=== PATIENT | male | born 1960 | race Caucasian/White ===

== ENCOUNTER 2016-10-09 16:45 | Inpatient (IN) | payer MEDICAID ==
[2016-10-09 17:46] LABS: Glucose,Whole Blood 288 mg/dL (75-99)
[2016-10-09] MEDS ORDERED: ONDANSETRON 4 MG/2 ML VIAL IVP PRN (18:22)
[2016-10-09] MEDS ORDERED: ALBUTEROL NEBULIZED 2.5 MG/3 ML INHALATION PRN (18:29)
--- NOTE | 2016-10-09 18:41 | XR ---
EXAMINATION TYPE: XR foot complete LT DATE OF EXAM: 10/09/2016 6:34 PM CLINICAL HISTORY: Left great toe ulcer. TECHNIQUE: Frontal, lateral, and oblique images of the left foot are obtained. COMPARISON: None FINDINGS: There is no acute fracture/dislocation evident in the left foot. The joint spaces in the left foot appear within normal limits. No suspicious cortical destruction or periosteal reaction is s een. Lucency consistent with ulceration along the medial plantar aspect of first interphalangeal join t is noted. IMPRESSION: There is soft tissue lesion or ulceration noted. There is no convincing radiographic ginny dence for acute osteomyelitis. If suspicion persists further investigation with 3 phase bone scan or MRI may be warranted.
[2016-10-09] MEDS: MORPHINE SULFATE 2 MG/ML SYRINGE IVP PRN (20:01)
[2016-10-09] MEDS: HEPARIN SODIUM,PORCINE 5,000 UNIT/ML 1 ML VIAL SQ SCH (20:01)
[2016-10-09] MEDS: AMPICILLIN-SULBACTAM 3 GM in SODIUM CHLORIDE 0.9% 100 ML IVPB SCH ×2 (20:01→23:11)
[2016-10-09 20:34] LABS: ALT 39 U/L (21-72); AST 19 U/L (17-59); Alkaline Phosphatase 58 U/L (38-126); Anion Gap 10 mmol/L; Blood Urea Nitrogen 8 mg/dL (9-20); C Reactive Protein 59.5 mg/L (<10.0); Carbon Dioxide 28 mmol/L (22-30); Chloride 98 mmol/L (98-107); Glucose 220 mg/dL (74-99); Non-African American GFR(MDRD) >60 (>60 ml/min/1.73 sqM); Potassium 4.4 mmol/L (3.5-5.1); Sodium 136 mmol/L (137-145); Total Bilirubin 0.4 mg/dL (0.2-1.3); Total Protein 6.6 g/dL (6.3-8.2)
[2016-10-09 21:04] LABS: Glucose,Whole Blood 193 mg/dL (75-99)
[2016-10-09] MEDS: CLOTRIMAZOLE/BETAMETH 1-0.05% CREAM 45 GM TUBE TOPICAL SCH (21:39)
[2016-10-09] MEDS: INSULIN LISPRO (humaLOG) 300 UNIT/3 ML VIAL SQ SCH (21:46)
[2016-10-09 23:38] LABS: Erythrocyte Sedimentation Rate 22 mm/hr (0-15)
[2016-10-10] MEDS: MORPHINE SULFATE 2 MG/ML SYRINGE IVP PRN ×4 (00:07→21:57)
[2016-10-10 00:51] LABS: Hemoglobin A1C 9.2 % (4.2-6.1)
[2016-10-10 01:18] LABS: Basophils # (A) 0.1 k/uL (0-0.2); Basophils % (A) 1 %; CH 27.1; CHCM 32.2; Eosinophils # (A) 0.3 k/uL (0-0.7); Eosinophils % (A) 5 %; HCT 40.8 % (39.0-53.0); HDW 2.45; HGB 13.3 gm/dL (13.0-17.5); Luc # (Auto) 0.15; Luc % (Auto) 3; Lymphocytes # (A) 1.3 k/uL (1.0-4.8); Lymphocytes % (A) 23 %; MCH 27.6 pg (25.0-35.0); MCHC 32.7 g/dL (31.0-37.0); MCV 84.5 fL (80.0-100.0); Mean Platelet Volume 7.4; Monocytes # (A) 0.7 k/uL (0-1.0); Monocytes % (A) 12 %; Neutrophils # (A) 3.3 k/uL (1.3-7.7); Neutrophils % (A) 57 %; RBC 4.83 m/uL (4.30-5.90); RDW 13.5 % (11.5-15.5); WBC 5.7 k/uL (3.8-10.6); WBC (Perox) 5.66
[2016-10-10] MEDS: AMPICILLIN-SULBACTAM 3 GM in SODIUM CHLORIDE 0.9% 100 ML IVPB SCH ×4 (05:30→23:03)
[2016-10-10 07:33] LABS: Glucose,Whole Blood 188 mg/dL (75-99)
[2016-10-10] MEDS: ACETAMINOPHEN TAB 325 MG TAB PO PRN (08:20)
[2016-10-10] MEDS: INSULIN LISPRO (humaLOG) 300 UNIT/3 ML VIAL SQ SCH ×4 (08:21→21:52)
[2016-10-10] MEDS: HEPARIN SODIUM,PORCINE 5,000 UNIT/ML 1 ML VIAL SQ SCH ×2 (08:23→21:51)
[2016-10-10] MEDS: CLOTRIMAZOLE/BETAMETH 1-0.05% CREAM 45 GM TUBE TOPICAL SCH ×2 (08:27→21:52)
[2016-10-10] MEDS ORDERED: LORATADINE 10 MG TAB PO SCH (09:00)
[2016-10-10] MEDS ORDERED: Magnesium Replacement Protocol 1 EACH MISC MISCELLANE PRN (10:00)
[2016-10-10] MEDS ORDERED: Potassium Replacement Protocol 1 EACH MISC MISCELLANE PRN (10:00)
[2016-10-10 11:35] LABS: Glucose,Whole Blood 259 mg/dL (75-99)
[2016-10-10] MEDS: COLLAGENASE 250 UNIT/GM OINTMENT 30 GM TUBE TOPICAL SCH (11:45)
--- NOTE | 2016-10-10 13:01 | P.HPIM ---
History of Present Illness H&P Date: 10/10/16 Chief Complaint: Infected diabetic ulcer This is a 56-year-old gentleman who was directly admitted from the wound care clinic for further evaluation of infected first left toe diabetic ulcer. Patient was diagnosed with type 2 diabetes in January when he initially presented with a left toe ulcer and since then he has been taking metformin and sliding scale insulin. Patient was evaluated by Dr. Quintero in the wound care clinic yesterday and was noted to have increased purulent drainage that failed outpatient management with oral antibiotic. Patient was directly admitted to the hospital. Repeat wound culture obtained. Patient was started on IV antibiotic and consultation for infectious disease requested. He said that his pain is relatively well-controlled now that he is receiving IV morphine. His dressing was changed today and I was unable to locate a stool at this point of time. He is feeling fairly well otherwise. Blood glucose remained not well controlled. Review of Systems Review of system: 14 points review of systems were obtained and were negative except to what were mentioned in the HPI. Past Medical History Past Medical History: Asthma, Diabetes Mellitus, Hypertension Additional Past Medical History / Comment(s): GOES TO [facility] EVERY SUNDAY-LT GREAT TOE INFECTION, CONSTIPATION.HEMORRHOIDS History of Any Multi-Drug Resistant Organisms: None Reported Past Surgical History: Appendectomy, Heart Catheterization, Hernia Repair, Orthopedic Surgery Additional Past Surgical History / Comment(s): RT ROATATOR CUFF SX, RT INGUINAL HERNIA,UMB HERNIA REPAIR Past Anesthesia/Blood Transfusion Reactions: No Reported Reaction Past Psychological History: No Psychological Hx Reported Additional Psychological History / Comment(s): PT LIVES WITH HIS MARGARETTE,IN A 2 STORY HOME THAT HAS 3 FRONT PORCH STEPS AND 12 STEPS TO GO UPSTAIRS.NO PETS. 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 NO SERVICE IN PAST. NO OUTSIDE SERVICES. NO MEDICAL EQUIPMENT. Smoking Status: Never smoker Past Alcohol Use History: None Reported Past Drug Use History: None Reported - Past Family History Father Family Medical History: Hypertension Mother Family Medical History: Asthma, COPD Medications and Allergies Home Medications Medication Instructions Recorded Confirmed Type Acetaminophen with Codeine 1 tab PO TID 09/01/16 10/09/16 History [Tylenol w/codeine #3] Albuterol Inhaler [Ventolin Hfa 1 - 2 puff INHALATION RT-Q4H PRN 09/01/16 History Inhaler] Cetirizine HCl 10 mg PO DAILY 09/01/16 10/09/16 History metFORMIN HCL 1,000 mg PO BID 09/01/16 10/09/16 History Clotrimazole/Betameth Cream 1 applic TOPICAL BID 10/09/16 10/09/16 History [Lotrisone] Insulin Aspart [NovoLOG] See Protocol SQ AC-TID 10/09/16 10/09/16 History Allergies Allergy/AdvReac Type Severity Reaction Status Date / Time ciprofloxacin [From Cipro] Allergy Unknown Verified 10/09/16 22:35 Physical Exam Vitals: Vital Signs Temp Pulse Pulse Resp BP Pulse Ox 10/10/16 07:00 100.3 F H 97 16 119/72 93 L 10/09/16 22:35 97.6 F 71 18 145/71 93 L 10/09/16 22:06 96 10/09/16 21:56 90 10/09/16 17:50 98.0 F 93 18 145/75 95 Intake and Output 10/09/16 10/10/16 10/10/16 22:59 06:59 14:59 Intake Total 440 Balance 440 Intake: Oral 440 Other: Voiding Method Toilet # Voids 0 2 # Bowel Movements 0 Weight 113 kg General: The patient is awake and alert, in no distress, and does not appear acutely ill. Eye: extra-ocular movements are intact; there is normal conjunctiva bilaterally. . Neck: The neck is supple, there is no tenderness or JVD. Cardiovascular: Normal S1-S2, no S3-S4, no murmurs. Respiratory: Lungs clear to auscultation bilaterally with no wheezes rhonchi or rales. Gastrointestinal: Abdomen is soft, nontender, nondistended, with no organomegaly. . Musculoskeletal: Please refer to nursing staff documentation for description of the wound involving the left big toe Neurological: There are no obvious motor or sensory deficits. Speech is normal. Skin: Skin is warm and dry and no rashes or lesions are noted. Results CBC & Chem 7: 10/09/16 19:54 10/09/16 19:54 Labs: Abnormal Lab Results - Last 24 Hours (Table) 10/09/16 10/09/16 10/09/16 Range/Units 17:44 19:54 19:54 ESR 22 H (0-15) mm/hr Sodium 136 L (137-145) mmol/L BUN 8 L (9-20) mg/dL Creatinine 0.50 L (0.66-1.25) mg/dL Glucose 220 H (74-99) mg/dL POC Glucose (mg/dL) 288 H (75-99) mg/dL Hemoglobin A1c (4.2-6.1) % C-Reactive Protein 59.5 H (<10.0) mg/L 10/09/16 10/09/16 10/10/16 Range/Units 19:54 21:02 07:16 ESR (0-15) mm/hr Sodium (137-145) mmol/L BUN (9-20) mg/dL Creatinine (0.66-1.25) mg/dL Glucose (74-99) mg/dL POC Glucose (mg/dL) 193 H 188 H (75-99) mg/dL Hemoglobin A1c 9.2 H (4.2-6.1) % C-Reactive Protein (<10.0) mg/L 10/10/16 Range/Units 11:33 ESR (0-15) mm/hr Sodium (137-145) mmol/L BUN (9-20) mg/dL Creatinine (0.66-1.25) mg/dL Glucose (74-99) mg/dL POC Glucose (mg/dL) 259 H (75-99) mg/dL Hemoglobin A1c (4.2-6.1) % C-Reactive Protein (<10.0) mg/L Microbiology - Last 24 Hours (Table) 10/09/16 22:30 Anaerobic Culture - Preliminary Toe - Left First 10/09/16 22:30 Wound Culture - Preliminary Toe - Left First Thrombosis Risk Factor Assmnt - Choose All That Apply Any of the Below Risk Factors Present?: Yes Each Factor Represents 1 point: Age 41-60 years, Obesity (BMI >25) Other Risk Factors: No Other congenital or acquired thrombophilia - If yes, enter type in comment: No Thrombosis Risk Factor Assessment Total Risk Factor Score: 2 Thrombosis Risk Factor Assessment Level: Low Risk Assessment and Plan Plan: 1. Infected diabetic ulcer of the left foot: Currently on broad-spectrum IV antibiotic. Previously growing MSSA. Awaiting Dr. Quintero evaluation and recommendation if any surgical intervention is required. Repeat cultures obtained. Infectious disease following for antibiotic management. Appreciate recommendations. 2. Type 2 diabetes mellitus: Not well controlled. A1c 9.1. Started on Lantus 12 units at bedtime. Continue sliding scale insulin. Hold oral agents during this hospitalization. 3. Chronic ALLERGIC rhinitis 4. GI and DVT prophylaxis Today, I reviewed his medication list and lab work result. Continue current regimen. Continue supportive care otherwise. Repeat lab work in the morning.
--- NOTE | 2016-10-10 14:02 | P.GSCN ---
History of Present Illness History of present illness: 56 old white male, patient has been coming to the wound clinic for a Robles grade 3 ulcer left foot big toe we've been treating with the local wound care and antibiotic patient came yesterday to the wound clinic with the redness and pain in his left foot big toe patient has been admitted for IV antibiotic patient has history of diabetes type 2 1 patient had a MRI of the bone which showed no evidence of osteomyelitis. Previous culture shows staph aureus at this point patient is on vancomycin and Unasyn Medical history history of hypertension, eczema, diabetes, Surgical history patient had appendectomy done in the past and also had a hernia repair done in the past On examination neck is supple no bruit appreciated Chest clear auscultation first and second sound is normal Vascular examination brachial radial and femoral pulses are present patient had a left foot big toe with regular grade 3 ulcer there is a redness noted on the dorsum aspect of the big toe and it there is a open wound on the plantar aspect of the big toe Plan is patient is on IV antibiotic, started on central cream we will continue with IV antibiotic I have discussed with the patient and we will treat if infection controlled by antibiotic otherwise he will end up with toe amputation Past Medical History Past Medical History: Asthma, Diabetes Mellitus, Hypertension Additional Past Medical History / Comment(s): GOES TO [facility] EVERY SUNDAY-LT GREAT TOE INFECTION, CONSTIPATION.HEMORRHOIDS History of Any Multi-Drug Resistant Organisms: None Reported Past Surgical History: Appendectomy, Heart Catheterization, Hernia Repair, Orthopedic Surgery Additional Past Surgical History / Comment(s): RT ROATATOR CUFF SX, RT INGUINAL HERNIA,UMB HERNIA REPAIR Past Anesthesia/Blood Transfusion Reactions: No Reported Reaction Past Psychological History: No Psychological Hx Reported Additional Psychological History / Comment(s): PT LIVES WITH HIS MARGARETTE,IN A 2 STORY HOME THAT HAS 3 FRONT PORCH STEPS AND 12 STEPS TO GO UPSTAIRS.NO PETS. 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 NO SERVICE IN PAST. NO OUTSIDE SERVICES. NO MEDICAL EQUIPMENT. Smoking Status: Never smoker Past Alcohol Use History: None Reported Past Drug Use History: None Reported - Past Family History Father Family Medical History: Hypertension Mother Family Medical History: Asthma, COPD Medications and Allergies Home Medications Medication Instructions Recorded Confirmed Type Acetaminophen with Codeine 1 tab PO TID 09/01/16 10/09/16 History [Tylenol w/codeine #3] Albuterol Inhaler [Ventolin Hfa 1 - 2 puff INHALATION RT-Q4H PRN 09/01/16 History Inhaler] Cetirizine HCl 10 mg PO DAILY 09/01/16 10/09/16 History metFORMIN HCL 1,000 mg PO BID 09/01/16 10/09/16 History Clotrimazole/Betameth Cream 1 applic TOPICAL BID 10/09/16 10/09/16 History [Lotrisone] Insulin Aspart [NovoLOG] See Protocol SQ AC-TID 10/09/16 10/09/16 History Allergies Allergy/AdvReac Type Severity Reaction Status Date / Time ciprofloxacin [From Cipro] Allergy Unknown Verified 10/09/16 22:35 Surgical - Exam Vital Signs Temp Pulse Resp BP Pulse Ox 98.0 F 93 18 145/75 95 10/09/16 17:50 10/09/16 17:50 10/09/16 17:50 10/09/16 17:50 10/09/16 17:50 Results - Labs 10/09/16 19:54 10/09/16 19:54 Abnormal Lab Results - Last 24 Hours (Table) 10/09/16 10/09/16 10/09/16 Range/Units 17:44 19:54 19:54 ESR 22 H (0-15) mm/hr Sodium 136 L (137-145) mmol/L BUN 8 L (9-20) mg/dL Creatinine 0.50 L (0.66-1.25) mg/dL Glucose 220 H (74-99) mg/dL POC Glucose (mg/dL) 288 H (75-99) mg/dL Hemoglobin A1c (4.2-6.1) % C-Reactive Protein 59.5 H (<10.0) mg/L 10/09/16 10/09/16 10/10/16 Range/Units 19:54 21:02 07:16 ESR (0-15) mm/hr Sodium (137-145) mmol/L BUN (9-20) mg/dL Creatinine (0.66-1.25) mg/dL Glucose (74-99) mg/dL POC Glucose (mg/dL) 193 H 188 H (75-99) mg/dL Hemoglobin A1c 9.2 H (4.2-6.1) % C-Reactive Protein (<10.0) mg/L 10/10/16 Range/Units 11:33 ESR (0-15) mm/hr Sodium (137-145) mmol/L BUN (9-20) mg/dL Creatinine (0.66-1.25) mg/dL Glucose (74-99) mg/dL POC Glucose (mg/dL) 259 H (75-99) mg/dL Hemoglobin A1c (4.2-6.1) % C-Reactive Protein (<10.0) mg/L Microbiology - Last 24 Hours (Table) 10/09/16 22:30 Anaerobic Culture - Preliminary Toe - Left First 10/09/16 22:30 Wound Culture - Preliminary Toe - Left First Diabetes panel 10/09/16 10/09/16 Range/Units 19:54 19:54 Sodium 136 L (137-145) mmol/L Potassium 4.4 (3.5-5.1) mmol/L Chloride 98 (98-107) mmol/L Carbon Dioxide 28 (22-30) mmol/L BUN 8 L (9-20) mg/dL Creatinine 0.50 L (0.66-1.25) mg/dL Glucose 220 H (74-99) mg/dL Hemoglobin A1c 9.2 H (4.2-6.1) % Calcium 9.0 (8.4-10.2) mg/dL AST 19 (17-59) U/L ALT 39 (21-72) U/L Alkaline Phosphatase 58 (38-126) U/L Total Protein 6.6 (6.3-8.2) g/dL Albumin 3.7 (3.5-5.0) g/dL Calcium panel 10/09/16 Range/Units 19:54 Calcium 9.0 (8.4-10.2) mg/dL Albumin 3.7 (3.5-5.0) g/dL Pituitary panel 10/09/16 Range/Units 19:54 Sodium 136 L (137-145) mmol/L Potassium 4.4 (3.5-5.1) mmol/L Chloride 98 (98-107) mmol/L Carbon Dioxide 28 (22-30) mmol/L BUN 8 L (9-20) mg/dL Creatinine 0.50 L (0.66-1.25) mg/dL Glucose 220 H (74-99) mg/dL Calcium 9.0 (8.4-10.2) mg/dL Adrenal panel 10/09/16 Range/Units 19:54 Sodium 136 L (137-145) mmol/L Potassium 4.4 (3.5-5.1) mmol/L Chloride 98 (98-107) mmol/L Carbon Dioxide 28 (22-30) mmol/L BUN 8 L (9-20) mg/dL Creatinine 0.50 L (0.66-1.25) mg/dL Glucose 220 H (74-99) mg/dL Calcium 9.0 (8.4-10.2) mg/dL Total Bilirubin 0.4 (0.2-1.3) mg/dL AST 19 (17-59) U/L ALT 39 (21-72) U/L Alkaline Phosphatase 58 (38-126) U/L Total Protein 6.6 (6.3-8.2) g/dL Albumin 3.7 (3.5-5.0) g/dL
[2016-10-10 14:22] VITALS: BMI 34.7
[2016-10-10] MEDS ORDERED: IV VANCOMYCIN PER PHARMACY 1 EACH MISC MISCELLANE PRN (15:03)
[2016-10-10] MEDS: VANCOMYCIN 1,750 MG in SODIUM CHLORIDE 0.9% 250 ML IVPB SCH (15:40)
[2016-10-10 17:11] LABS: Glucose,Whole Blood 248 mg/dL (75-99)
[2016-10-10] MEDS: Acetaminophen-Codeine 300-30mg TAB PO PRN (18:18)
[2016-10-10] MEDS: CETIRIZINE 10 MG TABLET PO SCH (18:24)
--- NOTE | 2016-10-10 20:08 | CONS ---
DATE OF CONSULTATION: 10/10/2016 REASON FOR CONSULTATION: Left big toe infection. HISTORY OF PRESENT ILLNESS: The patient is a 56-year-old male who has been dealing with a non-healing wound to his left big toe for a couple of months now. 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 He has been seeing Dr. Quintero in the wound care center for about a month now. The patient did mention that his wound was healing well; however, over the weekend the area became more swollen, more red, and it did have some drainage. The patient did have a followup with Dr. Quintero in the wound care center yesterday. He was noticed to have significant cellulitis; hence the patient was advised admission to the hospital. Patient did have x-rays which did not show any bony changes. The patient also had an MRI done in the middle of last month that was negative for any osteomyelitis. Patient has been started on Unasyn. He did have wound cultures done at this facility as an outpatient on September 11 that grew Enterococcus faecalis, anaerobic Gram-positive cocci, MSSA and Streptococcus agalactiae. Patient has been on Unasyn. He did spike a fever of 100.8 this morning, though. The patient denies significant chest pain or shortness of breath or cough. The patient denies having any abdominal pain. No diarrhea. He did have some dull pain to the toe 2-3/10 and no radiation. REVIEW OF SYSTEMS: CONSTITUTIONAL: Positive for weakness and chills. EYES: No complaint. ENT: No complaint. RESPIRATORY: No complaint. CARDIOVASCULAR: No complaint. GENITOURINARY: No complaint. GASTROINTESTINAL: No complaint. MUSCULOSKELETAL: As per HPI. INTEGUMENTARY: As per HPI. PSYCHOLOGICAL: No complaint. ENDOCRINE: No complaint. NEUROLOGICAL: No complaint. Past medical history is significant for: 1. Diabetes mellitus. 2. Hypertension. 3. Asthma. 4. Non-healing wound to the left big toe. PAST SURGICAL HISTORY: 1. Heart catheterization. 2. Hernia repair. 3. Right rotator cuff surgery. 4. Right inguinal hernia repair. 5. Appendectomy. SOCIAL HISTORY: No history of smoking, drinking or drug use. FAMILY HISTORY: Father with history of hypertension. Mother with history of COPD and asthma ALLERGIES: CIPROFLOXACIN. Medications currently include: 1. Tylenol. 2. Unasyn 3 grams q.6. 3. Lotrisone. 4. Santyl. 5. Heparin. 6. Lantus. 7. Humalog. 8. Cetirizine. On examination, blood pressure is 119/72 with a pulse of 97, temperature of 100.3. He is 93% on room air. General description is a middle-aged male lying in bed in no distress. HEENT examination shows no pallor or scleral icterus. Oral mucous membrane is dry. NECK: Trachea is central. No thyromegaly. LUNGS: Unlabored breathing. Clear to auscultation anteriorly. HEART: S1, S2. Regular rate and rhythm. ABDOMEN: Soft. No tenderness. EXTREMITIES: No edema of feet. EXAMINATION OF THE LEFT BIG TOE: Swollen and red with a wound on the medial border with some swelling and callus formation. No drainage. NEUROLOGICAL: Patient is awake, alert, oriented x3. Mood and affect normal. LABS: Hemoglobin is 13.3, white count 5.7. BUN of 8, creatinine 0.50. Electrolytes have been normal. Liver enzymes are normal. Wound culture currently pending. Blood cultures are pending. Cultures from 09/11 with multiple pathogens. DIAGNOSTIC IMPRESSION AND PLAN: Patient with a left diabetic foot infection with a non-healing wound to the big toe area. Previous culture with evidence of enterococcus and anaerobic. He has been on Unasyn; still has a fever. We need to cover for the more resistant Gram-positive. The wound does not look that deep; however, wound donot down to the bone. X-ray did not show any bony changes. He also had an MRI done as an outpatient about 2 weeks ago with no evidence of any osteomyelitis. PLAN: 1. Will add vancomycin, Pharmacy to dose, with a target of 15, and continue patient on Unasyn while waiting for the culture to finalize. 2. Continue local wound care with Santyl . 3. Will follow up on his clinical condition and cultures to further adjust medication if needed. Thank you for this consultation. Will follow this patient along with you. BASHIR
[2016-10-10] MEDS ORDERED: INSULIN GLARGINE 100 UNIT/ML 10 ML VIAL SQ SCH (21:00)
[2016-10-10 21:20] LABS: Glucose,Whole Blood 242 mg/dL (75-99)
[2016-10-11] MEDS: VANCOMYCIN 1,750 MG in SODIUM CHLORIDE 0.9% 250 ML IVPB SCH ×3 (00:08→17:38)
[2016-10-11] MEDS: AMPICILLIN-SULBACTAM 3 GM in SODIUM CHLORIDE 0.9% 100 ML IVPB SCH ×4 (05:12→23:26)
[2016-10-11] MEDS: Acetaminophen-Codeine 300-30mg TAB PO PRN ×2 (05:15→22:30)
[2016-10-11] MEDS: INSULIN LISPRO (humaLOG) 300 UNIT/3 ML VIAL SQ SCH ×4 (07:34→22:19)
[2016-10-11 07:49] LABS: Glucose,Whole Blood 192 mg/dL (75-99)
[2016-10-11] MEDS: HEPARIN SODIUM,PORCINE 5,000 UNIT/ML 1 ML VIAL SQ SCH ×3 (08:25→22:18)
[2016-10-11] MEDS: COLLAGENASE 250 UNIT/GM OINTMENT 30 GM TUBE TOPICAL SCH (08:26)
[2016-10-11] MEDS: CLOTRIMAZOLE/BETAMETH 1-0.05% CREAM 45 GM TUBE TOPICAL SCH ×2 (08:26→22:18)
[2016-10-11 10:28] LABS: Basophils % (A) 1 %; CH 27.1; CHCM 31.2; Eosinophils # (A) 0.2 k/uL (0-0.7); Eosinophils % (A) 2 %; HCT 40.6 % (39.0-53.0); HDW 2.42; HGB 12.8 gm/dL (13.0-17.5); Hypochromasia Slight; Luc # (Auto) 0.26; Luc % (Auto) 4; Lymphocytes # (A) 1.3 k/uL (1.0-4.8); Lymphocytes % (A) 21 %; MCH 27.4 pg (25.0-35.0); MCHC 31.4 g/dL (31.0-37.0); MCV 87.2 fL (80.0-100.0); Mean Platelet Volume 6.8; Monocytes # (A) 0.5 k/uL (0-1.0); Monocytes % (A) 9 %; Neutrophils # (A) 3.9 k/uL (1.3-7.7); Neutrophils % (A) 63 %; RBC 4.65 m/uL (4.30-5.90); RDW 13.4 % (11.5-15.5); WBC 6.2 k/uL (3.8-10.6); WBC (Perox) 6.29
[2016-10-11 11:15] LABS: ALT 32 U/L (21-72); AST 16 U/L (17-59); Alkaline Phosphatase 54 U/L (38-126); Anion Gap 10 mmol/L; Blood Urea Nitrogen 11 mg/dL (9-20); Carbon Dioxide 25 mmol/L (22-30); Chloride 99 mmol/L (98-107); Glucose 313 mg/dL (74-99); Magnesium 1.8 mg/dL (1.6-2.3); Non-African American GFR(MDRD) >60 (>60 ml/min/1.73 sqM); Potassium 4.4 mmol/L (3.5-5.1); Sodium 134 mmol/L (137-145); Total Bilirubin 0.6 mg/dL (0.2-1.3); Total Protein 6.7 g/dL (6.3-8.2)
[2016-10-11] MEDS: ACETAMINOPHEN TAB 325 MG TAB PO PRN (11:43)
[2016-10-11 11:48] LABS: Glucose,Whole Blood 226 mg/dL (75-99)
--- NOTE | 2016-10-11 13:04 | P.PN ---
Subjective Patient is doing fairly well today. He is rating his pain as 5 out of 10. No events overnight. Objective - Vital Signs Vital signs: Vital Signs Temp 96.7 F L 10/11/16 07:00 Pulse 77 10/11/16 07:00 Resp 20 10/11/16 07:00 BP 141/88 10/11/16 07:00 Pulse Ox 94 L 10/11/16 07:00 Intake & Output 10/10/16 10/11/16 10/11/16 18:59 06:59 18:59 Intake Total 1200 240 240 Balance 1200 240 240 Weight 113 kg Intake: Oral 1200 240 240 Other: Voiding Method Toilet Toilet Toilet # Voids 2 1 # Bowel Movements 0 - Exam General: The patient is awake and alert, in no distress Eye: there is normal conjunctiva bilaterally. Neck: The neck is supple, there is no JVD. Cardiovascular: Normal S1-S2, no S3-S4, no murmurs. Respiratory: Lungs clear to auscultation bilaterally Gastrointestinal: Abdomen is soft, nontender Musculoskeletal: There is no pedal edema. Neurological:. Speech is normal. Skin: Skin is warm and dry - Labs CBC & Chem 7: 10/11/16 09:53 10/11/16 09:53 Labs: Abnormal Lab Results - Last 24 Hours (Table) 10/10/16 10/10/16 10/11/16 Range/Units 16:58 21:15 07:28 Hgb (13.0-17.5) gm/dL Sodium (137-145) mmol/L Creatinine (0.66-1.25) mg/dL Glucose (74-99) mg/dL POC Glucose (mg/dL) 248 H 242 H 192 H (75-99) mg/dL AST (17-59) U/L 10/11/16 10/11/16 10/11/16 Range/Units 09:53 09:53 11:33 Hgb 12.8 L (13.0-17.5) gm/dL Sodium 134 L (137-145) mmol/L Creatinine 0.61 L (0.66-1.25) mg/dL Glucose 313 H (74-99) mg/dL POC Glucose (mg/dL) 226 H (75-99) mg/dL AST 16 L (17-59) U/L Microbiology - Last 24 Hours (Table) 10/09/16 22:30 Gram Stain - Preliminary Toe - Left First Wound Culture - Preliminary Presumptive Staph aureus 10/09/16 19:42 Blood Culture - Preliminary Blood No Growth after 24 hours 10/09/16 19:54 Blood Culture - Preliminary Blood No Growth after 24 hours 10/09/16 22:30 Anaerobic Culture - Preliminary Toe - Left First Assessment and Plan Plan: 1. Infected diabetic ulcer of the left foot: Currently on broad-spectrum IV antibiotic. Previously growing MSSA. seen and evaluated by Dr. Quintero. Plan for IV antibiotic treatment with possible surgical intervention in the near future if no improvement. Infectious disease following for antibiotic management. Appreciate recommendations. 2. Type 2 diabetes mellitus: Not well controlled. A1c 9.1. increase Lantus dose to 16 units at bedtime. as glipizide 5 mg twice daily before meals. Continue sliding scale insulin. Hold metformin during this hospitalization. 3. Chronic ALLERGIC rhinitis 4. GI and DVT prophylaxis Today, I reviewed his medication list and lab work result. Continue current regimen. Continue supportive care otherwise. Repeat lab work in the morning.
[2016-10-11] MEDS ORDERED: VANCOMYCIN TROUGH DUE 1 EACH MISC MISCELLANE ONE (15:00)
[2016-10-11 17:22] LABS: Glucose,Whole Blood 224 mg/dL (75-99)
--- NOTE | 2016-10-11 17:22 | P.PN ---
Progress Note - Text 56 old diabetic male, patient has a left foot big to infection and marked cellulitis of the dorsal aspect of the foot patient put on IV antibiotic MRI showed no osteomyelitis patient to examine today there is less redness last discharge plan is continue with IV antibiotic most likely patient will go home on the weekend and we'll follow in the wound clinic
[2016-10-11] MEDS: glipiZIDE 5 MG TAB PO SCH (17:36)
[2016-10-11] MEDS: CETIRIZINE 10 MG TABLET PO SCH (17:43)
--- NOTE | 2016-10-11 20:02 | PN ---
DATE OF SERVICE: 10/11/2016 REASON FOR FOLLOWUP: Left big toe wound infection with cellulitis. INTERVAL HISTORY: The patient is afebrile, has been feeling slightly better. Patient currently denies any significant chest pain, shortness of breath or cough. No abdominal pain or any pain in his big toe area. Did mention overall swelling and redness have improved. On examination, blood pressure is 141/80 with a pulse of 71, temperature of 96. He is 96% on room air. General description is a middle-aged male up in the room in no distress. RESPIRATORY SYSTEM: Unlabored breathing. Clear to auscultation anteriorly. HEART: S1, S2. Regular rate and rhythm. ABDOMEN: Soft. No tenderness. Left big toe is currently dressed up. No obvious drainage on the dressing. LABS: Hemoglobin is 12.3, white count 6.2 with a BUN of 11, creatinine 0.61. Wound cultures showing presumptive Staphylococcus aureus. DIAGNOSTIC IMPRESSION AND PLAN: Patient with left big toe diabetic foot infection with secondary cellulitis. Patient is on Unasyn and vancomycin while waiting for the culture to finalize. Continue local care wound to big toe wound. Continue supportive care. MTDD
[2016-10-11] MEDS: MORPHINE SULFATE 2 MG/ML SYRINGE IVP PRN (20:13)
[2016-10-11 21:07] LABS: Glucose,Whole Blood 182 mg/dL (75-99)
[2016-10-11] MEDS: INSULIN GLARGINE 100 UNIT/ML 10 ML VIAL SQ SCH (22:18)
[2016-10-12] MEDS: MORPHINE SULFATE 2 MG/ML SYRINGE IVP PRN ×2 (00:56→09:29)
[2016-10-12] MEDS: VANCOMYCIN 2,000 MG in SODIUM CHLORIDE 0.9% 500 ML IVPB SCH ×2 (00:57→08:09)
[2016-10-12] MEDS: AMPICILLIN-SULBACTAM 3 GM in SODIUM CHLORIDE 0.9% 100 ML IVPB SCH ×3 (06:08→17:23)
[2016-10-12 07:45] LABS: Glucose,Whole Blood 154 mg/dL (75-99)
[2016-10-12] MEDS: glipiZIDE 5 MG TAB PO SCH ×2 (08:08→17:24)
[2016-10-12] MEDS: INSULIN LISPRO (humaLOG) 300 UNIT/3 ML VIAL SQ SCH ×6 (08:08→21:53)
[2016-10-12] MEDS: HEPARIN SODIUM,PORCINE 5,000 UNIT/ML 1 ML VIAL SQ SCH ×2 (08:09→21:52)
[2016-10-12 08:54] LABS: Basophils # (A) 0.1 k/uL (0-0.2); Basophils % (A) 1 %; CH 27.1; CHCM 31.5; Eosinophils # (A) 0.3 k/uL (0-0.7); Eosinophils % (A) 4 %; HCT 43.5 % (39.0-53.0); HGB 13.8 gm/dL (13.0-17.5); Luc # (Auto) 0.21; Luc % (Auto) 3; Lymphocytes # (A) 1.8 k/uL (1.0-4.8); Lymphocytes % (A) 27 %; MCH 27.6 pg (25.0-35.0); MCHC 31.8 g/dL (31.0-37.0); MCV 86.7 fL (80.0-100.0); Mean Platelet Volume 7.2; Monocytes # (A) 0.5 k/uL (0-1.0); Monocytes % (A) 7 %; Neutrophils # (A) 4.1 k/uL (1.3-7.7); Neutrophils % (A) 59 %; RBC 5.02 m/uL (4.30-5.90); RDW 13.4 % (11.5-15.5); WBC (Perox) 7.11
[2016-10-12 09:10] LABS: ALT 35 U/L (21-72); AST 17 U/L (17-59); Alkaline Phosphatase 63 U/L (38-126); Anion Gap 11 mmol/L; Blood Urea Nitrogen 9 mg/dL (9-20); Calcium 9.1 mg/dL (8.4-10.2); Carbon Dioxide 30 mmol/L (22-30); Chloride 98 mmol/L (98-107); Glucose 278 mg/dL (74-99); Magnesium 1.9 mg/dL (1.6-2.3); Non-African American GFR(MDRD) >60 (>60 ml/min/1.73 sqM); Potassium 3.8 mmol/L (3.5-5.1); Sodium 139 mmol/L (137-145); Total Bilirubin 0.8 mg/dL (0.2-1.3); Total Protein 7.4 g/dL (6.3-8.2)
[2016-10-12 11:59] LABS: Glucose,Whole Blood 198 mg/dL (75-99)
[2016-10-12] MEDS: CLOTRIMAZOLE/BETAMETH 1-0.05% CREAM 45 GM TUBE TOPICAL SCH (12:51)
[2016-10-12] MEDS: COLLAGENASE 250 UNIT/GM OINTMENT 30 GM TUBE TOPICAL SCH (12:51)
[2016-10-12] MEDS: Acetaminophen-Codeine 300-30mg TAB PO PRN ×2 (13:05→21:51)
--- NOTE | 2016-10-12 13:29 | P.PN ---
Subjective Patient is doing well today. Pain is not well controlled with Tylenol 3 every 8 hours and patient was still requiring IV morphine. No issues otherwise. Objective - Vital Signs Vital signs: Vital Signs Temp 97.7 F 10/12/16 07:00 Pulse 65 10/12/16 07:00 Resp 20 10/12/16 08:00 BP 140/84 10/12/16 07:00 Pulse Ox 96 10/12/16 07:00 Intake & Output 10/11/16 10/12/16 10/12/16 18:59 06:59 18:59 Intake Total 960 240 Balance 960 240 Intake: Oral 960 240 Other: Voiding Method Toilet Toilet Toilet # Voids 2 2 - Exam General: The patient is awake and alert, in no distress Eye: there is normal conjunctiva bilaterally. Neck: The neck is supple, there is no JVD. Cardiovascular: Normal S1-S2, no S3-S4, no murmurs. Respiratory: Lungs clear to auscultation bilaterally Gastrointestinal: Abdomen is soft, nontender Musculoskeletal: There is no pedal edema. Neurological:. Speech is normal. Skin: Skin is warm and dry - Labs CBC & Chem 7: 10/12/16 08:40 10/12/16 08:40 Labs: Abnormal Lab Results - Last 24 Hours (Table) 10/11/16 10/11/16 10/12/16 Range/Units 17:15 21:05 07:14 Creatinine (0.66-1.25) mg/dL Glucose (74-99) mg/dL POC Glucose (mg/dL) 224 H 182 H 154 H (75-99) mg/dL 10/12/16 10/12/16 Range/Units 08:40 11:44 Creatinine 0.56 L (0.66-1.25) mg/dL Glucose 278 H (74-99) mg/dL POC Glucose (mg/dL) 198 H (75-99) mg/dL Microbiology - Last 24 Hours (Table) 10/09/16 22:30 Gram Stain - Final Toe - Left First Wound Culture - Final Staphylococcus aureus Strep agalactiae - (group b) 10/09/16 19:42 Blood Culture - Preliminary Blood No Growth after 48 hours 10/09/16 19:54 Blood Culture - Preliminary Blood No Growth after 48 hours Assessment and Plan Plan: 1. Infected diabetic ulcer of the left foot: Currently on broad-spectrum IV antibiotic. Previously growing MSSA. seen and evaluated by Dr. Quintero. Plan for 1 more day of IV antibiotic and transitioned to oral tomorrow. No surgical intervention planned at this time. Follow-up with wound care clinic as directed. 2. Type 2 diabetes mellitus: Not well controlled. A1c 9.1. increase Lantus dose to 16 units at bedtime. added glipizide 5 mg twice daily before meals. Humalog 4 units before each meal with sliding scale. Hold metformin during this hospitalization, resume when discharged. 3. Chronic ALLERGIC rhinitis 4. GI and DVT prophylaxis Today, I reviewed his medication list and lab work result. Continue current regimen. Continue supportive care otherwise. Repeat lab work in the morning.
--- NOTE | 2016-10-12 16:58 | PN ---
DATE OF SERVICE: 10/12/2016 Reason for follow-up is left big toe cellulitis. INTERVAL HISTORY: The patient is afebrile. He has been breathing comfortably. Denies significant chest pain, shortness of breath. No cough or abdominal pain. Left big toe overall swelling and redness have improved. No drainage. On examination, blood pressure 140/84 with a pulse of 55, temperature 97.7. He is 96% on room air. General description is a middle-age male lying in bed in no distress. RESPIRATORY SYSTEM: Unlabored breathing. Clear to auscultation anteriorly. HEART: S1, S2. Regular rate and rhythm. ABDOMEN: Soft, no tenderness. Left big toe swelling and redness has improved. LABS: Hemoglobin is 13.8, white count 7.0 with a BUN of 9, creatinine 0.56. Wound cultures with streptococcus agalactiae and MSSA. DIAGNOSTIC IMPRESSION AND PLAN: Patient with left big toe cellulitis with diabetic foot infection. Overall wound seems to be closing up. No evidence of any osteomyelitis clinically. Antibiotics will continue in the form of Unasyn. Discontinue vancomycin. Plan to finish therapy with p.o. Keflex 500 mg q.6h for 2 weeks with outpatient follow-up. Continue supportive care.
[2016-10-12 17:00] LABS: Glucose,Whole Blood 137 mg/dL (75-99)
[2016-10-12] MEDS: CETIRIZINE 10 MG TABLET PO SCH (17:24)
[2016-10-12 21:11] LABS: Glucose,Whole Blood 151 mg/dL (75-99)
[2016-10-12] MEDS: INSULIN GLARGINE 100 UNIT/ML 10 ML VIAL SQ SCH (21:52)
[2016-10-12 23:00] VITALS: TEMP 98
[2016-10-13] MEDS ORDERED: AMPICILLIN-SULBACTAM 3 GM VIAL ONE (00:25)
[2016-10-13] MEDS ORDERED: MORPHINE SULFATE 2 MG/ML SYRINGE ONE (00:25)
[2016-10-13] MEDS ORDERED: SODIUM CHLORIDE 0.9% 100 ML BAG ONE (00:25)
[2016-10-13] MEDS: AMPICILLIN-SULBACTAM 3 GM in SODIUM CHLORIDE 0.9% 100 ML IVPB SCH ×3 (06:07→12:33)
[2016-10-13] MEDS ORDERED: VANCOMYCIN TROUGH DUE 1 EACH MISC MISCELLANE ONE (07:00)
[2016-10-13 07:29] LABS: Basophils % (A) 1 %; CH 27.2; CHCM 32.7; Eosinophils # (A) 0.3 k/uL (0-0.7); Eosinophils % (A) 5 %; HCT 37.9 % (39.0-53.0); HDW 2.66; HGB 12.5 gm/dL (13.0-17.5); Luc % (Auto) 4; Lymphocytes # (A) 1.8 k/uL (1.0-4.8); Lymphocytes % (A) 32 %; MCH 27.5 pg (25.0-35.0); MCHC 32.9 g/dL (31.0-37.0); MCV 83.6 fL (80.0-100.0); Mean Platelet Volume 7.3; Monocytes # (A) 0.4 k/uL (0-1.0); Monocytes % (A) 8 %; Neutrophils # (A) 2.9 k/uL (1.3-7.7); Neutrophils % (A) 51 %; RBC 4.53 m/uL (4.30-5.90); WBC 5.7 k/uL (3.8-10.6); WBC (Perox) 5.98
[2016-10-13] MEDS: glipiZIDE 5 MG TAB PO SCH (07:31)
[2016-10-13] MEDS: HEPARIN SODIUM,PORCINE 5,000 UNIT/ML 1 ML VIAL SQ SCH (07:32)
[2016-10-13] MEDS: INSULIN LISPRO (humaLOG) 300 UNIT/3 ML VIAL SQ SCH ×4 (07:32→12:33)
[2016-10-13] MEDS: Acetaminophen-Codeine 300-30mg TAB PO PRN (07:33)
[2016-10-13 07:35] LABS: Glucose,Whole Blood 129 mg/dL (75-99)
[2016-10-13 07:57] VITALS: BP 116/66; PULSE 65; RESP 20
[2016-10-13 08:36] LABS: ALT 39 U/L (21-72); AST 17 U/L (17-59); Alkaline Phosphatase 52 U/L (38-126); Anion Gap 9 mmol/L; Blood Urea Nitrogen 10 mg/dL (9-20); Carbon Dioxide 30 mmol/L (22-30); Chloride 103 mmol/L (98-107); Glucose 137 mg/dL (74-99); Magnesium 2.1 mg/dL (1.6-2.3); Non-African American GFR(MDRD) >60 (>60 ml/min/1.73 sqM); Potassium 4.2 mmol/L (3.5-5.1); Sodium 142 mmol/L (137-145); Total Bilirubin 0.6 mg/dL (0.2-1.3); Total Protein 6.5 g/dL (6.3-8.2)
--- NOTE | 2016-10-13 11:06 | P.DS ---
Providers Date of admission: 10/09/16 17:03 Expected date of discharge: 10/13/16 Attending physician: Zahra Guzman Consults: 10/09/16 18:19 Consult Physician Routine Consulting Provider: Lawson Quintero Consult Reason/Comments: left toe ulcer Do you want consulting provider notified?: Yes 10/09/16 18:20 Consult Physician Routine Consulting Provider: Jai Galdamez Consult Reason/Comments: left toe ulcer Do you want consulting provider notified?: Yes Primary care physician: [facility] Course: This is a very pleasant 56-year-old gentleman with past medical history noted below who was directly admitted to the hospital from the wound care clinic for further evaluation of infected left foot diabetic ulcer. She was seen and evaluated by vascular surgery and infectious disease. Below is a list of his medical problems addressed during this hospitalization. Patient will be discharged home in a stable condition. He will follow-up with me in the office as scheduled. 1. Infected diabetic ulcer of the left foot: Plan to finish 10 days course of Keflex. Previously growing MSSA. seen and evaluated by Dr. Quintero. No surgical intervention planned at this time. Follow-up with wound care clinic as directed. 2. Type 2 diabetes mellitus: Not well controlled. A1c 9.1. increase Lantus dose to 16 units at bedtime. added glipizide 5 mg twice daily before meals. Humalog 4 units before each meal with sliding scale. Hold metformin during this hospitalization, resume when discharged. 3. Chronic ALLERGIC rhinitis Plan - Discharge Summary New Discharge Prescriptions: Cephalexin [Keflex] 500 mg PO Q6HR #56 cap Insulin Aspart [NovoLOG] 4 unit SQ AC-BID #3 vial Insulin Glargine [Lantus] 16 unit SQ HS #3 vial glipiZIDE [Glucotrol] 5 mg PO AC-BID #60 tab Discharge Medication List Acetaminophen with Codeine [Tylenol w/codeine #3] 1 tab PO TID 09/01/16 [History ] Albuterol Inhaler [Ventolin Hfa Inhaler] 1 - 2 puff INHALATION RT-Q4H PRN [History] Cetirizine HCl 10 mg PO DAILY 09/01/16 [History] metFORMIN HCL 1,000 mg PO BID 09/01/16 [History] Clotrimazole/Betameth Cream [Lotrisone] 1 applic TOPICAL BID 10/09/16 [History] Insulin Aspart [NovoLOG] See Protocol SQ AC-TID 10/09/16 [History] Cephalexin [Keflex] 500 mg PO Q6HR #56 cap 10/12/16 [Rx] Insulin Aspart [NovoLOG] 4 unit SQ AC-BID #3 vial 10/13/16 [Rx] Insulin Glargine [Lantus] 16 unit SQ HS #3 vial 10/13/16 [Rx] glipiZIDE [Glucotrol] 5 mg PO AC-BID #60 tab 10/13/16 [Rx] Follow up Appointment(s)/Referral(s): Zahra Guzman MD [Primary Care Provider] - 10/18/16 3:30 pm Jai Galdamez MD [STAFF PHYSICIAN] - 1 Week Patient Instructions/Handouts: Type 2 Diabetes in Adults (DC) Discharge Disposition: HOME SELF-CARE
[2016-10-13 12:11] LABS: Glucose,Whole Blood 139 mg/dL (75-99)
== END 2016-10-13 12:56 | disposition home or self-care (01) | DRG 638 ==
LOC: 4MS4W 17:03
PROVIDERS: ADMIT Internal Medicine; ATTEND Internal Medicine
DX: E11.621 Type 2 diabetes mellitus with foot ulcer (principal); L03.116 Cellulitis of left lower limb; L97.529 Non-pressure chronic ulcer of other part of left foot with unspecified severity; I10 Essential (primary) hypertension; J45.909 Unspecified asthma, uncomplicated; Z79.4 Long term (current) use of insulin; Z79.84 Long term (current) use of oral hypoglycemic drugs; Z82.49 Family history of ischemic heart disease and other diseases of the circulatory system; Z79.899 Other long term (current) drug therapy; Z88.1 Allergy status to other antibiotic agents; A49.01 Methicillin susceptible Staphylococcus aureus infection, unspecified site
CPT/HCPCS: 80053; 80202; 83036; 83735; 85025; 85652; 85730; 86140; 87040; 87070; 87075; 87077; 87186; 87205; 94640

== ENCOUNTER 2016-11-13 07:58 | Day surgery (SDC) | payer MEDICAID ==
[2016-11-10 10:52] VITALS: BMI 34.2
[~2016-11-13 07:58] MED LIST: ALPRAZolam 0.25 MG TAB PO PRN; ASPIRIN 325 MG TAB PO STA; SODIUM CHLORIDE 0.9% 1,000 ML in EMPTY BAG 1 BAG IV ONE
[2016-11-13 08:30] VITALS: RESP 16
[2016-11-13] MEDS ORDERED: SODIUM CHLORIDE 0.9% 1,000 ML IV ONE (08:32)
[2016-11-13 08:35] LABS: Glucose,Whole Blood 101 mg/dL (75-99)
[2016-11-13 08:45] LABS: Anion Gap 11 mmol/L; Blood Urea Nitrogen 10 mg/dL (9-20); Calcium 9.6 mg/dL (8.4-10.2); Carbon Dioxide 26 mmol/L (22-30); Chloride 106 mmol/L (98-107); Glucose 110 mg/dL (74-99); Magnesium 1.9 mg/dL (1.6-2.3); Non-African American GFR(MDRD) >60 (>60 ml/min/1.73 sqM); Potassium 4.3 mmol/L (3.5-5.1); Sodium 143 mmol/L (137-145)
[2016-11-13] MEDS ORDERED: fentaNYL (PF) 50 MCG/ML 2 ML AMP IV ONE (09:08)
[2016-11-13] MEDS: LIDOCAINE 2% INJ 20 MG/ML SQ ONE ×2 (09:10→09:13)
[2016-11-13] MEDS ORDERED: IODIXANOL 320 MG/ML 100 ML INTRAARTER ONE (09:36)
[2016-11-13] MEDS ORDERED: SODIUM CHLORIDE 0.9% 1,000 ML IV SCH (10:00)
[2016-11-13 10:08] VITALS: TEMP 98
[2016-11-13 10:35] LABS: Glucose,Whole Blood 119 mg/dL (75-99)
[2016-11-13 12:34] VITALS: PULSE 75
[2016-11-13] MEDS ORDERED: Acetaminophen-Codeine 300-30mg TAB PO STA (13:46)
[2016-11-13 15:24] VITALS: BP 138/78
--- NOTE | 2016-11-14 07:57 | PCN ---
DATE OF PROCEDURE: PREOPERATIVE DIAGNOSIS: Nonhealing wound at the left foot big toe. PROCEDURE: Angiogram left leg. PROCEDURE: This patient was brought to the quality assurance lab technician. Left groin was prepped and draped usual sterile manner. 1% lidocaine infiltrated into left groin. Micropuncture introduced in the common femoral artery. Micropuncture guidewire was passed and 4 Maltese dilator advanced on top of the guidewire with hand injection. Angiogram was performed. Left common iliac was visualized and was patent. Left external and intermediate artery was found to be patent. Left femoral and profunda were patent. Then we checked the left superficial femoral artery and popliteal artery was found to be patent. Tibial peroneal trunk was visualized. Anterior tibial was patent all the way down to the foot. Peroneal and posterior tibial were smaller, but they were patent. Catheter was removed. Pressure was held. The patient tolerated the procedure well.
--- NOTE | 2016-11-16 08:09 | IR ---
EXAMINATION TYPE: IR angio abdominal w runoff DATE OF EXAM: 11/13/2016 9:55 AM CLINICAL HISTORY: Nonhealing ulcer left toe TECHNIQUE: Fluoroscopy. COMPARISON: None. FINDINGS: Fluoroscopic guidance was provided during left lower extremity angiogram with runoff proce dure performed by Dr. Quintero. A total of 2.7 minutes of fluoroscopic time was utilized during the p rocedure and multiple spot images was acquired. Please refer to procedure note for further details as I was not present nor performed procedure. IMPRESSION: As Above.
== END 2016-11-13 16:00 | disposition home or self-care (01) ==
LOC: CATHCVL 07:58
PROVIDERS: ATTEND Surgery Vascular Surgery
DX: L97.529 Non-pressure chronic ulcer of other part of left foot with unspecified severity (principal)
CPT/HCPCS: 36200; 75710; 80048; 83735; C1769 ×3; J2001; Q9967; J3010

== ENCOUNTER 2017-03-22 14:49 | Inpatient (IN) | payer MEDICAID ==
[2017-03-22] MEDS ORDERED: IV VANCOMYCIN PER PHARMACY 1 EACH MISC MISCELLANE PRN (15:32)
[2017-03-22] MEDS ORDERED: VANCOMYCIN 1,000 MG in SODIUM CHLORIDE 0.9% 250 ML IVPB STA (15:32)
[2017-03-22] MEDS ORDERED: SODIUM CHLORIDE 0.9% 1,000 ML IV STA (15:32)
--- NOTE | 2017-03-22 15:35 | ED ---
General Adult HPI - General Chief complaint: Wound/Laceration Stated complaint: ulcer-sent by Dr. Hobbs Time Seen by Provider: 03/22/17 15:19 Source: patient, RN notes reviewed Mode of arrival: ambulatory Limitations: no limitations - History of Present Illness Initial comments: 56-year-old male who presents emergency room today with a chief complaint ulcer to the left great toe. He states that he was advised by his communications administrator to come here to the emergency room for admission due to outpatient treatment failure of a cellulitis infection. Does have a chronic ulcer to the posterior aspect of left great toe. Patient states been on Keflex for the past 9 days of Bactrim for the past 2 days. States is been no improvement. States she's noticed some redness and some swelling to the medial aspect of the left ankle. Denies any fever, chills, shortness of breath, chest pain, back pain, abdominal pain, nausea or vomiting, dysuria hematuria, headaches, or visual changes. - Related Data Home Medications Medication Instructions Recorded Confirmed Acetaminophen with Codeine 1 tab PO BID 09/01/16 03/22/17 [Tylenol w/codeine #3] Albuterol Inhaler [Ventolin Hfa 2 puff INHALATION RT-Q4H PRN 09/01/16 03/22/17 Inhaler] Cetirizine HCl 10 mg PO HS 09/01/16 03/22/17 Insulin Aspart [NovoLOG] 4 unit SQ AC-TID 03/22/17 03/22/17 Previous Rx's Medication Instructions Recorded Insulin Glargine [Lantus] 16 unit SQ HS #3 vial 10/13/16 glipiZIDE [Glucotrol] 5 mg PO AC-BID #60 tab 10/13/16 metFORMIN HCL 1,000 mg PO BID #0 11/13/16 Allergies Allergy/AdvReac Type Severity Reaction Status Date / Time ciprofloxacin [From Cipro] Allergy Confusion Verified 03/22/17 15:34 Review of Systems ROS Statement: Those systems with pertinent positive or pertinent negative responses have been documented in the HPI. ROS Other: All systems not noted in ROS Statement are negative. Past Medical History Past Medical History: Asthma, Diabetes Mellitus Additional Past Medical History / Comment(s): GOES TO [facility] EVERY SUNDAY-LT GREAT TOE INFECTION, CONSTIPATION.HEMORRHOIDS History of Any Multi-Drug Resistant Organisms: None Reported Past Surgical History: Appendectomy, Heart Catheterization, Hernia Repair, Orthopedic Surgery Additional Past Surgical History / Comment(s): RT ROATATOR CUFF SX, RT INGUINAL HERNIA,UMB HERNIA REPAIR Past Anesthesia/Blood Transfusion Reactions: No Reported Reaction Past Psychological History: No Psychological Hx Reported Smoking Status: Never smoker Past Alcohol Use History: None Reported Past Drug Use History: None Reported - Past Family History Father Family Medical History: Hypertension Mother Family Medical History: Asthma, COPD General Exam - General Exam Comments Initial Comments: General: The patient is awake and alert, in no distress, and does not appear acutely ill. Eye: Pupils are equal, round and reactive to light, extra-ocular movements are intact. No nystagmus. There is normal conjunctiva bilaterally. No signs of icterus. Ears, nose, mouth and throat: There are moist mucous membranes and no oral lesions. Neck: The neck is supple, there is no tenderness or JVD. Cardiovascular: There is a regular rate and rhythm. No murmur, rub or gallop is appreciated. Respiratory: Lungs are clear to auscultation, respirations are non-labored, breath sounds are equal. No wheezes, stridor, rales, or rhonchi. Musculoskeletal: Normal ROM, no tenderness. Strength 5/5. Sensation intact. Pulses equal bilaterally 2+. Neurological: A&O x 3. CN II-XII intact, There are no obvious motor or sensory deficits. Coordination appears grossly intact. Speech is normal. Skin: See the posterior aspect of the left great toe. Mild redness swelling locally to the medial aspect of the left ankle. Psychiatric: Cooperative, appropriate mood & affect, normal judgment. Limitations: no limitations Course Vital Signs 03/22/17 15:12 Temperature 97.2 F L Pulse Rate 89 Respiratory 18 Rate Blood Pressure 162/79 O2 Sat by Pulse 97 Oximetry Medical Decision Making - Medical Decision Making X-rays negative for any acute abnormalities. Labs have been reviewed. Patient will be admitted to the hospital placed on IV antibiotics for outpatient treatment failure. - Lab Data Result diagrams: 03/22/17 15:08 03/22/17 15:08 Lab Results 03/22/17 03/22/17 Range/Units 15:08 15:08 WBC 7.8 (3.8-10.6) k/uL RBC 4.55 (4.30-5.90) m/uL Hgb 12.7 L (13.0-17.5) gm/dL Hct 38.8 L (39.0-53.0) % MCV 85.4 (80.0-100.0) fL MCH 27.9 (25.0-35.0) pg MCHC 32.6 (31.0-37.0) g/dL RDW 14.1 (11.5-15.5) % Plt Count 323 (150-450) k/uL Neutrophils % 76 % Lymphocytes % 13 % Monocytes % 7 % Eosinophils % 3 % Basophils % 1 % Neutrophils # 5.9 (1.3-7.7) k/uL Lymphocytes # 1.0 (1.0-4.8) k/uL Monocytes # 0.5 (0-1.0) k/uL Eosinophils # 0.2 (0-0.7) k/uL Basophils # 0.1 (0-0.2) k/uL Sodium 133 L (137-145) mmol/L Potassium 4.7 (3.5-5.1) mmol/L Chloride 102 (98-107) mmol/L Carbon Dioxide 21 L (22-30) mmol/L Anion Gap 10 mmol/L BUN 10 (9-20) mg/dL Creatinine 0.70 (0.66-1.25) mg/dL Est GFR (MDRD) Af Amer >60 (>60 ml/min/1.73 sqM) Est GFR (MDRD) Non-Af >60 (>60 ml/min/1.73 sqM) Glucose 253 H (74-99) mg/dL Calcium 9.1 (8.4-10.2) mg/dL Total Bilirubin 0.5 (0.2-1.3) mg/dL AST 48 (17-59) U/L ALT 49 (21-72) U/L Alkaline Phosphatase 65 (38-126) U/L Total Protein 6.4 (6.3-8.2) g/dL Albumin 3.7 (3.5-5.0) g/dL Disposition Clinical Impression: Cellulitis, Diabetic foot ulcer Disposition: ADMITTED IP TO THIS [facility] Condition: Stable Referrals: Zahra Guzman MD [Primary Care Provider] - 1-2 days Time of Disposition: 17:19
[2017-03-22] MEDS ORDERED: VANCOMYCIN 2,000 MG in SODIUM CHLORIDE 0.9% 500 ML IVPB ONE (16:00)
[2017-03-22 16:15] LABS: Basophils # (A) 0.1 k/uL (0-0.2); Basophils % (A) 1 %; CHCM 32.9; Eosinophils # (A) 0.2 k/uL (0-0.7); Eosinophils % (A) 3 %; HCT 38.8 % (39.0-53.0); HDW 2.32; HGB 12.7 gm/dL (13.0-17.5); Luc # (Auto) 0.08; Luc % (Auto) 1; Lymphocytes % (A) 13 %; MCH 27.9 pg (25.0-35.0); MCHC 32.6 g/dL (31.0-37.0); MCV 85.4 fL (80.0-100.0); Mean Platelet Volume 7.2; Monocytes # (A) 0.5 k/uL (0-1.0); Monocytes % (A) 7 %; Neutrophils # (A) 5.9 k/uL (1.3-7.7); Neutrophils % (A) 76 %; RBC 4.55 m/uL (4.30-5.90); RDW 14.1 % (11.5-15.5); WBC 7.8 k/uL (3.8-10.6); WBC (Perox) 7.94
[2017-03-22 16:31] LABS: ALT 49 U/L (21-72); AST 48 U/L (17-59); Alkaline Phosphatase 65 U/L (38-126); Anion Gap 10 mmol/L; Blood Urea Nitrogen 10 mg/dL (9-20); Calcium 9.1 mg/dL (8.4-10.2); Carbon Dioxide 21 mmol/L (22-30); Chloride 102 mmol/L (98-107); Glucose 253 mg/dL (74-99); Non-African American GFR(MDRD) >60 (>60 ml/min/1.73 sqM); Potassium 4.7 mmol/L (3.5-5.1); Sodium 133 mmol/L (137-145); Total Bilirubin 0.5 mg/dL (0.2-1.3); Total Protein 6.4 g/dL (6.3-8.2)
--- NOTE | 2017-03-22 16:36 | XR ---
EXAMINATION TYPE: XR foot complete LT DATE OF EXAM: 03/22/2017 COMPARISON: NONE HISTORY: 56-year-old male pain and diabetic ulcer inferior great toe TECHNIQUE: 3 views FINDINGS: Vascular calcifications suggest underlying diabetes in her chronic kidney disease. Os peroneum noted. Some soft tissue ulceration noted on the plantar aspect of the great toe. No underlying periostitis o r osteomyelitis is identified. No acute fracture or dislocation. IMPRESSION: Soft tissue ulcer plantar aspect of the great toe. No underlying acute osseous abnormality seen. No r adiographic evidence for osteomyelitis at this time.
[2017-03-22] MEDS ORDERED: ONDANSETRON 4 MG/2 ML VIAL IVP PRN (17:19)
[2017-03-22] MEDS ORDERED: ACETAMINOPHEN TAB 325 MG TAB PO PRN (17:19)
[2017-03-22] MEDS ORDERED: NALOXONE 0.4 MG/ML 1 ML VIAL IV PRN (17:19)
[2017-03-22] MEDS ORDERED: HYDROmorphone 1 MG/ML 1 ML SYRINGE IV PRN (17:19)
[2017-03-22] MEDS: HYDROcodone/APAP 5-325MG 1 EACH TAB PO PRN (17:37)
[2017-03-22] MEDS ORDERED: ALBUTEROL NEBULIZED 2.5 MG/3 ML INHALATION PRN (20:48)
[2017-03-22 20:51] LABS: Glucose,Whole Blood 309 mg/dL (75-99)
[2017-03-22] MEDS ORDERED: INSULIN LISPRO (humaLOG) 300 UNIT/3 ML VIAL SQ ONE (21:26)
[2017-03-22] MEDS: Acetaminophen-Codeine 300-30mg TAB PO SCH (21:30)
[2017-03-22] MEDS: LORATADINE 10 MG TAB PO SCH (21:31)
[2017-03-22] MEDS: glipiZIDE 5 MG TAB PO SCH (21:32)
[2017-03-22] MEDS: INSULIN GLARGINE 100 UNIT/ML 10 ML VIAL SQ SCH (21:38)
[2017-03-22] MEDS: VANCOMYCIN 1,750 MG in SODIUM CHLORIDE 0.9% 250 ML IVPB SCH (23:20)
[2017-03-23 00:22] LABS: Glucose,Whole Blood 99 mg/dL (75-99)
[2017-03-23 05:18] LABS: Glucose,Whole Blood 130 mg/dL (75-99)
[2017-03-23] MEDS: HYDROcodone/APAP 5-325MG 1 EACH TAB PO PRN ×3 (05:23→16:05)
[2017-03-23] MEDS ORDERED: INSULIN LISPRO (humaLOG) 300 UNIT/3 ML VIAL SQ SCH (07:30)
[2017-03-23 07:34] LABS: Glucose,Whole Blood 130 mg/dL (75-99)
[2017-03-23 07:52] LABS: Hemoglobin A1C 9.1 % (4.2-6.1)
[2017-03-23] MEDS: glipiZIDE 5 MG TAB PO SCH ×2 (07:57→17:38)
[2017-03-23] MEDS: INSULIN LISPRO (humaLOG) 300 UNIT/3 ML VIAL SQ SCH ×6 (07:57→21:17)
[2017-03-23] MEDS: Acetaminophen-Codeine 300-30mg TAB PO SCH ×2 (07:57→20:34)
[2017-03-23] MEDS: VANCOMYCIN 1,750 MG in SODIUM CHLORIDE 0.9% 250 ML IVPB SCH ×3 (07:57→23:02)
[2017-03-23 09:20] LABS: Basophils # (A) 0.1 k/uL (0-0.2); Basophils % (A) 1 %; CH 26.7; CHCM 30.6; Eosinophils # (A) 0.4 k/uL (0-0.7); Eosinophils % (A) 6 %; HCT 41.8 % (39.0-53.0); HDW 2.25; HGB 13.1 gm/dL (13.0-17.5); Hypochromasia Slight; Luc # (Auto) 0.18; Luc % (Auto) 3; Lymphocytes # (A) 1.5 k/uL (1.0-4.8); Lymphocytes % (A) 21 %; MCH 27.5 pg (25.0-35.0); MCHC 31.3 g/dL (31.0-37.0); MCV 87.7 fL (80.0-100.0); Mean Platelet Volume 6.7; Monocytes # (A) 0.5 k/uL (0-1.0); Monocytes % (A) 7 %; Neutrophils # (A) 4.2 k/uL (1.3-7.7); Neutrophils % (A) 62 %; RBC 4.77 m/uL (4.30-5.90); RDW 13.2 % (11.5-15.5); WBC 6.8 k/uL (3.8-10.6)
[2017-03-23 10:00] LABS: ALT 56 U/L (21-72); AST 31 U/L (17-59); Alkaline Phosphatase 60 U/L (38-126); Anion Gap 10 mmol/L; Blood Urea Nitrogen 9 mg/dL (9-20); Calcium 8.8 mg/dL (8.4-10.2); Carbon Dioxide 24 mmol/L (22-30); Chloride 102 mmol/L (98-107); Glucose 223 mg/dL (74-99); Non-African American GFR(MDRD) >60 (>60 ml/min/1.73 sqM); Potassium 4.7 mmol/L (3.5-5.1); Sodium 136 mmol/L (137-145); Total Bilirubin 0.3 mg/dL (0.2-1.3); Total Protein 6.2 g/dL (6.3-8.2)
[2017-03-23] MEDS: PIPERACILLIN-TAZOBACTAM 3.375 GM in DEXTROSE/WATER 1 50ML.BAG IVPB SCH ×2 (10:34→15:23)
--- NOTE | 2017-03-23 11:20 | P.HPIM ---
History of Present Illness H&P Date: 03/23/17 Chief Complaint: Left great toe ulcer This is a 56-year-old male, patient of Dr. Guzman. He has a known past medical history of diabetes mellitus, asthma and a chronic left foot ulcer. Patient has been dealing with this foot ulcer for about a year. He has been hospitalized previously for it. He has been followed at the wound care center by Dr. Quintero and also follows up with Dr. Hobbs for podiatry. Patient reports that he has been on Keflex for about 9 days for this infection in his left great toe with no snacking improvement. He was then started on Bactrim for 2 days. He went to see his denture waxer yesterday and was told to come into the hospital for IV antibiotics and further evaluation and treatment. The by the denture waxer had cleaned off a callus along the left medial aspect of the great toe per patient and was told that it was not healing. X-ray of the left foot shows soft tissue ulcer plantar aspect of the great toe. No underlying acute osseous abnormality seen. No x-ray evidence of osteomyelitis at this time. Patient reports significant pain in that left great toe and foot. He's reports having some redness that was along the left foot and going up into the leg. Patient reports that there is already been some improvement in the redness. He does have significant swelling in the left leg and tenderness with palpation of the left calf. Blood sugars are not well-controlled A1c is 9.1 and he had a blood sugar on admission of 309. He was started on IV Zosyn and vancomycin. He reports no history of MRSA. Wound culture obtained blood culture and is pending. A consult for infectious disease was ordered. And they have already ordered a bone scan. Patient denies any fever or chills or sweats. Denies any nausea or vomiting. Denies any bowel movement changes or urinary symptoms. Review of Systems Please refer to HPI otherwise unremarkable Past Medical History Past Medical History: Asthma, Diabetes Mellitus Additional Past Medical History / Comment(s): WAS GOING TO [facility] EVERY SUNDAY-LT GREAT TOE INFECTION COMPLETED VISITS, CONSTIPATION.HEMORRHOIDS History of Any Multi-Drug Resistant Organisms: None Reported Past Surgical History: Appendectomy, Heart Catheterization, Hernia Repair, Orthopedic Surgery Additional Past Surgical History / Comment(s): RT ROATATOR CUFF SX, RT INGUINAL HERNIA,UMB HERNIA REPAIR Past Anesthesia/Blood Transfusion Reactions: No Reported Reaction Smoking Status: Never smoker - Past Family History Father Family Medical History: Hypertension Mother Family Medical History: Asthma, COPD Medications and Allergies Home Medications Medication Instructions Recorded Confirmed Type Acetaminophen with Codeine 1 tab PO BID 09/01/16 03/22/17 History [Tylenol w/codeine #3] Albuterol Inhaler [Ventolin Hfa 2 puff INHALATION RT-Q4H PRN 09/01/16 03/22/17 History Inhaler] Cetirizine HCl 10 mg PO HS 09/01/16 03/22/17 History Insulin Glargine [Lantus] 16 unit SQ HS #3 vial 10/13/16 03/22/17 Rx glipiZIDE [Glucotrol] 5 mg PO AC-BID #60 tab 10/13/16 03/22/17 Rx metFORMIN HCL 1,000 mg PO BID #0 11/13/16 03/22/17 Rx Insulin Aspart [NovoLOG] 4 unit SQ AC-TID 03/22/17 03/22/17 History Allergies Allergy/AdvReac Type Severity Reaction Status Date / Time ciprofloxacin [From Cipro] Allergy Confusion Verified 03/22/17 15:34 Physical Exam Vitals: Vital Signs Temp Pulse Pulse Resp BP BP Pulse Ox 03/23/17 07:00 96.5 F L 69 18 134/79 95 03/22/17 22:24 97.3 F L 81 18 155/91 94 L 03/22/17 19:26 97.0 F L 76 18 153/81 95 03/22/17 15:12 97.2 F L 89 18 162/79 97 Intake and Output 03/22/17 03/23/17 03/23/17 22:59 06:59 14:59 Other: Voiding Method Toilet # Voids 1 2 Weight 117.934 kg Head normocephalic Neck supple Lungs clear to auscultation bilaterally no wheezing or crackles Heart regular rate and rhythm S1-S2, no rub or gallop Abdomen is soft nontender nondistended positive bowel sounds no hepatosplenomegaly Extremities left leg and foot are swollen. Left great toe swollen. There is an ulcer and opening along the lateral aspect of the left great toe. Tender with palpation. Bloody drainage noted on bandage. Patient does have some redness noted into the left march and calf area. Tenderness with palpation of the calf. Neuro alert and orientated to 3 Results CBC & Chem 7: 03/23/17 08:39 03/23/17 08:39 Labs: Abnormal Lab Results - Last 24 Hours (Table) 03/22/17 03/22/17 03/22/17 Range/Units 15:08 15:08 15:08 Hgb 12.7 L (13.0-17.5) gm/dL Hct 38.8 L (39.0-53.0) % Sodium 133 L (137-145) mmol/L Carbon Dioxide 21 L (22-30) mmol/L Creatinine (0.66-1.25) mg/dL Glucose 253 H (74-99) mg/dL POC Glucose (mg/dL) (75-99) mg/dL Hemoglobin A1c 9.1 H (4.2-6.1) % Total Protein (6.3-8.2) g/dL 03/22/17 03/23/17 03/23/17 Range/Units 20:50 05:17 07:30 Hgb (13.0-17.5) gm/dL Hct (39.0-53.0) % Sodium (137-145) mmol/L Carbon Dioxide (22-30) mmol/L Creatinine (0.66-1.25) mg/dL Glucose (74-99) mg/dL POC Glucose (mg/dL) 309 H 130 H 130 H (75-99) mg/dL Hemoglobin A1c (4.2-6.1) % Total Protein (6.3-8.2) g/dL 03/23/17 Range/Units 08:39 Hgb (13.0-17.5) gm/dL Hct (39.0-53.0) % Sodium 136 L (137-145) mmol/L Carbon Dioxide (22-30) mmol/L Creatinine 0.60 L (0.66-1.25) mg/dL Glucose 223 H (74-99) mg/dL POC Glucose (mg/dL) (75-99) mg/dL Hemoglobin A1c (4.2-6.1) % Total Protein 6.2 L (6.3-8.2) g/dL Microbiology - Last 24 Hours (Table) 03/22/17 15:08 Gram Stain - Preliminary Toe - Left First Wound Culture - Preliminary Thrombosis Risk Factor Assmnt - Choose All That Apply Any of the Below Risk Factors Present?: Yes Each Factor Represents 1 point: Age 41-60 years, Obesity (BMI >25) Other Risk Factors: No Other congenital or acquired thrombophilia - If yes, enter type in comment: No Thrombosis Risk Factor Assessment Total Risk Factor Score: 2 Thrombosis Risk Factor Assessment Level: Low Risk Assessment and Plan Plan: 1. Infected diabetic foot ulcer of the left great toe: Failed outpatient treatment. Infectious diseases been consulted. Wound culture pending. Currently on Zosyn and vancomycin. Foot x-ray showed no evidence of osteomyelitis. Bone scan pending. Also check a venous Doppler of the left leg to rule out DVT 2. Diabetes mellitus type 2: Not well controlled. Hemoglobin A1c 9.1. Resume Lantus Humalog scheduled with each meal and oral hypoglycemics. Add sliding scale coverage. 3. Asthma stable no evidence of exacerbation 4. Obesity BMI 36.3 GI prophylaxis Pepcid and DVT prophylaxis subcu heparin Time with Patient: Greater than 30 (Greater than 50% of the total time spent in counseling and coordination of care.I performed an examination of the patient and discussed their management with the physician Rn Emergency Room. I have reviewed the Physician Rn Emergency Room's notes and agree with the documented findings and plan of care)
[2017-03-23 11:40] VITALS: BMI 36.2
[2017-03-23 12:01] LABS: Glucose,Whole Blood 206 mg/dL (75-99)
--- NOTE | 2017-03-23 13:13 | P.CONS ---
History of Present Illness - Reason for Consult Consult date: 03/23/17 Diabetic foot ulcer - History of Present Illness This is a 56-year-old male patient with past history of diabetes mellitus type 2 initially diagnosed 1 year ago. He is now on insulin and oral agents. He has been treated for left great toe diabetic ulcer Robles grade [address] Quintero in the wound healing Center from August of this year and was discharged on February 06 with healing of the wound. Patient states the Dr. Quintero recommended he follow with Dr. Hobbs to address the callus on the same toe. Patient has been following with Dr. Hobbs for the past 4-6 weeks and has had debridement of the callus. Dr. Hobbs told him that there was an infection there and has been on antibiotics of Keflex which she took 9 days worth and he has also been on Bactrim for 2 days at this time. Patient denies fever, chills , nausea, vomiting, diarrhea. He states he's had decreased appetite. Patient did have some minimal nausea this morning but none previous to admission. He does complain of significant peripheral neuropathy for which he was on Neurontin but did have a reaction and was then placed on Cymbalta for 3 weeks which did not help. He is now only taking [place]. He also states that Dilaudid caused him dizziness. He came into [facility] emergency center for evaluation. He underwent an x-ray that showed soft tissue ulcer on the plantar surface of the great toe with no signs of osteomyelitis. He was placed on vancomycin and admitted to the [facility] floor. Patient states the redness that was going up his foot to his ankle and lower leg area is improved from yesterday and is not as red. Wound culture is in progress. Blood culture is status received. Review of Systems All systems: negative Constitutional: Reports poor appetite, Denies chills, Denies fever Eyes: denies blurred vision, denies pain Ears, nose, mouth and throat: Denies dental pain, Denies dysphagia, Denies headache, Denies mouth pain, Denies sore throat Cardiovascular: Denies chest pain, Denies dyspnea on exertion, Denies edema, Denies leg edema, Denies lightheadedness, Denies shortness of breath, Denies syncope Respiratory: Denies cough, Denies cough with sputum, Denies dyspnea, Denies excessive sputum, Denies hemoptysis, Denies home oxygen Gastrointestinal: Reports nausea, Denies abdominal pain, Denies diarrhea, Denies vomiting Genitourinary: Denies dysuria, Denies urinary frequency Musculoskeletal: Denies myalgias Musculoskeletal: left: foot pain Integumentary: Reports wounds, Denies pruritus, Denies rash Neurological: Denies numbness, Denies weakness Psychiatric: Denies anxiety, Denies depression Endocrine: Denies fatigue, Denies weight change Past Medical History Past Medical History: Asthma, Diabetes Mellitus Additional Past Medical History / Comment(s): WAS GOING TO [facility] EVERY SUNDAY-LT GREAT TOE INFECTION COMPLETED VISITS, CONSTIPATION.HEMORRHOIDS History of Any Multi-Drug Resistant Organisms: None Reported Past Surgical History: Appendectomy, Heart Catheterization, Hernia Repair, Orthopedic Surgery Additional Past Surgical History / Comment(s): RT ROATATOR CUFF SX, RT INGUINAL HERNIA,UMB HERNIA REPAIR Past Anesthesia/Blood Transfusion Reactions: No Reported Reaction Smoking Status: Never smoker Additional Past Alcohol Use History / Comment(s): Patient is a lifelong nonsmoker. He denies any medical marijuana, marijuana or street drug or alcohol use. He lives at home with his . There are no pets in the home. 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 No service. - Past Family History Father Family Medical History: Hypertension Mother Family Medical History: Asthma, COPD Medications and Allergies Home Medications Medication Instructions Recorded Confirmed Type Acetaminophen with Codeine 1 tab PO BID 09/01/16 03/22/17 History [Tylenol w/codeine #3] Albuterol Inhaler [Ventolin Hfa 2 puff INHALATION RT-Q4H PRN 09/01/16 03/22/17 History Inhaler] Cetirizine HCl 10 mg PO HS 09/01/16 03/22/17 History Insulin Glargine [Lantus] 16 unit SQ HS #3 vial 10/13/16 03/22/17 Rx glipiZIDE [Glucotrol] 5 mg PO AC-BID #60 tab 10/13/16 03/22/17 Rx metFORMIN HCL 1,000 mg PO BID #0 11/13/16 03/22/17 Rx Insulin Aspart [NovoLOG] 4 unit SQ AC-TID 03/22/17 03/22/17 History Allergies Allergy/AdvReac Type Severity Reaction Status Date / Time ciprofloxacin [From Cipro] Allergy Confusion Verified 03/22/17 15:34 Physical Exam Vitals: Vital Signs Temp Pulse Pulse Resp BP BP Pulse Ox 03/23/17 07:00 96.5 F L 69 18 134/79 95 03/22/17 22:24 97.3 F L 81 18 155/91 94 L 03/22/17 19:26 97.0 F L 76 18 153/81 95 03/22/17 15:12 97.2 F L 89 18 162/79 97 Intake and Output 03/22/17 03/23/17 03/23/17 22:59 06:59 14:59 Other: Voiding Method Toilet # Voids 1 2 Weight 117.934 kg Gen: This is a 56-year-old morbid obese male. He is found in bed and appears to be comfortable and in no acute distress. HEENT: Head is atraumatic, normocephalic. Pupils equal, round. Sclerae is anicteric. Conjunctiva pink. Mucous membranes of the mouth are moist. NECK: Supple. No JVD. No lymphadenopathy. No thyromegaly. LUNGS: Clear to auscultation. No wheezes or rhonchi. No intercostal retractions. HEART: Regular rate and rhythm. No murmur. ABDOMEN: Soft. Bowel sounds are present. No masses. No tenderness. EXTREMITIES: Mild left lower extremity edema to the foot and into the lower leg. Left great toe has an ulcer on the plantar surface with scant amount of drainage. Toe otherwise is slightly red with redness in the foot and ankle and distal tib-fib area. NEUROLOGICAL: Patient is awake, alert and oriented x3. Cranial nerves 2 through 12 are grossly intact. Results Results: Laboratory Results WBC 6.8 k/uL (3.8-10.6) 03/23/17 08:39 RBC 4.77 m/uL (4.30-5.90) 03/23/17 08:39 Hgb 13.1 gm/dL (13.0-17.5) 03/23/17 08:39 Hct 41.8 % (39.0-53.0) 03/23/17 08:39 MCV 87.7 fL (80.0-100.0) 03/23/17 08:39 MCH 27.5 pg (25.0-35.0) 03/23/17 08:39 MCHC 31.3 g/dL (31.0-37.0) 03/23/17 08:39 RDW 13.2 % (11.5-15.5) 03/23/17 08:39 Plt Count 287 k/uL (150-450) 03/23/17 08:39 Neutrophils % 62 % 03/23/17 08:39 Lymphocytes % 21 % 03/23/17 08:39 Monocytes % 7 % 03/23/17 08:39 Eosinophils % 6 % 03/23/17 08:39 Basophils % 1 % 03/23/17 08:39 Neutrophils # 4.2 k/uL (1.3-7.7) 03/23/17 08:39 Lymphocytes # 1.5 k/uL (1.0-4.8) 03/23/17 08:39 Monocytes # 0.5 k/uL (0-1.0) 03/23/17 08:39 Eosinophils # 0.4 k/uL (0-0.7) 03/23/17 08:39 Basophils # 0.1 k/uL (0-0.2) 03/23/17 08:39 Hypochromasia Slight 03/23/17 08:39 Sodium 136 mmol/L (137-145) L 03/23/17 08:39 Potassium 4.7 mmol/L (3.5-5.1) 03/23/17 08:39 Chloride 102 mmol/L (98-107) 03/23/17 08:39 Carbon Dioxide 24 mmol/L (22-30) 03/23/17 08:39 Anion Gap 10 mmol/L 03/23/17 08:39 BUN 9 mg/dL (9-20) 03/23/17 08:39 Creatinine 0.60 mg/dL (0.66-1.25) L 03/23/17 08:39 Est GFR (MDRD) Af Amer >60 (>60 ml/min/1.73 sqM) 03/23/17 08:39 Est GFR (MDRD) Non-Af >60 (>60 ml/min/1.73 sqM) 03/23/17 08:39 Glucose 223 mg/dL (74-99) H 03/23/17 08:39 POC Glucose (mg/dL) 206 mg/dL (75-99) H 03/23/17 11:57 POC Glu Applique Cutter ID Koki Mccarthy 03/23/17 11:[address] Glu mg/dL 214 mg/dL 03/22/17 15:08 Hemoglobin A1c 9.1 % (4.2-6.1) H 03/22/17 15:08 Calcium 8.8 mg/dL (8.4-10.2) 03/23/17 08:39 Total Bilirubin 0.3 mg/dL (0.2-1.3) 03/23/17 08:39 AST 31 U/L (17-59) 03/23/17 08:39 ALT 56 U/L (21-72) 03/23/17 08:39 Alkaline Phosphatase 60 U/L (38-126) 03/23/17 08:39 Total Protein 6.2 g/dL (6.3-8.2) L 03/23/17 08:39 Albumin 3.5 g/dL (3.5-5.0) 03/23/17 08:39 CBC & Chem 7: 03/23/17 08:39 03/23/17 08:39 Labs: Abnormal Lab Results - Last 24 Hours (Table) 03/22/17 03/22/17 03/22/17 Range/Units 15:08 15:08 15:08 Hgb 12.7 L (13.0-17.5) gm/dL Hct 38.8 L (39.0-53.0) % Sodium 133 L (137-145) mmol/L Carbon Dioxide 21 L (22-30) mmol/L Glucose 253 H (74-99) mg/dL POC Glucose (mg/dL) (75-99) mg/dL Hemoglobin A1c 9.1 H (4.2-6.1) % 03/22/17 03/23/17 03/23/17 Range/Units 20:50 05:17 07:30 Hgb (13.0-17.5) gm/dL Hct (39.0-53.0) % Sodium (137-145) mmol/L Carbon Dioxide (22-30) mmol/L Glucose (74-99) mg/dL POC Glucose (mg/dL) 309 H 130 H 130 H (75-99) mg/dL Hemoglobin A1c (4.2-6.1) % Microbiology - Last 24 Hours (Table) 03/22/17 15:08 Wound Culture - Preliminary Toe - Left First Assessment and Plan Plan: Is a 56-year-old male presented to the hospital with a diabetic left foot ulcer that has failed outpatient antibiotics. He is currently on vancomycin and Zosyn will be added to cover gram-negative organisms. Wound culture is in progress. Bone scan will be ordered to rule out osteomyelitis. Continue supportive care. Further recommendations as patient progresses. The above dictated assessment and findings were discussed with Dr. Brooke. The impression and plan of care have been directed as dictated. Rosetta Mann nurse practitioner acting as scribe for Dr. Brooke.
--- NOTE | 2017-03-23 14:28 | US ---
EXAMINATION TYPE: US venous doppler duplex LE LT DATE OF EXAM: 03/23/2017 1:53 PM COMPARISON: NONE CLINICAL HISTORY: leg swelling and calf pain. rule out DVT. Left lower leg swelling and redness SIDE PERFORMED: left TECHNIQUE: The lower extremity deep venous system is examined utilizing real time linear array sonog mario with graded compression, doppler sonography and color-flow sonography. VESSELS IMAGED: External Iliac Vein (EIV) Common Femoral Vein Deep Femoral Vein Greater Saphenous Vein * Femoral Vein Popliteal Vein Small Saphenous Vein * Proximal Calf Veins (* superficial vessels) Left Leg: No evidence of DVT IMPRESSION: 1. No diagnostic evidence of DVT as visualized.
--- NOTE | 2017-03-23 16:57 | NM ---
EXAMINATION TYPE: NM bone 3 phase DATE OF EXAM: 03/23/2017 COMPARISON: X-ray 03/22/2017 HISTORY: Left big toe swelling Triple phase bone scintigraphy was performed following the injection of21.5 mCi Tc 99m MDP. Immediat e images and 5 hours post injection images acquired. FINDINGS: There is increased perfusion to the left foot and great toe increased uptake seen along the first dig it of the left foot. Delayed uptake demonstrates increased uptake at the first MTP. Similar uptake se en involving the right first MTP and bilateral medial mid foot region. IMPRESSION: Findings are compatible with cellulitis and osteomyelitis first digit left foot. Post arthritic brush es noted bilaterally.
[2017-03-23 17:14] LABS: Glucose,Whole Blood 165 mg/dL (75-99)
[2017-03-23] MEDS: HEPARIN SODIUM,PORCINE 5,000 UNIT/ML 1 ML VIAL SQ SCH (20:35)
[2017-03-23] MEDS: LORATADINE 10 MG TAB PO SCH (20:35)
[2017-03-23] MEDS: INSULIN GLARGINE 100 UNIT/ML 10 ML VIAL SQ SCH (21:16)
[2017-03-23 21:19] LABS: Glucose,Whole Blood 227 mg/dL (75-99)
--- NOTE | 2017-03-23 21:40 | P.CON ---
Consult Note - . Consult date: 03/23/17 Assessment/Plan:: This is a 56-year-old male patient with past history of diabetes mellitus type 2 initially diagnosed 1 year ago. He is now on insulin and oral agents. He has been treated for left great toe diabetic ulcer Robles grade [address] Quintero in the wound healing Center from August of this year and was discharged on February 06 with healing of the wound. Patient states the Dr. Quintero recommended he follow with Dr. Hobbs to address the callus on the same toe. Patient has been following with Dr. Hobbs for the past 4-6 weeks and has had debridement of the callus. Dr. Hobbs told him that there was an infection there and has been on antibiotics of Keflex which she took 9 days worth and he has also been on Bactrim for 2 days at this time. Patient denies fever, chills , nausea, vomiting, diarrhea. He states he's had decreased appetite. Patient did have some minimal nausea this morning but none previous to admission. He does complain of significant peripheral neuropathy for which he was on Neurontin but did have a reaction and was then placed on Cymbalta for 3 weeks which did not help. He is now only taking [place]. He also states that Dilaudid caused him dizziness. He came into [facility] emergency center for evaluation. He underwent an x-ray that showed soft tissue ulcer on the plantar surface of the great toe with no signs of osteomyelitis. He was placed on vancomycin and admitted to the [facility] floor. Patient states the redness that was going up his foot to his ankle and lower leg area is improved from yesterday and is not as red. Wound culture is in progress. Blood culture is status received. Please see the consult note is dictated by nurse practitioner Mrs. Rosetta Mann At this time this pleasant gentleman appears to have significant infection to the left great toe. There is no nonhealing ulceration. Concerns for underlying bony infection at this time. Bone scan has been requested. Podiatry consult in process. Cultures have been obtained. The results of the studies and cultures will help direct her course of outpatient antibiotic therapy which may be intravenous in nature. May also follow in the wound center after his discharge. I agree with evaluation, assessment and plan as dictated by nurse practitioner Mrs. Rosetta Mann.
[2017-03-24] MEDS: PIPERACILLIN-TAZOBACTAM 3.375 GM in DEXTROSE/WATER 1 50ML.BAG IVPB SCH ×3 (02:12→18:32)
[2017-03-24] MEDS ORDERED: VANCOMYCIN TROUGH DUE 1 EACH MISC MISCELLANE ONE (07:00)
[2017-03-24] MEDS: HYDROcodone/APAP 5-325MG 1 EACH TAB PO PRN ×3 (07:00→16:47)
[2017-03-24 07:17] LABS: Glucose,Whole Blood 150 mg/dL (75-99)
[2017-03-24 08:33] LABS: Basophils # (A) 0.1 k/uL (0-0.2); Basophils % (A) 1 %; CH 26.7; CHCM 30.3; Eosinophils # (A) 0.4 k/uL (0-0.7); Eosinophils % (A) 7 %; HCT 43.1 % (39.0-53.0); HDW 2.25; HGB 13.4 gm/dL (13.0-17.5); Hypochromasia Moderate; Luc # (Auto) 0.13; Luc % (Auto) 2; Lymphocytes # (A) 1.2 k/uL (1.0-4.8); Lymphocytes % (A) 19 %; MCH 27.5 pg (25.0-35.0); MCV 88.5 fL (80.0-100.0); Mean Platelet Volume 6.7; Monocytes # (A) 0.5 k/uL (0-1.0); Monocytes % (A) 8 %; Neutrophils # (A) 4.2 k/uL (1.3-7.7); Neutrophils % (A) 64 %; RBC 4.87 m/uL (4.30-5.90); RDW 13.1 % (11.5-15.5); WBC 6.6 k/uL (3.8-10.6); WBC (Perox) 6.78
[2017-03-24] MEDS: VANCOMYCIN 1,750 MG in SODIUM CHLORIDE 0.9% 250 ML IVPB SCH ×2 (08:50→16:39)
[2017-03-24] MEDS: glipiZIDE 5 MG TAB PO SCH ×2 (08:51→18:33)
[2017-03-24] MEDS: HEPARIN SODIUM,PORCINE 5,000 UNIT/ML 1 ML VIAL SQ SCH ×2 (08:51→21:41)
[2017-03-24] MEDS: INSULIN LISPRO (humaLOG) 300 UNIT/3 ML VIAL SQ SCH ×7 (08:52→21:37)
[2017-03-24] MEDS: FAMOTIDINE 20 MG TAB PO SCH (08:52)
[2017-03-24] MEDS: Acetaminophen-Codeine 300-30mg TAB PO SCH ×2 (08:53→21:40)
[2017-03-24] MEDS: metFORMIN 500 MG TAB PO SCH (09:05)
[2017-03-24 10:17] LABS: ALT 51 U/L (21-72); AST 23 U/L (17-59); Alkaline Phosphatase 57 U/L (38-126); Anion Gap 8 mmol/L; Blood Urea Nitrogen 8 mg/dL (9-20); Calcium 9.1 mg/dL (8.4-10.2); Carbon Dioxide 25 mmol/L (22-30); Chloride 103 mmol/L (98-107); Glucose 275 mg/dL (74-99); Non-African American GFR(MDRD) >60 (>60 ml/min/1.73 sqM); Potassium 4.6 mmol/L (3.5-5.1); Sodium 136 mmol/L (137-145); Total Bilirubin 0.3 mg/dL (0.2-1.3); Total Protein 6.2 g/dL (6.3-8.2)
[2017-03-24 12:02] LABS: Glucose,Whole Blood 146 mg/dL (75-99)
--- NOTE | 2017-03-24 14:15 | P.PN ---
Subjective This is a 56-year-old male, patient of Dr. Guzman. He has a known past medical history of diabetes mellitus, asthma and a chronic left foot ulcer. Patient has been dealing with this foot ulcer for about a year. He has been hospitalized previously for it. He has been followed at the wound care center by Dr. Quintero and also follows up with Dr. Hobbs for podiatry. Patient reports that he has been on Keflex for about 9 days for this infection in his left great toe with no snacking improvement. He was then started on Bactrim for 2 days. He went to see his residential support worker yesterday and was told to come into the hospital for IV antibiotics and further evaluation and treatment. The by the residential support worker had cleaned off a callus along the left medial aspect of the great toe per patient and was told that it was not healing. X-ray of the left foot shows soft tissue ulcer plantar aspect of the great toe. No underlying acute osseous abnormality seen. No x-ray evidence of osteomyelitis at this time. Patient reports significant pain in that left great toe and foot. He's reports having some redness that was along the left foot and going up into the leg. Patient reports that there is already been some improvement in the redness. He does have significant swelling in the left leg and tenderness with palpation of the left calf. Blood sugars are not well-controlled A1c is 9.1 and he had a blood sugar on admission of 309. He was started on IV Zosyn and vancomycin. He reports no history of MRSA. Wound culture obtained blood culture and is pending. A consult for infectious disease was ordered. And they have already ordered a bone scan. Patient denies any fever or chills or sweats. Denies any nausea or vomiting. Denies any bowel movement changes or urinary symptoms. On 03/24/2017 patient was seen and examined he is alert and oriented 3 he is complaining of pain in his foot otherwise denies any complaint there is no chest pain no shortness of breath no dizziness no cough no nausea or vomiting no abdominal pain no diarrhea or constipation and no urinary symptoms Objective - Vital Signs Vital signs: Vital Signs Temp 97.2 F L 03/24/17 07:00 Pulse 69 03/24/17 07:00 Resp 20 03/24/17 07:00 BP 141/87 03/24/17 07:00 Pulse Ox 94 L 03/24/17 07:00 Intake & Output 03/23/17 03/24/17 03/24/17 18:59 06:59 18:59 Intake Total 640 870 Balance 640 870 Weight 117.934 kg Intake: Oral 640 870 Other: # Voids 3 1 - Labs CBC & Chem 7: 03/24/17 08:11 03/24/17 08:11 Labs: Abnormal Lab Results - Last 24 Hours (Table) 03/23/17 03/23/17 03/24/17 Range/Units 17:11 21:14 06:54 Sodium (137-145) mmol/L BUN (9-20) mg/dL Creatinine (0.66-1.25) mg/dL Glucose (74-99) mg/dL POC Glucose (mg/dL) 165 H 227 H 150 H (75-99) mg/dL Total Protein (6.3-8.2) g/dL 03/24/17 03/24/17 Range/Units 08:11 11:59 Sodium 136 L (137-145) mmol/L BUN 8 L (9-20) mg/dL Creatinine 0.60 L (0.66-1.25) mg/dL Glucose 275 H (74-99) mg/dL POC Glucose (mg/dL) 146 H (75-99) mg/dL Total Protein 6.2 L (6.3-8.2) g/dL Microbiology - Last 24 Hours (Table) 03/22/17 15:08 Blood Culture - Preliminary Blood No Growth after 24 hours Assessment and Plan Plan: 1. Infected diabetic foot ulcer of the left great toe: Failed outpatient treatment. Infectious diseases been consulted. Wound culture pending. Currently on Zosyn and vancomycin. Foot x-ray showed no evidence of osteomyelitis. Bone scan reveals evidence of cellulitis and osteomyelitis. venous Doppler was negative for DVT 2. Diabetes mellitus type 2: Not well controlled. Hemoglobin A1c 9.1. Resume Lantus Humalog scheduled with each meal and oral hypoglycemics. Add sliding scale coverage. 3. Asthma stable no evidence of exacerbation 4. Obesity BMI 36.3 5. GI prophylaxis Pepcid and DVT prophylaxis subcu heparin
--- NOTE | 2017-03-24 16:47 | P.PN ---
Subjective Principal diagnosis: Diabetic foot ulcer This is a 56-year-old male patient with past history of diabetes mellitus type 2 initially diagnosed 1 year ago. He is now on insulin and oral agents. He has been treated for left great toe diabetic ulcer Robles grade [address] Quintero in the wound healing Center from August of this year and was discharged on February 06 with healing of the wound. Patient states the Dr. Quintero recommended he follow with Dr. Hobbs to address the callus on the same toe. Patient has been following with Dr. Hobbs for the past 4-6 weeks and has had debridement of the callus. Dr. Hobbs told him that there was an infection there and has been on antibiotics of Keflex which she took 9 days worth and he has also been on Bactrim for 2 days at this time. Patient denies fever, chills , nausea, vomiting, diarrhea. He states he's had decreased appetite. Patient did have some minimal nausea this morning but none previous to admission. He does complain of significant peripheral neuropathy for which he was on Neurontin but did have a reaction and was then placed on Cymbalta for 3 weeks which did not help. He is now only taking [place]. He also states that Dilaudid caused him dizziness. He came into [facility] emergency center for evaluation. He underwent an x-ray that showed soft tissue ulcer on the plantar surface of the great toe with no signs of osteomyelitis. He was placed on vancomycin and admitted to the [facility] floor. Patient states the redness that was going up his foot to his ankle and lower leg area is improved from yesterday and is not as red. Wound culture is in progress. Blood culture are in progress. The bone scan has been completed. Consistent with osteomyelitis of the left great toe. Cultures in process. Objective - Vital Signs Vital signs: Vital Signs Temp 96.8 F L 03/24/17 15:00 Pulse 74 03/24/17 15:00 Resp 20 03/24/17 15:00 BP 135/83 03/24/17 15:00 Pulse Ox 95 03/24/17 15:00 Intake & Output 03/23/17 03/24/17 03/24/17 18:59 06:59 18:59 Intake Total 640 870 Balance 640 870 Weight 117.934 kg Intake: Oral 640 870 Other: # Voids 3 1 3 - Exam Gen: This is a 56-year-old morbid obese male. He is found in bed and appears to be comfortable and in no acute distress. HEENT: Head is atraumatic, normocephalic. Pupils equal, round. Sclerae is anicteric. Conjunctiva pink. Mucous membranes of the mouth are moist. NECK: Supple. No JVD. No lymphadenopathy. No thyromegaly. LUNGS: Clear to auscultation. No wheezes or rhonchi. No intercostal retractions. HEART: Regular rate and rhythm. No murmur. ABDOMEN: Soft. Bowel sounds are present. No masses. No tenderness. EXTREMITIES: Mild left lower extremity edema to the foot and into the lower leg. Left great toe has an ulcer on the plantar surface with scant amount of drainage. Toe otherwise is slightly red with redness in the foot and ankle and distal tib-fib area. NEUROLOGICAL: Patient is awake, alert and oriented x3. Cranial nerves 2 through 12 are grossly intact. - Labs CBC & Chem 7: 03/24/17 08:11 03/24/17 08:11 Labs: Abnormal Lab Results - Last 24 Hours (Table) 03/23/17 03/23/17 03/24/17 Range/Units 17:11 21:14 06:54 Sodium (137-145) mmol/L BUN (9-20) mg/dL Creatinine (0.66-1.25) mg/dL Glucose (74-99) mg/dL POC Glucose (mg/dL) 165 H 227 H 150 H (75-99) mg/dL Total Protein (6.3-8.2) g/dL 03/24/17 03/24/17 Range/Units 08:11 11:59 Sodium 136 L (137-145) mmol/L BUN 8 L (9-20) mg/dL Creatinine 0.60 L (0.66-1.25) mg/dL Glucose 275 H (74-99) mg/dL POC Glucose (mg/dL) 146 H (75-99) mg/dL Total Protein 6.2 L (6.3-8.2) g/dL Microbiology - Last 24 Hours (Table) 03/22/17 15:08 Blood Culture - Preliminary Blood No Growth after 24 hours Laboratory Results WBC 6.6 k/uL (3.8-10.6) 03/24/17 08:11 RBC 4.87 m/uL (4.30-5.90) 03/24/17 08:11 Hgb 13.4 gm/dL (13.0-17.5) 03/24/17 08:11 Hct 43.1 % (39.0-53.0) 03/24/17 08:11 MCV 88.5 fL (80.0-100.0) 03/24/17 08:11 MCH 27.5 pg (25.0-35.0) 03/24/17 08:11 MCHC 31.0 g/dL (31.0-37.0) 03/24/17 08:11 RDW 13.1 % (11.5-15.5) 03/24/17 08:11 Plt Count 289 k/uL (150-450) 03/24/17 08:11 Neutrophils % 64 % 03/24/17 08:11 Lymphocytes % 19 % 03/24/17 08:11 Monocytes % 8 % 03/24/17 08:11 Eosinophils % 7 % 03/24/17 08:11 Basophils % 1 % 03/24/17 08:11 Neutrophils # 4.2 k/uL (1.3-7.7) 03/24/17 08:11 Lymphocytes # 1.2 k/uL (1.0-4.8) 03/24/17 08:11 Monocytes # 0.5 k/uL (0-1.0) 03/24/17 08:11 Eosinophils # 0.4 k/uL (0-0.7) 03/24/17 08:11 Basophils # 0.1 k/uL (0-0.2) 03/24/17 08:11 Hypochromasia Moderate 03/24/17 08:11 Sodium 136 mmol/L (137-145) L 03/24/17 08:11 Potassium 4.6 mmol/L (3.5-5.1) 03/24/17 08:11 Chloride 103 mmol/L (98-107) 03/24/17 08:11 Carbon Dioxide 25 mmol/L (22-30) 03/24/17 08:11 Anion Gap 8 mmol/L 03/24/17 08:11 BUN 8 mg/dL (9-20) L 03/24/17 08:11 Creatinine 0.60 mg/dL (0.66-1.25) L 03/24/17 08:11 Est GFR (MDRD) Af Amer >60 (>60 ml/min/1.73 sqM) 03/24/17 08:11 Est GFR (MDRD) Non-Af >60 (>60 ml/min/1.73 sqM) 03/24/17 08:11 Glucose 275 mg/dL (74-99) H 03/24/17 08:11 POC Glucose (mg/dL) 146 mg/dL (75-99) H 03/24/17 11:59 POC Glu Kettle Girl ID Val Davis 03/24/17 11:[address] Glu mg/dL 212 mg/dL 03/23/17 08:39 Hemoglobin A1c 9.0 % (4.2-6.1) H 03/23/17 08:39 Calcium 9.1 mg/dL (8.4-10.2) 03/24/17 08:11 Total Bilirubin 0.3 mg/dL (0.2-1.3) 03/24/17 08:11 AST 23 U/L (17-59) 03/24/17 08:11 ALT 51 U/L (21-72) 03/24/17 08:11 Alkaline Phosphatase 57 U/L (38-126) 03/24/17 08:11 Total Protein 6.2 g/dL (6.3-8.2) L 03/24/17 08:11 Albumin 3.5 g/dL (3.5-5.0) 03/24/17 08:11 Vancomycin Trough 12.8 ug/mL 03/24/17 08:11 Microbiology 03/22/17 15:08 Blood Blood Culture - Preliminary No Growth after 24 hours 03/22/17 15:08 Toe - Left First Gram Stain - Preliminary 03/22/17 15:08 Toe - Left First Wound Culture - Preliminary - Imaging and Cardiology Bone scan is positive for osteomyelitis of the left great toe Assessment and Plan (1) Diabetic foot ulcer Narrative/Plan: At this time this pleasant gentleman appears to have significant infection to the left great toe. There is no nonhealing ulceration. Concerns for underlying bony infection at this time. Bone scan has been performed. Podiatry consult in process. Cultures have been obtained. Prior cultures are reviewed showing evidence of MSSA as well as an anaerobic gram-negative bacilli. With the positive bone scan we'll plan a 6 week course of intravenous antibiotic therapy. Likely at his local hospital possibly at home. Orders will be placed through the production planner for evaluation. Will request a PICC line to be placed for his outpatient intravenous antibiotic therapy. Pre-albumin to be checked. A1c is elevated he understands importance of increased glucose control. Multivitamin is added He believes is up-to-date on his tetanus. Status: Acute
[2017-03-24 17:06] LABS: Glucose,Whole Blood 112 mg/dL (75-99)
[2017-03-24] MEDS: INSULIN GLARGINE 100 UNIT/ML 10 ML VIAL SQ SCH (21:36)
[2017-03-24] MEDS: LORATADINE 10 MG TAB PO SCH (21:41)
[2017-03-24 22:00] LABS: Glucose,Whole Blood 128 mg/dL (75-99)
[2017-03-25] MEDS: VANCOMYCIN 1,750 MG in SODIUM CHLORIDE 0.9% 250 ML IVPB SCH ×2 (00:01→09:32)
[2017-03-25] MEDS: HYDROcodone/APAP 5-325MG 1 EACH TAB PO PRN ×4 (01:37→17:24)
[2017-03-25] MEDS: PIPERACILLIN-TAZOBACTAM 3.375 GM in DEXTROSE/WATER 1 50ML.BAG IVPB SCH ×3 (02:34→15:22)
[2017-03-25 06:58] LABS: Glucose,Whole Blood 130 mg/dL (75-99)
[2017-03-25] MEDS: glipiZIDE 5 MG TAB PO SCH ×2 (08:20→17:24)
[2017-03-25] MEDS: FAMOTIDINE 20 MG TAB PO SCH (08:21)
[2017-03-25] MEDS: HEPARIN SODIUM,PORCINE 5,000 UNIT/ML 1 ML VIAL SQ SCH ×2 (08:22→21:02)
[2017-03-25] MEDS: INSULIN LISPRO (humaLOG) 300 UNIT/3 ML VIAL SQ SCH ×7 (08:24→21:03)
[2017-03-25 09:14] LABS: Basophils % (A) 1 %; CH 26.9; CHCM 30.5; Eosinophils # (A) 0.4 k/uL (0-0.7); Eosinophils % (A) 6 %; HCT 43.3 % (39.0-53.0); HDW 2.27; HGB 13.7 gm/dL (13.0-17.5); Hypochromasia Slight; Luc # (Auto) 0.13; Luc % (Auto) 2; Lymphocytes # (A) 1.2 k/uL (1.0-4.8); Lymphocytes % (A) 21 %; MCH 28.1 pg (25.0-35.0); MCHC 31.6 g/dL (31.0-37.0); MCV 88.7 fL (80.0-100.0); Mean Platelet Volume 6.7; Monocytes # (A) 0.4 k/uL (0-1.0); Monocytes % (A) 7 %; Neutrophils # (A) 3.6 k/uL (1.3-7.7); Neutrophils % (A) 62 %; RBC 4.88 m/uL (4.30-5.90); RDW 13.2 % (11.5-15.5); WBC 5.8 k/uL (3.8-10.6); WBC (Perox) 6.04
[2017-03-25 09:24] LABS: ALT 52 U/L (21-72); AST 26 U/L (17-59); Alkaline Phosphatase 56 U/L (38-126); Anion Gap 10 mmol/L; Blood Urea Nitrogen 9 mg/dL (9-20); Calcium 9.2 mg/dL (8.4-10.2); Carbon Dioxide 27 mmol/L (22-30); Chloride 100 mmol/L (98-107); Glucose 340 mg/dL (74-99); Non-African American GFR(MDRD) >60 (>60 ml/min/1.73 sqM); Potassium 4.4 mmol/L (3.5-5.1); Sodium 137 mmol/L (137-145); Total Bilirubin 0.4 mg/dL (0.2-1.3); Total Protein 6.7 g/dL (6.3-8.2)
[2017-03-25] MEDS: Acetaminophen-Codeine 300-30mg TAB PO SCH ×2 (09:33→21:01)
[2017-03-25 12:09] LABS: Glucose,Whole Blood 129 mg/dL (75-99)
[2017-03-25] MEDS: MULTIVITAMINS, THERA 1 EACH TAB PO SCH (12:36)
--- NOTE | 2017-03-25 13:45 | P.PN ---
Subjective Principal diagnosis: Diabetic foot ulcer This is a 56-year-old male patient with past history of diabetes mellitus type 2 initially diagnosed 1 year ago. He is now on insulin and oral agents. He has been treated for left great toe diabetic ulcer Robles grade [address] Quintero in the wound healing Center from August of this year and was discharged on February 06 with healing of the wound. Patient states the Dr. Quintero recommended he follow with Dr. Hobbs to address the callus on the same toe. Patient has been following with Dr. Hobbs for the past 4-6 weeks and has had debridement of the callus. Dr. Hobbs told him that there was an infection there and has been on antibiotics of Keflex which she took 9 days worth and he has also been on Bactrim for 2 days at this time. Patient denies fever, chills , nausea, vomiting, diarrhea. He states he's had decreased appetite. Patient did have some minimal nausea this morning but none previous to admission. He does complain of significant peripheral neuropathy for which he was on Neurontin but did have a reaction and was then placed on Cymbalta for 3 weeks which did not help. He is now only taking [place]. He also states that Dilaudid caused him dizziness. He came into [facility] emergency center for evaluation. He underwent an x-ray that showed soft tissue ulcer on the plantar surface of the great toe with no signs of osteomyelitis. He was placed on vancomycin and admitted to the [facility] floor. Patient states the redness that was going up his foot to his ankle and lower leg area is improved from yesterday and is not as red. Wound culture is in progress. Blood culture are in progress. The bone scan has been completed. Consistent with osteomyelitis of the left great toe. Cultures in process. Does complain of ongoing significant pain to the infection site. Objective - Vital Signs Vital signs: Vital Signs Temp 97.4 F L 03/25/17 07:00 Pulse 65 03/25/17 07:00 Resp 16 03/25/17 07:00 BP 121/80 03/25/17 07:00 Pulse Ox 95 03/25/17 07:00 Intake & Output 03/24/17 03/25/17 03/25/17 18:59 06:59 18:59 Intake Total 870 500 Balance 870 500 Weight 117.934 kg Intake: Oral 870 500 Other: Voiding Method Toilet Toilet # Voids 2 2 - Exam Gen: This is a 56-year-old morbid obese male. He is found in bed and appears to be comfortable and in no acute distress. HEENT: Head is atraumatic, normocephalic. Pupils equal, round. Sclerae is anicteric. Conjunctiva pink. Mucous membranes of the mouth are moist. NECK: Supple. No JVD. No lymphadenopathy. No thyromegaly. LUNGS: Clear to auscultation. No wheezes or rhonchi. No intercostal retractions. HEART: Regular rate and rhythm. No murmur. ABDOMEN: Soft. Bowel sounds are present. No masses. No tenderness. EXTREMITIES: Mild left lower extremity edema to the foot and into the lower leg. Left great toe has an ulcer on the plantar surface with scant amount of drainage. Toe otherwise is slightly red with redness in the foot and ankle and distal tib-fib area. NEUROLOGICAL: Patient is awake, alert and oriented x3. Cranial nerves 2 through 12 are grossly intact. - Labs CBC & Chem 7: 03/25/17 08:51 03/25/17 08:51 Labs: Abnormal Lab Results - Last 24 Hours (Table) 03/24/17 03/24/17 03/25/17 Range/Units 17:02 21:36 06:55 Glucose (74-99) mg/dL POC Glucose (mg/dL) 112 H 128 H 130 H (75-99) mg/dL 03/25/17 03/25/17 Range/Units 08:51 11:56 Glucose 340 H (74-99) mg/dL POC Glucose (mg/dL) 129 H (75-99) mg/dL Microbiology - Last 24 Hours (Table) 03/22/17 15:08 Gram Stain - Final Toe - Left First Wound Culture - Final 03/22/17 15:08 Blood Culture - Preliminary Blood No Growth after 48 hours Laboratory Results WBC 5.8 k/uL (3.8-10.6) 03/25/17 08:51 RBC 4.88 m/uL (4.30-5.90) 03/25/17 08:51 Hgb 13.7 gm/dL (13.0-17.5) 03/25/17 08:51 Hct 43.3 % (39.0-53.0) 03/25/17 08:51 MCV 88.7 fL (80.0-100.0) 03/25/17 08:51 MCH 28.1 pg (25.0-35.0) 03/25/17 08:51 MCHC 31.6 g/dL (31.0-37.0) 03/25/17 08:51 RDW 13.2 % (11.5-15.5) 03/25/17 08:51 Plt Count 306 k/uL (150-450) 03/25/17 08:51 Neutrophils % 62 % 03/25/17 08:51 Lymphocytes % 21 % 03/25/17 08:51 Monocytes % 7 % 03/25/17 08:51 Eosinophils % 6 % 03/25/17 08:51 Basophils % 1 % 03/25/17 08:51 Neutrophils # 3.6 k/uL (1.3-7.7) 03/25/17 08:51 Lymphocytes # 1.2 k/uL (1.0-4.8) 03/25/17 08:51 Monocytes # 0.4 k/uL (0-1.0) 03/25/17 08:51 Eosinophils # 0.4 k/uL (0-0.7) 03/25/17 08:51 Basophils # 0.0 k/uL (0-0.2) 03/25/17 08:51 Hypochromasia Slight 03/25/17 08:51 Sodium 137 mmol/L (137-145) 03/25/17 08:51 Potassium 4.4 mmol/L (3.5-5.1) 03/25/17 08:51 Chloride 100 mmol/L (98-107) 03/25/17 08:51 Carbon Dioxide 27 mmol/L (22-30) 03/25/17 08:51 Anion Gap 10 mmol/L 03/25/17 08:51 BUN 9 mg/dL (9-20) 03/25/17 08:51 Creatinine 0.71 mg/dL (0.66-1.25) 03/25/17 08:51 Est GFR (MDRD) Af Amer >60 (>60 ml/min/1.73 sqM) 03/25/17 08:51 Est GFR (MDRD) Non-Af >60 (>60 ml/min/1.73 sqM) 03/25/17 08:51 Glucose 340 mg/dL (74-99) H 03/25/17 08:51 POC Glucose (mg/dL) 129 mg/dL (75-99) H 03/25/17 11:56 POC Glu Agri Business Agent Val Torres 03/25/17 11:[address] Glu mg/dL 212 mg/dL 03/23/17 08:39 Hemoglobin A1c 9.0 % (4.2-6.1) H 03/23/17 08:39 Calcium 9.2 mg/dL (8.4-10.2) 03/25/17 08:51 Total Bilirubin 0.4 mg/dL (0.2-1.3) 03/25/17 08:51 AST 26 U/L (17-59) 03/25/17 08:51 ALT 52 U/L (21-72) 03/25/17 08:51 Alkaline Phosphatase 56 U/L (38-126) 03/25/17 08:51 Total Protein 6.7 g/dL (6.3-8.2) 03/25/17 08:51 Albumin 3.9 g/dL (3.5-5.0) 03/25/17 08:51 Vancomycin Trough 12.8 ug/mL 03/24/17 08:11 Microbiology 03/22/17 15:08 Toe - Left First Gram Stain - Final 03/22/17 15:08 Toe - Left First Wound Culture - Final 03/22/17 15:08 Blood Blood Culture - Preliminary No Growth after 48 hours Bone scan positive for osteomyelitis of the left great toe Assessment and Plan (1) Diabetic foot ulcer Narrative/Plan: At this time this pleasant gentleman appears to have significant infection to the left great toe. There is a nonhealing ulceration. Concerns for underlying bony infection at this time. Bone scan has been performed. Podiatry consult in process. Cultures have been obtained. Prior cultures are reviewed showing evidence of MSSA as well as an anaerobic gram-negative bacilli. . With the positive bone scan we'll plan a 6 week course of intravenous antibiotic therapy. Likely at his local hospital possibly at home. Orders will be placed through the digital sales planner for evaluation. Will request a PICC line to be placed for his outpatient intravenous antibiotic therapy. Pre-albumin to be checked. A1c is elevated he understands importance of increased glucose control. Multivitamin is added He believes is up-to-date on his tetanus. Is having neuropathic leg pain, was intolerant of Neurontin and Cymbalta. He has not had amitriptyline this will be attempted. Wants PICC line has been placed in outpatient orders are in process he may be discharged home with follow -up with the wound healing Center. Likely total contact cast will be reapplied. Status: Acute
[2017-03-25] MEDS: AMITRIPTYLINE HCL 50 MG TAB PO SCH ×2 (15:21→21:01)
--- NOTE | 2017-03-25 15:47 | P.CON ---
Consult Note - . Consult date: 03/25/17 Assessment/Plan:: Subjective Principal diagnosis: Diabetic foot ulcer This is a 56-year-old male patient with past history of diabetes mellitus type 2 initially diagnosed 1 year ago. Patient was seen in my office last for a acute onset of infection of a recurrent ulcer on the left hallux. Patient has had an ulceration on this hallux 2 over the last year. Patient states this wound has been infected 2 this is a third time in the last year. Patient states he's been treated wound care and this wound continues to heal and then breakdown. Patient has been on Zosyn and vancomycin well hospitalized. Patient also has had a recent bone scan as well as radiographs of the foot. Patient states overall the foot and leg is doing much better. Objective - Vital Signs Vital signs: Vital Signs Temp 97.4 F L 03/25/17 07:00 Pulse 65 03/25/17 07:00 Resp 16 03/25/17 07:00 BP 121/80 03/25/17 07:00 Pulse Ox 95 03/25/17 07:00 Intake & Output 03/24/17 03/25/17 03/25/17 18:59 06:59 18:59 Intake Total 870 500 Balance 870 500 Weight 117.934 kg Intake: Oral 870 500 Other: Voiding Method Toilet Toilet # Voids 2 2 - Exam Gen: This is a 56-year-old morbid obese male. He is found in bed and appears to be comfortable and in no acute distress. HEENT: Head is atraumatic, normocephalic. Pupils equal, round. Sclerae is anicteric. Conjunctiva pink. Mucous membranes of the mouth are moist. NECK: Supple. No JVD. No lymphadenopathy. No thyromegaly. LUNGS: Clear to auscultation. No wheezes or rhonchi. No intercostal retractions. HEART: Regular rate and rhythm. No murmur. ABDOMEN: Soft. Bowel sounds are present. No masses. No tenderness. EXTREMITIES: Dermatologic examination there is an ulceration on the plantar aspect of the left hallux. There is diminishing erythema edema with no drainage. There is minimal necrotic tissue. Vascular examination reveals diminished but adequate blood flow to bilateral lower extremities. There is no digital hair 10. Neurologic examination shows diminished epicritic and pallesthetic sensations bilateral. There is loss of protective sensation to the mid foot bilateral. Orthopedic examination shows a gastrocnemius equinus with an acquired pes planus valgus foot type bilateral. Range of motion of the subtalar joint and midtarsal joint and metatarsophalangeal joints grossly normal and symmetrical bilateral all inverters everters plantar flexors dorsiflexors grossly normal symmetrical bilateral. Review of radiographic studies show no radiographic evidence of osteomyelitis with a positive bone scan for increase activity. There is no White blood cell scan available or MRI for evaluation. - Labs CBC & Chem 7: 03/25/17 08:51 03/25/17 08:51 Labs: Abnormal Lab Results - Last 24 Hours (Table) 03/24/17 03/24/17 03/25/17 Range/Units 17:02 21:36 06:55 Glucose (74-99) mg/dL POC Glucose (mg/dL) 112 H 128 H 130 H (75-99) mg/dL 03/25/17 03/25/17 Range/Units 08:51 11:56 Glucose 340 H (74-99) mg/dL POC Glucose (mg/dL) 129 H (75-99) mg/dL Microbiology - Last 24 Hours (Table) 03/22/17 15:08 Gram Stain - Final Toe - Left First Wound Culture - Final 03/22/17 15:08 Blood Culture - Preliminary Blood No Growth after 48 hours Laboratory Results WBC 5.8 k/uL (3.8-10.6) 03/25/17 08:51 RBC 4.88 m/uL (4.30-5.90) 03/25/17 08:51 Hgb 13.7 gm/dL (13.0-17.5) 03/25/17 08:51 Hct 43.3 % (39.0-53.0) 03/25/17 08:51 MCV 88.7 fL (80.0-100.0) 03/25/17 08:51 MCH 28.1 pg (25.0-35.0) 03/25/17 08:51 MCHC 31.6 g/dL (31.0-37.0) 03/25/17 08:51 RDW 13.2 % (11.5-15.5) 03/25/17 08:51 Plt Count 306 k/uL (150-450) 03/25/17 08:51 Neutrophils % 62 % 03/25/17 08:51 Lymphocytes % 21 % 03/25/17 08:51 Monocytes % 7 % 03/25/17 08:51 Eosinophils % 6 % 03/25/17 08:51 Basophils % 1 % 03/25/17 08:51 Neutrophils # 3.6 k/uL (1.3-7.7) 03/25/17 08:51 Lymphocytes # 1.2 k/uL (1.0-4.8) 03/25/17 08:51 Monocytes # 0.4 k/uL (0-1.0) 03/25/17 08:51 Eosinophils # 0.4 k/uL (0-0.7) 03/25/17 08:51 Basophils # 0.0 k/uL (0-0.2) 03/25/17 08:51 Hypochromasia Slight 03/25/17 08:51 Sodium 137 mmol/L (137-145) 03/25/17 08:51 Potassium 4.4 mmol/L (3.5-5.1) 03/25/17 08:51 Chloride 100 mmol/L (98-107) 03/25/17 08:51 Carbon Dioxide 27 mmol/L (22-30) 03/25/17 08:51 Anion Gap 10 mmol/L 03/25/17 08:51 BUN 9 mg/dL (9-20) 03/25/17 08:51 Creatinine 0.71 mg/dL (0.66-1.25) 03/25/17 08:51 Est GFR (MDRD) Af Amer >60 (>60 ml/min/1.73 sqM) 03/25/17 08:51 Est GFR (MDRD) Non-Af >60 (>60 ml/min/1.73 sqM) 03/25/17 08:51 Glucose 340 mg/dL (74-99) H 03/25/17 08:51 POC Glucose (mg/dL) 129 mg/dL (75-99) H 03/25/17 11:56 POC Glu Finance Administrator ID Val Davis 03/25/17 11:[address] Glu mg/dL 212 mg/dL 03/23/17 08:39 Hemoglobin A1c 9.0 % (4.2-6.1) H 03/23/17 08:39 Calcium 9.2 mg/dL (8.4-10.2) 03/25/17 08:51 Total Bilirubin 0.4 mg/dL (0.2-1.3) 03/25/17 08:51 AST 26 U/L (17-59) 03/25/17 08:51 ALT 52 U/L (21-72) 03/25/17 08:51 Alkaline Phosphatase 56 U/L (38-126) 03/25/17 08:51 Total Protein 6.7 g/dL (6.3-8.2) 03/25/17 08:51 Albumin 3.9 g/dL (3.5-5.0) 03/25/17 08:51 Vancomycin Trough 12.8 ug/mL 03/24/17 08:11 Microbiology 03/22/17 15:08 Toe - Left First Gram Stain - Final 03/22/17 15:08 Toe - Left First Wound Culture - Final 03/22/17 15:08 Blood Blood Culture - Preliminary No Growth after 48 hours Bone scan positive for osteomyelitis of the left great toe Assessment and Plan (1) Diabetic foot ulcer Narrative/Plan: At this time we reviewed patient's chart as well as clinical examination the foot. It appears to be responding significantly to the IV antibiotics. Review of the radiographs and bone scan are suggestive of more of an ostial arthritic process with a possible osteomyelitis component. Would suggest as an outpatient get a WBC scan or MRI of the area to conclude that there is an osteomyelitis present. Discussed this with patient. We'll continue wound care and offloading the first MPJ of the left foot. Patient does have a functional hallux limitus which is resulting in this chronic hyperkeratosis and recurrent ulceration. We will control of the abnormal biomechanics of the foot as an outpatient with biomechanically corrected functional orthotics. Did discuss with patient possibility of gastroc Asiya lengthening of the Achilles tendon. We will continue to follow the patient as an outpatient. He for this consult. Status: Acute
--- NOTE | 2017-03-25 15:54 | P.PN ---
Subjective This is a 56-year-old male, patient of Dr. Guzman. He has a known past medical history of diabetes mellitus, asthma and a chronic left foot ulcer. Patient has been dealing with this foot ulcer for about a year. He has been hospitalized previously for it. He has been followed at the wound care center by Dr. Quintero and also follows up with Dr. Hobbs for podiatry. Patient reports that he has been on Keflex for about 9 days for this infection in his left great toe with no snacking improvement. He was then started on Bactrim for 2 days. He went to see his adjunct philosophy faculty yesterday and was told to come into the hospital for IV antibiotics and further evaluation and treatment. The by the adjunct philosophy faculty had cleaned off a callus along the left medial aspect of the great toe per patient and was told that it was not healing. X-ray of the left foot shows soft tissue ulcer plantar aspect of the great toe. No underlying acute osseous abnormality seen. No x-ray evidence of osteomyelitis at this time. Patient reports significant pain in that left great toe and foot. He's reports having some redness that was along the left foot and going up into the leg. Patient reports that there is already been some improvement in the redness. He does have significant swelling in the left leg and tenderness with palpation of the left calf. Blood sugars are not well-controlled A1c is 9.1 and he had a blood sugar on admission of 309. He was started on IV Zosyn and vancomycin. He reports no history of MRSA. Wound culture obtained blood culture and is pending. A consult for infectious disease was ordered. And they have already ordered a bone scan. Patient denies any fever or chills or sweats. Denies any nausea or vomiting. Denies any bowel movement changes or urinary symptoms. On 03/24/2017 patient was seen and examined he is alert and oriented 3 he is complaining of pain in his foot otherwise denies any complaint there is no chest pain no shortness of breath no dizziness no cough no nausea or vomiting no abdominal pain no diarrhea or constipation and no urinary symptoms Objective - Vital Signs Vital signs: Vital Signs Temp 97.1 F L 03/25/17 14:45 Pulse 71 03/25/17 14:45 Resp 20 03/25/17 14:45 BP 136/89 03/25/17 14:45 Pulse Ox 95 03/25/17 14:45 Intake & Output 03/24/17 03/25/17 03/25/17 18:59 06:59 18:59 Intake Total 870 500 Balance 870 500 Weight 117.934 kg Intake: Oral 870 500 Other: Voiding Method Toilet Toilet # Voids 2 2 4 - Exam Head normocephalic Neck supple Lungs clear to auscultation bilaterally no wheezing or crackles Heart regular rate and rhythm S1-S2, no rub or gallop Abdomen is soft nontender nondistended positive bowel sounds no hepatosplenomegaly Extremities left leg and foot are swollen. Left great toe swollen. There is an ulcer and opening along the lateral aspect of the left great toe. Tender with palpation. Bloody drainage noted on bandage. Patient does have some redness noted into the left march and calf area. Tenderness with palpation of the calf. Neuro alert and orientated to 3 - Labs CBC & Chem 7: 03/25/17 08:51 03/25/17 08:51 Labs: Abnormal Lab Results - Last 24 Hours (Table) 03/24/17 03/24/17 03/25/17 Range/Units 17:02 21:36 06:55 Glucose (74-99) mg/dL POC Glucose (mg/dL) 112 H 128 H 130 H (75-99) mg/dL 03/25/17 03/25/17 Range/Units 08:51 11:56 Glucose 340 H (74-99) mg/dL POC Glucose (mg/dL) 129 H (75-99) mg/dL Microbiology - Last 24 Hours (Table) 03/22/17 15:08 Gram Stain - Final Toe - Left First Wound Culture - Final 03/22/17 15:08 Blood Culture - Preliminary Blood No Growth after 48 hours Assessment and Plan Plan: 1. Infected diabetic foot ulcer of the left great toe: Failed outpatient treatment. Infectious diseases been consulted. Wound culture pending. Currently on Zosyn and vancomycin. Foot x-ray showed no evidence of osteomyelitis. Bone scan reveals evidence of cellulitis and osteomyelitis. venous Doppler was negative for DVT 2. Diabetes mellitus type 2: Not well controlled. Hemoglobin A1c 9.1. Resume Lantus Humalog scheduled with each meal and oral hypoglycemics. Add sliding scale coverage. 3. Asthma stable no evidence of exacerbation 4. Obesity BMI 36.3 5. GI prophylaxis Pepcid and DVT prophylaxis subcu heparin Plan is for PICC line placement tomorrow then discharge home once all arrangements for IV antibiotic as outpatient are made.
--- NOTE | 2017-03-25 16:04 | P.DS ---
Providers Date of admission: 03/22/17 17:19 Expected date of discharge: 03/25/17 Attending physician: Zahra Guzman Consults: 03/22/17 17:19 Consult Physician Stat Consulting Provider: Elan Brooke Consult Reason/Comments: Diabetic foot ulcer Do you want consulting provider notified?: Yes 03/23/17 15:53 Consult Physician Routine Consulting Provider: Kain Hobbs Consult Reason/Comments: diabetic foot ulcer Do you want consulting provider notified?: Yes Primary care physician: [facility] Course: Diagnoses on discharge: 1. Acute on chronic diastolic CHF exacerbation: Patient started on IV Lasix. Chest x-ray had shown evidence of congestive heart failure with bilateral pleural effusions. BNP elevated at 13,700. Patient's last echo was in March 2016 showing an EF of 55-60%. Pulmonary and cardiology are following patient. They've discontinued the IV Lasix due to the increase in the creatinine. Echo is pending. Patient still reporting some shortness of breath. 2. History of chronic atrial fibrillation: EKG shows rate controlled. Continue with Coumadin for anticoagulation and monitoring daily PT/INRs 3. Mildly elevated troponins: Patient has no complaints of chest pain. Likely a troponin leak. Patient evaluated by cardiology 4. History of coronary artery disease with previous CABG 5. History of aortic valve replacement 6. Essential hypertension: Continue Norvasc and metoprolol 7. Hypothyroidism continue Synthroid 8. Acute on Chronic kidney disease stage III: Patient has increased creatinine up to 2.20 likely related to the Lasix. Lasix has been discontinued. Repeat labs in a.m. 9. Thrombocytopenia: Platelet count 114. Patient did have a nosebleed last night. Coumadin was held. No further nosebleeds. Continue to monitor platelet count closely Hospital course: This is a 81-year-old male, a patient of Dr. Perales. He has a known past medical history of congestive heart failure, coronary artery disease with previous CABG, DVT, aortic valve replacement, hypertension, hyperlipidemia, hypothyroidism, chronic kidney disease and chronic atrial fibrillation. Patient presents with a three-day history of worsening shortness of breath and lower extremity edema. Patient was seen by his remnant sorter, Dr. Erlin syed and was recommended to go to the emergency room. He was patient was told that his x-ray had showed fluid overload. Patient's chest x-ray on admission showed congestive heart failure with bilateral pleural effusions. He was started on IV Lasix 20 mg every 12 hours. Pulmonary service was consulted. BNP level was 13,700. EKG shows atrial fibrillation with a heart rate of 73. And troponins are mildly elevated at 0.080, 0.083 and 0.080. Patient denies any chest pain. Does report some improvement in his shortness of breath since been admitted to the hospital. He is requiring oxygen and usually only uses oxygen when he is sleeping at night. Patient denies any fever chills or sweats. Denies cough. Denies any nausea or vomiting. Denies any bowel movement changes or urinary symptoms. Patient was stabilized dose of lasix changed to 60 mg daily in am Follow up with syrup mixer helper DR Harris within one week Follow up with Dr Thakur center machine operator in 1 to 2 weeks Follow up with primary care physician in 1 week Follow up with Dr Sparks in 1 to 2 weeks Patient Condition at Discharge: Stable Plan - Discharge Summary New Discharge Prescriptions: No Action Albuterol Inhaler [Ventolin Hfa Inhaler] 2 puff INHALATION RT-Q4H PRN PRN Reason: Shortness Of Breath Or Wheezing Cetirizine HCl 10 mg PO HS Acetaminophen with Codeine [Tylenol w/codeine #3] 1 tab PO BID Insulin Glargine [Lantus] 16 unit SQ HS #3 vial glipiZIDE [Glucotrol] 5 mg PO AC-BID #60 tab metFORMIN HCL 1,000 mg PO BID #0 Insulin Aspart [NovoLOG] 4 unit SQ AC-TID Discharge Medication List Acetaminophen with Codeine [Tylenol w/codeine #3] 1 tab PO BID 09/01/16 [History ] Albuterol Inhaler [Ventolin Hfa Inhaler] 2 puff INHALATION RT-Q4H PRN 09/01/16 [ History] Cetirizine HCl 10 mg PO HS 09/01/16 [History] Insulin Glargine [Lantus] 16 unit SQ HS #3 vial 10/13/16 [Rx] glipiZIDE [Glucotrol] 5 mg PO AC-BID #60 tab 10/13/16 [Rx] metFORMIN HCL 1,000 mg PO BID #0 11/13/16 [Rx] Insulin Aspart [NovoLOG] 4 unit SQ AC-TID 09/21/17 [History] Follow up Appointment(s)/Referral(s): Zahra Guzman MD [Primary Care Provider] - 1-2 days
[2017-03-25] MEDS: metFORMIN 500 MG TAB PO SCH (17:24)
[2017-03-25 17:31] LABS: Glucose,Whole Blood 113 mg/dL (75-99)
[2017-03-25 20:47] LABS: Glucose,Whole Blood 214 mg/dL (75-99)
[2017-03-25] MEDS: INSULIN GLARGINE 100 UNIT/ML 10 ML VIAL SQ SCH (21:00)
[2017-03-25] MEDS: LORATADINE 10 MG TAB PO SCH (21:01)
[2017-03-26] MEDS: PIPERACILLIN-TAZOBACTAM 3.375 GM in DEXTROSE/WATER 1 50ML.BAG IVPB SCH ×4 (00:05→22:58)
[2017-03-26] MEDS: HYDROcodone/APAP 5-325MG 1 EACH TAB PO PRN ×4 (05:54→22:54)
[2017-03-26 07:00] LABS: Glucose,Whole Blood 132 mg/dL (75-99)
[2017-03-26] MEDS: INSULIN LISPRO (humaLOG) 300 UNIT/3 ML VIAL SQ SCH ×8 (08:22→21:38)
[2017-03-26] MEDS: metFORMIN 500 MG TAB PO SCH ×2 (08:23→17:51)
[2017-03-26] MEDS: glipiZIDE 5 MG TAB PO SCH ×2 (08:23→16:42)
[2017-03-26] MEDS: Acetaminophen-Codeine 300-30mg TAB PO SCH ×2 (08:25→21:41)
[2017-03-26] MEDS: AMITRIPTYLINE HCL 50 MG TAB PO SCH ×2 (08:27→21:41)
[2017-03-26] MEDS: HEPARIN SODIUM,PORCINE 5,000 UNIT/ML 1 ML VIAL SQ SCH ×2 (08:27→21:41)
[2017-03-26] MEDS: FAMOTIDINE 20 MG TAB PO SCH (08:27)
[2017-03-26 09:50] LABS: Basophils % (A) 1 %; CH 27.8; CHCM 31.9; Eosinophils # (A) 0.3 k/uL (0-0.7); Eosinophils % (A) 5 %; HCT 42.3 % (39.0-53.0); HDW 2.33; HGB 13.1 gm/dL (13.0-17.5); Luc # (Auto) 0.07; Luc % (Auto) 1; Lymphocytes # (A) 1.1 k/uL (1.0-4.8); Lymphocytes % (A) 20 %; MCH 27.1 pg (25.0-35.0); MCV 87.5 fL (80.0-100.0); Mean Platelet Volume 7.2; Monocytes # (A) 0.5 k/uL (0-1.0); Monocytes % (A) 9 %; Neutrophils # (A) 3.5 k/uL (1.3-7.7); Neutrophils % (A) 64 %; RBC 4.83 m/uL (4.30-5.90); WBC 5.5 k/uL (3.8-10.6); WBC (Perox) 5.36
[2017-03-26 10:02] LABS: ALT 56 U/L (21-72); AST 27 U/L (17-59); Alkaline Phosphatase 49 U/L (38-126); Anion Gap 9 mmol/L; Blood Urea Nitrogen 8 mg/dL (9-20); Carbon Dioxide 27 mmol/L (22-30); Chloride 101 mmol/L (98-107); Glucose 227 mg/dL (74-99); Non-African American GFR(MDRD) >60 (>60 ml/min/1.73 sqM); Potassium 4.5 mmol/L (3.5-5.1); Sodium 137 mmol/L (137-145); Total Bilirubin 0.2 mg/dL (0.2-1.3); Total Protein 6.4 g/dL (6.3-8.2)
[2017-03-26] MEDS: MULTIVITAMINS, THERA 1 EACH TAB PO SCH (11:05)
[2017-03-26 12:18] LABS: Glucose,Whole Blood 100 mg/dL (75-99)
--- NOTE | 2017-03-26 12:19 | P.DS ---
Providers Date of admission: 03/22/17 17:19 Expected date of discharge: 03/26/17 Attending physician: Zahra Guzman Consults: 03/22/17 17:19 Consult Physician Stat Consulting Provider: Elan Brooke Consult Reason/Comments: Diabetic foot ulcer Do you want consulting provider notified?: Yes 03/23/17 15:53 Consult Physician Routine Consulting Provider: Kain Hobbs Consult Reason/Comments: diabetic foot ulcer Do you want consulting provider notified?: Yes Primary care physician: [facility] Course: Discharge summary dictated by Dr. Park on 03/25/2017 was entered by error This is a 56-year-old gentleman with past medical history noted in his electronic chart significant for type 2 diabetes mellitus, peripheral neuropathy , and history of callus formation involving the left great toe presented to the hospital with worsening cellulitis and was found to have evidence of osteomyelitis of the first digit of the left foot on bone scan. Patient was seen and evaluated by infectious disease and plan to insert PICC line today and discharged home with home infusion. IV antibiotic course to be determined by infectious disease possibly for 6 weeks. Patient Condition at Discharge: Stable Plan - Discharge Summary New Discharge Prescriptions: New Amitriptyline HCl [Elavil] 50 mg PO BID #60 tab Continue Albuterol Inhaler [Ventolin Hfa Inhaler] 2 puff INHALATION RT-Q4H PRN PRN Reason: Shortness Of Breath Or Wheezing Cetirizine HCl 10 mg PO HS Acetaminophen with Codeine [Tylenol w/codeine #3] 1 tab PO BID Insulin Glargine [Lantus] 16 unit SQ HS #3 vial glipiZIDE [Glucotrol] 5 mg PO AC-BID #60 tab metFORMIN HCL 1,000 mg PO BID #0 Insulin Aspart [NovoLOG] 4 unit SQ AC-TID Discharge Medication List Acetaminophen with Codeine [Tylenol w/codeine #3] 1 tab PO BID 09/01/16 [History ] Albuterol Inhaler [Ventolin Hfa Inhaler] 2 puff INHALATION RT-Q4H PRN 09/01/16 [ History] Cetirizine HCl 10 mg PO HS 09/01/16 [History] Insulin Glargine [Lantus] 16 unit SQ HS #3 vial 10/13/16 [Rx] glipiZIDE [Glucotrol] 5 mg PO AC-BID #60 tab 10/13/16 [Rx] metFORMIN HCL 1,000 mg PO BID #0 11/13/16 [Rx] Insulin Aspart [NovoLOG] 4 unit SQ AC-TID 03/22/17 [History] Amitriptyline HCl [Elavil] 50 mg PO BID #60 tab 03/26/17 [Rx] Follow up Appointment(s)/Referral(s): [facility], [NON-STAFF] - Zahra Guzman MD [Primary Care Provider] - 1 Week Patient Instructions/Handouts: Type 2 Diabetes in Adults (DC) Discharge Disposition: HOME WITH HOME HEALTH SERVICES
[2017-03-26] MEDS ORDERED: LIDOCAINE 2% INJ 20 MG/ML (20 ML MDV) ONE (13:08)
[2017-03-26] MEDS ORDERED: LIDOCAINE 2% INJ 20 MG/ML SQ ONE (13:41)
--- NOTE | 2017-03-26 14:07 | IR ---
PICC LINE PLACEMENT: HISTORY: Infection requiring long-term antibiotic therapy PROCEDURE: Ultrasound and fluoroscopic guidance of PICC line placement. COMPLICATIONS: None ANESTHESIA: 1. 1% Lidocaine locally. FINDINGS/TECHNIQUE: The procedure was explained to the patient. The risks, complications, benefits and alternatives were discussed and any questions were answered. Informed consent was obtained. The patient was placed supine on the fluoroscopic table and prepped and draped in the usual sterile counts include 234 beds at the [facility] ion. Utilizing a 21 gauge needle and sonographic and fluoroscopic guidance, access in the vein was achieved and there is placement of a 0.018 guidewire. The vein is patent. A 4-F sheath was placed o parrish the guidewire. The guidewire and dilator were removed and a 4-F. PICC line was placed through th e sheath with the tip at the level of the SVC. The sheath was removed, the catheter was flushed and sutured into position. The patient was stable throughout the procedure and remained stable upon disc harge from the Department of Radiology. The vein puncture was patent under ultrasound. A talavera scale image was obtained to document patency of the vein punctured. All elements of the maximal barrier technique were utilized. FLUOROSCOPY TIME: 0.1 minute, one image submitted IMPRESSION: Successful PICC line placement under ultrasound and fluoroscopic guidance.
[2017-03-26 17:18] LABS: Glucose,Whole Blood 179 mg/dL (75-99)
[2017-03-26 21:23] LABS: Glucose,Whole Blood 125 mg/dL (75-99)
--- NOTE | 2017-03-26 21:39 | P.PN ---
Subjective Principal diagnosis: Diabetic foot ulcer This is a 56-year-old male patient with past history of diabetes mellitus type 2 initially diagnosed 1 year ago. He is now on insulin and oral agents. He has been treated for left great toe diabetic ulcer Robles grade [address] Quintero in the wound healing Center from August of this year and was discharged on February 06 with healing of the wound. Patient states the Dr. Quintero recommended he follow with Dr. Hobbs to address the callus on the same toe. Patient has been following with Dr. Hobbs for the past 4-6 weeks and has had debridement of the callus. Dr. Hobbs told him that there was an infection there and has been on antibiotics of Keflex which she took 9 days worth and he has also been on Bactrim for 2 days at this time. Patient denies fever, chills , nausea, vomiting, diarrhea. He states he's had decreased appetite. Patient did have some minimal nausea this morning but none previous to admission. He does complain of significant peripheral neuropathy for which he was on Neurontin but did have a reaction and was then placed on Cymbalta for 3 weeks which did not help. He is now only taking [place]. He also states that Dilaudid caused him dizziness. He came into [facility] emergency center for evaluation. He underwent an x-ray that showed soft tissue ulcer on the plantar surface of the great toe with no signs of osteomyelitis. He was placed on vancomycin and admitted to the [facility] floor. Patient states the leg is feeling slightly better. Wound culture is in progress. Blood culture are in progress. The bone scan has been completed. Consistent with osteomyelitis of the left great toe. Cultures in process. Does complain of ongoing significant pain to the infection site. Objective - Vital Signs Vital signs: Vital Signs Temp 97.6 F 03/26/17 15:00 Pulse 69 03/26/17 15:00 Resp 18 03/26/17 16:00 BP 114/62 03/26/17 15:00 Pulse Ox 99 03/26/17 15:00 Intake & Output 03/26/17 03/26/17 03/27/17 06:59 18:59 06:59 Intake Total 762 Balance 762 Intake: Intake, IV Titration 50 Amount Piperacillin-Tazobactam 3 50 .375 gm In Dextrose/Water 1 50ml.bag @ 12.5 mls/hr IVPB Q8HR [facility] Rx#: [id number] Oral 712 Other: Voiding Method Toilet Toilet # Voids 1 2 # Bowel Movements 1 - Exam Gen: This is a 56-year-old morbid obese male. He is found in bed and appears to be comfortable and in no acute distress. HEENT: Head is atraumatic, normocephalic. Pupils equal, round. Sclerae is anicteric. Conjunctiva pink. Mucous membranes of the mouth are moist. NECK: Supple. No JVD. No lymphadenopathy. No thyromegaly. LUNGS: Clear to auscultation. No wheezes or rhonchi. No intercostal retractions. HEART: Regular rate and rhythm. No murmur. ABDOMEN: Soft. Bowel sounds are present. No masses. No tenderness. EXTREMITIES: Mild left lower extremity edema to the foot and into the lower leg. Left great toe has an ulcer on the plantar surface with scant amount of drainage. Toe otherwise is slightly red with redness in the foot and ankle and distal tib-fib area. NEUROLOGICAL: Patient is awake, alert and oriented x3. Cranial nerves 2 through 12 are grossly intact. - Labs CBC & Chem 7: 03/26/17 09:22 03/26/17 09:22 Labs: Abnormal Lab Results - Last 24 Hours (Table) 03/26/17 03/26/17 03/26/17 Range/Units 06:39 09:22 11:58 BUN 8 L (9-20) mg/dL Creatinine 0.65 L (0.66-1.25) mg/dL Glucose 227 H (74-99) mg/dL POC Glucose (mg/dL) 132 H 100 H (75-99) mg/dL 03/26/17 03/26/17 Range/Units 17:05 20:56 BUN (9-20) mg/dL Creatinine (0.66-1.25) mg/dL Glucose (74-99) mg/dL POC Glucose (mg/dL) 179 H 125 H (75-99) mg/dL Microbiology - Last 24 Hours (Table) 03/22/17 15:08 Blood Culture - Preliminary Blood No Growth after 96 hours Assessment and Plan (1) Diabetic foot ulcer Narrative/Plan: At this time this pleasant gentleman appears to have significant infection to the left great toe. There is a nonhealing ulceration. Concerns for underlying bony infection at this time. Bone scan has been performed. Podiatry consult in process. Cultures have been obtained. Prior cultures are reviewed showing evidence of MSSA as well as an anaerobic gram-negative bacilli. . With the positive bone scan we'll plan a 6 week course of intravenous antibiotic therapy. Likely at his local hospital possibly at home. Orders will be placed through the cyber ops planner for evaluation. Will request a PICC line to be placed for his outpatient intravenous antibiotic therapy. Pre-albumin to be checked. A1c is elevated he understands importance of increased glucose control. Multivitamin is added He believes is up-to-date on his tetanus. Is having neuropathic leg pain, was intolerant of Neurontin and Cymbalta. He has not had amitriptyline this will be attempted. PICC line has been placed and outpatient orders are in process he may be discharged home with follow-up with the wound healing Center. Likely total contact cast will be reapplied. Status: Acute
[2017-03-26] MEDS: INSULIN GLARGINE 100 UNIT/ML 10 ML VIAL SQ SCH (21:42)
[2017-03-26] MEDS: LORATADINE 10 MG TAB PO SCH (21:42)
[2017-03-26 23:16] VITALS: RESP 16
[2017-03-27] MEDS: HYDROcodone/APAP 5-325MG 1 EACH TAB PO PRN ×2 (06:41→11:57)
[2017-03-27 07:38] LABS: Glucose,Whole Blood 142 mg/dL (75-99)
[2017-03-27] MEDS: metFORMIN 500 MG TAB PO SCH (07:44)
[2017-03-27] MEDS: glipiZIDE 5 MG TAB PO SCH (07:44)
[2017-03-27] MEDS: FAMOTIDINE 20 MG TAB PO SCH (07:44)
[2017-03-27] MEDS: HEPARIN SODIUM,PORCINE 5,000 UNIT/ML 1 ML VIAL SQ SCH (07:45)
[2017-03-27] MEDS: AMITRIPTYLINE HCL 50 MG TAB PO SCH (07:45)
[2017-03-27] MEDS: Acetaminophen-Codeine 300-30mg TAB PO SCH (07:46)
[2017-03-27] MEDS: INSULIN LISPRO (humaLOG) 300 UNIT/3 ML VIAL SQ SCH ×4 (07:48→12:58)
[2017-03-27 08:39] VITALS: BP 152/98; PULSE 76; TEMP 97.1
[2017-03-27] MEDS ORDERED: ERTAPENEM 1 GM in SODIUM CHLORIDE 0.9% 50 ML IVPB SCH (09:00)
[2017-03-27 09:47] LABS: Basophils # (A) 0.1 k/uL (0-0.2); Basophils % (A) 1 %; CH 26.8; CHCM 30.5; Eosinophils # (A) 0.4 k/uL (0-0.7); Eosinophils % (A) 5 %; HCT 43.5 % (39.0-53.0); HDW 2.26; HGB 13.3 gm/dL (13.0-17.5); Hypochromasia Slight; Luc # (Auto) 0.18; Luc % (Auto) 3; Lymphocytes # (A) 1.5 k/uL (1.0-4.8); Lymphocytes % (A) 22 %; MCH 27.1 pg (25.0-35.0); MCHC 30.6 g/dL (31.0-37.0); MCV 88.4 fL (80.0-100.0); Mean Platelet Volume 6.9; Monocytes # (A) 0.5 k/uL (0-1.0); Monocytes % (A) 7 %; Neutrophils # (A) 4.2 k/uL (1.3-7.7); Neutrophils % (A) 62 %; RBC 4.92 m/uL (4.30-5.90); WBC 6.7 k/uL (3.8-10.6); WBC (Perox) 7.13
[2017-03-27 10:14] LABS: ALT 56 U/L (21-72); AST 28 U/L (17-59); Alkaline Phosphatase 52 U/L (38-126); Anion Gap 10 mmol/L; Blood Urea Nitrogen 10 mg/dL (9-20); Calcium 9.1 mg/dL (8.4-10.2); Carbon Dioxide 25 mmol/L (22-30); Chloride 104 mmol/L (98-107); Glucose 204 mg/dL (74-99); Non-African American GFR(MDRD) >60 (>60 ml/min/1.73 sqM); Potassium 4.6 mmol/L (3.5-5.1); Sodium 139 mmol/L (137-145); Total Bilirubin 0.2 mg/dL (0.2-1.3); Total Protein 6.7 g/dL (6.3-8.2)
[2017-03-27 11:53] LABS: Glucose,Whole Blood 153 mg/dL (75-99)
[2017-03-27] MEDS: MULTIVITAMINS, THERA 1 EACH TAB PO SCH (11:57)
--- NOTE | 2017-03-27 20:31 | P.PN ---
Subjective Principal diagnosis: Diabetic foot ulcer This is a 56-year-old male patient with past history of diabetes mellitus type 2 initially diagnosed 1 year ago. He is now on insulin and oral agents. He has been treated for left great toe diabetic ulcer Robles grade [address] Quintero in the wound healing Center from August of this year and was discharged on February 06 with healing of the wound. Patient states the Dr. Quintero recommended he follow with Dr. Hobbs to address the callus on the same toe. Patient has been following with Dr. Hobbs for the past 4-6 weeks and has had debridement of the callus. Dr. Hobbs told him that there was an infection there and has been on antibiotics of Keflex which she took 9 days worth and he has also been on Bactrim for 2 days at this time. Patient denies fever, chills , nausea, vomiting, diarrhea. He states he's had decreased appetite. Patient did have some minimal nausea this morning but none previous to admission. He does complain of significant peripheral neuropathy for which he was on Neurontin but did have a reaction and was then placed on Cymbalta for 3 weeks which did not help. He is now only taking [place]. He also states that Dilaudid caused him dizziness. He came into [facility] emergency center for evaluation. He underwent an x-ray that showed soft tissue ulcer on the plantar surface of the great toe with no signs of osteomyelitis. He was placed on vancomycin and admitted to the [facility] floor. Patient states the leg is feeling slightly better. Wound culture is in progress. Blood culture are in progress. The bone scan has been completed. Consistent with osteomyelitis of the left great toe. Cultures in process. Does complain of pain to the infection site but is improving. Objective - Vital Signs Vital signs: Vital Signs Temp 97.1 F L 03/27/17 07:00 Pulse 76 03/27/17 07:00 Resp 16 03/27/17 08:00 BP 152/98 03/27/17 07:00 Pulse Ox 95 03/27/17 07:00 Intake & Output 03/27/17 03/27/17 03/28/17 06:59 18:59 06:59 Intake Total 100 Balance 100 Intake: Oral 100 Other: Voiding Method Toilet Toilet # Voids 2 - Exam Gen: This is a 56-year-old morbid obese male. He is found in bed and appears to be comfortable and in no acute distress. HEENT: Head is atraumatic, normocephalic. Pupils equal, round. Sclerae is anicteric. Conjunctiva pink. Mucous membranes of the mouth are moist. NECK: Supple. No JVD. No lymphadenopathy. No thyromegaly. LUNGS: Clear to auscultation. No wheezes or rhonchi. No intercostal retractions. HEART: Regular rate and rhythm. No murmur. ABDOMEN: Soft. Bowel sounds are present. No masses. No tenderness. EXTREMITIES: The erythema that was from the foot onto the leg is improved. Left great toe has an ulcer on the plantar surface with scant amount of drainage. Toe otherwise is slightly red with redness limited just to the foot. The ascending erythema has resolved. Pain is improved. NEUROLOGICAL: Patient is awake, alert and oriented x3. Cranial nerves 2 through 12 are grossly intact. - Labs CBC & Chem 7: 03/27/17 09:03/27/17 09:29 Labs: Abnormal Lab Results - Last 24 Hours (Table) 03/26/17 03/27/17 03/27/17 Range/Units 20:56 07:27 09: MCHC 30.6 L (31.0-37.0) g/dL Glucose (74-99) mg/dL POC Glucose (mg/dL) 125 H 142 H (75-99) mg/dL 03/27/17 03/27/17 Range/Units 09:29 11:45 MCHC (31.0-37.0) g/dL Glucose 204 H (74-99) mg/dL POC Glucose (mg/dL) 153 H (75-99) mg/dL Microbiology - Last 24 Hours (Table) 03/22/17 15:08 Blood Culture - Preliminary Blood No Growth after 120 hours Laboratory Results WBC 6.7 k/uL (3.8-10.6) 03/27/17 09: RBC 4.92 m/uL (4.30-5.90) 03/27/17 09:29 Hgb 13.3 gm/dL (13.0-17.5) 03/27/17 09: Hct 43.5 % (39.0-53.0) 03/27/17 09: MCV 88.4 fL (80.0-100.0) 03/27/17 09: MCH 27.1 pg (25.0-35.0) 03/27/17 09: MCHC 30.6 g/dL (31.0-37.0) L 03/27/17 09: RDW 13.0 % (11.5-15.5) 03/27/17 09:29 Plt Count 297 k/uL (150-450) 03/27/17 09: Neutrophils % 62 % 03/27/17 09:29 Lymphocytes % 22 % 03/27/17 09:29 Monocytes % 7 % 03/27/17 09: Eosinophils % 5 % 03/27/17 09: Basophils % 1 % 03/27/17 09: Neutrophils # 4.2 k/uL (1.3-7.7) 03/27/17 09: Lymphocytes # 1.5 k/uL (1.0-4.8) 03/27/17 09: Monocytes # 0.5 k/uL (0-1.0) 03/27/17 09: Eosinophils # 0.4 k/uL (0-0.7) 03/27/17 09: Basophils # 0.1 k/uL (0-0.2) 03/27/17 09:29 Hypochromasia Slight 03/27/17 09:29 Sodium 139 mmol/L (137-145) 03/27/17 09:29 Potassium 4.6 mmol/L (3.5-5.1) 03/27/17 09: Chloride 104 mmol/L (98-107) 03/27/17 09: Carbon Dioxide 25 mmol/L (22-30) 03/27/17 09:29 Anion Gap 10 mmol/L 03/27/17 09:29 BUN 10 mg/dL (9-20) 03/27/17 09:29 Creatinine 0.67 mg/dL (0.66-1.25) 03/27/17 09:29 Est GFR (MDRD) Af Amer >60 (>60 ml/min/1.73 sqM) 03/27/17 09:29 Est GFR (MDRD) Non-Af >60 (>60 ml/min/1.73 sqM) 03/27/17 09:29 Glucose 204 mg/dL (74-99) H 03/27/17 09:29 POC Glucose (mg/dL) 153 mg/dL (75-99) H 03/27/17 11:45 POC Glu [employer] Head ID Haleigh Edward 03/27/17 11:[address] Glu mg/dL 212 mg/dL 03/23/17 08:39 Hemoglobin A1c 9.0 % (4.2-6.1) H 03/23/17 08:39 Calcium 9.1 mg/dL (8.4-10.2) 03/27/17 09:29 Total Bilirubin 0.2 mg/dL (0.2-1.3) 03/27/17 09:29 AST 28 U/L (17-59) 03/27/17 09:29 ALT 56 U/L (21-72) 03/27/17 09:29 Alkaline Phosphatase 52 U/L (38-126) 03/27/17 09:29 Total Protein 6.7 g/dL (6.3-8.2) 03/27/17 09:29 Albumin 3.8 g/dL (3.5-5.0) 03/27/17 09:29 Prealbumin 18.0 mg/dL (18.0-42.0) 03/25/17 08:51 Vancomycin Trough 12.8 ug/mL 03/24/17 08:11 Microbiology 03/22/17 15:08 Blood Blood Culture - Preliminary No Growth after 120 hours 03/22/17 15:08 Toe - Left First Gram Stain - Final 03/22/17 15:08 Toe - Left First Wound Culture - Final Assessment and Plan (1) Diabetic foot ulcer Narrative/Plan: At this time this pleasant gentleman appears to have significant infection to the left great toe. There is a nonhealing ulceration. Concerns for underlying bony infection at this time. Bone scan has been performed. Podiatry consult in process. Cultures have been obtained. Prior cultures are reviewed showing evidence of MSSA as well as an anaerobic gram-negative bacilli. . With the positive bone scan we'll plan a 6 week course of intravenous antibiotic therapy. Likely at his local hospital possibly at home. Orders will be placed through the raw material planner for evaluation. Will request a PICC line to be placed for his outpatient intravenous antibiotic therapy. Pre-albumin to be checked. A1c is elevated he understands importance of increased glucose control. Multivitamin is added He believes is up-to-date on his tetanus. Is having neuropathic leg pain, was intolerant of Neurontin and Cymbalta. Amitriptyline has been started he is tolerating that well. He is not having excessive sedation and this will be continued at home. PICC line has been placed and outpatient orders are in process he may be discharged home, he was have antibiotic the local hospital, but changed his mind and proceeded from the local homecare company. with follow-up with the wound healing Center. Likely total contact cast will be reapplied. Status: Acute
== END 2017-03-27 13:21 | disposition home health service (06) | DRG 638 ==
LOC: EC 14:49 → 4MS4W 17:19
PROVIDERS: ADMIT Internal Medicine; ATTEND Internal Medicine
PROC: 02HV33Z Insertion of Infusion Device into Superior Vena Cava, Percutaneous Approach (ICD-10-PCS; principal; 2017-03-22)
PROC: B518ZZA Fluoroscopy of Superior Vena Cava, Guidance (ICD-10-PCS; 2017-03-22)
DX: E11.69 Type 2 diabetes mellitus with other specified complication (principal); M86.9 Osteomyelitis, unspecified; E11.42 Type 2 diabetes mellitus with diabetic polyneuropathy; E11.621 Type 2 diabetes mellitus with foot ulcer; L03.116 Cellulitis of left lower limb; L97.529 Non-pressure chronic ulcer of other part of left foot with unspecified severity; J45.909 Unspecified asthma, uncomplicated; E11.65 Type 2 diabetes mellitus with hyperglycemia; E66.9 Obesity, unspecified; Z87.19 Personal history of other diseases of the digestive system; Z90.89 Acquired absence of other organs; Z82.49 Family history of ischemic heart disease and other diseases of the circulatory system; Z82.5 Family history of asthma and other chronic lower respiratory diseases; Z79.4 Long term (current) use of insulin; Z79.899 Other long term (current) drug therapy; Z88.1 Allergy status to other antibiotic agents; Z68.36 Body mass index [BMI] 36.0-36.9, adult; Z79.2 Long term (current) use of antibiotics
CPT/HCPCS: 36415; 36569; 76937; 77001; 78315; 80053; 80202; 83036; 84134; 85025; 87040; 87070; 87205; 96360; 96361; 96365; 96366; 99284

== ENCOUNTER 2019-03-21 11:04 | Inpatient (IN) | payer MEDICARE, OTHER ==
[2019-03-21] MEDS ORDERED: MORPHINE SULFATE 4 MG/ML SYRINGE IVP STA (11:55)
[2019-03-21] MEDS ORDERED: SODIUM CHLORIDE 0.9% 1,000 ML IV STA (11:55)
[2019-03-21] MEDS ORDERED: ONDANSETRON 4 MG/2 ML VIAL IVP STA (11:55)
--- NOTE | 2019-03-21 12:10 | ED ---
Extremity Problem HPI - General Chief complaint: Extremity Problem,Nontraumatic Stated complaint: Foot Infection Time Seen by Provider: 03/21/19 11:40 Source: patient Mode of arrival: wheelchair Limitations: no limitations - History of Present Illness Initial comments: Patient is a 58-year-old male presenting to emergency Department with complaints of right foot infection secondary to ulcer 1 day. Patient states he has been seeing Dr. Quintero at the wound clinic every 2 weeks since June for a plantar right foot diabetic ulcer. Patient states yesterday then he noticed increased in pain, swelling, and redness with redness spreading into his right foot and right lower leg. Patient states the last few days he has been feeling ill as well. Patient denies any fever, chills, nausea, vomiting, diarrhea. Patient was scheduled to have a tendon lengthening procedure done by Dr. Tran, next week. Patient has no other complaints right now. Upon arrival to ER, vital signs are stable. - Related Data Home Medications Medication Instructions Recorded Confirmed Albuterol Inhaler [Ventolin Hfa 2 puff INHALATION RT-Q4H PRN 09/01/16 03/21/19 Inhaler] Cetirizine HCl 10 mg PO HS 09/01/16 03/21/19 INSULIN LISPRO (HumaLOG) [HumaLOG] 15 unit SQ AC-TID 03/21/19 03/21/19 Insulin Glargine,Hum.rec.anlog 15 unit SQ BID 03/21/19 03/21/19 [Basaglar Kwikpen U-100] metFORMIN HCL 850 mg PO BID 03/21/19 03/21/19 Previous Rx's Medication Instructions Recorded Acetaminophen Tab [Tylenol] 650 mg PO Q4HR PRN #0 tab 12/25/18 Allergies Allergy/AdvReac Type Severity Reaction Status Date / Time gabapentin Allergy Swelling Verified 03/21/19 11:30 hydromorphone [From Dilaudid] Allergy Unknown Verified 03/21/19 11:30 ciprofloxacin [From Cipro] AdvReac Confusion, Verified 03/21/19 11:30 Dizziness Review of Systems ROS Statement: Those systems with pertinent positive or pertinent negative responses have been documented in the HPI. ROS Other: All systems not noted in ROS Statement are negative. Past Medical History Past Medical History: Asthma, Diabetes Mellitus Additional Past Medical History / Comment(s): WAS GOING TO [facility] EVERY SUNDAY-LT GREAT TOE INFECTION COMPLETED VISITS, CONSTIPATION.HEMORRHOIDS History of Any Multi-Drug Resistant Organisms: None Reported Past Surgical History: Appendectomy, Heart Catheterization, Hernia Repair, Orthopedic Surgery Additional Past Surgical History / Comment(s): RT ROATATOR CUFF SX, RT INGUINAL HERNIA,UMB HERNIA REPAIR Past Anesthesia/Blood Transfusion Reactions: No Reported Reaction Past Psychological History: No Psychological Hx Reported Smoking Status: Never smoker Past Alcohol Use History: None Reported Past Drug Use History: None Reported - Past Family History Father Family Medical History: Hypertension Mother Family Medical History: Asthma, COPD General Exam - General Exam Comments Initial Comments: GENERAL: Well-appearing, well-nourished and in no acute distress. HEAD: Atraumatic, normocephalic. EYES: Pupils equal round and reactive to light, extraocular movements intact, sclera anicteric, conjunctiva are normal. ENT: TMs normal, nares patent, oropharynx clear without exudates. Moist mucous membranes. NECK: Normal range of motion, supple without lymphadenopathy or JVD. LUNGS: Breath sounds clear to auscultation bilaterally and equal. No wheezes rales or rhonchi. HEART: Regular rate and rhythm without murmurs, rubs or gallops. ABDOMEN: Soft, nontender, normoactive bowel sounds. No guarding, no rebound. No masses appreciated. : Deferred EXTREMITIES: Patient has a large ulcer on the plantar surface of the right foot with associated erythema, pain with palpation, swelling. There is some erythema spreading into the right foot and right lower leg. Dorsal pedis was confirmed with Doppler. NEUROLOGICAL: Cranial nerves II through XII grossly intact. Normal speech, normal gait. PSYCH: Normal mood, normal affect. SKIN: Warm, Dry, normal turgor, no rashes or lesions noted. Limitations: no limitations Course Vital Signs 03/21/19 03/21/19 03/21/19 11:09 13:23 17:46 Temperature 97.4 F L 103.1 F H Pulse Rate 82 74 84 Respiratory 16 20 16 Rate Blood Pressure 137/83 139/85 144/87 O2 Sat by Pulse 98 98 97 Oximetry Medical Decision Making - Medical Decision Making Patient is a 58-year-old male presenting with a large right plantar diabetic ulcer with possible infection. Patient states last few days he noticed increase in pain, erythema and swelling. Patient has been seeing Dr. Quintero at the wound clinic every 2 weeks. Vital signs are stable upon arrival. On exam patient has a large diabetic ulcer on the right foot, plantar surface. Patient has pain, edema, erythema into the right foot and right lower leg. CBC shows white count of 15.7. CMP shows glucose 195, lactic acid 2.2. UA shows 4+ glucose, no signs of infection. X-ray of the right foot shows prominent soft tissue swelling of the first metatarsophalangeal joint. No acute osteomyelitis is evident at this time. Given patient's labs and exam patient will be admitted for IV antibiotics. Patient is in agreement with this plan of care. Case was discussed with Dr. Wolfe. - Lab Data Result diagrams: 03/21/19 12:10 03/21/19 12:10 Lab Results 03/21/19 03/21/19 03/21/19 Range/Units 12:10 12:10 12:10 WBC 15.7 H (3.8-10.6) k/uL RBC 4.26 L (4.30-5.90) m/uL Hgb 11.9 L (13.0-17.5) gm/dL Hct 34.8 L (39.0-53.0) % MCV 81.7 (80.0-100.0) fL MCH 27.9 (25.0-35.0) pg MCHC 34.2 (31.0-37.0) g/dL RDW 13.3 (11.5-15.5) % Plt Count 360 (150-450) k/uL Neutrophils % 82 % Lymphocytes % 8 % Monocytes % 7 % Eosinophils % 1 % Basophils % 1 % Neutrophils # 13.0 H (1.3-7.7) k/uL Lymphocytes # 1.2 (1.0-4.8) k/uL Monocytes # 1.0 (0-1.0) k/uL Eosinophils # 0.1 (0-0.7) k/uL Basophils # 0.1 (0-0.2) k/uL Sodium 133 L (137-145) mmol/L Potassium 4.1 (3.5-5.1) mmol/L Chloride 94 L (98-107) mmol/L Carbon Dioxide 25 (22-30) mmol/L Anion Gap 14 mmol/L BUN 14 (9-20) mg/dL Creatinine 0.70 (0.66-1.25) mg/dL Est GFR (CKD-EPI)AfAm >90 (>60 ml/min/1.73 sqM) Est GFR (CKD-EPI)NonAf >90 (>60 ml/min/1.73 sqM) Glucose 195 H (74-99) mg/dL Lactic Ac Sepsis Rflx Plasma Lactic Acid Cole 2.2 H* (0.7-2.0) mmol/L Calcium 8.5 (8.4-10.2) mg/dL Total Bilirubin 0.6 (0.2-1.3) mg/dL AST 25 (17-59) U/L ALT 27 (21-72) U/L Alkaline Phosphatase 94 (38-126) U/L Total Protein 7.1 (6.3-8.2) g/dL Albumin 3.7 (3.5-5.0) g/dL Urine Color Urine Appearance (Clear) Urine pH (5.0-8.0) Ur Specific [place] (1.001-1.035) Urine Protein (Negative) Urine Glucose (UA) (Negative) Urine Ketones (Negative) Urine Blood (Negative) Urine Nitrite (Negative) Urine Bilirubin (Negative) Urine Urobilinogen (<2.0) mg/dL Ur Leukocyte Esterase (Negative) Urine RBC (0-5) /hpf Urine WBC (0-5) /hpf Hyaline Casts (0-2) /lpf Urine Mucus (None) /hpf 03/21/19 03/21/19 Range/Units 12:10 12:44 WBC (3.8-10.6) k/uL RBC (4.30-5.90) m/uL Hgb (13.0-17.5) gm/dL Hct (39.0-53.0) % MCV (80.0-100.0) fL MCH (25.0-35.0) pg MCHC (31.0-37.0) g/dL RDW (11.5-15.5) % Plt Count (150-450) k/uL Neutrophils % % Lymphocytes % % Monocytes % % Eosinophils % % Basophils % % Neutrophils # (1.3-7.7) k/uL Lymphocytes # (1.0-4.8) k/uL Monocytes # (0-1.0) k/uL Eosinophils # (0-0.7) k/uL Basophils # (0-0.2) k/uL Sodium (137-145) mmol/L Potassium (3.5-5.1) mmol/L Chloride (98-107) mmol/L Carbon Dioxide (22-30) mmol/L Anion Gap mmol/L BUN (9-20) mg/dL Creatinine (0.66-1.25) mg/dL Est GFR (CKD-EPI)AfAm (>60 ml/min/1.73 sqM) Est GFR (CKD-EPI)NonAf (>60 ml/min/1.73 sqM) Glucose (74-99) mg/dL Lactic Ac Sepsis Rflx Y Plasma Lactic Acid Cole (0.7-2.0) mmol/L Calcium (8.4-10.2) mg/dL Total Bilirubin (0.2-1.3) mg/dL AST (17-59) U/L ALT (21-72) U/L Alkaline Phosphatase (38-126) U/L Total Protein (6.3-8.2) g/dL Albumin (3.5-5.0) g/dL Urine Color Yellow Urine Appearance Clear (Clear) Urine pH 5.5 (5.0-8.0) Ur Specific [place] 1.026 (1.001-1.035) Urine Protein 1+ H (Negative) Urine Glucose (UA) 4+ H (Negative) Urine Ketones 1+ H (Negative) Urine Blood Small H (Negative) Urine Nitrite Negative (Negative) Urine Bilirubin Negative (Negative) Urine Urobilinogen 2.0 (<2.0) mg/dL Ur Leukocyte Esterase Negative (Negative) Urine RBC 3 (0-5) /hpf Urine WBC 1 (0-5) /hpf Hyaline Casts 3 H (0-2) /lpf Urine Mucus Rare H (None) /hpf Disposition Clinical Impression: Foot infection, Diabetic foot ulcer Disposition: ADMITTED IP TO THIS [facility] Condition: Stable Is patient prescribed a controlled substance at d/c from ED?: No Decision Date: 03/21/19 Decision Time: 13:18
[2019-03-21 12:27] LABS: Basophils # (A) 0.1 k/uL (0-0.2); Basophils % (A) 1 %; Eosinophils # (A) 0.1 k/uL (0-0.7); Eosinophils % (A) 1 %; HCT 34.8 % (39.0-53.0); HGB 11.9 gm/dL (13.0-17.5); Lymphocytes # (A) 1.2 k/uL (1.0-4.8); Lymphocytes % (A) 8 %; MCH 27.9 pg (25.0-35.0); MCHC 34.2 g/dL (31.0-37.0); MCV 81.7 fL (80.0-100.0); Mean Platelet Volume 6.9; Monocytes % (A) 7 %; Neutrophils % (A) 82 %; Platelet Count 360 k/uL (150-450); RBC 4.26 m/uL (4.30-5.90); RDW 13.3 % (11.5-15.5); WBC 15.7 k/uL (3.8-10.6)
[2019-03-21 12:33] LABS: Appearance,Urine Clear (Clear); Bilirubin,Urine Negative (Negative); Blood,Urine Small (Negative); Color,Urine Yellow; Glucose,Urine (UA) 4+ (Negative); Hyaline Casts,Urine 3 /lpf (0-2); Ketones,Urine 1+ (Negative); Leukocyte Esterase,Urine Negative (Negative); Mucus,Urine Rare /hpf; Nitrite,Urine Negative (Negative); PH, Urine 5.5 (5.0-8.0); Protein,Urine 1+ (Negative); RBC,Urine 3 /hpf (0-5); Specific Gravity,Urine 1.026 (1.001-1.035)
[2019-03-21 12:37] LABS: ALT 27 U/L (21-72); AST 25 U/L (17-59); African American GFR (CKD) >90 (>60 ml/min/1.73 sqM); Albumin 3.7 g/dL (3.5-5.0); Alkaline Phosphatase 94 U/L (38-126); Anion Gap 14 mmol/L; Blood Urea Nitrogen 14 mg/dL (9-20); Calcium 8.5 mg/dL (8.4-10.2); Carbon Dioxide 25 mmol/L (22-30); Chloride 94 mmol/L (98-107); Glucose 195 mg/dL (74-99); Potassium 4.1 mmol/L (3.5-5.1); Sodium 133 mmol/L (137-145); Total Bilirubin 0.6 mg/dL (0.2-1.3); Total Protein 7.1 g/dL (6.3-8.2)
--- NOTE | 2019-03-21 12:46 | XR ---
EXAMINATION TYPE: XR foot complete RT DATE OF EXAM: 03/21/2019 COMPARISON: 12/21/2018 HISTORY: Pain, infection TECHNIQUE: Three-view right foot FINDINGS: There is very prominent soft tissue swelling over the first metatarsophalangeal joint space . The cortex as visualized appears intact. No acute fractures or dislocations are evident. IMPRESSION: 1. Prominent soft tissue swelling at the first metatarsal-phalangeal joint level right foot. Underly ing infection can be considered. 2. No acute osseous abnormality. No acute osteomyelitis evident.
[2019-03-21] MEDS ORDERED: VANCOMYCIN IV PER PHARMACY 1 EACH MISC MISCELLANE PRN (13:11)
[2019-03-21] MEDS ORDERED: cefTRIAXone IN SWFI 1,000 MG/10 ML SYRINGE IVP STA (13:11)
[2019-03-21] MEDS ORDERED: VANCOMYCIN 2,000 MG in SODIUM CHLORIDE 0.9% 500 ML 500 ML IVPB STA (13:14)
[2019-03-21] MEDS ORDERED: NALOXONE 0.4 MG/ML 1 ML VIAL IV PRN (13:18)
[2019-03-21] MEDS ORDERED: ONDANSETRON 4 MG/2 ML VIAL IVP PRN (13:18)
[2019-03-21 13:31] LABS: Glucose,Whole Blood 121 mg/dL (75-99)
[2019-03-21] MEDS: MORPHINE SULFATE 4 MG/ML SYRINGE IV PRN ×2 (14:01→18:20)
[2019-03-21] MEDS: SODIUM CHLORIDE 0.9% 1,000 ML IV SCH (14:02)
[2019-03-21] MEDS: ACETAMINOPHEN TAB 325 MG TAB PO PRN (17:46)
[2019-03-21 19:50] LABS: Glucose,Whole Blood 244 mg/dL (75-99)
[2019-03-21] MEDS: LORATADINE 10 MG TAB PO SCH (20:39)
[2019-03-21] MEDS: INSULIN DETEMIR (LEVEMIR) 100 UNIT/ML SYR SQ SCH (20:39)
[2019-03-21] MEDS: traMADol 50 MG TAB PO PRN (20:40)
[2019-03-21] MEDS: PIPERACILLIN-TAZOBACTAM 3.375 GM in SODIUM CHLORIDE 0.9% 100 ML IVPB SCH (20:41)
[2019-03-22] MEDS: VANCOMYCIN 2,000 MG in SODIUM CHLORIDE 0.9% 500 ML 500 ML IVPB SCH ×3 (00:46→17:01)
[2019-03-22] MEDS: MORPHINE SULFATE 4 MG/ML SYRINGE IV PRN ×5 (00:46→20:20)
[2019-03-22] MEDS: ACETAMINOPHEN TAB 325 MG TAB PO PRN ×3 (01:06→21:45)
--- NOTE | 2019-03-22 02:36 | P.HPIM ---
History of Present Illness H&P Date: 03/21/19 Chief Complaint: Right foot swelling and redness Patient is a 58-year-old male with a known history of diabetes type 2 insulin- dependent, asthma, previous history of cardiac catheterization but no PCI and history of left foot osteomyelitis status post IV antibiotics via PICC line previously came to ER with complaints of right foot infection and ulcer. Patient says that he has been having right foot ulcer on the medial plantar surface below the great toe. Patient says that he has been having increased redness, pain and swelling since yesterday around the ulcer and extending up to the ankle. Patient came to ER for evaluation. Patient has been followed with Dr. Quintero the wound care clinic every 2 weeks. Patient otherwise denied any fever or chills at home. No nausea vomiting or diarrhea. No cough is from production. No chest pain or shortness breath. Patient was scheduled to have a tendon lengthening procedure done by Dr. Tran, next week. Patient has no other complaints right now. Lactic acid 2.2 Sodium 133 and an WBC 15.7 Tmax 103.1 Review of Systems Constitutional: Patient denies any fever or chills . No generalized weakness or weight loss. Abdomen: Patient denied nausea vomiting and diarrhea and abdominal pain. Cardiovascular: Patient denies any chest pain or short of breath no palpitations . Respiratory: patient denied any cough is from production. No shortness of breath Neurologic: Patient denied any numbness or tingling headache. Musculoskeletal: Patient denies any complaints of joint swelling or deformity. Right foot diabetic ulcer and redness and pain Skin: Negative Psychiatric: Negative Endocrine: No heat or cold intolerance. No recent weight gain. Genitourinary: No dysuria or hematuria. All other 14 point ROS negative except the above Past Medical History Past Medical History: Asthma, Diabetes Mellitus Additional Past Medical History / Comment(s): WAS GOING TO [facility] EVERY SUNDAY-LT GREAT TOE INFECTION COMPLETED VISITS, CONSTIPATION.HEMORRHOIDS History of Any Multi-Drug Resistant Organisms: None Reported Past Surgical History: Appendectomy, Heart Catheterization, Hernia Repair, Orthopedic Surgery Additional Past Surgical History / Comment(s): RT ROATATOR CUFF SX, RT INGUINAL HERNIA,UMB HERNIA REPAIR Past Anesthesia/Blood Transfusion Reactions: No Reported Reaction Past Psychological History: No Psychological Hx Reported Smoking Status: Never smoker Past Alcohol Use History: None Reported Past Drug Use History: None Reported - Past Family History Father Family Medical History: Hypertension Mother Family Medical History: Asthma, COPD Medications and Allergies Home Medications Medication Instructions Recorded Confirmed Type Albuterol Inhaler [Ventolin Hfa 2 puff INHALATION RT-Q4H PRN 09/01/16 03/21/19 History Inhaler] Cetirizine HCl 10 mg PO HS 09/01/16 03/21/19 History Acetaminophen Tab [Tylenol] 650 mg PO Q4HR PRN #0 tab 12/25/18 03/21/19 Rx INSULIN LISPRO (HumaLOG) [HumaLOG] 15 unit SQ AC-TID 03/21/19 03/21/19 History Insulin Glargine,Hum.rec.anlog 15 unit SQ BID 03/21/19 03/21/19 History [Basaglar Kwikpen U-100] metFORMIN HCL 850 mg PO BID 03/21/19 03/21/19 History Allergies Allergy/AdvReac Type Severity Reaction Status Date / Time gabapentin Allergy Swelling Verified 03/21/19 11:30 hydromorphone [From Dilaudid] Allergy Unknown Verified 03/21/19 11:30 ciprofloxacin [From Cipro] AdvReac Confusion, Verified 03/21/19 11:30 Dizziness Physical Exam Vitals: Vital Signs Temp Pulse Pulse Resp BP BP Pulse Ox 03/21/19 20:39 99.5 F 74 20 122/65 96 03/21/19 17:46 103.1 F H 84 16 144/87 97 03/21/19 13:23 74 20 139/85 98 03/21/19 11:09 97.4 F L 82 16 137/83 98 Intake and Output 03/21/19 03/21/19 03/21/19 06:59 14:59 22:59 Other: Weight 129.274 kg PHYSICAL EXAMINATION: Patient is lying in the bed comfortably, no acute distress, awake alert and oriented.. HEENT: Normocephalic. Neck is supple. Pupils reactive. Nostrils clear. Oral cavity is moist. Ears reveal no drainage. Neck reveals no JVD, carotid bruits, or thyromegaly. CHEST EXAMINATION: Trachea is central. Symmetrical expansion. Lung ortiz clear to auscultation and percussion. CARDIAC: Normal S1, S2 with no gallops. No murmurs ABDOMEN: Soft. Bowel sounds normal. No organomegaly. No abdominal bruits. Extremities: Trace edema. No clubb ing or cyanosis Right foot redness starting medial side of great toe and plantar surface extending up to ankle. Tender to palpation and warm. Possible fluid fluctuation. Neurologically awake, alert, oriented x3 with well-coordinated movements. No focal deficits noted Skin: No rash or skin lesions. Psychiatric: Coperative. Nonsuicidal Musculoskeletal: No joint swelling or deformity. Normal range of motion. Results CBC & Chem 7: 03/21/19 12:10 03/21/19 12:10 Labs: Abnormal Lab Results - Last 24 Hours (Table) 03/21/19 03/21/19 03/21/19 Range/Units 12:10 12:10 12:10 WBC 15.7 H (3.8-10.6) k/uL RBC 4.26 L (4.30-5.90) m/uL Hgb 11.9 L (13.0-17.5) gm/dL Hct 34.8 L (39.0-53.0) % Neutrophils # 13.0 H (1.3-7.7) k/uL Sodium 133 L (137-145) mmol/L Chloride 94 L (98-107) mmol/L Glucose 195 H (74-99) mg/dL POC Glucose (mg/dL) (75-99) mg/dL Plasma Lactic Acid Cole 2.2 H* (0.7-2.0) mmol/L Urine Protein (Negative) Urine Glucose (UA) (Negative) Urine Ketones (Negative) Urine Blood (Negative) Hyaline Casts (0-2) /lpf Urine Mucus (None) /hpf 03/21/19 03/21/19 03/21/19 Range/Units 12:10 13:29 19:49 WBC (3.8-10.6) k/uL RBC (4.30-5.90) m/uL Hgb (13.0-17.5) gm/dL Hct (39.0-53.0) % Neutrophils # (1.3-7.7) k/uL Sodium (137-145) mmol/L Chloride (98-107) mmol/L Glucose (74-99) mg/dL POC Glucose (mg/dL) 121 H 244 H (75-99) mg/dL Plasma Lactic Acid Cole (0.7-2.0) mmol/L Urine Protein 1+ H (Negative) Urine Glucose (UA) 4+ H (Negative) Urine Ketones 1+ H (Negative) Urine Blood Small H (Negative) Hyaline Casts 3 H (0-2) /lpf Urine Mucus Rare H (None) /hpf Thrombosis Risk Factor Assmnt - DVT/VTE Prophylaxis DVT/VTE Prophylaxis: Pharmacologic Prophylaxis ordered - Choose All That Apply Any of the Below Risk Factors Present?: Yes Each Factor Represents 1 point: Abnormal pulmonary function (COPD), Swollen legs (current) Other Risk Factors: No Other congenital or acquired thrombophilia - If yes, enter type in comment: No Thrombosis Risk Factor Assessment Total Risk Factor Score: 2 Thrombosis Risk Factor Assessment Level: Low Risk Assessment and Plan Assessment: Right diabetic foot ulcer with possible abscess and surrounding cellulitis. Sepsis secondary to above Previous history of left foot osteomyelitis status post IV antibiotics via PICC line Chronic diabetic foot ulcer Asthma stable Hyperglycemia with uncontrolled diabetes type 2 Morbid obesity with BMI 39.7 DVT prophylaxis with heparin subcu Plan: Patient be continued on IV hydration and broad-spectrum antibiotics in the form of vancomycin and Zosyn. Follow up blood cultures. Vascular surgery and ID will be consulted. Continue with insulin regimen and sliding scale and titrate insulin. Continue with pain medications and follow up closely. Further recommendations based on the clinical course. Prognosis is guarded. Time with Patient: Greater than 30
[2019-03-22] MEDS: IBUPROFEN 600 MG TAB PO PRN ×3 (02:39→23:23)
[2019-03-22] MEDS: PIPERACILLIN-TAZOBACTAM 3.375 GM in SODIUM CHLORIDE 0.9% 100 ML IVPB SCH ×3 (04:02→20:10)
[2019-03-22] MEDS: traMADol 50 MG TAB PO PRN ×4 (04:09→23:23)
[2019-03-22] MEDS: SODIUM CHLORIDE 0.9% 1,000 ML IV SCH ×2 (05:44→17:03)
[2019-03-22 07:38] LABS: Basophils % (A) 0 %; Eosinophils # (A) 0.2 k/uL (0-0.7); Eosinophils % (A) 2 %; HCT 31.9 % (39.0-53.0); HGB 10.2 gm/dL (13.0-17.5); Lymphocytes % (A) 11 %; MCH 26.5 pg (25.0-35.0); MCHC 31.9 g/dL (31.0-37.0); MCV 83.1 fL (80.0-100.0); Mean Platelet Volume 7.3; Monocytes # (A) 0.7 k/uL (0-1.0); Monocytes % (A) 8 %; Neutrophils # (A) 6.7 k/uL (1.3-7.7); Neutrophils % (A) 76 %; Platelet Count 296 k/uL (150-450); RBC 3.83 m/uL (4.30-5.90); RDW 13.7 % (11.5-15.5); WBC 8.8 k/uL (3.8-10.6)
[2019-03-22 08:01] LABS: Glucose,Whole Blood 239 mg/dL (75-99)
[2019-03-22] MEDS: INSULIN ASPART (NovoLOG) 100 UNIT/ML VIAL SQ SCH ×5 (08:12→20:10)
[2019-03-22 08:13] LABS: African American GFR (CKD) >90 (>60 ml/min/1.73 sqM); Anion Gap 10 mmol/L; Blood Urea Nitrogen 11 mg/dL (9-20); Calcium 7.7 mg/dL (8.4-10.2); Carbon Dioxide 25 mmol/L (22-30); Chloride 97 mmol/L (98-107); Glucose 253 mg/dL (74-99); Potassium 4.4 mmol/L (3.5-5.1); Sodium 132 mmol/L (137-145)
[2019-03-22] MEDS: HEPARIN SODIUM,PORCINE 5,000 UNIT/ML 1 ML VIAL SQ SCH ×3 (08:13→23:28)
--- NOTE | 2019-03-22 08:53 | P.GSCN ---
History of Present Illness History of present illness: 58-year-old white male, history of diabetes, patient is well known to me from the wound clinic he is been coming to the wound clinic for local wound care. Patient developed a infected callus plantar suspect of the right foot with redness on the dorsal suspect the foot marked tenderness noted on the plantar and dorsal suspect the foot. History of diabetes, hypertension, Neck examination neck is supple no bruit appreciated Chest clear first and second sound normal Abdomen soft nontender Vascular examination femorals are palpable posterior tibial dorsal pedis by the Doppler patient has some infrapopliteal occlusive disease Right foot infected callus with abscess formation and marked cellulitis of the dorsum and plantar aspect of the foot plan is a I&D of the abscess and wound debridement and deep culture we'll keep the patient nothing by mouth and proceed with surgery this afternoon risk and complication discussed Past Medical History Past Medical History: Asthma, Diabetes Mellitus Additional Past Medical History / Comment(s): WAS GOING TO [facility] EVERY SUNDAY-LT GREAT TOE INFECTION COMPLETED VISITS, CONSTIPATION.HEMORRHOIDS History of Any Multi-Drug Resistant Organisms: None Reported Past Surgical History: Appendectomy, Heart Catheterization, Hernia Repair, Orthopedic Surgery Additional Past Surgical History / Comment(s): RT ROATATOR CUFF SX, RT INGUINAL HERNIA,UMB HERNIA REPAIR Past Anesthesia/Blood Transfusion Reactions: No Reported Reaction Past Psychological History: No Psychological Hx Reported Smoking Status: Never smoker Past Alcohol Use History: None Reported Past Drug Use History: None Reported - Past Family History Father Family Medical History: Hypertension Mother Family Medical History: Asthma, COPD Medications and Allergies Home Medications Medication Instructions Recorded Confirmed Type Albuterol Inhaler [Ventolin Hfa 2 puff INHALATION RT-Q4H PRN 09/01/16 03/21/19 History Inhaler] Cetirizine HCl 10 mg PO HS 09/01/16 03/21/19 History Acetaminophen Tab [Tylenol] 650 mg PO Q4HR PRN #0 tab 12/25/18 03/21/19 Rx INSULIN LISPRO (HumaLOG) [HumaLOG] 15 unit SQ AC-TID 03/21/19 03/21/19 History Insulin Glargine,Hum.rec.anlog 15 unit SQ BID 03/21/19 03/21/19 History [Basaglar Kwikpen U-100] metFORMIN HCL 850 mg PO BID 03/21/19 03/21/19 History Allergies Allergy/AdvReac Type Severity Reaction Status Date / Time gabapentin Allergy Swelling Verified 03/21/19 11:30 hydromorphone [From Dilaudid] Allergy Unknown Verified 03/21/19 11:30 ciprofloxacin [From Cipro] AdvReac Confusion, Verified 03/21/19 11:30 Dizziness Surgical - Exam Vital Signs Temp Pulse Resp BP Pulse Ox 97.4 F L 82 16 137/83 98 03/21/19 11:09 03/21/19 11:09 03/21/19 11:09 03/21/19 11:09 03/21/19 11:09 Results - Labs 03/22/19 07:16 03/22/19 07:16 Abnormal Lab Results - Last 24 Hours (Table) 03/21/19 03/21/19 03/21/19 Range/Units 12:10 12:10 12:10 WBC 15.7 H (3.8-10.6) k/uL RBC 4.26 L (4.30-5.90) m/uL Hgb 11.9 L (13.0-17.5) gm/dL Hct 34.8 L (39.0-53.0) % Neutrophils # 13.0 H (1.3-7.7) k/uL Sodium 133 L (137-145) mmol/L Chloride 94 L (98-107) mmol/L Glucose 195 H (74-99) mg/dL POC Glucose (mg/dL) (75-99) mg/dL Plasma Lactic Acid Cole 2.2 H* (0.7-2.0) mmol/L Calcium (8.4-10.2) mg/dL Urine Protein (Negative) Urine Glucose (UA) (Negative) Urine Ketones (Negative) Urine Blood (Negative) Hyaline Casts (0-2) /lpf Urine Mucus (None) /hpf 03/21/19 03/21/19 03/21/19 Range/Units 12:10 13:29 19:49 WBC (3.8-10.6) k/uL RBC (4.30-5.90) m/uL Hgb (13.0-17.5) gm/dL Hct (39.0-53.0) % Neutrophils # (1.3-7.7) k/uL Sodium (137-145) mmol/L Chloride (98-107) mmol/L Glucose (74-99) mg/dL POC Glucose (mg/dL) 121 H 244 H (75-99) mg/dL Plasma Lactic Acid Cole (0.7-2.0) mmol/L Calcium (8.4-10.2) mg/dL Urine Protein 1+ H (Negative) Urine Glucose (UA) 4+ H (Negative) Urine Ketones 1+ H (Negative) Urine Blood Small H (Negative) Hyaline Casts 3 H (0-2) /lpf Urine Mucus Rare H (None) /hpf 03/22/19 03/22/19 03/22/19 Range/Units 07:02 07:16 07:16 WBC (3.8-10.6) k/uL RBC 3.83 L (4.30-5.90) m/uL Hgb 10.2 L (13.0-17.5) gm/dL Hct 31.9 L (39.0-53.0) % Neutrophils # (1.3-7.7) k/uL Sodium 132 L (137-145) mmol/L Chloride 97 L (98-107) mmol/L Glucose 253 H (74-99) mg/dL POC Glucose (mg/dL) 239 H (75-99) mg/dL Plasma Lactic Acid Cole (0.7-2.0) mmol/L Calcium 7.7 L (8.4-10.2) mg/dL Urine Protein (Negative) Urine Glucose (UA) (Negative) Urine Ketones (Negative) Urine Blood (Negative) Hyaline Casts (0-2) /lpf Urine Mucus (None) /[facility] Diabetes panel 03/21/19 03/22/19 Range/Units 12:10 07:16 Sodium 133 L 132 L (137-145) mmol/L Potassium 4.1 4.4 (3.5-5.1) mmol/L Chloride 94 L 97 L (98-107) mmol/L Carbon Dioxide 25 25 (22-30) mmol/L BUN 14 11 (9-20) mg/dL Creatinine 0.70 0.70 (0.66-1.25) mg/dL Glucose 195 H 253 H (74-99) mg/dL Calcium 8.5 7.7 L (8.4-10.2) mg/dL AST 25 (17-59) U/L ALT 27 (21-72) U/L Alkaline Phosphatase 94 (38-126) U/L Total Protein 7.1 (6.3-8.2) g/dL Albumin 3.7 (3.5-5.0) g/dL Calcium panel 03/21/19 03/22/19 Range/Units 12:10 07:16 Calcium 8.5 7.7 L (8.4-10.2) mg/dL Albumin 3.7 (3.5-5.0) g/dL Pituitary panel 03/21/19 03/22/19 Range/Units 12:10 07:16 Sodium 133 L 132 L (137-145) mmol/L Potassium 4.1 4.4 (3.5-5.1) mmol/L Chloride 94 L 97 L (98-107) mmol/L Carbon Dioxide 25 25 (22-30) mmol/L BUN 14 11 (9-20) mg/dL Creatinine 0.70 0.70 (0.66-1.25) mg/dL Glucose 195 H 253 H (74-99) mg/dL Calcium 8.5 7.7 L (8.4-10.2) mg/dL Adrenal panel 03/21/19 03/22/19 Range/Units 12:10 07:16 Sodium 133 L 132 L (137-145) mmol/L Potassium 4.1 4.4 (3.5-5.1) mmol/L Chloride 94 L 97 L (98-107) mmol/L Carbon Dioxide 25 25 (22-30) mmol/L BUN 14 11 (9-20) mg/dL Creatinine 0.70 0.70 (0.66-1.25) mg/dL Glucose 195 H 253 H (74-99) mg/dL Calcium 8.5 7.7 L (8.4-10.2) mg/dL Total Bilirubin 0.6 (0.2-1.3) mg/dL AST 25 (17-59) U/L ALT 27 (21-72) U/L Alkaline Phosphatase 94 (38-126) U/L Total Protein 7.1 (6.3-8.2) g/dL Albumin 3.7 (3.5-5.0) g/dL
[2019-03-22] MEDS: INSULIN DETEMIR (LEVEMIR) 100 UNIT/ML SYR SQ SCH ×2 (10:01→20:10)
[2019-03-22 11:16] VITALS: BMI 39.7
[2019-03-22] MEDS ORDERED: MIDAZOLAM 2 MG/2 ML VIAL ONE (11:22)
[2019-03-22] MEDS ORDERED: fentaNYL (PF) 50 MCG/ML 2 ML AMP ONE (11:22)
[2019-03-22] MEDS ORDERED: LACTATED RINGERS 1,000 ML IV ONE ×2 (11:25→11:37)
[2019-03-22] MEDS ORDERED: LIDOCAINE 1% INJ 10MG/ML (20 ML MDV) SQ ONE (11:40)
[2019-03-22 12:38] LABS: Glucose,Whole Blood 263 mg/dL (75-99)
[2019-03-22 12:43] LABS: Glucose,Whole Blood 209 mg/dL (75-99)
--- NOTE | 2019-03-22 13:57 | P.CONS ---
History of Present Illness - Reason for Consult Consult date: 03/22/19 - Chief Complaint Diabetic foot ulcer - History of Present Illness 58-year-old male with long-standing history of diabetes mellitus type 2 with multiple complications during the past summer. Difficulties with diabetic foot ulcerations and was followed with Dr. Quintero in the outpatient clinic. He was having some improvement and had been seen by the foot and ankle specialist and plans were for a tendon lengthening procedure to allow some further balancing to his foot. We prevent further ulcerations. He was contemplating this type of procedure and then developed significant wound and ulceration to the foot. He now has been admitted and has been taking the operating room this morning and the extensive debridement has occurred. Consult for antibiotic therapy and outpatient follow-up. Transfer text Review of Systems HEENT:Denies headache or acute visual change. Denies sinus or mouth discomforts. Denies neck stiffness or pain. Denies significant oral cavity pain. Denies difficulty on swallowing. Lungs: Denies significant shortness of breath, cough, sputum production, or hemoptysis. Cardiovascular: Denies significant shortness of breath, chest pain, chest wall pain, orthopnea, dyspnea on exertion, syncope Gastrointestinal:Denies nausea, vomiting, diarrhea, constipation, hematemesis, melena, hematochezia. No no significant change of bowel habit noticed. Musculoskeletal: denies significant myalgias or arthralgias. No new joint swelling. Denies new back pain. Skin: As noted is developed a significant new ulceration to the left foot Neuro: Denies headache or visual change. Denies any new onset weakness or difficulty with ambulation. Denies falls or seizures. Psychiatric:Denies anxiety or depression. Endocrine: Denies significant fatigue, denies significant weight loss or weight gain. Past Medical History Past Medical History: Asthma, Diabetes Mellitus Additional Past Medical History / Comment(s): WAS GOING TO [facility] EVERY SUNDAY-LT GREAT TOE INFECTION COMPLETED VISITS, CONSTIPATION.HEMORRHOIDS History of Any Multi-Drug Resistant Organisms: None Reported Past Surgical History: Appendectomy, Heart Catheterization, Hernia Repair, Orthopedic Surgery Additional Past Surgical History / Comment(s): RT ROATATOR CUFF SX, RT INGUINAL HERNIA,UMB HERNIA REPAIR Past Anesthesia/Blood Transfusion Reactions: No Reported Reaction Past Psychological History: No Psychological Hx Reported Additional Psychological History / Comment(s): Patient is a lifelong nonsmoker. He denies any medical marijuana, marijuana or street drug or alcohol use. He lives at home with his . There are no pets in the home. 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 No service. Smoking Status: Never smoker Past Alcohol Use History: None Reported Past Drug Use History: None Reported - Past Family History Father Family Medical History: Hypertension Mother Family Medical History: Asthma, COPD Medications and Allergies Home Medications and Allergies Comment(s): Current Medications Acetaminophen (Tylenol Tab) 650 mg PO Q6HR PRN PRN Reason: Mild Pain or Fever > 100.5 Last Admin: 03/22/19 01:06 Dose: 650 mg Documented by: Albuterol Sulfate (Ventolin Nebulized) 2.5 mg INHALATION RT-Q4H PRN PRN Reason: Shortness Of Breath Or Wheezing Heparin Sodium (Porcine) (Heparin) 5,000 unit SQ Q8HR [facility] Last Admin: 03/22/19 08:13 Dose: Not Given Documented by: Vancomycin HCl 2,000 mg/ (Sodium Chloride) 500 mls @ 167 mls/hr IVPB Q8HR [facility] Last Admin: 03/22/19 08:13 Dose: 167 mls/hr Documented by: Sodium Chloride (Saline 0.9%) 1,000 mls @ 100 mls/hr IV .Q10H [facility] Last Admin: 03/22/19 05:44 Dose: 100 mls/hr Documented by: Piperacillin Sod/Tazobactam (Sod 3.375 gm/ Sodium Chloride) 100 mls @ 25 mls/hr IVPB Q8H [facility] Last Admin: 03/22/19 13:01 Dose: 25 mls/hr Documented by: Ibuprofen (Motrin) 600 mg PO Q6HR PRN PRN Reason: Fever Last Admin: 03/22/19 13:03 Dose: 600 mg Documented by: Insulin Aspart (Novolog) 15 unit SQ AC-TID [facility] Last Admin: 03/22/19 13:04 Dose: 15 unit Documented by: Insulin Aspart (Novolog) 0 unit SQ ACHS [facility]; Protocol Insulin Detemir (Levemir) 15 unit SQ BID [facility] Last Admin: 03/22/19 10:01 Dose: Not Given Documented by: Loratadine (Claritin) 10 mg PO HS [facility] Last Admin: 03/21/19 20:39 Dose: 10 mg Documented by: Miscellaneous Information (Vancomycin Trough Due) 0 each MISCELLANE DIRECTED ONE Stop: 03/23/19 07:01 Morphine Sulfate (Morphine Sulfate (Inj)) 4 mg IV Q4HR PRN PRN Reason: Severe Pain Last Admin: 03/22/19 10:06 Dose: 4 mg Documented by: Naloxone HCl (Narcan) 0.2 mg IV Q2M PRN PRN Reason: Opioid Reversal Ondansetron HCl (Zofran) 4 mg IVP Q8HR PRN PRN Reason: Nausea And Vomiting Tramadol HCl (Ultram) 50 mg PO Q6H PRN PRN Reason: Moderate Pain Last Admin: 03/22/19 09:24 Dose: 50 mg Documented by: Home Medications Medication Instructions Recorded Confirmed Type Albuterol Inhaler [Ventolin Hfa 2 puff INHALATION RT-Q4H PRN 09/01/16 03/21/19 History Inhaler] Cetirizine HCl 10 mg PO HS 09/01/16 03/21/19 History Acetaminophen Tab [Tylenol] 650 mg PO Q4HR PRN #0 tab 12/25/18 03/21/19 Rx INSULIN LISPRO (HumaLOG) [HumaLOG] 15 unit SQ AC-TID 03/21/19 03/21/19 History Insulin Glargine,Hum.rec.anlog 15 unit SQ BID 03/21/19 03/21/19 History [Basaglar Kwikpen U-100] metFORMIN HCL 850 mg PO BID 03/21/19 03/21/19 History Allergies Allergy/AdvReac Type Severity Reaction Status Date / Time gabapentin Allergy Swelling Verified 03/21/19 11:30 hydromorphone [From Dilaudid] Allergy Unknown Verified 03/21/19 11:30 ciprofloxacin [From Cipro] AdvReac Confusion, Verified 03/21/19 11:30 Dizziness Physical Exam Vitals: Vital Signs Temp Pulse Pulse Pulse Resp BP BP 03/22/19 12:45 102.3 F H 105 H 18 03/22/19 12:15 96 18 03/22/19 12:05 102.3 F H 101 H 16 03/22/19 08:00 18 03/22/19 04:56 99.3 F 85 18 118/73 03/22/19 02:10 102.9 F H 03/22/19 01:08 103.0 F H 03/22/19 00:46 74 20 03/21/19 20:39 99.5 F 74 20 122/65 03/21/19 17:46 103.1 F H 84 16 144/87 BP Pulse Ox 03/22/19 12:45 167/83 94 L 03/22/19 12:15 141/72 94 L 03/22/19 12:05 136/74 96 03/22/19 08:00 03/22/19 04:56 93 L 03/22/19 02:10 03/22/19 01:08 03/22/19 00:46 03/21/19 20:39 96 03/21/19 17:46 97 Intake and Output 03/21/19 03/22/19 03/22/19 22:59 06:59 14:59 Intake Total 340 300 Output Total 200 50 Balance 340 -200 250 Intake: IV 300 Intake, IV Titration 340 Amount Piperacillin-Tazobactam 3 100 .375 gm In Sodium Chloride 0.9% 100 ml @ 25 mls/hr IVPB Q8H [facility] Rx#: [id number] Sodium Chloride 0.9% 1, 240 000 ml @ 100 mls/hr IV . Q10H [facility] Rx#:[id number] Output: Urine 200 Estimated Blood Loss 50 Other: Voiding Method Urinal Urinal # Voids 2 3 Weight 129.274 kg Pleasant 58-year-old male who is postop comfortable at this time. HEENT: Anicteric conjunctiva are pink and moist nasal mucosa grossly intact without significant lesions, there is no thrush. Neck: The neck is supple without significant lymphadenopathy or thyromegaly. Lungs: Good bilateral air entry without significant crackles or wheezing. There is no significant bronchial sounds. There is no egophony or dullness. Heart: Regular rate and rhythm with an audible S1-S2, no S3 no S4. There is no significant murmur click or rub, PMI was nondisplaced. Abdomen: Positive bowel sounds soft and nontender without palpable masses or organomegaly. There was no guarding or rebound. Extremities: The upper extremities have excellent pulses they are symmetric, no significant petechiae or telangiectasia. No splinter hemorrhages were noted. Left lower extremity has evidence of a surgical dressing that was just applied and consequently is not unwrapped. Right lower extremity is without acute new open ulceration. Neuro: Awake alert oriented to person place and time. There are no acute new gross focal sensory motor deficits. Results CBC & Chem 7: 03/22/19 07:16 03/22/19 07:16 Labs: Abnormal Lab Results - Last 24 Hours (Table) 03/21/19 03/22/19 03/22/19 Range/Units 19:49 07:02 07:16 RBC 3.83 L (4.30-5.90) m/uL Hgb 10.2 L (13.0-17.5) gm/dL Hct 31.9 L (39.0-53.0) % Sodium (137-145) mmol/L Chloride (98-107) mmol/L Glucose (74-99) mg/dL POC Glucose (mg/dL) 244 H 239 H (75-99) mg/dL Calcium (8.4-10.2) mg/dL 03/22/19 03/22/19 03/22/19 Range/Units 07:16 12:12 12:42 RBC (4.30-5.90) m/uL Hgb (13.0-17.5) gm/dL Hct (39.0-53.0) % Sodium 132 L (137-145) mmol/L Chloride 97 L (98-107) mmol/L Glucose 253 H (74-99) mg/dL POC Glucose (mg/dL) 263 H 209 H (75-99) mg/dL Calcium 7.7 L (8.4-10.2) mg/dL Laboratory Results WBC 8.8 k/uL (3.8-10.6) 03/22/19 07:16 RBC 3.83 m/uL (4.30-5.90) L 03/22/19 07:16 Hgb 10.2 gm/dL (13.0-17.5) L 03/22/19 07:16 Hct 31.9 % (39.0-53.0) L 03/22/19 07:16 MCV 83.1 fL (80.0-100.0) 03/22/19 07:16 MCH 26.5 pg (25.0-35.0) 03/22/19 07:16 MCHC 31.9 g/dL (31.0-37.0) 03/22/19 07:16 RDW 13.7 % (11.5-15.5) 03/22/19 07:16 Plt Count 296 k/uL (150-450) 03/22/19 07:16 Neutrophils % 76 % 03/22/19 07:16 Lymphocytes % 11 % 03/22/19 07:16 Monocytes % 8 % 03/22/19 07:16 Eosinophils % 2 % 03/22/19 07:16 Basophils % 0 % 03/22/19 07:16 Neutrophils # 6.7 k/uL (1.3-7.7) 03/22/19 07:16 Lymphocytes # 1.0 k/uL (1.0-4.8) 03/22/19 07:16 Monocytes # 0.7 k/uL (0-1.0) 03/22/19 07:16 Eosinophils # 0.2 k/uL (0-0.7) 03/22/19 07:16 Basophils # 0.0 k/uL (0-0.2) 03/22/19 07:16 Sodium 132 mmol/L (137-145) L 03/22/19 07:16 Potassium 4.4 mmol/L (3.5-5.1) 03/22/19 07:16 Chloride 97 mmol/L (98-107) L 03/22/19 07:16 Carbon Dioxide 25 mmol/L (22-30) 03/22/19 07:16 Anion Gap 10 mmol/L 03/22/19 07:16 BUN 11 mg/dL (9-20) 03/22/19 07:16 Creatinine 0.70 mg/dL (0.66-1.25) 03/22/19 07:16 Est GFR (CKD-EPI)AfAm >90 (>60 ml/min/1.73 sqM) 03/22/19 07:16 Est GFR (CKD-EPI)NonAf >90 (>60 ml/min/1.73 sqM) 03/22/19 07:16 Glucose 253 mg/dL (74-99) H 03/22/19 07:16 POC Glucose (mg/dL) 209 mg/dL (75-99) H 03/22/19 12:42 POC Glu Sr Account Executive ID Ian, Hortencia 03/22/19 12:42 Lactic Ac Sepsis Rflx Y 03/21/19 12:44 Plasma Lactic Acid Cole 1.1 mmol/L (0.7-2.0) 03/21/19 16:00 Calcium 7.7 mg/dL (8.4-10.2) L 03/22/19 07:16 Total Bilirubin 0.6 mg/dL (0.2-1.3) 03/21/19 12:10 AST 25 U/L (17-59) 03/21/19 12:10 ALT 27 U/L (21-72) 03/21/19 12:10 Alkaline Phosphatase 94 U/L (38-126) 03/21/19 12:10 Total Protein 7.1 g/dL (6.3-8.2) 03/21/19 12:10 Albumin 3.7 g/dL (3.5-5.0) 03/21/19 12:10 Urine Color Yellow 03/21/19 12:10 Urine Appearance Clear (Clear) 03/21/19 12:10 Urine pH 5.5 (5.0-8.0) 03/21/19 12:10 Ur Specific [place] 1.026 (1.001-1.035) 03/21/19 12:10 Urine Protein 1+ (Negative) H 03/21/19 12:10 Urine Glucose (UA) 4+ (Negative) H 03/21/19 12:10 Urine Ketones 1+ (Negative) H 03/21/19 12:10 Urine Blood Small (Negative) H 03/21/19 12:10 Urine Nitrite Negative (Negative) 03/21/19 12:10 Urine Bilirubin Negative (Negative) 03/21/19 12:10 Urine Urobilinogen 2.0 mg/dL (<2.0) 03/21/19 12:10 Ur Leukocyte Esterase Negative (Negative) 03/21/19 12:10 Urine RBC 3 /hpf (0-5) 03/21/19 12:10 Urine WBC 1 /hpf (0-5) 03/21/19 12:10 Hyaline Casts 3 /lpf (0-2) H 03/21/19 12:10 Urine Mucus Rare /hpf (None) H 03/21/19 12:10 Recent cultures had Enterococcus faecalis, Klebsiella oxytoca, anaerobic gram- negative bacilli. Assessment and Plan (1) Diabetic ulcer of left foot associated with diabetes mellitus due to underlying condition, with fat layer exposed Narrative/Plan: 58-year-old male with a long-standing history of diabetes mellitus type 2 who has had multiple diabetic foot ulcers, was following in the wound healing Center as well as with podiatry. There are plans for a tendon lengthening procedure however before this could be done here he reulcerated now has extensive ulceration to his left foot that required surgical debridement this morning. Cultures are process and will direct antibiotics and his most recent culture results. Local wound care will be discussed in the postoperative time frame. He likely will require significant antibiotic therapy after discharge, likely IV. Will evaluate if proteins are adequate and a multivitamin and monitor. Current Visit: Yes Status: Acute Code(s): E08.621 - DIABETES MELLITUS DUE TO UNDERLYING CONDITION W FOOT ULCER; L97.522 - NON-PRS CHRONIC ULCER OTH PRT LEFT FOOT W FAT LAYER EXPOSED SNOMED Code(s): 372624712 (2) Diabetes mellitus type 2, uncontrolled, with complications Current Visit: Yes Status: Acute Code(s): E11.8 - TYPE 2 DIABETES MELLITUS WITH UNSPECIFIED COMPLICATIONS; E11.65 - TYPE 2 DIABETES MELLITUS WITH HYPERGLYCEMIA SNOMED Code(s): 03108883 (3) Obesity Current Visit: Yes Status: Acute Code(s): E66.9 - OBESITY, UNSPECIFIED SNOMED Code(s): 908895756
[2019-03-22 14:00] LABS: Hemoglobin A1C 10.4 % (4.0-6.0)
--- NOTE | 2019-03-22 14:43 | PCN ---
PROCEDURE NOTE PREOPERATIVE DIAGNOSIS: Infected callus right foot plantar aspect with some abscess on the dorsal aspect of the foot with marked cellulitis. OPERATION PERFORMED: Excision of the infected callus. Measurement is 3 x 2 cm and I and D of the abscess on the dorsal aspect of the foot. HISTORY: This patient has history of diabetes and has a callus formation on the plantar aspect of the right foot, got infected. DESCRIPTION OF PROCEDURE: The patient was brought to the operating room. Right foot was prepped and drapes applied in the usual sterile manner. An elliptical incision was made on the plantar aspect of the foot along the callus, deepened through skin fat and fascia. The devitalized tissue was excised with sharp knife, which was tissue was sent for deep culture. Bleeding points were electrocoagulated. Then patient had an abscess on the dorsal aspect of the foot. A 1.5 cm incision was made on the dorsal aspect of the foot and pus came out which was drained. We also took the culture and sent for culture and sensitivity. The wound was copiously irrigated with hydrogen peroxide and saline. Bleeding points were checked 1 more time and hemostasis was controlled and the incision was packed with Aquacel silver. Dressing applied. Patient transferred to the recovery room in satisfactory condition. MMODL / IJN: [id number] /
[2019-03-22 17:16] LABS: Glucose,Whole Blood 288 mg/dL (75-99)
[2019-03-22 19:54] LABS: Glucose,Whole Blood 231 mg/dL (75-99)
[2019-03-22] MEDS: LORATADINE 10 MG TAB PO SCH (20:10)
[2019-03-22] MEDS ORDERED: FUROSEMIDE 10 MG/ML 4 ML VIAL IV STA (22:08)
[2019-03-22] MEDS: ALBUTEROL NEBULIZED 2.5 MG/3 ML INHALATION PRN (22:10)
--- NOTE | 2019-03-22 22:31 | XR ---
EXAMINATION TYPE: XR chest 1V portable DATE OF EXAM: 03/22/2019 COMPARISON: NONE HISTORY: Short of breath TECHNIQUE: Single frontal view of the chest is obtained. FINDINGS: There is no heart failure nor confluent pneumonic infiltrate. Costophrenic angles are brandon r. There are no hilar masses. There is slight deformity left posterior eighth rib that could be a fra cture. IMPRESSION: No active cardiopulmonary disease. Possible left eighth rib fracture.
[2019-03-23] MEDS: MORPHINE SULFATE 4 MG/ML SYRINGE IV PRN ×6 (00:26→22:46)
--- NOTE | 2019-03-23 01:25 | P.PN ---
Subjective Progress Note Date: 03/22/19 Principal diagnosis: Right diabetic foot infection. Sepsis Patient is a 58-year-old male with a known history of diabetes type 2 insulin- dependent, asthma, previous history of cardiac catheterization but no PCI and history of left foot osteomyelitis status post IV antibiotics via PICC line previously came to ER with complaints of right foot infection and ulcer. Patient says that he has been having right foot ulcer on the medial plantar surface below the great toe. Patient says that he has been having increased redness, pain and swelling since yesterday around the ulcer and extending up to the ankle. Patient came to ER for evaluation. Patient has been followed with Dr. Quintero the wound care clinic every 2 weeks. Patient otherwise denied any fever or chills at home. No nausea vomiting or diarrhea. No cough is from production. No chest pain or shortness breath. Patient was scheduled to have a tendon lengthening procedure done by Dr. Tran, next week. Patient has no other complaints right now. Lactic acid 2.2 Sodium 133 and an WBC 15.7 Tmax 103.1 03/22/2019 Patient was taken to or today for excision of callus and incision and drainage of abscess. Fever has improved. Leukocytosis improved as well. Currently on broad-spectrum antibiotics. ID and surgery is following., H B A1c 10.4 Blood sugar is fairly controlled while in the hospital. No chest pain or shortness of breath. No nausea vomiting or abdominal pain or diarrhea. Current medications reviewed. Objective - Vital Signs Vital signs: Vital Signs Temp 98.1 F 03/22/19 16:02 Pulse 105 H 03/22/19 15:10 Resp 20 03/22/19 15:10 BP 147/79 03/22/19 13:30 Pulse Ox 96 03/22/19 13:30 Intake & Output 03/22/19 03/22/19 03/23/19 06:59 18:59 06:59 Intake Total 340 3350 Output Total 200 3850 Balance 140 -500 Weight 129.274 kg Intake: IV 300 Intake, IV Titration 340 1900 Amount Piperacillin-Tazobactam 3 100 200 .375 gm In Sodium Chloride 0.9% 100 ml @ 25 mls/hr IVPB Q8H [facility] Rx#: [id number] Sodium Chloride 0.9% 1, 240 1200 000 ml @ 100 mls/hr IV . Q10H [facility] Rx#:[id number] Vancomycin 2,000 mg In 500 Sodium Chloride 0.9% 500 ml 500 ml @ 167 mls/hr IVPB ONCE [facility]A Rx#: [id number] Oral 1150 Output: Urine 200 3800 Estimated Blood Loss 50 Other: Voiding Method Urinal Urinal # Voids 3 4 - Exam PHYSICAL EXAMINATION: Patient is lying in the bed comfortably, no acute distress, awake alert and marck ented.. HEENT: Normocephalic. Neck is supple. Pupils reactive. Nostrils clear. Oral cavity is moist. Ears reveal no drainage. Neck reveals no JVD, carotid bruits, or thyromegaly. CHEST EXAMINATION: Trachea is central. Symmetrical expansion. Lung ortiz clear to auscultation and percussion. CARDIAC: Normal S1, S2 with no gallops. No murmurs ABDOMEN: Soft. Bowel sounds normal. No organomegaly. No abdominal bruits. Extremities: Bilateral 1+ pedal edema. Right foot surgical site is bandaged. No clubbing or cyanosis Neurologically awake, alert, oriented x3 with well-coordinated movements. No focal deficits noted Skin: No rash or skin lesions. Psychiatric: Coperative. Nonsuicidal Musculoskeletal: No joint swelling or deformity. Normal range of motion. - Labs CBC & Chem 7: 03/22/19 07:16 03/22/19 07:16 Labs: Abnormal Lab Results - Last 24 Hours (Table) 03/21/19 03/22/19 03/22/19 Range/Units 19:49 07:02 07:16 RBC (4.30-5.90) m/uL Hgb (13.0-17.5) gm/dL Hct (39.0-53.0) % Sodium (137-145) mmol/L Chloride (98-107) mmol/L Glucose (74-99) mg/dL POC Glucose (mg/dL) 244 H 239 H (75-99) mg/dL Hemoglobin A1c 10.4 H (4.0-6.0) % Calcium (8.4-10.2) mg/dL 03/22/19 03/22/19 03/22/19 Range/Units 07:16 07:16 12:12 RBC 3.83 L (4.30-5.90) m/uL Hgb 10.2 L (13.0-17.5) gm/dL Hct 31.9 L (39.0-53.0) % Sodium 132 L (137-145) mmol/L Chloride 97 L (98-107) mmol/L Glucose 253 H (74-99) mg/dL POC Glucose (mg/dL) 263 H (75-99) mg/dL Hemoglobin A1c (4.0-6.0) % Calcium 7.7 L (8.4-10.2) mg/dL 03/22/19 03/22/19 Range/Units 12:42 17:09 RBC (4.30-5.90) m/uL Hgb (13.0-17.5) gm/dL Hct (39.0-53.0) % Sodium (137-145) mmol/L Chloride (98-107) mmol/L Glucose (74-99) mg/dL POC Glucose (mg/dL) 209 H 288 H (75-99) mg/dL Hemoglobin A1c (4.0-6.0) % Calcium (8.4-10.2) mg/dL Microbiology - Last 24 Hours (Table) 03/21/19 13:00 Blood Culture - Preliminary Blood No Growth after 24 hours Assessment and Plan Assessment: Right diabetic foot ulcer with abscess and surrounding cellulitis. Status post I&D and excision of callus Sepsis secondary to above Previous history of left foot osteomyelitis status post IV antibiotics via PICC line Chronic diabetic foot ulcer Asthma stable Hyperglycemia with uncontrolled diabetes type 2 Morbid obesity with BMI 39.7 DVT prophylaxis with heparin subcu Plan: Patient be continued on IV hydration and broad-spectrum antibiotics in the form of vancomycin and Zosyn. Follow up blood cultures. Vascular surgery and ID is following. Continue with insulin regimen and sliding scale and titrate insulin. Continue with pain medications and follow up closely. Further recommendations based on the clinical course. Prognosis is guarded. Time with Patient: Greater than 30
[2019-03-23 02:03] LABS: Glucose,Whole Blood 202 mg/dL (75-99)
[2019-03-23] MEDS: VANCOMYCIN 2,000 MG in SODIUM CHLORIDE 0.9% 500 ML 500 ML IVPB SCH ×3 (04:03→21:00)
[2019-03-23] MEDS: PIPERACILLIN-TAZOBACTAM 3.375 GM in SODIUM CHLORIDE 0.9% 100 ML IVPB SCH ×3 (04:03→21:00)
[2019-03-23 06:58] LABS: Glucose,Whole Blood 178 mg/dL (75-99)
[2019-03-23] MEDS ORDERED: VANCOMYCIN TROUGH DUE 1 EACH MISC MISCELLANE ONE ×2 (07:00→11:00)
[2019-03-23] MEDS: ACETAMINOPHEN TAB 325 MG TAB PO PRN ×2 (07:07→15:59)
[2019-03-23] MEDS: traMADol 50 MG TAB PO PRN ×3 (07:08→19:09)
[2019-03-23] MEDS: ALBUTEROL NEBULIZED 2.5 MG/3 ML INHALATION PRN ×4 (07:30→20:35)
[2019-03-23 07:44] LABS: Basophils # (A) 0.1 k/uL (0-0.2); Basophils % (A) 2 %; Eosinophils # (A) 0.2 k/uL (0-0.7); Eosinophils % (A) 3 %; HCT 32.1 % (39.0-53.0); HGB 10.1 gm/dL (13.0-17.5); Lymphocytes # (A) 0.7 k/uL (1.0-4.8); Lymphocytes % (A) 11 %; MCH 26.3 pg (25.0-35.0); MCHC 31.3 g/dL (31.0-37.0); MCV 83.9 fL (80.0-100.0); Mean Platelet Volume 6.8; Monocytes # (A) 0.4 k/uL (0-1.0); Monocytes % (A) 7 %; Neutrophils # (A) 4.8 k/uL (1.3-7.7); Neutrophils % (A) 75 %; Platelet Count 295 k/uL (150-450); RBC 3.83 m/uL (4.30-5.90); RDW 13.4 % (11.5-15.5); WBC 6.4 k/uL (3.8-10.6)
[2019-03-23] MEDS: INSULIN ASPART (NovoLOG) 100 UNIT/ML VIAL SQ SCH ×7 (07:45→21:03)
[2019-03-23] MEDS: INSULIN DETEMIR (LEVEMIR) 100 UNIT/ML SYR SQ SCH ×2 (07:45→21:04)
[2019-03-23 07:56] LABS: ALT 33 U/L (21-72); AST 35 U/L (17-59); African American GFR (CKD) >90 (>60 ml/min/1.73 sqM); Albumin 3.1 g/dL (3.5-5.0); Alkaline Phosphatase 112 U/L (38-126); Anion Gap 10 mmol/L; Blood Urea Nitrogen 10 mg/dL (9-20); Carbon Dioxide 23 mmol/L (22-30); Chloride 103 mmol/L (98-107); Glucose 185 mg/dL (74-99); Potassium 4.4 mmol/L (3.5-5.1); Sodium 136 mmol/L (137-145); Total Bilirubin 0.6 mg/dL (0.2-1.3); Total Protein 6.3 g/dL (6.3-8.2)
[2019-03-23] MEDS: HEPARIN SODIUM,PORCINE 5,000 UNIT/ML 1 ML VIAL SQ SCH ×2 (09:51→15:59)
[2019-03-23 11:04] LABS: Glucose,Whole Blood 168 mg/dL (75-99)
[2019-03-23] MEDS: IBUPROFEN 600 MG TAB PO PRN (16:59)
[2019-03-23 17:13] LABS: Glucose,Whole Blood 153 mg/dL (75-99)
[2019-03-23 20:08] LABS: Glucose,Whole Blood 208 mg/dL (75-99)
[2019-03-23] MEDS: LORATADINE 10 MG TAB PO SCH (21:04)
[2019-03-24] MEDS: HEPARIN SODIUM,PORCINE 5,000 UNIT/ML 1 ML VIAL SQ SCH ×3 (00:12→15:54)
--- NOTE | 2019-03-24 03:15 | P.PN ---
Subjective Progress Note Date: 03/23/19 Principal diagnosis: Right diabetic foot infection. Sepsis Patient is a 58-year-old male with a known history of diabetes type 2 insulin- dependent, asthma, previous history of cardiac catheterization but no PCI and history of left foot osteomyelitis status post IV antibiotics via PICC line previously came to ER with complaints of right foot infection and ulcer. Patient says that he has been having right foot ulcer on the medial plantar surface below the great toe. Patient says that he has been having increased redness, pain and swelling since yesterday around the ulcer and extending up to the ankle. Patient came to ER for evaluation. Patient has been followed with Dr. Quintero the wound care clinic every 2 weeks. Patient otherwise denied any fever or chills at home. No nausea vomiting or diarrhea. No cough is from production. No chest pain or shortness breath. Patient was scheduled to have a tendon lengthening procedure done by Dr. Tran, next week. Patient has no other complaints right now. Lactic acid 2.2 Sodium 133 and an WBC 15.7 Tmax 103.1 03/22/2019 Patient was taken to or today for excision of callus and incision and drainage of abscess. Fever has improved. Leukocytosis improved as well. Currently on broad-spectrum antibiotics. ID and surgery is following., H B A1c 10.4 Blood sugar is fairly controlled while in the hospital. No chest pain or shortness of breath. No nausea vomiting or abdominal pain or diarrhea. 03/23/2019 Patient has been afebrile. No chest pain or shortness of breath. Right foot wound is bandaged. No purulent drainage noted. Otherwise leukocytosis is normalized. Follow-up culture reported recommendations regarding antibiotic course. ID is on board. Patient is still hyperglycemic. Titrate insulin dose as needed. No fever no chills. Current medications reviewed. Objective - Vital Signs Vital signs: Vital Signs Temp 99.4 F 03/23/19 16:56 Pulse 84 03/23/19 16:36 Resp 19 03/23/19 15:39 BP 141/67 03/23/19 12:35 Pulse Ox 96 03/23/19 12:35 Intake & Output 03/22/19 03/23/19 03/23/19 18:59 06:59 18:59 Intake Total 3350 1190 2250 Output Total 3850 2450 600 Balance -500 -1260 1650 Weight 129.274 kg Intake: IV 300 Intake, IV Titration 1900 600 700 Amount Piperacillin-Tazobactam 3 200 100 200 .375 gm In Sodium Chloride 0.9% 100 ml @ 25 mls/hr IVPB Q8H [facility] Rx#: [id number] Sodium Chloride 0.9% 1, 1200 000 ml @ 100 mls/hr IV . Q10H [facility] Rx#:[id number] Vancomycin 2,000 mg In 500 Sodium Chloride 0.9% 500 ml 500 ml @ 167 mls/hr IVPB ONCE STA Rx#: [id number] Vancomycin 2,000 mg In 500 500 Sodium Chloride 0.9% 500 ml 500 ml @ 167 mls/hr IVPB Q8H [facility] Rx#: [id number] Oral [id number] Output: Urine 3800 2450 600 Estimated Blood Loss 50 Other: Voiding Method Urinal Urinal Toilet # Voids 4 4 # Bowel Movements 1 - Exam PHYSICAL EXAMINATION: Patient is lying in the bed comfortably, no acute distress, awake alert and oriented.. HEENT: Normocephalic. Neck is supple. Pupils reactive. Nostrils clear. Oral cavity is moist. Ears reveal no drainage. Neck reveals no JVD, carotid bruits, or thyromegaly. CHEST EXAMINATION: Trachea is central. Symmetrical expansion. Lung ortiz clear to auscultation and percussion. CARDIAC: Normal S1, S2 with no gallops. No murmurs ABDOMEN: Soft. Bowel sounds normal. No organomegaly. No abdominal bruits. Extremities: Bilateral 1+ pedal edema. Right foot surgical site is bandaged. No clubbing or cyanosis Neurologically awake, alert, oriented x3 with well-coordinated movements. No focal deficits noted Skin: No rash or skin lesions. Psychiatric: Coperative. Nonsuicidal Musculoskeletal: No joint swelling or deformity. Normal range of motion. - Labs CBC & Chem 7: 03/23/19 06:46 03/23/19 06:46 Labs: Abnormal Lab Results - Last 24 Hours (Table) 03/22/19 03/23/19 03/23/19 Range/Units 19:52 01:55 06:46 RBC (4.30-5.90) m/uL Hgb (13.0-17.5) gm/dL Hct (39.0-53.0) % Lymphocytes # (1.0-4.8) k/uL Sodium (137-145) mmol/L Creatinine (0.66-1.25) mg/dL Glucose (74-99) mg/dL POC Glucose (mg/dL) 231 H 202 H (75-99) mg/dL Calcium (8.4-10.2) mg/dL Albumin (3.5-5.0) g/dL Vancomycin Trough 30.4 H* ug/mL 03/23/19 03/23/19 03/23/19 Range/Units 06:46 06:46 06:55 RBC 3.83 L (4.30-5.90) m/uL Hgb 10.1 L (13.0-17.5) gm/dL Hct 32.1 L (39.0-53.0) % Lymphocytes # 0.7 L (1.0-4.8) k/uL Sodium 136 L (137-145) mmol/L Creatinine 0.59 L (0.66-1.25) mg/dL Glucose 185 H (74-99) mg/dL POC Glucose (mg/dL) 178 H (75-99) mg/dL Calcium 8.0 L (8.4-10.2) mg/dL Albumin 3.1 L (3.5-5.0) g/dL Vancomycin Trough ug/mL 03/23/19 03/23/19 Range/Units 11:02 17:10 RBC (4.30-5.90) m/uL Hgb (13.0-17.5) gm/dL Hct (39.0-53.0) % Lymphocytes # (1.0-4.8) k/uL Sodium (137-145) mmol/L Creatinine (0.66-1.25) mg/dL Glucose (74-99) mg/dL POC Glucose (mg/dL) 168 H 153 H (75-99) mg/dL Calcium (8.4-10.2) mg/dL Albumin (3.5-5.0) g/dL Vancomycin Trough ug/mL Microbiology - Last 24 Hours (Table) 03/21/19 13:00 Blood Culture Gram Stain - Preliminary Blood Blood Culture - Preliminary Staphylococcus species 03/22/19 11:55 Gram Stain - Preliminary Foot - Right Wound Culture - Preliminary 03/22/19 11:55 Gram Stain - Preliminary Foot - Right Tissue Culture - Preliminary 03/21/19 13:00 Blood Culture - Final Blood 03/22/19 11:55 Fungal Culture - Preliminary Foot - Right 03/22/19 11:55 Fungal Culture - Preliminary Foot - Right 03/22/19 11:55 Anaerobic Culture - Preliminary Foot - Right 03/22/19 11:55 Anaerobic Culture - Preliminary Foot - Right Assessment and Plan Assessment: Right diabetic foot ulcer with abscess and surrounding cellulitis. Status post I&D and excision of callus Sepsis secondary to above Previous history of left foot osteomyelitis status post IV antibiotics via PICC line Chronic diabetic foot ulcer Asthma stable Hyperglycemia with uncontrolled diabetes type 2 Morbid obesity with BMI 39.7 DVT prophylaxis with heparin subcu Plan: Patient be continued on IV hydration and broad-spectrum antibiotics in the form of vancomycin and Zosyn. Follow up blood cultures negative so far. Wound cultures pending at this time. Status post I&D. Vascular surgery and ID is following. Continue with insulin regimen and sliding scale and titrate insulin. Continue with pain medications and follow up closely. Further recommendations based on the clinical course. Prognosis is guarded. Time with Patient: Greater than 30
[2019-03-24] MEDS: VANCOMYCIN 2,000 MG in SODIUM CHLORIDE 0.9% 500 ML 500 ML IVPB SCH ×3 (04:06→20:15)
[2019-03-24] MEDS: PIPERACILLIN-TAZOBACTAM 3.375 GM in SODIUM CHLORIDE 0.9% 100 ML IVPB SCH ×3 (04:06→20:18)
[2019-03-24] MEDS: traMADol 50 MG TAB PO PRN ×3 (04:06→15:53)
[2019-03-24] MEDS: ACETAMINOPHEN TAB 325 MG TAB PO PRN ×2 (04:58→17:37)
[2019-03-24] MEDS: IBUPROFEN 600 MG TAB PO PRN ×2 (04:59→18:26)
[2019-03-24 06:51] LABS: Glucose,Whole Blood 215 mg/dL (75-99)
[2019-03-24] MEDS: INSULIN ASPART (NovoLOG) 100 UNIT/ML VIAL SQ SCH ×7 (07:50→21:04)
[2019-03-24] MEDS: MORPHINE SULFATE 4 MG/ML SYRINGE IV PRN ×3 (07:51→20:36)
[2019-03-24] MEDS: ALBUTEROL NEBULIZED 2.5 MG/3 ML INHALATION PRN ×2 (08:21→17:03)
--- NOTE | 2019-03-24 09:22 | PN ---
PROGRESS NOTE Liu had wound debridement, I and D of the abscess right foot. We took the deep culture and the patient on IV antibiotic. Today we have changed the dressing. Placed Aquacel silver rope. There is some redness noted on the dorsal aspect of the foot. PLAN: Continue with IV antibiotic and local wound care. MMODL / IJN: [id number] /
[2019-03-24 11:10] LABS: Glucose,Whole Blood 224 mg/dL (75-99)
[2019-03-24] MEDS: INSULIN DETEMIR (LEVEMIR) 100 UNIT/ML SYR SQ SCH ×2 (11:12→21:04)
--- NOTE | 2019-03-24 12:33 | PN ---
PROGRESS NOTE Liu had an infected callus which was debrided and also there was an abscess on the dorsal aspect of the foot, which was drained. Culture came back as MRSA. We have been treating with local wound care. The redness is less, but still there is mild redness noted on the dorsal aspect of the foot. We will be treating with IV antibiotic and local wound care using Aquacel Silver rope which will be continued. Prognosis guarded. We will follow. MMODL / IJN: [id number] /
[2019-03-24] MEDS ORDERED: LIDOCAINE 1% INJ 10MG/ML (20 ML MDV) SQ ONE ×2 (15:11→15:12)
--- NOTE | 2019-03-24 15:45 | IR ---
EXAMINATION TYPE: IR cvc insert >=5 years DATE OF EXAM: 03/24/2019 COMPARISON: NONE CLINICAL HISTORY: Infection Needs long-term intravenous access for antibiotics. PROCEDURE: After informed consent, the skin overlying the left basilic vein was localized with ultrasound and no prabha to be compressible and patent. An ultrasound image was obtained and submitted on the patient's c anthony. The overlying skin was prepped and draped and Lidocaine was used for local anesthesia. A skin nora was made with a scalpel. Access was gained to the vein under ultrasound guidance with a 21 gau ge needle and a 0.018 inch wire was advanced. Access site was dilated with Peel-Away sheath and cath eter tailored to the appropriate length and advanced such that the distal tip is at the cavoatrial ju nction. Spot image was obtained verifying placement. Catheter was fixed to the skin and a sterile d ressing was placed following hemostasis. Catheter was aspirated and flushed with saline. Patient wa s discharged in stable condition without complication. Maximal barrier technique is utilized. Ultras ound image is documented on the chart. Ultrasound used with sterile technique. Fluoro time and fluoroscopic images submitted to document procedure: 0.2 minutes fluoroscopy time, 36 intraoperative C-arm images document the procedure IMPRESSION: STATUS POST ULTRASOUND AND FLUOROSCOPIC GUIDED PICC LINE PLACEMENT, READY FOR USE. THIS PROCEDURE WAS PERFORMED BY THE UNDERSIGNED.
[2019-03-24 17:16] LABS: Glucose,Whole Blood 161 mg/dL (75-99)
[2019-03-24 20:57] LABS: Glucose,Whole Blood 208 mg/dL (75-99)
[2019-03-24] MEDS: LORATADINE 10 MG TAB PO SCH (21:04)
--- NOTE | 2019-03-24 22:09 | P.PN ---
Subjective Progress Note Date: 03/24/19 58-year-old male with long-standing history of diabetes mellitus type 2 with multiple complications during the past summer. Difficulties with diabetic foot ulcerations and was followed with Dr. Quintero in the outpatient clinic. He was having some improvement and had been seen by the foot and ankle specialist and plans were for a tendon lengthening procedure to allow some further balancing to his foot. We prevent further ulcerations. He was contemplating this type of procedure and then developed significant wound and ulceration to the foot. He now has been admitted and has been taking the operating room this morning and the extensive debridement has occurred. Consult for antibiotic therapy and outpatient follow-up. 03/24/2019 be patient is feeling slowly better. MRSA has been isolated. Plans regarding his antibiotic therapy are being made Objective - Vital Signs Vital signs: Vital Signs Temp 97.3 F L 03/24/19 20:14 Pulse 80 03/24/19 17:11 Resp 16 03/24/19 17:11 BP 120/61 03/24/19 12:10 Pulse Ox 96 03/24/19 15:38 Intake & Output 03/24/19 03/24/19 03/25/19 06:59 18:59 06:59 Intake Total 1200 1200 Output Total 1150 Balance 50 1200 Intake: Intake, IV Titration 1200 600 Amount Piperacillin-Tazobactam 3 200 100 .375 gm In Sodium Chloride 0.9% 100 ml @ 25 mls/hr IVPB Q8H [facility] Rx#: [id number] Vancomycin 2,000 mg In 1000 500 Sodium Chloride 0.9% 500 ml 500 ml @ 167 mls/hr IVPB Q8H [facility] Rx#: [id number] Oral 600 Output: Urine 1150 Other: Voiding Method Toilet # Voids 3 - Exam Pleasant 58-year-old male who is postop comfortable at this time. HEENT: Anicteric conjunctiva are pink and moist nasal mucosa grossly intact without significant lesions, there is no thrush. Neck: The neck is supple without significant lymphadenopathy or thyromegaly. Lungs: Good bilateral air entry without significant crackles or wheezing. There is no significant bronchial sounds. There is no egophony or dullness. Heart: Regular rate and rhythm with an audible S1-S2, no S3 no S4. There is no significant murmur click or rub, PMI was nondisplaced. Abdomen: Positive bowel sounds soft and nontender without palpable masses or organomegaly. There was no guarding or rebound. Extremities: The upper extremities have excellent pulses they are symmetric, no significant petechiae or telangiectasia. No splinter hemorrhages were noted. Left lower extremity has evidence of the multiple surgical incision and drainage sites that are packed with the silver alginate rope. There is no followed her. There additionally is concerned that the plantar ulceration tract the tissue to the dorsum of the foot. Right lower extremity is without acute new open ulceration. Neuro: Awake alert oriented to person place and time. There are no acute new gross focal sensory motor deficits. - Labs CBC & Chem 7: 03/23/19 06:46 03/23/19 06:46 Labs: Abnormal Lab Results - Last 24 Hours (Table) 03/24/19 03/24/19 03/24/19 Range/Units 06:50 11:09 17:15 POC Glucose (mg/dL) 215 H 224 H 161 H (75-99) mg/dL 03/24/19 Range/Units 20:55 POC Glucose (mg/dL) 208 H (75-99) mg/dL Microbiology - Last 24 Hours (Table) 03/22/19 11:55 Gram Stain - Final Foot - Right Tissue Culture - Final Methicillin resist S. aureus 03/22/19 11:55 Gram Stain - Final Foot - Right Wound Culture - Final Methicillin resist S. aureus 03/21/19 13:00 Blood Culture Gram Stain - Final Blood Blood Culture - Final Methicillin resist S. aureus Laboratory Results WBC 6.4 k/uL (3.8-10.6) 03/23/19 06:46 RBC 3.83 m/uL (4.30-5.90) L 03/23/19 06:46 Hgb 10.1 gm/dL (13.0-17.5) L 03/23/19 06:46 Hct 32.1 % (39.0-53.0) L 03/23/19 06:46 MCV 83.9 fL (80.0-100.0) 03/23/19 06:46 MCH 26.3 pg (25.0-35.0) 03/23/19 06:46 MCHC 31.3 g/dL (31.0-37.0) 03/23/19 06:46 RDW 13.4 % (11.5-15.5) 03/23/19 06:46 Plt Count 295 k/uL (150-450) 03/23/19 06:46 Neutrophils % 75 % 03/23/19 06:46 Lymphocytes % 11 % 03/23/19 06:46 Monocytes % 7 % 03/23/19 06:46 Eosinophils % 3 % 03/23/19 06:46 Basophils % 2 % 03/23/19 06:46 Neutrophils # 4.8 k/uL (1.3-7.7) 03/23/19 06:46 Lymphocytes # 0.7 k/uL (1.0-4.8) L 03/23/19 06:46 Monocytes # 0.4 k/uL (0-1.0) 03/23/19 06:46 Eosinophils # 0.2 k/uL (0-0.7) 03/23/19 06:46 Basophils # 0.1 k/uL (0-0.2) 03/23/19 06:46 Sodium 136 mmol/L (137-145) L 03/23/19 06:46 Potassium 4.4 mmol/L (3.5-5.1) 03/23/19 06:46 Chloride 103 mmol/L (98-107) 03/23/19 06:46 Carbon Dioxide 23 mmol/L (22-30) 03/23/19 06:46 Anion Gap 10 mmol/L 03/23/19 06:46 BUN 10 mg/dL (9-20) 03/23/19 06:46 Creatinine 0.59 mg/dL (0.66-1.25) L 03/23/19 06:46 Est GFR (CKD-EPI)AfAm >90 (>60 ml/min/1.73 sqM) 03/23/19 06:46 Est GFR (CKD-EPI)NonAf >90 (>60 ml/min/1.73 sqM) 03/23/19 06:46 Glucose 185 mg/dL (74-99) H 03/23/19 06:46 POC Glucose (mg/dL) 208 mg/dL (75-99) H 03/24/19 20:55 POC Glu Electronic [employer] Technician Sol Gibson 03/24/19 20:[address] Glu mg/dL 252 03/22/19 07:16 Hemoglobin A1c 10.4 % (4.0-6.0) H 03/22/19 07:16 Lactic Ac Sepsis Rflx Y 03/21/19 12:44 Plasma Lactic Acid Cole 1.1 mmol/L (0.7-2.0) 03/21/19 16:00 Calcium 8.0 mg/dL (8.4-10.2) L 03/23/19 06:46 Total Bilirubin 0.6 mg/dL (0.2-1.3) 03/23/19 06:46 AST 35 U/L (17-59) 03/23/19 06:46 ALT 33 U/L (21-72) 03/23/19 06:46 Alkaline Phosphatase 112 U/L (38-126) 03/23/19 06:46 Total Protein 6.3 g/dL (6.3-8.2) 03/23/19 06:46 Albumin 3.1 g/dL (3.5-5.0) L 03/23/19 06:46 Urine Color Yellow 03/21/19 12:10 Urine Appearance Clear (Clear) 03/21/19 12:10 Urine pH 5.5 (5.0-8.0) 03/21/19 12:10 Ur Specific [place] 1.026 (1.001-1.035) 03/21/19 12:10 Urine Protein 1+ (Negative) H 03/21/19 12:10 Urine Glucose (UA) 4+ (Negative) H 03/21/19 12:10 Urine Ketones 1+ (Negative) H 03/21/19 12:10 Urine Blood Small (Negative) H 03/21/19 12:10 Urine Nitrite Negative (Negative) 03/21/19 12:10 Urine Bilirubin Negative (Negative) 03/21/19 12:10 Urine Urobilinogen 2.0 mg/dL (<2.0) 03/21/19 12:10 Ur Leukocyte Esterase Negative (Negative) 03/21/19 12:10 Urine RBC 3 /hpf (0-5) 03/21/19 12:10 Urine WBC 1 /hpf (0-5) 03/21/19 12:10 Hyaline Casts 3 /lpf (0-2) H 03/21/19 12:10 Urine Mucus Rare /hpf (None) H 03/21/19 12:10 Vancomycin Trough 14.7 ug/mL 09/22/19 11:11 Microbiology 03/22/19 11:55 Foot - Right Gram Stain - Final 03/22/19 11:55 Foot - Right Tissue Culture - Final Methicillin resist S. aureus 03/22/19 11:55 Foot - Right Gram Stain - Final 03/22/19 11:55 Foot - Right Wound Culture - Final Methicillin resist S. aureus 03/21/19 13:00 Blood Blood Culture Gram Stain - Final 03/21/19 13:00 Blood Blood Culture - Final Methicillin resist S. aureus 03/21/19 13:00 Blood Blood Culture - Final 03/22/19 11:55 Foot - Right Fungal Culture - Preliminary 03/22/19 11:55 Foot - Right Fungal Culture - Preliminary 03/22/19 11:55 Foot - Right Anaerobic Culture - Preliminary 03/22/19 11:55 Foot - Right Anaerobic Culture - Preliminary Assessment and Plan (1) Diabetic ulcer of left foot associated with diabetes mellitus due to underlying condition, with fat layer exposed Narrative/Plan: 58-year-old male with a long-standing history of diabetes mellitus type 2 who has had multiple diabetic foot ulcers, was following in the wound healing Center as well as with podiatry. There are plans for a tendon lengthening procedure however before this could be done here he reulcerated now has extensive ulceration to his left foot that required surgical debridement this morning. Cultures are process and will direct antibiotics and his most recent culture results. Local wound care will be discussed in the postoperative time frame. He likely will require significant antibiotic therapy after discharge, likely IV. Will evaluate if proteins are adequate and a multivitamin and monitor. March 24 2019 the patient is doing relatively well. MRSA has been isolated and consequently outpatient intravenous antibiotic therapy is being arranged. Currently vancomycin will be chosen based on culture. Patient's believes they can perform this. Local wound care is being directed by the surgeon which is with the current silver alginate dressings. He does appear that there has been a significant penetration infection from the plantar to the dorsum. It appears rk a course of antibiotic therapy for foot salvage. Current Visit: Yes Status: Acute Code(s): E08.621 - DIABETES MELLITUS DUE TO UNDERLYING CONDITION W FOOT ULCER; L97.522 - NON-PRS CHRONIC ULCER OTH PRT LEFT FOOT W FAT LAYER EXPOSED SNOMED Code(s): 589562607 (2) Diabetes mellitus type 2, uncontrolled, with complications Current Visit: Yes Status: Acute Code(s): E11.8 - TYPE 2 DIABETES MELLITUS WITH UNSPECIFIED COMPLICATIONS; E11.65 - TYPE 2 DIABETES MELLITUS WITH HYPERGLYCEMIA SNOMED Code(s): 61551262 (3) Obesity Current Visit: Yes Status: Acute Code(s): E66.9 - OBESITY, UNSPECIFIED SNOMED Code(s): 454141860
[2019-03-25] MEDS: HEPARIN SODIUM,PORCINE 5,000 UNIT/ML 1 ML VIAL SQ SCH ×4 (00:07→23:05)
[2019-03-25] MEDS: traMADol 50 MG TAB PO PRN ×3 (00:09→16:13)
[2019-03-25] MEDS: VANCOMYCIN 2,000 MG in SODIUM CHLORIDE 0.9% 500 ML 500 ML IVPB SCH ×3 (03:41→19:57)
[2019-03-25] MEDS: PIPERACILLIN-TAZOBACTAM 3.375 GM in SODIUM CHLORIDE 0.9% 100 ML IVPB SCH ×3 (03:41→20:08)
[2019-03-25] MEDS: ALBUTEROL NEBULIZED 2.5 MG/3 ML INHALATION PRN ×3 (04:47→19:43)
[2019-03-25 07:11] LABS: Glucose,Whole Blood 185 mg/dL (75-99)
[2019-03-25] MEDS: INSULIN DETEMIR (LEVEMIR) 100 UNIT/ML SYR SQ SCH ×2 (07:52→21:19)
[2019-03-25] MEDS: INSULIN ASPART (NovoLOG) 100 UNIT/ML VIAL SQ SCH ×7 (07:52→20:46)
[2019-03-25 11:32] LABS: Glucose,Whole Blood 170 mg/dL (75-99)
[2019-03-25] MEDS: MORPHINE SULFATE 4 MG/ML SYRINGE IV PRN ×2 (12:27→19:52)
[2019-03-25 17:14] LABS: Glucose,Whole Blood 155 mg/dL (75-99)
[2019-03-25 19:58] LABS: Glucose,Whole Blood 177 mg/dL (75-99)
[2019-03-25] MEDS: LORATADINE 10 MG TAB PO SCH (20:45)
[2019-03-25] MEDS: IBUPROFEN 600 MG TAB PO PRN (20:47)
--- NOTE | 2019-03-25 22:06 | P.PN ---
Subjective Progress Note Date: 03/25/19 58-year-old male with long-standing history of diabetes mellitus type 2 with multiple complications during the past summer. Difficulties with diabetic foot ulcerations and was followed with Dr. Quintero in the outpatient clinic. He was having some improvement and had been seen by the foot and ankle specialist and plans were for a tendon lengthening procedure to allow some further balancing to his foot. We prevent further ulcerations. He was contemplating this type of procedure and then developed significant wound and ulceration to the foot. He now has been admitted and has been taking the operating room this morning and the extensive debridement has occurred. Consult for antibiotic therapy and outpatient follow-up. 03/24/2019 be patient is feeling slowly better. MRSA has been isolated. Plans regarding his antibiotic therapy are being made 03/25/2019 the patient is feeling somewhat better. Plans are made for his outpatient intravenous antibiotic therapy for his MRSA infection. Patient has been seen by the vascular surgeon and the wounds are repacked today with no plans for further surgical interventions at this time. Objective - Vital Signs Vital signs: Vital Signs Temp 99.4 F 03/25/19 19:40 Pulse 84 03/25/19 19:56 Resp 16 03/25/19 19:56 BP 139/75 03/25/19 19:40 Pulse Ox 97 03/25/19 19:40 Intake & Output 03/25/19 03/25/19 03/26/19 06:59 18:59 06:59 Other: Voiding Method Toilet Toilet # Voids 3 2 - Exam Pleasant 58-year-old male who is postop comfortable at this time. HEENT: Anicteric conjunctiva are pink and moist nasal mucosa grossly intact without significant lesions, there is no thrush. Neck: The neck is supple without significant lymphadenopathy or thyromegaly. Lungs: Good bilateral air entry without significant crackles or wheezing. There is no significant bronchial sounds. There is no egophony or dullness. Heart: Regular rate and rhythm with an audible S1-S2, no S3 no S4. There is no significant murmur click or rub, PMI was nondisplaced. Abdomen: Positive bowel sounds soft and nontender without palpable masses or organomegaly. There was no guarding or rebound. Extremities: The upper extremities have excellent pulses they are symmetric, no significant petechiae or telangiectasia. No splinter hemorrhages were noted. Left lower extremity has evidence of the multiple surgical incision and drainage sites that are packed with the silver alginate rope. There is no followed her. There additionally is concerned that the plantar ulceration tract the tissue to the dorsum of the foot. Right lower extremity is without acute new open ulceration. Neuro: Awake alert oriented to person place and time. There are no acute new gross focal sensory motor deficits. - Labs CBC & Chem 7: 03/23/19 06:46 03/23/19 06:46 Labs: Abnormal Lab Results - Last 24 Hours (Table) 03/25/19 03/25/19 03/25/19 Range/Units 07:09 11:30 17:13 POC Glucose (mg/dL) 185 H 170 H 155 H (75-99) mg/dL 03/25/19 Range/Units 19:57 POC Glucose (mg/dL) 177 H (75-99) mg/dL Microbiology - Last 24 Hours (Table) 03/24/19 18:04 Blood Culture - Preliminary Blood No Growth after 24 hours 03/22/19 11:55 Gram Stain - Final Foot - Right Tissue Culture - Final Methicillin resist S. aureus 03/22/19 11:55 Gram Stain - Final Foot - Right Wound Culture - Final Methicillin resist S. aureus Laboratory Results WBC 6.4 k/uL (3.8-10.6) 03/23/19 06:46 RBC 3.83 m/uL (4.30-5.90) L 03/23/19 06:46 Hgb 10.1 gm/dL (13.0-17.5) L 03/23/19 06:46 Hct 32.1 % (39.0-53.0) L 03/23/19 06:46 MCV 83.9 fL (80.0-100.0) 03/23/19 06:46 MCH 26.3 pg (25.0-35.0) 03/23/19 06:46 MCHC 31.3 g/dL (31.0-37.0) 03/23/19 06:46 RDW 13.4 % (11.5-15.5) 03/23/19 06:46 Plt Count 295 k/uL (150-450) 03/23/19 06:46 Neutrophils % 75 % 03/23/19 06:46 Lymphocytes % 11 % 03/23/19 06:46 Monocytes % 7 % 03/23/19 06:46 Eosinophils % 3 % 03/23/19 06:46 Basophils % 2 % 03/23/19 06:46 Neutrophils # 4.8 k/uL (1.3-7.7) 03/23/19 06:46 Lymphocytes # 0.7 k/uL (1.0-4.8) L 03/23/19 06:46 Monocytes # 0.4 k/uL (0-1.0) 03/23/19 06:46 Eosinophils # 0.2 k/uL (0-0.7) 03/23/19 06:46 Basophils # 0.1 k/uL (0-0.2) 03/23/19 06:46 Sodium 136 mmol/L (137-145) L 03/23/19 06:46 Potassium 4.4 mmol/L (3.5-5.1) 03/23/19 06:46 Chloride 103 mmol/L (98-107) 03/23/19 06:46 Carbon Dioxide 23 mmol/L (22-30) 03/23/19 06:46 Anion Gap 10 mmol/L 03/23/19 06:46 BUN 10 mg/dL (9-20) 03/23/19 06:46 Creatinine 0.59 mg/dL (0.66-1.25) L 03/23/19 06:46 Est GFR (CKD-EPI)AfAm >90 (>60 ml/min/1.73 sqM) 03/23/19 06:46 Est GFR (CKD-EPI)NonAf >90 (>60 ml/min/1.73 sqM) 03/23/19 06:46 Glucose 185 mg/dL (74-99) H 03/23/19 06:46 POC Glucose (mg/dL) 177 mg/dL (75-99) H 03/25/19 19:57 POC Glu [employer] Representative Avelina Stovall 03/25/19 19:[address] Glu mg/dL 252 03/22/19 07:16 Hemoglobin A1c 10.4 % (4.0-6.0) H 03/22/19 07:16 Lactic Ac Sepsis Rflx Y 03/21/19 12:44 Plasma Lactic Acid Cole 1.1 mmol/L (0.7-2.0) 03/21/19 16:00 Calcium 8.0 mg/dL (8.4-10.2) L 03/23/19 06:46 Total Bilirubin 0.6 mg/dL (0.2-1.3) 03/23/19 06:46 AST 35 U/L (17-59) 03/23/19 06:46 ALT 33 U/L (21-72) 03/23/19 06:46 Alkaline Phosphatase 112 U/L (38-126) 03/23/19 06:46 Total Protein 6.3 g/dL (6.3-8.2) 03/23/19 06:46 Albumin 3.1 g/dL (3.5-5.0) L 03/23/19 06:46 Urine Color Yellow 03/21/19 12:10 Urine Appearance Clear (Clear) 03/21/19 12:10 Urine pH 5.5 (5.0-8.0) 03/21/19 12:10 Ur Specific [place] 1.026 (1.001-1.035) 03/21/19 12:10 Urine Protein 1+ (Negative) H 03/21/19 12:10 Urine Glucose (UA) 4+ (Negative) H 03/21/19 12:10 Urine Ketones 1+ (Negative) H 03/21/19 12:10 Urine Blood Small (Negative) H 03/21/19 12:10 Urine Nitrite Negative (Negative) 03/21/19 12:10 Urine Bilirubin Negative (Negative) 03/21/19 12:10 Urine Urobilinogen 2.0 mg/dL (<2.0) 03/21/19 12:10 Ur Leukocyte Esterase Negative (Negative) 03/21/19 12:10 Urine RBC 3 /hpf (0-5) 03/21/19 12:10 Urine WBC 1 /hpf (0-5) 03/21/19 12:10 Hyaline Casts 3 /lpf (0-2) H 03/21/19 12:10 Urine Mucus Rare /hpf (None) H 03/21/19 12:10 Vancomycin Trough 14.7 ug/mL 03/23/19 11:11 Microbiology 03/24/19 18:04 Blood Blood Culture - Preliminary No Growth after 24 hours 03/22/19 11:55 Foot - Right Gram Stain - Final 03/22/19 11:55 Foot - Right Tissue Culture - Final Methicillin resist S. aureus 03/22/19 11:55 Foot - Right Gram Stain - Final 03/22/19 11:55 Foot - Right Wound Culture - Final Methicillin resist S. aureus 03/21/19 13:00 Blood Blood Culture Gram Stain - Final 03/21/19 13:00 Blood Blood Culture - Final Methicillin resist S. aureus 03/21/19 13:00 Blood Blood Culture - Final 03/22/19 11:55 Foot - Right Fungal Culture - Preliminary 03/22/19 11:55 Foot - Right Fungal Culture - Preliminary 03/22/19 11:55 Foot - Right Anaerobic Culture - Preliminary 03/22/19 11:55 Foot - Right Anaerobic Culture - Preliminary Assessment and Plan (1) Diabetic ulcer of left foot associated with diabetes mellitus due to underlying condition, with fat layer exposed Narrative/Plan: 58-year-old male with a long-standing history of diabetes mellitus type 2 who has had multiple diabetic foot ulcers, was following in the wound healing Center as well as with podiatry. There are plans for a tendon lengthening procedure however before this could be done here he reulcerated now has extensive ulceration to his left foot that required surgical debridement this morning. Cultures are process and will direct antibiotics and his most recent culture results. Local wound care will be discussed in the postoperative time frame. He likely will require significant antibiotic therapy after discharge, likely IV. Will evaluate if proteins are adequate and a multivitamin and monitor. March 24 2019 the patient is doing relatively well. MRSA has been isolated and consequently outpatient intravenous antibiotic therapy is being arranged. Currently vancomycin will be chosen based on culture. Patient's believes they can perform this. Local wound care is being directed by the surgeon which is with the current silver alginate dressings. He does appear that there has been a significant penetration infection from the plantar to the dorsum. It appears rk a course of antibiotic therapy for foot salvage. March 25 2019 the patient has been seen by the vascular surgeon with no plans for further surgical intervention. Patient has had evidence of possible culture as far as wound culture with MRSA. Uncontrolled diabetes is noted with an elevated hemoglobin A1c of 10.4. Antibiotic therapy as currently planned with vancomycin and Zosyn and will likely occur at the extended care facility. IV access I believe is been placed. We will transitionary tomorrow. Local wound care is the silver alginate dressing packing the wounds 3 times per week. He'll follow-up in the wound healing Center with both the vascular surgeon and this provider. Current Visit: Yes Status: Acute Code(s): E08.621 - DIABETES MELLITUS DUE TO UNDERLYING CONDITION W FOOT ULCER; L97.522 - NON-PRS CHRONIC ULCER OTH PRT LEFT FOOT W FAT LAYER EXPOSED SNOMED Code(s): 700565337 (2) Diabetes mellitus type 2, uncontrolled, with complications Current Visit: Yes Status: Acute Code(s): E11.8 - TYPE 2 DIABETES MELLITUS WITH UNSPECIFIED COMPLICATIONS; E11.65 - TYPE 2 DIABETES MELLITUS WITH HYPER GLYCEMIA SNOMED Code(s): 16330810 (3) Obesity Current Visit: Yes Status: Acute Code(s): E66.9 - OBESITY, UNSPECIFIED SNOMED Code(s): 794325512
--- NOTE | 2019-03-25 22:36 | P.PN ---
Subjective Progress Note Date: 03/24/19 Principal diagnosis: Right diabetic foot infection. Sepsis Patient is a 58-year-old male with a known history of diabetes type 2 insulin- dependent, asthma, previous history of cardiac catheterization but no PCI and history of left foot osteomyelitis status post IV antibiotics via PICC line previously came to ER with complaints of right foot infection and ulcer. Patient says that he has been having right foot ulcer on the medial plantar surface below the great toe. Patient says that he has been having increased redness, pain and swelling since yesterday around the ulcer and extending up to the ankle. Patient came to ER for evaluation. Patient has been followed with Dr. Quintero the wound care clinic every 2 weeks. Patient otherwise denied any fever or chills at home. No nausea vomiting or diarrhea. No cough is from production. No chest pain or shortness breath. Patient was scheduled to have a tendon lengthening procedure done by Dr. Tran, next week. Patient has no other complaints right now. Lactic acid 2.2 Sodium 133 and an WBC 15.7 Tmax 103.1 03/22/2019 Patient was taken to or today for excision of callus and incision and drainage of abscess. Fever has improved. Leukocytosis improved as well. Currently on broad-spectrum antibiotics. ID and surgery is following., H B A1c 10.4 Blood sugar is fairly controlled while in the hospital. No chest pain or shortness of breath. No nausea vomiting or abdominal pain or diarrhea. 03/23/2019 Patient has been afebrile. No chest pain or shortness of breath. Right foot wound is bandaged. No purulent drainage noted. Otherwise leukocytosis is normalized. Follow-up culture reported recommendations regarding antibiotic course. ID is on board. Patient is still hyperglycemic. Titrate insulin dose as needed. No fever no chills. 03/24/2019 Patient is status post excision of callus and incision and drainage of right foot diabetic ulcer and abscess. Currently on broad-spectrum antibiotics. ID is planning for antibiotics as an outpatient through PICC line. Otherwise blood sugar is fairly controlled. Continued on pain management. Patient has been afebrile. No complaints of chest pain or shortness of breath. Wound was dressed and no worsening pain or swelling. Resolved leukocytosis currently. Current medications reviewed. Objective - Vital Signs Vital signs: Vital Signs Temp 97.3 F L 03/24/19 20:14 Pulse 80 03/24/19 17:11 Resp 16 03/24/19 17:11 BP 120/61 03/24/19 12:10 Pulse Ox 96 03/24/19 15:38 Intake & Output 03/24/19 03/24/19 03/25/19 06:59 18:59 06:59 Intake Total 1200 1200 Output Total 1150 Balance 50 1200 Intake: Intake, IV Titration 1200 600 Amount Piperacillin-Tazobactam 3 200 100 .375 gm In Sodium Chloride 0.9% 100 ml @ 25 mls/hr IVPB Q8H [facility] Rx#: [id number] Vancomycin 2,000 mg In 1000 500 Sodium Chloride 0.9% 500 ml 500 ml @ 167 mls/hr IVPB Q8H [facility] Rx#: [id number] Oral 600 Output: Urine 1150 Other: Voiding Method Toilet # Voids 3 - Exam PHYSICAL EXAMINATION: Patient is lying in the bed comfortably, no acute distress, awake alert and oriented.. HEENT: Normocephalic. Neck is supple. Pupils reactive. Nostrils clear. Oral cavity is moist. Ears reveal no drainage. Neck reveals no JVD, carotid bruits, or thyromegaly. CHEST EXAMINATION: Trachea is central. Symmetrical expansion. Lung ortiz clear to auscultation and percussion. CARDIAC: Normal S1, S2 with no gallops. No murmurs ABDOMEN: Soft. Bowel sounds normal. No organomegaly. No abdominal bruits. Extremities: Bilateral 1+ pedal edema. Right foot surgical site is bandaged. No clubbing or cyanosis Neurologically awake, alert, oriented x3 with well-coordinated movements. No focal deficits noted Skin: No rash or skin lesions. Psychiatric: Coperative. Nonsuicidal Musculoskeletal: No joint swelling or deformity. Normal range of motion. - Labs CBC & Chem 7: 03/23/19 06:46 03/23/19 06:46 Labs: Abnormal Lab Results - Last 24 Hours (Table) 03/24/19 03/24/19 03/24/19 Range/Units 06:50 11:09 17:15 POC Glucose (mg/dL) 215 H 224 H 161 H (75-99) mg/dL 03/24/19 Range/Units 20:55 POC Glucose (mg/dL) 208 H (75-99) mg/dL Microbiology - Last 24 Hours (Table) 03/22/19 11:55 Gram Stain - Final Foot - Right Tissue Culture - Final Methicillin resist S. aureus 03/22/19 11:55 Gram Stain - Final Foot - Right Wound Culture - Final Methicillin resist S. aureus 03/21/19 13:00 Blood Culture Gram Stain - Final Blood Blood Culture - Final Methicillin resist S. aureus Assessment and Plan Assessment: Right diabetic foot ulcer with abscess and surrounding cellulitis. Status post I&D and excision of callus Sepsis secondary to above Previous history of left foot osteomyelitis status post IV antibiotics via PICC line Chronic diabetic foot ulcer Asthma stable Hyperglycemia with uncontrolled diabetes type 2 Morbid obesity with BMI 39.7 DVT prophylaxis with heparin subcu Plan: Patient be continued on IV hydration and broad-spectrum antibiotics in the form of vancomycin and Zosyn. Follow up blood cultures negative so far. Wound cultures pending at this time. Status post I&D. Vascular surgery and ID is following. Continue with insulin regimen and sliding scale and titrate insulin. Continue with pain medications and follow up closely. Further recommendations based on the clinical course. Prognosis is guarded. Time with Patient: Greater than 30
--- NOTE | 2019-03-25 22:38 | P.PN ---
Subjective Progress Note Date: 03/25/19 Principal diagnosis: Right diabetic foot infection. Sepsis Patient is a 58-year-old male with a known history of diabetes type 2 insulin- dependent, asthma, previous history of cardiac catheterization but no PCI and history of left foot osteomyelitis status post IV antibiotics via PICC line previously came to ER with complaints of right foot infection and ulcer. Patient says that he has been having right foot ulcer on the medial plantar surface below the great toe. Patient says that he has been having increased redness, pain and swelling since yesterday around the ulcer and extending up to the ankle. Patient came to ER for evaluation. Patient has been followed with Dr. Quintero the wound care clinic every 2 weeks. Patient otherwise denied any fever or chills at home. No nausea vomiting or diarrhea. No cough is from production. No chest pain or shortness breath. Patient was scheduled to have a tendon lengthening procedure done by Dr. Tran, next week. Patient has no other complaints right now. Lactic acid 2.2 Sodium 133 and an WBC 15.7 Tmax 103.1 03/22/2019 Patient was taken to or today for excision of callus and incision and drainage of abscess. Fever has improved. Leukocytosis improved as well. Currently on broad-spectrum antibiotics. ID and surgery is following., H B A1c 10.4 Blood sugar is fairly controlled while in the hospital. No chest pain or shortness of breath. No nausea vomiting or abdominal pain or diarrhea. 03/23/2019 Patient has been afebrile. No chest pain or shortness of breath. Right foot wound is bandaged. No purulent drainage noted. Otherwise leukocytosis is normalized. Follow-up culture reported recommendations regarding antibiotic course. ID is on board. Patient is still hyperglycemic. Titrate insulin dose as needed. No fever no chills. 03/24/2019 Patient is status post excision of callus and incision and drainage of right foot diabetic ulcer and abscess. Currently on broad-spectrum antibiotics. ID is planning for antibiotics as an outpatient through PICC line. Otherwise blood sugar is fairly controlled. Continued on pain management. Patient has been afebrile. No complaints of chest pain or shortness of breath. Wound was dressed and no worsening pain or swelling. Resolved leukocytosis currently. 03/25/2019 Patient denied any complaints of chest pain or shortness of breath. Currently on broad-spectrum antibiotics. PICC line was obtained and possible transfer to extended care facility to finish antibiotic course and better blood sugar control. Otherwise patient has been afebrile. No nausea vomiting or abdominal pain. No diarrhea or dysuria. No headache or dizziness or lightheadedness. Current medications reviewed. Objective - Vital Signs Vital signs: Vital Signs Temp 99.4 F 03/25/19 19:40 Pulse 84 03/25/19 19:56 Resp 16 03/25/19 19:56 BP 139/75 03/25/19 19:40 Pulse Ox 97 03/25/19 19:40 Intake & Output 03/25/19 03/25/19 03/26/19 06:59 18:59 06:59 Intake Total 1200 Balance 1200 Intake: Intake, IV Titration 600 Amount Piperacillin-Tazobactam 3 100 .375 gm In Sodium Chloride 0.9% 100 ml @ 25 mls/hr IVPB Q8H [facility] Rx#: [id number] Vancomycin 2,000 mg In 500 Sodium Chloride 0.9% 500 ml 500 ml @ 167 mls/hr IVPB Q8H [facility] Rx#: [id number] Oral 600 Other: Voiding Method Toilet Toilet # Voids 3 2 1 - Exam PHYSICAL EXAMINATION: Patient is lying in the bed comfortably, no acute distress, awake alert and oriented.. HEENT: Normocephalic. Neck is supple. Pupils reactive. Nostrils clear. Oral cavity is moist. Ears reveal no drainage. Neck reveals no JVD, carotid bruits, or thyromegaly. CHEST EXAMINATION: Trachea is central. Symmetrical expansion. Lung ortiz clear to auscultation and percussion. CARDIAC: Normal S1, S2 with no gallops. No murmurs ABDOMEN: Soft. Bowel sounds normal. No organomegaly. No abdominal bruits. Extremities: Bilateral 1+ pedal edema. Right foot surgical site is bandaged. No clubbing or cyanosis Neurologically awake, alert, oriented x3 with well-coordinated movements. No focal deficits noted Skin: No rash or skin lesions. Psychiatric: Coperative. Nonsuicidal Musculoskeletal: No joint swelling or deformity. Normal range of motion. - Labs CBC & Chem 7: 03/23/19 06:46 03/23/19 06:46 Labs: Abnormal Lab Results - Last 24 Hours (Table) 03/25/19 03/25/19 03/25/19 Range/Units 07:09 11:30 17:13 POC Glucose (mg/dL) 185 H 170 H 155 H (75-99) mg/dL 03/25/19 Range/Units 19:57 POC Glucose (mg/dL) 177 H (75-99) mg/dL Microbiology - Last 24 Hours (Table) 03/24/19 18:04 Blood Culture - Preliminary Blood No Growth after 24 hours 03/22/19 11:55 Gram Stain - Final Foot - Right Tissue Culture - Final Methicillin resist S. aureus 03/22/19 11:55 Gram Stain - Final Foot - Right Wound Culture - Final Methicillin resist S. aureus Assessment and Plan Assessment: Right diabetic foot ulcer with abscess and surrounding cellulitis. Status post I&D and excision of callus. Wound culture showed MRSA. Sepsis secondary to above Previous history of left foot osteomyelitis status post IV antibiotics via PICC line Chronic diabetic foot ulcer Asthma stable Hyperglycemia with uncontrolled diabetes type 2 Morbid obesity with BMI 39.7 DVT prophylaxis with heparin subcu Plan: Patient be continued on IV hydration and broad-spectrum antibiotics in the form of vancomycin and Zosyn. Status post I&D. Cultures showed MRSA. Vascular surgery and ID is following. Continue with insulin regimen and sliding scale and titrate insulin. Continue with pain medications and follow up closely. Further recommendations based on the clinical course. Prognosis is guarded. Time with Patient: Greater than 30
[2019-03-26] MEDS: VANCOMYCIN 2,000 MG in SODIUM CHLORIDE 0.9% 500 ML 500 ML IVPB SCH ×2 (04:22→12:15)
[2019-03-26] MEDS: PIPERACILLIN-TAZOBACTAM 3.375 GM in SODIUM CHLORIDE 0.9% 100 ML IVPB SCH ×2 (04:22→12:15)
[2019-03-26] MEDS: traMADol 50 MG TAB PO PRN ×2 (05:29→10:46)
[2019-03-26] MEDS: MORPHINE SULFATE 4 MG/ML SYRINGE IV PRN ×2 (06:31→12:19)
[2019-03-26 07:11] LABS: Glucose,Whole Blood 170 mg/dL (75-99)
[2019-03-26] MEDS: INSULIN ASPART (NovoLOG) 100 UNIT/ML VIAL SQ SCH ×4 (08:07→12:20)
[2019-03-26] MEDS: INSULIN DETEMIR (LEVEMIR) 100 UNIT/ML SYR SQ SCH (08:07)
[2019-03-26] MEDS: HEPARIN SODIUM,PORCINE 5,000 UNIT/ML 1 ML VIAL SQ SCH (08:07)
[2019-03-26] MEDS: ALBUTEROL NEBULIZED 2.5 MG/3 ML INHALATION PRN ×3 (08:49→16:12)
[2019-03-26 11:26] LABS: Glucose,Whole Blood 205 mg/dL (75-99)
[2019-03-26 12:02] VITALS: BP 147/85; RESP 20; TEMP 98.8
--- NOTE | 2019-03-26 12:10 | P.DS ---
Providers Date of admission: 03/21/19 13:18 Expected date of discharge: 03/26/19 Attending physician: Yoan Young Consults: 03/21/19 18:54 Consult Physician Routine Consulting Provider: Elna Brooke Consult Reason/Comments: right foot ulcer Do you want consulting provider notified?: Already Contacted 03/21/19 18:55 Consult Physician Routine Consulting Provider: Lawson Quintero Consult Reason/Comments: right foot ulcer Do you want consulting provider notified?: Already Contacted Primary care physician: [facility] Course: Final diagnosis Right diabetic foot ulcer with abscess and surrounding cellulitis. Status post I&D and excision of callus. Wound culture showed MRSA. Sepsis secondary to above Previous history of left foot osteomyelitis Chronic diabetic foot ulcer Asthma stable Hyperglycemia with uncontrolled diabetes type 2 Morbid obesity with BMI 39.7 DVT prophylaxis Discharge disposition Patient is being discharged in a stable condition with guarded prognosis to [facility] for continued IV antibiotic therapy per infectious disease recommendations. IV antibiotics in the form of Vanco have been arranged per infectious disease. Total time taken 35 minutes. History of present illness This is a 58-year-old male with a known history of diabetes mellitus type 2 insulin-dependent with a history of left foot osteomyelitis and was recently admitted with right foot infection ulcers and was being closely monitored. During hospitalization patient was on IV antibiotics per infectious disease recommendations. Patient had been going to the wound care clinic with Dr. Quintero in the outpatient setting with continued worsening of the infection and ulcer. Currently patient's condition is stable and ready for discharge to [facility] for continued IV antibiotic therapy at this time. Patient did receive a PICC line for IV antibiotic therapy. Patient denies any chest pain, shortness of breath, or palpitations at this time. Patient denies any nausea or vomiting and has been tolerating diet. Patient is afebrile at this time. Patient will also follow-up with Dr. Hobbs upon discharge from the rehab facility as he was scheduled to have a tendon lengthening procedure done. Guarded prognosis. On exam vital signs are stable. Temp is 98.8F, pulse is 79, respirations are 20, blood pressure is 147/85, oxygen saturation is 93% on room air. Cardio S1 and S2 are normal. Respiratory system shows clear to auscultation. Abdomen is soft, obese, and non-tender. Nervous system shows no focal deficits with mild diffuse weakness. Please refer to medication reconciliation sheet for a list of medications. Patient Condition at Discharge: Stable Plan - Discharge Summary Discharge Rx Participant: No New Discharge Prescriptions: New Vancomycin 2,000 mg IVPB Q8H #126 vial metroNIDAZOLE 0.75% CREAM [Metrocream] 1 applic TOPICAL BID applic traMADol HCl [Ultram] 50 mg PO Q6H PRN #6 tab PRN Reason: Moderate Pain Continue Albuterol Inhaler [Ventolin Hfa Inhaler] 2 puff INHALATION RT-Q4H PRN PRN Reason: Shortness Of Breath Or Wheezing Cetirizine HCl 10 mg PO HS Acetaminophen Tab [Tylenol] 650 mg PO Q4HR PRN #0 tab PRN Reason: pain INSULIN LISPRO (HumaLOG) [humaLOG] 15 unit SQ AC-TID metFORMIN HCL 850 mg PO BID Insulin Glargine,Hum.rec.anlog [Basaglar Kwikpen U-100] 15 unit SQ BID Discharge Medication List Albuterol Inhaler [Ventolin Hfa Inhaler] 2 puff INHALATION RT-Q4H PRN 09/01/16 [History] Cetirizine HCl 10 mg PO HS 09/01/16 [History] Acetaminophen Tab [Tylenol] 650 mg PO Q4HR PRN #0 tab 12/25/18 [Rx] INSULIN LISPRO (HumaLOG) [humaLOG] 15 unit SQ AC-TID 03/21/19 [History] Insulin Glargine,Hum.rec.anlog [Basaglar Kwikpen U-100] 15 unit SQ BID 03/21/19 [History] metFORMIN HCL 850 mg PO BID 03/21/19 [History] Vancomycin 2,000 mg IVPB Q8H #126 vial 03/25/19 [Rx] metroNIDAZOLE 0.75% CREAM [Metrocream] 1 applic TOPICAL BID applic 03/26/19 [Rx] traMADol HCl [Ultram] 50 mg PO Q6H PRN #6 tab 03/26/19 [Rx] Follow up Appointment(s)/Referral(s): Elan Brooke MD [STAFF PHYSICIAN] - 2 Weeks Frederick Soler MD [Primary Care Provider] - 1-2 days [facility], [NON-STAFF] - 1 Week Ambulatory/Diagnostic Orders: Basic Metabolic Panel [LAB.AMB] Location: None Selected C Reactive Protein [LAB.AMB] Location: None Selected Complete Blood Count w/diff [LAB.AMB] Location: None Selected Erythrocyte Sedimentation Rate [LAB.AMB] Location: None Selected Vancomycin,Trough [LAB.AMB] Location: None Selected Activity/Diet/Wound Care/Special Instructions: Patient is going to [facility] Continue current IV antibiotic therapy per infectious disease recommendations Continue current diet Activity as tolerated Discharge Disposition: TRANSFER TO SNF/ECF
[2019-03-26 16:26] VITALS: PULSE 80
== END 2019-03-26 17:40 | DRG 854 ==
LOC: EC 11:04 → 3NMEDONC 13:18
PROVIDERS: ADMIT Internal Medicine; ATTEND Internal Medicine
PROC: 0JBQ0ZZ Excision of Right Foot Subcutaneous Tissue and Fascia, Open Approach (ICD-10-PCS; principal; 2019-03-22 11:30)
PROC: 02HV33Z Insertion of Infusion Device into Superior Vena Cava, Percutaneous Approach (ICD-10-PCS; 2019-03-24)
DX: A41.02 Sepsis due to Methicillin resistant Staphylococcus aureus (principal); L03.115 Cellulitis of right lower limb; L02.611 Cutaneous abscess of right foot; E11.621 Type 2 diabetes mellitus with foot ulcer; E11.628 Type 2 diabetes mellitus with other skin complications; L97.522 Non-pressure chronic ulcer of other part of left foot with fat layer exposed; E11.65 Type 2 diabetes mellitus with hyperglycemia; E66.01 Morbid (severe) obesity due to excess calories; I10 Essential (primary) hypertension; J45.909 Unspecified asthma, uncomplicated; K59.00 Constipation, unspecified; K64.9 Unspecified hemorrhoids; Z68.39 Body mass index [BMI] 39.0-39.9, adult; Z79.4 Long term (current) use of insulin; Z79.899 Other long term (current) drug therapy; Z86.19 Personal history of other infectious and parasitic diseases; Z90.49 Acquired absence of other specified parts of digestive tract; Z98.890 Other specified postprocedural states; Z88.1 Allergy status to other antibiotic agents; Z88.5 Allergy status to narcotic agent; Z88.8 Allergy status to other drugs, medicaments and biological substances; Z82.49 Family history of ischemic heart disease and other diseases of the circulatory system; Z82.5 Family history of asthma and other chronic lower respiratory diseases
CPT/HCPCS: 36415; 36573; 71045; 80048; 80053; 80202; 81001; 83036; 83605; 85025; 87040; 87070; 87075; 87077; 87102; 87186; 87205; 94640; 94760; 96361; 96365; 96366; 96375; 96376; 99284

== ENCOUNTER 2020-09-02 16:30 | Inpatient (IN) | payer MEDICARE, OTHER ==
--- NOTE | 2020-09-02 17:15 | ED ---
Recheck HPI - General Chief Complaint: Recheck/Abnormal Lab/Rx Stated Complaint: Sent by PCP - Recheck Time Seen by Provider: 09/02/20 16:46 Source: patient Mode of arrival: ambulatory Limitations: no limitations - History of Present Illness Initial Comments: Patient is a 60-year-old male with history of diabetes, neuropathy, presenting to the emergency department from his doctor's request. Patient has been dealing with a wound on his left great toe for the past few months, he has been on different antibiotics for the past few weeks and his PCP wants him to be admitted for IV antibiotics, PICC line placement. Patient denies any fever or chills. He does admit to chronic pain in his feet. He does go to pain management. He is been having some intermittent redness that increases in his left foot and sometimes spreads up to his left ankle. He states he did have x- rays today at his doctor's office, no bone involvement. He denies any chest p ain or shortness of breath, he has no further complaints. Upon arrival to the ER, his vitals are stable. - Related Data Home Medications Medication Instructions Recorded Confirmed Albuterol Inhaler (Mhu) [Ventolin 2 puff INHALATION RT-Q4H PRN 09/01/16 03/21/19 Hfa Inhaler (Mhu)] Cetirizine HCl 10 mg PO HS 09/01/16 03/21/19 INSULIN LISPRO (HumaLOG) [humaLOG] 15 unit SQ AC-TID 03/21/19 03/21/19 Insulin Glargine,Hum.rec.anlog 15 unit SQ BID 03/21/19 03/21/19 [Basaglar Kwikpen U-100] metFORMIN HCL 850 mg PO BID 03/21/19 03/21/19 Previous Rx's Medication Instructions Recorded Acetaminophen Tab [Tylenol] 650 mg PO Q4HR PRN #0 tab 12/25/18 Vancomycin 2,000 mg IVPB Q8H #126 vial 03/25/19 HYDROcodone/APAP 5-325MG [[place] 1 tab PO Q6HR PRN 3 Days #12 tab 03/26/19 5-325] metroNIDAZOLE 0.75% CREAM 1 applic TOPICAL BID applic 03/26/19 [Metrocream] traMADol HCl [Ultram] 50 mg PO Q6H PRN #6 tab 03/26/19 Allergies Allergy/AdvReac Type Severity Reaction Status Date / Time gabapentin Allergy Swelling Verified 09/02/20 16:44 hydromorphone [From Dilaudid] Allergy Unknown Verified 09/02/20 16:44 ciprofloxacin [From Cipro] AdvReac Confusion, Verified 09/02/20 16:44 Dizziness sulfamethoxazole AdvReac Nausea & Verified 09/02/20 16:44 [From Bactrim] Vomiting trimethoprim [From Bactrim] AdvReac Nausea & Verified 09/02/20 16:44 Vomiting Review of Systems ROS Statement: Those systems with pertinent positive or pertinent negative responses have been documented in the HPI. ROS Other: All systems not noted in ROS Statement are negative. Past Medical History Past Medical History: Asthma, Diabetes Mellitus Additional Past Medical History / Comment(s): WAS GOING TO [facility] EVERY SUNDAY-LT GREAT TOE INFECTION COMPLETED VISITS, CONSTIPATION.HEMORRHOIDS History of Any Multi-Drug Resistant Organisms: MRSA Date of last positivie culture/infection: 03/24/19 MDRO Source:: blood and foot Past Surgical History: Appendectomy, Heart Catheterization, Hernia Repair, Orthopedic Surgery Additional Past Surgical History / Comment(s): RT ROATATOR CUFF SX, RT INGUINAL HERNIA,UMB HERNIA REPAIR Past Anesthesia/Blood Transfusion Reactions: No Reported Reaction Past Psychological History: No Psychological Hx Reported Smoking Status: Never smoker Past Alcohol Use History: None Reported Past Drug Use History: None Reported - Past Family History Father Family Medical History: Hypertension Mother Family Medical History: Asthma, COPD General Exam - General Exam Comments Initial Comments: GENERAL: Patient is well-developed and well-nourished. Patient is nontoxic and in no ac kwame distress. HEAD: Atraumatic, normocephalic. EYES: Pupils equal round and reactive to light, extraocular movements intact, sclera anicteric, conjunctiva are normal. Eyelids were unremarkable. ENT: TMs normal, nares patent, oropharynx clear without exudates. Moist mucous me mbranes. NECK: Normal range of motion, supple without lymphadenopathy or JVD. LUNGS: Unlabored respirations. Breath sounds clear to auscultation bilaterally and equal. No wheezes rales or rhonchi. HEART: Regular rate and rhythm without murmurs, rubs or gallops. ABDOMEN: Soft, nontender, normoactive bowel sounds. No guarding, no rebound. No masses appreciated. : Deferred MUSCULOSKELETAL: Normal extremities with adequate strength and normal range of motion, no pitting or edema. No clubbing or cyanosis. NEUROLOGICAL: Patient is alert and oriented x 3. Motor and sensory are also intact. Cranial nerves II through XII grossly intact. Symmetrical smile. Normal speech, normal gait. PSYCH: Normal mood, normal affect. SKIN: Warm, Dry, normal turgor,. Patient has a dime-sized ulcer on the plantar surface of the left great toe, there is some erythema throughout the left great toe and some mild streaking up the left foot, and towards the left ankle. Limitations: no limitations Course Vital Signs 09/02/20 16:40 Temperature 98.1 F Pulse Rate 87 Respiratory 18 Rate Blood Pressure 161/82 O2 Sat by Pulse 97 Oximetry Medical Decision Making - Medical Decision Making Patient is a 60-year-old male with history of diabetes and neuropathy presenting for an ulcer and cellulitis of the left great toe, has failed outpatient antibiotics, was sent in by his PCP for IV antibiotics, PICC line placement. He did have x-rays at their PCPs office today, no signs of osteomyelitis today. Labs show normal white count, lactic acid is normal at 1.6, CRP is slightly up at 22. Patient will be admitted for IV antibiotics, patient accepted by Dr. Broussard. We will consult infectious disease as well. Case is discussed with Dr. Erazo. - Lab Data Result diagrams: 09/02/20 17:28 09/02/20 17:28 Lab Results 09/02/20 09/02/20 09/02/20 Range/Units 17:28 17:28 17:28 WBC 9.3 (3.8-10.6) k/uL RBC 4.53 (4.30-5.90) m/uL Hgb 12.3 L (13.0-17.5) gm/dL Hct 36.3 L (39.0-53.0) % MCV 80.2 (80.0-100.0) fL MCH 27.2 (25.0-35.0) pg MCHC 33.9 (31.0-37.0) g/dL RDW 13.2 (11.5-15.5) % Plt Count 322 (150-450) k/uL MPV 6.8 Neutrophils % 68 % Lymphocytes % 22 % Monocytes % 6 % Eosinophils % 3 % Basophils % 1 % Neutrophils # 6.3 (1.3-7.7) k/uL Lymphocytes # 2.0 (1.0-4.8) k/uL Monocytes # 0.5 (0-1.0) k/uL Eosinophils # 0.2 (0-0.7) k/uL Basophils # 0.1 (0-0.2) k/uL ESR Cancelled Sodium 133 L (137-145) mmol/L Potassium 4.4 (3.5-5.1) mmol/L Chloride 97 L (98-107) mmol/L Carbon Dioxide 25 (22-30) mmol/L Anion Gap 11 mmol/L BUN 18 (9-20) mg/dL Creatinine 0.84 (0.66-1.25) mg/dL Est GFR (CKD-EPI)AfAm >90 (>60 ml/min/1.73 sqM) Est GFR (CKD-EPI)NonAf >90 (>60 ml/min/1.73 sqM) Glucose 225 H (74-99) mg/dL Plasma Lactic Acid Cole 1.6 (0.7-2.0) mmol/L Calcium 9.3 (8.4-10.2) mg/dL Total Bilirubin 0.3 (0.2-1.3) mg/dL AST 24 (17-59) U/L ALT 28 (4-49) U/L Alkaline Phosphatase 66 (38-126) U/L C-Reactive Protein 22.0 H (<10.0) mg/L Total Protein 7.0 (6.3-8.2) g/dL Albumin 4.0 (3.5-5.0) g/dL Coronavirus (PCR) (Not Detectd) 09/02/20 Range/Units 17:28 WBC (3.8-10.6) k/uL RBC (4.30-5.90) m/uL Hgb (13.0-17.5) gm/dL Hct (39.0-53.0) % MCV (80.0-100.0) fL MCH (25.0-35.0) pg MCHC (31.0-37.0) g/dL RDW (11.5-15.5) % Plt Count (150-450) k/uL MPV Neutrophils % % Lymphocytes % % Monocytes % % Eosinophils % % Basophils % % Neutrophils # (1.3-7.7) k/uL Lymphocytes # (1.0-4.8) k/uL Monocytes # (0-1.0) k/uL Eosinophils # (0-0.7) k/uL Basophils # (0-0.2) k/uL ESR Sodium (137-145) mmol/L Potassium (3.5-5.1) mmol/L Chloride (98-107) mmol/L Carbon Dioxide (22-30) mmol/L Anion Gap mmol/L BUN (9-20) mg/dL Creatinine (0.66-1.25) mg/dL Est GFR (CKD-EPI)AfAm (>60 ml/min/1.73 sqM) Est GFR (CKD-EPI)NonAf (>60 ml/min/1.73 sqM) Glucose (74-99) mg/dL Plasma Lactic Acid Cole (0.7-2.0) mmol/L Calcium (8.4-10.2) mg/dL Total Bilirubin (0.2-1.3) mg/dL AST (17-59) U/L ALT (4-49) U/L Alkaline Phosphatase (38-126) U/L C-Reactive Protein (<10.0) mg/L Total Protein (6.3-8.2) g/dL Albumin (3.5-5.0) g/dL Coronavirus (PCR) Not Detected (Not Detectd) Disposition Clinical Impression: Diabetic foot ulcer, Cellulitis of left foot, Failure of outpatient treatment Disposition: ADMITTED IP TO THIS [facility] Condition: Stable Referrals: Terry Vasquez MD [Primary Care Provider] - 1-2 days Decision Date: 09/02/20 Decision Time: 18:50
[2020-09-02 17:36] LABS: Basophils # (A) 0.1 k/uL (0-0.2); Basophils % (A) 1 %; Eosinophils # (A) 0.2 k/uL (0-0.7); Eosinophils % (A) 3 %; HCT 36.3 % (39.0-53.0); HGB 12.3 gm/dL (13.0-17.5); Lymphocytes % (A) 22 %; MCH 27.2 pg (25.0-35.0); MCHC 33.9 g/dL (31.0-37.0); MCV 80.2 fL (80.0-100.0); Mean Platelet Volume 6.8; Monocytes # (A) 0.5 k/uL (0-1.0); Monocytes % (A) 6 %; Neutrophils # (A) 6.3 k/uL (1.3-7.7); Neutrophils % (A) 68 %; Platelet Count 322 k/uL (150-450); RBC 4.53 m/uL (4.30-5.90); RDW 13.2 % (11.5-15.5); WBC 9.3 k/uL (3.8-10.6)
[2020-09-02 17:43] LABS: Anion Gap 11 mmol/L; Carbon Dioxide 25 mmol/L (22-30); Chloride 97 mmol/L (98-107); Glucose 225 mg/dL (74-99); Potassium 4.4 mmol/L (3.5-5.1); Sodium 133 mmol/L (137-145)
[2020-09-02 17:58] LABS: ALT 28 U/L (4-49); AST 24 U/L (17-59); African American GFR (CKD) >90 (>60 ml/min/1.73 sqM); Alkaline Phosphatase 66 U/L (38-126); Blood Urea Nitrogen 18 mg/dL (9-20); Calcium 9.3 mg/dL (8.4-10.2); Non-African American GFR(CKD) >90 (>60 ml/min/1.73 sqM); Total Bilirubin 0.3 mg/dL (0.2-1.3)
[2020-09-02] MEDS ORDERED: ACETAMINOPHEN TAB 325 MG TAB PO PRN (18:46)
[2020-09-02] MEDS ORDERED: ONDANSETRON 4 MG/2 ML VIAL IVP PRN (18:46)
[2020-09-02] MEDS ORDERED: NALOXONE 0.4 MG/ML 1 ML VIAL IV PRN (18:46)
[2020-09-02] MEDS ORDERED: VANCOMYCIN IV PER PHARMACY 1 EACH MISC MISCELLANE PRN (18:48)
[2020-09-02] MEDS ORDERED: PIPERACILLIN-TAZOBACTAM 3.375 GM in SODIUM CHLORIDE 0.9% 100 ML IVPB STA (18:48)
[2020-09-02] MEDS ORDERED: VANCOMYCIN 2,000 MG in SODIUM CHLORIDE 0.9% 500 ML 500 ML IVPB ONE (19:15)
[2020-09-02] MEDS ORDERED: INSULIN ASPART (NovoLOG) 100 UNIT/ML VIAL SQ SCH ×2 (22:21→22:45)
[2020-09-02 22:36] LABS: Glucose,Whole Blood 184 mg/dL (75-99)
[2020-09-02] MEDS: HYDROcodone/APAP 10-325MG 1 EACH TAB PO SCH (23:22)
[2020-09-02] MEDS: traMADol 50 MG TAB PO SCH (23:23)
[2020-09-02] MEDS: INSULIN ASPART (NovoLOG) 100 UNIT/ML VIAL SQ SCH (23:24)
[2020-09-02] MEDS: lisinopriL 20 MG TAB PO SCH (23:33)
[2020-09-03] MEDS: VANCOMYCIN 2,000 MG in SODIUM CHLORIDE 0.9% 500 ML 500 ML IVPB SCH ×3 (04:51→20:43)
[2020-09-03 07:29] LABS: Glucose,Whole Blood 246 mg/dL (75-99)
[2020-09-03] MEDS ORDERED: INSULIN ASPART (NovoLOG) 100 UNIT/ML VIAL SQ SCH (07:30)
[2020-09-03] MEDS: MAGNESIUM HYDROXIDE 2,400 MG/10 ML CUP PO SCH (08:42)
[2020-09-03] MEDS: traMADol 50 MG TAB PO SCH ×3 (08:43→20:27)
[2020-09-03] MEDS: HYDROcodone/APAP 10-325MG 1 EACH TAB PO SCH ×4 (08:44→20:27)
[2020-09-03] MEDS: metFORMIN 500 MG TAB PO SCH ×2 (08:44→20:26)
[2020-09-03] MEDS: LORATADINE 10 MG TAB PO SCH (08:44)
[2020-09-03] MEDS: polyethylene glycoL 3350 17 GM POWD.PACK PO SCH (08:44)
[2020-09-03] MEDS: INSULIN ASPART (NovoLOG) 100 UNIT/ML VIAL SQ SCH ×4 (08:55→20:27)
[2020-09-03 11:33] LABS: Glucose,Whole Blood 284 mg/dL (75-99)
[2020-09-03] MEDS: LACTOBACILLUS ACIDOPH & BULGAR 1 EACH PACKET PO SCH (13:44)
--- NOTE | 2020-09-03 13:44 | XR ---
Left foot HISTORY: Great toe wound 3 views of the left foot Soft tissue swelling is noted at the first digit left foot, question some lucency in the soft tissues . There is no periostitis. Bone mineralization, joint spaces and alignment are maintained. Vascular c alcifications are present. IMPRESSION: Soft tissue swelling, soft tissue lucency may be due to patient's wound. Correlate for di abetes.
[2020-09-03 17:22] LABS: Glucose,Whole Blood 315 mg/dL (75-99)
[2020-09-03 20:18] LABS: Glucose,Whole Blood 272 mg/dL (75-99)
[2020-09-03] MEDS: lisinopriL 20 MG TAB PO SCH (20:27)
[2020-09-03] MEDS: INSULIN DETEMIR (LEVEMIR) 100 UNIT/ML SYR SQ SCH (20:27)
[2020-09-03] MEDS ORDERED: INSULIN DETEMIR (LEVEMIR) 100 UNIT/ML SYR SQ SCH (21:00)
[2020-09-04] MEDS ORDERED: VANCOMYCIN TROUGH DUE 1 EACH MISC MISCELLANE ONE (04:00)
[2020-09-04] MEDS: VANCOMYCIN 2,000 MG in SODIUM CHLORIDE 0.9% 500 ML 500 ML IVPB SCH ×2 (04:58→15:20)
--- NOTE | 2020-09-04 05:31 | CONS ---
CONSULTATION DATE OF SERVICE: 09/03/2020 REASON FOR CONSULTATION: Left big toe diabetic foot ulcer and concern for osteomyelitis. HISTORY OF PRESENT ILLNESS: The patient is a 60-year-old male who apparently did have an ulcer on the plantar aspect of his left big toe that is being treated in the outpatient setting by his machine whitener, Dr. Pillai, for the last month. This patient has been treated with 2 different courses of oral antibiotic without any improvement subsequently the patient was advised to go to the hospital for PICC line placement and IV antibiotic therapy. The patient denies having any fever or any chills, the patient mentioned he did have a callus on the plantar aspect that did and he did have new diabetic shoes and his symptoms started after he used his new diabetic shoes. The patient did have mild dull aching pain to the left big toe, intensity 2 to 3/10 and no radiation with associated swelling. No significant redness or any foul smelling. He did have some drainage and mentioned that Dr. Pillai took culture before sending him to the ER. The patient was evaluated by the ER physician. No x-rays were done. The patient did have a normal white count. Sedimentation rate of 32, creatinine 0.84. CRP was 22. Davalos PCR was negative. The patient was admitted to the hospital. He was started on vancomycin. Infectious Disease was consulted for further management of antibiotic therapy. REVIEW OF SYSTEMS: Positive points have been mentioned in HPI. Rest of the systems are negative. PAST MEDICAL HISTORY: Asthma, diabetes mellitus, history of new diabetic foot ulcer. PAST SURGICAL HISTORY: Appendectomy, heart catheterization, hernia repair. SOCIAL HISTORY: Denies smoking, drinking or drug use. FAMILY HISTORY: Father history of hypertension. Mother history of asthma and COPD. ALLERGIES: GABAPENTIN, HYDROMORPHONE, CIPROFLOXACIN, BACTRIM. MEDICATIONS: The patient is currently on vancomycin, pharmacy to dose, Ultram, MiraLAX, Zofran, Narcan, Glucophage, Claritin, Zestril, Lactinex, Levemir, NovoLog, Tylenol. PHYSICAL EXAMINATION: Blood pressure 174/100 with a pulse of 73, temperature 98.2, he is 97% on room air. GENERAL DESCRIPTION: A middle-aged male lying in bed in no distress. No tachypnea or accessory muscles of respiration use. HEENT: Examination shows no pallor or scleral icterus. Oral mucous membrane is dry. NECK: Trachea central, no thyromegaly. LUNGS: Unlabored breathing, clear to auscultation. No wheezes or crackles. HEART: S1, S2. Regular rate and rhythm. ABDOMEN: Soft, no tenderness. No guarding or rigidity. EXTREMITIES: No edema of the feet. Examination of the left foot on the plantar aspect did have ulceration perforation and not tracking down to the bone. The area was clean. Deep culture has been obtained. NEUROLOGICAL: Patient is awake, alert, oriented times three. Mood and affect normal. LABS: Hemoglobin is 12.1, white count 9.3. Sedimentation rate is 132, creatinine 0.84. CRP 22. DIAGNOSTIC IMPRESSION: 1. Patient with left foot big toe diabetic foot ulcer failing outpatient conservative treatment by his machine whitener as well as a different course of oral antibiotic. Unfortunately the patient does not remember the name of antibiotics. The patient did have previous history of MRSA infection, could be related to MRSA. Also does not look deep and underlying suspicion for osteo is low but not entirely excluded. 2. Patient with multiple antibiotic allergies that will limit the number of antibiotics safe to use. PLAN: 1. Local wound culture has been obtained, both aerobic and anaerobic to guide further antibiotic therapy. 2. Vancomycin, pharmacy to dose target of 15 while watching his kidney function closely. 3. We will obtain x-rays of the foot. If no bony changes, to obtain bone scan. 4. We will follow on clinical condition and culture to further adjust medication if needed. Thank you for this consultation. Will follow this patient along with you. MMODL / IJN: [id number] /
[2020-09-04 05:48] LABS: African American GFR (CKD) >90 (>60 ml/min/1.73 sqM); Non-African American GFR(CKD) >90 (>60 ml/min/1.73 sqM)
[2020-09-04 07:45] LABS: Glucose,Whole Blood 220 mg/dL (75-99)
[2020-09-04] MEDS: HYDROcodone/APAP 10-325MG 1 EACH TAB PO SCH ×4 (08:18→23:49)
[2020-09-04] MEDS: metFORMIN 500 MG TAB PO SCH ×2 (08:19→23:41)
[2020-09-04] MEDS: traMADol 50 MG TAB PO SCH ×3 (08:20→23:41)
[2020-09-04] MEDS: INSULIN DETEMIR (LEVEMIR) 100 UNIT/ML SYR SQ SCH ×2 (08:21→23:43)
[2020-09-04] MEDS: LORATADINE 10 MG TAB PO SCH (08:21)
[2020-09-04] MEDS: INSULIN ASPART (NovoLOG) 100 UNIT/ML VIAL SQ SCH ×4 (08:21→23:42)
[2020-09-04] MEDS: polyethylene glycoL 3350 17 GM POWD.PACK PO SCH (08:21)
[2020-09-04] MEDS ORDERED: LACTOBACILLUS ACIDOPH & BULGAR 1 EACH PACKET PO SCH (09:00)
[2020-09-04] MEDS: LACTOBACILLUS ACIDOPH & BULGAR 1 EACH PACKET PO SCH (09:05)
[2020-09-04 12:24] LABS: Glucose,Whole Blood 247 mg/dL (75-99)
[2020-09-04 17:39] LABS: Glucose,Whole Blood 242 mg/dL (75-99)
--- NOTE | 2020-09-04 18:47 | P.HPIM ---
History of Present Illness H&P Date: 09/03/20 Chief Complaint: Abnormal labs 60-year-old male with history of diabetes, neuropathy, presenting to the emergency department from his doctor's request. Patient has been dealing with a wound on his left great toe for the past few months, he has been on different antibiotics for the past few weeks and his PCP wants him to be admitted for IV antibiotics, PICC line placement. Patient denies any fever or chills. He does admit to chronic pain in his feet. He does go to pain management. He is been having some intermittent redness that increases in his left foot and sometimes spreads up to his left ankle. He states he did have x-rays today at his doctor's office, no bone involvement. He denies any chest pain or shortness of breath, he has no further complaints. Upon arrival to the ER, his vitals are stable. Labs show normal white count, lactic acid is normal at 1.6, CRP is slightly up at 22. Patient will be admitted for IV antibiotics and further evaluation by ID Review of Systems REVIEW OF SYSTEMS: CONSTITUTIONAL: No fever, no malaise, no fatigue. HEENT: No recent visual problems or hearing problems. Denied any sore throat. CARDIOVASCULAR: No chest pain, orthopnea, PND, no palpitations, no syncope. PULMONARY: No shortness of breath, no cough, no hemoptysis. GASTROINTESTINAL: No diarrhea, no nausea, no vomiting, no abdominal pain. NEUROLOGICAL: No headaches, no weakness, no numbness. HEMATOLOGICAL: Denies any bleeding or petechiae. GENITOURINARY: Denies any burning micturition, frequency, or urgency. MUSCULOSKELETAL/RHEUMATOLOGICAL: Denies any joint pain, swelling, or any muscle pain. ENDOCRINE: Denies any polyuria or polydipsia. The rest of the 14-point review of systems is negative. Past Medical History Past Medical History: Asthma, Diabetes Mellitus Additional Past Medical History / Comment(s): WAS GOING TO [facility] EVERY SUNDAY-LT GREAT TOE INFECTION COMPLETED VISITS, CONSTIPATION.HEMORRHOIDS History of Any Multi-Drug Resistant Organisms: MRSA Date of last positivie culture/infection: 03/24/19 MDRO Source:: blood and foot Past Surgical History: Appendectomy, Heart Catheterization, Hernia Repair, Ortho pedic Surgery Additional Past Surgical History / Comment(s): RT ROATATOR CUFF SX, RT INGUINAL HERNIA,UMB HERNIA REPAIR Past Anesthesia/Blood Transfusion Reactions: No Reported Reaction Past Psychological History: No Psychological Hx Reported Additional Psychological History / Comment(s): Patient is a lifelong nonsmoker. He denies any medical marijuana, marijuana or street drug or alcohol use. He lives at home with his . There are no pets in the home. 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 No service. Smoking Status: Never smoker Past Alcohol Use History: None Reported Additional Past Alcohol Use History / Comment(s): Patient is a lifelong nonsmoker. He denies any medical marijuana, marijuana or street drug or alcohol use. He lives at home with his . There are no pets in the home. 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 No service. Past Drug Use History: None Reported - Past Family History Father Family Medical History: Hypertension Mother Family Medical History: Asthma, COPD Medications and Allergies Home Medications Medication Instructions Recorded Confirmed Type Cetirizine HCl 10 mg PO DAILY 09/01/16 09/02/20 History HYDROcodone/APAP 10-325MG [[place] 1 tab PO QID 09/02/20 09/02/20 History 10-325] INSULIN ASPART (NovoLOG) [NovoLOG 14 unit SQ AC-TID 09/02/20 09/02/20 History (formulary)] Insulin Glargine [Lantus] 16 unit SQ BID 09/02/20 09/02/20 History Magnesium Hydroxide [Milk of 2,400 mg PO Q48H 09/02/20 09/02/20 History Magnesia] lisinopriL 20 mg PO HS 09/02/20 09/02/20 History metFORMIN HCL 1,000 mg PO BID 09/02/20 09/02/20 History polyethylene glycoL 3350 [Miralax] 17 gm PO DAILY 09/02/20 09/02/20 History traMADol HCl [Ultram] 100 mg PO TID 09/02/20 09/02/20 History Allergies Allergy/AdvReac Type Severity Reaction Status Date / Time gabapentin Allergy Swelling Verified 09/02/20 19:28 hydromorphone [From Dilaudid] Allergy Unknown Verified 09/02/20 19:28 ciprofloxacin [From Cipro] AdvReac Confusion, Verified 09/02/20 19:28 Dizziness sulfamethoxazole AdvReac Nausea & Verified 09/02/20 19:28 [From Bactrim] Vomiting trimethoprim [From Bactrim] AdvReac Nausea & Verified 09/02/20 19:28 Vomiting Physical Exam Vitals: Vital Signs Temp Pulse Pulse Resp BP BP Pulse Ox 09/03/20 12:52 98.2 F 67 17 154/82 96 09/03/20 08:00 78 16 09/03/20 07:00 98.1 F 78 16 120/80 94 L 09/03/20 02:00 98.3 F 84 16 120/68 98 09/02/20 20:00 98.0 F 78 16 161/84 96 09/02/20 19:46 98.0 F 78 16 161/84 96 09/02/20 16:40 98.1 F 87 18 161/82 97 Intake and Output 09/02/20 09/03/20 09/03/20 22:59 06:59 14:59 Intake Total 400 300 444 Balance 400 300 444 Intake: Oral 400 300 444 Other: Voiding Method Toilet Toilet # Voids 1 3 Weight 135.171 kg - Constitutional General appearance: Present: average body habitus, cooperative, no acute distress - EENT Eyes: Present: anicteric sclerae, EOMI, PERRLA, normal appearance ENT: Present: hearing grossly normal, normal oropharynx Ears: bilateral: normal - Neck Neck: Present: normal ROM. Absent: lymphadenopathy, rigidity, thyromegaly Carotids: negative: bruit present Thyroid: bilateral: normal size, negative: enlarged, nodule - Respiratory Respiratory: bilateral: CTA, negative: rales, rhonchi, wheezing - Cardiovascular Rhythm: regular Heart sounds: normal: S1, S2 Abnormal Heart Sounds: Absent: systolic murmur, diastolic murmur - Gastrointestinal General gastrointestinal: Present: normal bowel sounds, soft. Absent: distended, organomegaly, tenderness - Genitourinary Genitourinary Comment(s): deferred - Integumentary Integumentary: Dime-sized ulcer on the plantar surface of the left great toe with some erythema involving entire left toe and streaking towards left foot and left ankle - Neurologic Neurologic: Present: CNII-XII intact. Absent: focal deficits - Musculoskeletal Musculoskeletal: Present: gait normal, strength equal bilaterally - Psychiatric Psychiatric: Present: A&O x's 3, appropriate affect, intact judgment & insight Results CBC & Chem 7: 09/02/20 17:28 09/04/20 04:51 Labs: Abnormal Lab Results - Last 24 Hours (Table) 09/02/20 09/02/20 09/02/20 Range/Units 17:28 17:28 22:34 Hgb 12.3 L (13.0-17.5) gm/dL Hct 36.3 L (39.0-53.0) % ESR (0-15) mm/hr Sodium 133 L (137-145) mmol/L Chloride 97 L (98-107) mmol/L Glucose 225 H (74-99) mg/dL POC Glucose (mg/dL) 184 H (75-99) mg/dL C-Reactive Protein 22.0 H (<10.0) mg/L 09/03/20 09/03/20 09/03/20 Range/Units 05:37 07:28 11:31 Hgb (13.0-17.5) gm/dL Hct (39.0-53.0) % ESR 32 H (0-15) mm/hr Sodium (137-145) mmol/L Chloride (98-107) mmol/L Glucose (74-99) mg/dL POC Glucose (mg/dL) 246 H 284 H (75-99) mg/dL C-Reactive Protein (<10.0) mg/L Thrombosis Risk Factor Assmnt - Choose All That Apply Any of the Below Risk Factors Present?: Yes Each Factor Represents 1 point: Age 41-60 years, Obesity (BMI >25) Other Risk Factors: No Other congenital or acquired thrombophilia - If yes, enter type in comment: No Thrombosis Risk Factor Assessment Total Risk Factor Score: 2 Thrombosis Risk Factor Assessment Level: Low Risk Assessment and Plan Assessment: 1. Left big toe diabetic ulcer/possible osteomyelitis - Patient has been evaluated by ID and is recommended to continue IV vancomycin with pharmacy dosing service; x-ray of the foot is ordered; and is to order bone scan if no bony changes on x-ray; local wound culture has been obtained to guide further antibiotic therapy 2. Asthma; not in exacerbation; and he knew with home inhaler therapy 3. Diabetes mellitus; patient takes metformin 850 mg twice a day; continue with Lantus 15 units subcu twice a day along with 15 units of Humalog every before meals DVT prophylaxis; SCDs CODE STATUS; full code
--- NOTE | 2020-09-04 18:49 | P.PN ---
Subjective Progress Note Date: 09/04/20 Principal diagnosis: Diabetic ulcer left great toe/possible osteomyelitis 60-year-old male with history of diabetes, neuropathy, presenting to the emergency department from his doctor's request. Patient has been dealing with a wound on his left great toe for the past few months, he has been on different antibiotics for the past few weeks and his PCP wants him to be admitted for IV antibiotics, PICC line placement. Patient denies any fever or chills. He does admit to chronic pain in his feet. He does go to pain management. He is been having some intermittent redness that increases in his left foot and sometimes spreads up to his left ankle. He states he did have x-rays today at his doctor's office, no bone involvement. He denies any chest pain or shortness of breath, he has no further complaints. Upon arrival to the ER, his vitals are stable. 09/04/2020 Patient is seen and evaluated in room at bedside; results of x-ray discussed with patient; shouldn't reports reluctance in obtaining the bone scan due to concern about cost Vital signs are reviewed with temp of 98.1, pulse 79, respiration 18 and blood pressure 136/86 Patient remains on IV vancomycin; ID on board; wound cultures are done and pending; further recommendations once wound culture results are available Objective - Vital Signs Vital signs: Vital Signs Temp 98.1 F 09/04/20 15:00 Pulse 79 09/04/20 15:00 Resp 18 09/04/20 15:00 BP 136/86 09/04/20 15:00 Pulse Ox 96 09/04/20 15:00 Intake & Output 09/03/20 09/04/20 09/04/20 18:59 06:59 18:59 Intake Total 844 1150 240 Balance 844 1150 240 Intake: Intake, IV Titration 500 Amount Vancomycin 2,000 mg In 500 Sodium Chloride 0.9% 500 ml 500 ml @ 167 mls/hr IVPB Q8H [facility] Rx#: [id number] Oral 844 650 240 Other: Voiding Method Toilet Toilet # Voids 5 2 2 - Exam - Constitutional General appearance: Present: average body habitus, cooperative, no acute distress - EENT Eyes: Present: anicteric sclerae, EOMI, PERRLA, normal appearance ENT: Present: hearing grossly normal, normal oropharynx Ears: bilateral: normal - Neck Neck: Present: normal ROM. Absent: lymphadenopathy, rigidity, thyromegaly Carotids: negative: bruit present Thyroid: bilateral: normal size, negative: enlarged, nodule - Respiratory Respiratory: bilateral: CTA, negative: rales, rhonchi, wheezing - Cardiovascular Rhythm: regular Heart sounds: normal: S1, S2 Abnormal Heart Sounds: Absent: systolic murmur, diastolic murmur - Gastrointestinal General gastrointestinal: Present: normal bowel sounds, soft. Absent: distended, organomegaly, tenderness - Genitourinary Genitourinary Comment(s): deferred - Integumentary Integumentary: Present: normal turgor. Absent: jaundiced, rash, ulcer - Neurologic Neurologic: Present: CNII-XII intact. Absent: focal deficits - Musculoskeletal Musculoskeletal: Present: gait normal, strength equal bilaterally - Psychiatric Psychiatric: Present: A&O x's 3, appropriate affect, intact judgment & insight - Labs CBC & Chem 7: 09/02/20 17:28 09/04/20 04:51 Labs: Abnormal Lab Results - Last 24 Hours (Table) 09/03/20 09/04/20 09/04/20 Range/Units 20:17 07:43 12:22 POC Glucose (mg/dL) 272 H 220 H 247 H (75-99) mg/dL 09/04/20 Range/Units 17:38 POC Glucose (mg/dL) 242 H (75-99) mg/dL Microbiology - Last 24 Hours (Table) 09/03/20 11:39 Gram Stain - Preliminary Foot - Left Wound Culture - Preliminary Presumptive Staph aureus 09/03/20 11:39 Anaerobic Culture - Preliminary Foot - Left Assessment and Plan Assessment: 1. Left big toe diabetic ulcer/possible osteomyelitis - Patient has been evaluated by ID and is recommended to continue IV vancomycin with pharmacy dosing service; x-ray of the foot is ordered; and is to order bone scan if no bony changes on x-ray; local wound culture has been obtained to guide further antibiotic therapy 2. Asthma; not in exacerbation; and he knew with home inhaler therapy 3. Diabetes mellitus; patient takes metformin 850 mg twice a day; continue with Lantus 15 units subcu twice a day along with 15 units of Humalog every before meals DVT prophylaxis; SCDs CODE STATUS; full code
[2020-09-04 22:42] LABS: Glucose,Whole Blood 189 mg/dL (75-99)
[2020-09-04] MEDS: lisinopriL 20 MG TAB PO SCH (23:42)
[2020-09-05] MEDS: VANCOMYCIN 2,000 MG in SODIUM CHLORIDE 0.9% 500 ML 500 ML IVPB SCH ×3 (00:50→12:48)
[2020-09-05 06:55] LABS: Glucose,Whole Blood 201 mg/dL (75-99)
[2020-09-05] MEDS: HYDROcodone/APAP 10-325MG 1 EACH TAB PO SCH ×4 (08:31→21:49)
[2020-09-05] MEDS: LACTOBACILLUS ACIDOPH & BULGAR 1 EACH PACKET PO SCH (08:32)
[2020-09-05] MEDS: polyethylene glycoL 3350 17 GM POWD.PACK PO SCH (08:32)
[2020-09-05] MEDS: traMADol 50 MG TAB PO SCH ×3 (08:32→21:50)
[2020-09-05] MEDS: LORATADINE 10 MG TAB PO SCH (08:33)
[2020-09-05] MEDS: INSULIN DETEMIR (LEVEMIR) 100 UNIT/ML SYR SQ SCH ×2 (08:33→21:49)
[2020-09-05] MEDS: MAGNESIUM HYDROXIDE 2,400 MG/10 ML CUP PO SCH (08:33)
[2020-09-05] MEDS: INSULIN ASPART (NovoLOG) 100 UNIT/ML VIAL SQ SCH ×4 (08:33→21:50)
[2020-09-05] MEDS: metFORMIN 500 MG TAB PO SCH ×2 (08:33→21:50)
[2020-09-05 09:40] LABS: African American GFR (CKD) 113.3 (60.0-200.0); Non-African American GFR(CKD) 97.8 (60.0-200.0)
[2020-09-05 12:27] LABS: Glucose,Whole Blood 239 mg/dL (75-99)
--- NOTE | 2020-09-05 15:43 | P.PN ---
Subjective Progress Note Date: 09/05/20 Principal diagnosis: Diabetic ulcer left great toe/possible osteomyelitis 60-year-old male with history of diabetes, neuropathy, presenting to the emergency department from his doctor's request. Patient has been dealing with a wound on his left great toe for the past few months, he has been on different antibiotics for the past few weeks and his PCP wants him to be admitted for IV antibiotics, PICC line placement. Patient denies any fever or chills. He does admit to chronic pain in his feet. He does go to pain management. He is been having some intermittent redness that increases in his left foot and sometimes spreads up to his left ankle. He states he did have x-rays today at his doctor's office, no bone involvement. He denies any chest pain or shortness of breath, he has no further complaints. Upon arrival to the ER, his vitals are stable. 09/04/2020 Patient is seen and evaluated in room at bedside; results of x-ray discussed with patient; shouldn't reports reluctance in obtaining the bone scan due to concern about cost Vital signs are reviewed with temp of 98.1, pulse 79, respiration 18 and blood pressure 136/86 Patient remains on IV vancomycin; ID on board; wound cultures are done and pending; further recommendations once wound culture results are available 09/05/2020 Patient is seen and evaluated with family members at bedside; denies any specific complaints Vital signs are reviewed and patient remains afebrile with temperature of 97.8, pulse 72, respirations 16 and blood pressure 129/75 with SpO2 of 100% on room air Blood sugar remains elevated at 239; patient is currently on Levemir 20 units twice a day along with Humalog sliding scale; we will repeat chest Levemir dose to 22 units twice a day and continue to monitor Accu-Cheks with sliding scale insulin Remains on IV vancomycin for left great toe ulcer; x-ray of the foot does not reveal any osteomyelitis; ID has recommended possible bone scan; she remains reluctant stating bone scan will not have insurance coverage Await final antibiotic recommendations from ID Objective - Vital Signs Vital signs: Vital Signs Temp 97.8 F 09/05/20 14:40 Pulse 72 09/05/20 14:40 Resp 16 09/05/20 14:40 BP 129/75 09/05/20 14:40 Pulse Ox 100 09/05/20 14:40 Intake & Output 09/04/20 09/05/20 09/05/20 18:59 06:59 18:59 Intake Total 240 Balance 240 Intake: Oral 240 Other: # Voids 2 1 3 - Exam - Constitutional General appearance: Present: average body habitus, cooperative, no acute dist ress - EENT Eyes: Present: anicteric sclerae, EOMI, PERRLA, normal appearance ENT: Present: hearing grossly normal, normal oropharynx Ears: bilateral: normal - Neck Neck: Present: normal ROM. Absent: lymphadenopathy, rigidity, thyromegaly Carotids: negative: bruit present Thyroid: bilateral: normal size, negative: enlarged, nodule - Respiratory Respiratory: bilateral: CTA, negative: rales, rhonchi, wheezing - Cardiovascular Rhythm: regular Heart sounds: normal: S1, S2 Abnormal Heart Sounds: Absent: systolic murmur, diastolic murmur - Gastrointestinal General gastrointestinal: Present: normal bowel sounds, soft. Absent: distended, organomegaly, tenderness - Genitourinary Genitourinary Comment(s): deferred - Integumentary Integumentary: Present: normal turgor. Absent: jaundiced, rash, ulcer - Neurologic Neurologic: Present: CNII-XII intact. Absent: focal deficits - Musculoskeletal Musculoskeletal: Present: gait normal, strength equal bilaterally - Psychiatric Psychiatric: Present: A&O x's 3, appropriate affect, intact judgment & insight - Labs CBC & Chem 7: 09/02/20 17:28 09/05/20 06:01 Labs: Abnormal Lab Results - Last 24 Hours (Table) 09/04/20 09/04/20 09/05/20 Range/Units 17:38 22:31 06:53 POC Glucose (mg/dL) 242 H 189 H 201 H (75-99) mg/dL 09/05/20 Range/Units 12:25 POC Glucose (mg/dL) 239 H (75-99) mg/dL Microbiology - Last 24 Hours (Table) 09/03/20 11:39 Gram Stain - Final Foot - Left Wound Culture - Final Staphylococcus aureus Assessment and Plan Assessment: 1. Left big toe diabetic ulcer/possible osteomyelitis - Patient has been evaluated by ID and is recommended to continue IV vancomycin with pharmacy dosing service; x-ray of the foot is ordered; and is to order bone scan if no bony changes on x-ray; local wound culture has been obtained to guide further antibiotic therapy 2. Asthma; not in exacerbation; and he knew with home inhaler therapy 3. Diabetes mellitus; patient takes metformin 850 mg twice a day; continue with Lantus 15 units subcu twice a day along with 15 units of Humalog every before meals DVT prophylaxis; SCDs CODE STATUS; full code
[2020-09-05 17:27] LABS: Glucose,Whole Blood 198 mg/dL (75-99)
[2020-09-05 20:44] LABS: Glucose,Whole Blood 247 mg/dL (75-99)
[2020-09-05] MEDS: lisinopriL 20 MG TAB PO SCH (21:50)
--- NOTE | 2020-09-05 23:30 | PN ---
PROGRESS NOTE DATE OF SERVICE: 09/05/2020 REASON FOR FOLLOWUP: Left big toe infection. INTERVAL HISTORY: Patient is currently afebrile. The patient is breathing comfortably. The patient denies having any chest pain or shortness of breath or cough. No nausea. No vomiting. No abdominal pain. No worsening pain to the left big toe area. Patient refuses bone scan. PHYSICAL EXAMINATION: Blood pressure is 129/75, pulse of 70, temperature 97.8. He is 100% on room air. General description: The patient is a middle-aged male lying in bed in no distress. Respiratory system: Unlabored breathing, clear to auscultation anteriorly. Heart S1, S2. Regular rate. ABDOMEN: Soft, no tenderness. Left big toe plantar ulcer, minimal callus. No significant redness or any drainage. LABS: Creatinine 0.8. Culture finalized with MSSA. DIAGNOSTIC IMPRESSION AND PLAN: Patient with left big toe diabetic foot ulcer, failing outpatient oral antibiotic therapy. X-rays were negative. He was advised a bone scan which he has unfortunately refused because of the cost. I did have a discussion with the patient without any convincing evidence of osteomyelitis, he will not qualify for outpatient IV antibiotic therapy. Antibiotic adjusted to cefazolin 2 grams q.8 hours and if the patient agrees, bone scan may be done. If not, he will be able to go home on oral Keflex. Continue supportive care. MMODL / IJN: [id number] /
[2020-09-06 03:51] VITALS: RESP 18
[2020-09-06 07:07] LABS: Glucose,Whole Blood 191 mg/dL (75-99)
[2020-09-06] MEDS: INSULIN DETEMIR (LEVEMIR) 100 UNIT/ML SYR SQ SCH ×2 (08:05→20:34)
[2020-09-06] MEDS: metFORMIN 500 MG TAB PO SCH ×2 (08:06→20:32)
[2020-09-06] MEDS: LORATADINE 10 MG TAB PO SCH (08:06)
[2020-09-06] MEDS: MAGNESIUM HYDROXIDE 2,400 MG/10 ML CUP PO SCH (08:06)
[2020-09-06] MEDS: LACTOBACILLUS ACIDOPH & BULGAR 1 EACH PACKET PO SCH (08:06)
[2020-09-06] MEDS: HYDROcodone/APAP 10-325MG 1 EACH TAB PO SCH ×4 (08:07→21:20)
[2020-09-06] MEDS: traMADol 50 MG TAB PO SCH ×3 (08:07→22:46)
[2020-09-06] MEDS: polyethylene glycoL 3350 17 GM POWD.PACK PO SCH (08:08)
[2020-09-06] MEDS: INSULIN ASPART (NovoLOG) 100 UNIT/ML VIAL SQ SCH ×4 (08:37→20:30)
[2020-09-06 12:03] LABS: Glucose,Whole Blood 264 mg/dL (75-99)
--- NOTE | 2020-09-06 16:38 | P.PN ---
Subjective Progress Note Date: 09/06/20 Diabetic ulcer left great toe/possible osteomyelitis 60-year-old male with history of diabetes, neuropathy, presenting to the emergency department from his doctor's request. Patient has been dealing with a wound on his left great toe for the past few months, he has been on different antibiotics for the past few weeks and his PCP wants him to be admitted for IV antibiotics, PICC line placement. Patient denies any fever or chills. He does admit to chronic pain in his feet. He does go to pain management. He is been having some intermittent redness that increases in his left foot and sometimes spreads up to his left ankle. He states he did have x-rays today at his doctor's office, no bone involvement. He denies any chest pain or shortness of breath, he has no further complaints. Upon arrival to the ER, his vitals are stable. 09/04/2020 Patient is seen and evaluated in room at bedside; results of x-ray discussed with patient; shouldn't reports reluctance in obtaining the bone scan due to concern about cost Vital signs are reviewed with temp of 98.1, pulse 79, respiration 18 and blood pressure 136/86 Patient remains on IV vancomycin; ID on board; wound cultures are done and pending; further recommendations once wound culture results are available 09/05/2020 Patient is seen and evaluated with family members at bedside; denies any specific complaints Vital signs are reviewed and patient remains afebrile with temperature of 97.8, pulse 72, respirations 16 and blood pressure 129/75 with SpO2 of 100% on room air Blood sugar remains elevated at 239; patient is currently on Levemir 20 units twice a day along with Humalog sliding scale; we will repeat chest Levemir dose to 22 units twice a day and continue to monitor Accu-Cheks with sliding scale insulin Remains on IV vancomycin for left great toe ulcer; x-ray of the foot does not reveal any osteomyelitis; ID has recommended possible bone scan; she remains reluctant stating bone scan will not have insurance coverage Await final antibiotic recommendations from ID 09/06/2020 Patient is seen and evaluated and follow-up currently awaiting to undergo bone scan. Infectious disease following and patient is maintained on IV cefazolin and will continue at this time. Patient is having some left foot pain and tenderness although states is slightly improved since yesterday. Patient initially was refusing the bone scan and had canceled although is now requesting to have the bone scan completed. Will await report. Wound culture showing Staphylococcus aureus and anaerobic culture is showing anaerobic gram-positive cocci. No Report of chest pain or palpitations. Patient is afebrile. Review of systems: Constitutional: No reports of fatigue, fever, or chills Cardiovascular: No reports of chest pain or palpitations Respiratory: No reports of shortness of breath or cough GI: No reports of nausea, vomiting, or diarrhea : No reports of dysuria or retention Neurovascular: No reports of weakness or numbness All medications have been reviewed Objective - Vital Signs Vital signs: Vital Signs Temp 97.5 F L 09/06/20 07:00 Pulse 74 09/06/20 07:00 Resp 18 09/06/20 07:00 BP 129/79 09/06/20 07:00 Pulse Ox 96 09/06/20 07:00 Intake & Output 09/05/20 09/06/20 09/06/20 18:59 06:59 18:59 Intake Total 444 Balance 444 Intake: Oral 444 Other: # Voids 3 2 - Exam Gen: This is a 60-year-old male awake, alert and oriented 3, well-developed, well-nourished. HEENT: Head is atraumatic, normocephalic. Pupils equal, round. Sclerae is anicteric. NECK: Supple. No JVD. No lymphadenopathy. No thyromegaly. LUNGS: Clear to auscultation. No wheezes or rhonchi. No intercostal retractions. HEART: Regular rate and rhythm. No murmur. ABDOMEN: Soft. Bowel sounds are present. No masses. No tenderness. EXTREMITIES: No pedal edema. No calf tenderness. Left foot tenderness with dressings noted NEUROLOGICAL: Patient is awake, alert and oriented x3. Cranial nerves 2 through 12 are grossly intact. - Labs CBC & Chem 7: 09/02/20 17:28 09/05/20 06:01 Labs: Abnormal Lab Results - Last 24 Hours (Table) 09/05/20 09/05/20 09/06/20 Range/Units 17:26 20:37 07:05 POC Glucose (mg/dL) 198 H 247 H 191 H (75-99) mg/dL 09/06/20 Range/Units 12:01 POC Glucose (mg/dL) 264 H (75-99) mg/dL Microbiology - Last 24 Hours (Table) 09/03/20 11:39 Gram Stain - Final Foot - Left Wound Culture - Final Staphylococcus aureus Assessment and Plan Assessment: Left great toe diabetic ulcer/possible osteomyelitis: Infectious disease following patient is maintained on IV cefazolin and a bone scan is ordered as it was originally canceled by patient although is requesting for the bone scan to be completed at this time. Asthma, not in acute exacerbation Diabetes mellitus type 2, uncontrolled with hyperglycemia DVT prophylaxis GI prophylaxis Full code Plan: Continue to monitor blood sugars and treat accordingly with sliding scale. Patient is maintained on IV antibiotics in the form of cefazolin and will continue at this time. Infectious disease following. Awaiting completion of the bone scan and will await report. Possible oral antibiotics upon discharge. Will discuss with infectious disease. Possible discharge in 24 hours.
--- NOTE | 2020-09-06 16:43 | NM ---
EXAMINATION TYPE: NM bone 3 phase DATE OF EXAM: 09/06/2020 COMPARISON: 3 phase bone scan March 23, 2017. Left foot x-ray 3 days ago. HISTORY: Left first toe pain and swelling, open wound, rule out osteomyelitis. Triple phase bone scintigraphy was performed following the injection of 23.3 mCi Tc 99m MDP. Immedia te images and 4 hours post injection images acquired. Triple phase imaging of the bilateral ankles an d feet. FINDINGS: There is increased radiotracer uptake in the left ankle and foot versus opposite right side greatest at region of area of clinical concern first toe. Blood pool images show increased radiotracer uptake involving distal first toe left foot versus the o pposite right foot. Delayed phase images do not show increased radiotracer uptake at area of clinical concern distal left first toe. There is subtle increased three-phase radiotracer uptake in the right first toe felt to be near the h ead of metatarsal or base of proximal phalanx. Some additional delayed phase increased radiotracer up take mid foot region mid to lateral aspect noted in the right foot is noted. IMPRESSION: Today's radiotracer uptake consistent with acute soft tissue infection or cellulitis at a mirza of clinical concern distal left first toe. There is however increased three-phase radiotracer upt douglas in the right foot first toe near metatarsal head or base of proximal phalanx. Correlate clinicall y for possible acute fracture or infection at this level.
[2020-09-06 17:24] LABS: Glucose,Whole Blood 284 mg/dL (75-99)
--- NOTE | 2020-09-06 18:56 | PN ---
PROGRESS NOTE DATE OF SERVICE: 09/06/2020 REASON FOR FOLLOWUP: Left big toe diabetic foot infection with concern for underlying osteomyelitis. The patient denies having any chest pain. No shortness of breath or cough. Denies having any nausea, no vomiting. No abdominal pain or diarrhea. PHYSICAL EXAM: Blood pressure 110/77 with a pulse of 80, temperature 98.1, he is 96% on room air. General description is an elderly male lying in bed in no distress. Respiratory system: Unlabored breathing, clear to auscultation anteriorly. Heart S1, S2. Regular rate and rhythm. Abdomen is soft, no tenderness. Left big toe is currently dressed with no obvious drainage on the dressing. LABS: No new labs have been obtained today. Wound culture showing anaerobes, gram-positive and acute MSSA. The patient did have a nuclear bone scan, increased 3 phase reduced uptake with concern for possible osteomyelitis. DIAGNOSTIC IMPRESSION AND PLAN: Patient with left big toe chronic nonhealing wound for more than 2 months now and concern for possible underlying osteomyelitis on outpatient antibiotic therapy. The patient will benefit from PICC line for outpatient IV antibiotics in the form of cefazolin and Flagyl. Local care with Aquacel dressing and close outpatient followup. MMODL / IJN: [id number] /
[2020-09-06 20:25] LABS: Glucose,Whole Blood 246 mg/dL (75-99)
[2020-09-06] MEDS: metroNIDAZOLE 500 MG TAB PO SCH ×2 (20:31→21:18)
[2020-09-06] MEDS: lisinopriL 20 MG TAB PO SCH (20:32)
[2020-09-07 07:24] LABS: Glucose,Whole Blood 245 mg/dL (75-99)
[2020-09-07] MEDS: LACTOBACILLUS ACIDOPH & BULGAR 1 EACH PACKET PO SCH (07:53)
[2020-09-07] MEDS: HYDROcodone/APAP 10-325MG 1 EACH TAB PO SCH ×2 (07:53→12:29)
[2020-09-07] MEDS: INSULIN ASPART (NovoLOG) 100 UNIT/ML VIAL SQ SCH ×2 (07:54→12:30)
[2020-09-07] MEDS: INSULIN DETEMIR (LEVEMIR) 100 UNIT/ML SYR SQ SCH (07:54)
[2020-09-07 08:54] LABS: African American GFR (CKD) >90 (>60 ml/min/1.73 sqM); Anion Gap 10 mmol/L; Blood Urea Nitrogen 15 mg/dL (9-20); Calcium 9.3 mg/dL (8.4-10.2); Carbon Dioxide 24 mmol/L (22-30); Chloride 99 mmol/L (98-107); Glucose 248 mg/dL (74-99); Non-African American GFR(CKD) >90 (>60 ml/min/1.73 sqM); Sodium 133 mmol/L (137-145)
[2020-09-07] MEDS: metroNIDAZOLE 500 MG TAB PO SCH (09:41)
[2020-09-07] MEDS: traMADol 50 MG TAB PO SCH (09:41)
[2020-09-07] MEDS: metFORMIN 500 MG TAB PO SCH (09:41)
[2020-09-07] MEDS: polyethylene glycoL 3350 17 GM POWD.PACK PO SCH (09:41)
[2020-09-07] MEDS: LORATADINE 10 MG TAB PO SCH (09:41)
[2020-09-07 09:57] VITALS: BP 135/80; PULSE 82; TEMP 97.7
[2020-09-07] MEDS ORDERED: LIDOCAINE 1% INJ 10MG/ML (20 ML MDV) SQ ONE (10:41)
--- NOTE | 2020-09-07 11:13 | IR ---
PICC LINE PLACEMENT: HISTORY: Infection requiring long-term antibiotic therapy PROCEDURE: Ultrasound and fluoroscopic guidance of PICC line placement. COMPLICATIONS: None ANESTHESIA: 1. 1% Lidocaine locally. FINDINGS/TECHNIQUE: The procedure was explained to the patient. The risks, complications, benefits and alternatives were discussed and any questions were answered. Informed consent was obtained. The patient was placed supine on the fluoroscopic table and prepped and draped in the usual sterile fash ion. Utilizing a 21 gauge needle and sonographic and fluoroscopic guidance, access in the left basi lic vein was achieved and there is placement of a 0.018 guidewire. The vein is patent. A 4-F sheath was placed over the guidewire. The guidewire and dilator were removed and a 4-F. PICC line was plac ed through the sheath with the tip at the level of the SVC. The sheath was removed, the catheter was flushed and sutured into position. The patient was stable throughout the procedure and remained sta ble upon discharge from the Department of Radiology. The vein puncture was patent under ultrasound. A talavera scale image was obtained to document patency of the vein punctured. All elements of the maximal barrier technique were utilized. FLUOROSCOPY TIME: 0.1 minutes and when images submitted IMPRESSION: Successful PICC line placement under ultrasound and fluoroscopic guidance.
[2020-09-07 12:09] LABS: Glucose,Whole Blood 200 mg/dL (75-99)
--- NOTE | 2020-09-07 17:13 | P.DS ---
Providers Date of admission: 09/07/20 09:45 Expected date of discharge: 09/07/20 Attending physician: Grant Broussard MD Consults: 09/02/20 18:47 Consult Physician Urgent Consulting Provider: Jai Valdez Consult Reason/Comments: Cellulitis left great toe/foot, failed outpatient treatment Do you want consulting provider notified?: Yes Primary care physician: Terry Vasquez Hospital Course: Final diagnosis Left great toe diabetic ulcer/possible osteomyelitis Asthma, not in acute exacerbation Diabetes mellitus type 2, uncontrolled with hyperglycemia DVT prophylaxis GI prophylaxis Full code Discharge disposition Patient is being discharged in a stable condition with guarded prognosis to home. Patient will follow-up with Dr. Vasquez upon discharge. Patient also instructed to follow-up with infectious disease and [facility] in the outpatient setting. Patient will continue on IV antibiotic therapy per infectious disease and did receive a PICC line prior to discharge. Total time taken is greater than 35 minutes. Hospital course Diabetic ulcer left great toe/possible osteomyelitis 60-year-old male with history of diabetes, neuropathy, presenting to the [facility] department from his doctor's request. Patient has been dealing with a wound on his left great toe for the past few months, he has been on different antibiotics for the past few weeks and his PCP wants him to be admitted for IV antibiotics, PICC line placement. Patient denies any fever or chills. He does admit to chronic pain in his feet. He does go to pain management. He is been having some intermittent redness that increases in his left foot and sometimes spreads up to his left ankle. He states he did have x-rays today at his doctor's office, no bone involvement. He denies any chest pain or shortness of breath, he has no further complaints. Upon arrival to the ER, his vitals are stable. 09/04/2020 Patient is seen and evaluated in room at bedside; results of x-ray discussed with patient; shouldn't reports reluctance in obtaining the bone scan due to concern about cost Vital signs are reviewed with temp of 98.1, pulse 79, respiration 18 and blood pressure 136/86 Patient remains on IV vancomycin; ID on board; wound cultures are done and pending; further recommendations once wound culture results are available 09/05/2020 Patient is seen and evaluated with family members at bedside; denies any specific complaints Vital signs are reviewed and patient remains afebrile with temperature of 97.8, pulse 72, respirations 16 and blood pressure 129/75 with SpO2 of 100% on room air Blood sugar remains elevated at 239; patient is currently on Levemir 20 units twice a day along with Humalog sliding scale; we will repeat chest Levemir dose to 22 units twice a day and continue to monitor Accu-Cheks with sliding scale insulin Remains on IV vancomycin for left great toe ulcer; x-ray of the foot does not reveal any osteomyelitis; ID has recommended possible bone scan; she remains reluctant stating bone scan will not have insurance coverage Await final antibiotic recommendations from ID 09/06/2020 Patient is seen and evaluated and follow-up currently awaiting to undergo bone scan. Infectious disease following and patient is maintained on IV cefazolin and will continue at this time. Patient is having some left foot pain and tenderness although states is slightly improved since yesterday. Patient initially was refusing the bone scan and had canceled although is now requesting to have the bone scan completed. Will await report. Wound culture showing Staphylococcus aureus and anaerobic culture is showing anaerobic gram-positive cocci. No Report of chest pain or palpitations. Patient is afebrile. 09/07/2020 Patient is seen and evaluated in follow-up and has received a PICC line. Patient will continue with IV antibiotic therapy in the form of ceftriaxone along with oral Flagyl and will follow-up with infectious disease in the outpatient setting. Patient instructed to continue to monitor closely blood sugars and continue with Accu-Cheks before meals and at bedtime and keep a diary for primary care follow-up. Patient also started to continue to monitor diet and maintain consistent carb heart healthy diet. Currently no reports of chest pain, worsening shortness of breath, or palpitations. Patient is afebrile. No reports of nausea or vomiting and patient is tolerating diet. Patient will be discharged home today. On exam vital signs are stable. Cardio S1, S2 are muffled. Respiratory shows diminished breath sounds at the bases with no wheezing or rhonchi noted. Abdomen is soft and nontender. Nervous system shows no focal deficits. Please refer to medication reconciliation sheet for a list of medications. Patient Condition at Discharge: Stable Plan - Discharge Summary Discharge Rx Participant: Yes New Discharge Prescriptions: New metroNIDAZOLE [Flagyl] 500 mg PO Q8HR #90 tab Continue Cetirizine HCl 10 mg PO DAILY traMADol HCl [Ultram] 100 mg PO TID polyethylene glycoL 3350 [Miralax] 17 gm PO DAILY HYDROcodone/APAP 10-325MG [Harris 10-325] 1 tab PO QID lisinopriL 20 mg PO HS INSULIN ASPART (NovoLOG) [NovoLOG (formulary)] 14 unit SQ AC-TID metFORMIN HCL 1,000 mg PO BID Magnesium Hydroxide [Milk of Magnesia] 2,400 mg PO Q48H Changed Insulin Glargine [Lantus] 20 unit SQ BID #0 Discharge Medication List Cetirizine HCl 10 mg PO DAILY 09/01/16 [History] HYDROcodone/APAP 10-325MG [Harris 10-325] 1 tab PO QID 09/02/20 [History] INSULIN ASPART (NovoLOG) [NovoLOG (formulary)] 14 unit SQ AC-TID 09/02/20 [History] Magnesium Hydroxide [Milk of Magnesia] 2,400 mg PO Q48H 09/02/20 [History] lisinopriL 20 mg PO HS 09/02/20 [History] metFORMIN HCL 1,000 mg PO BID 09/02/20 [History] polyethylene glycoL 3350 [Miralax] 17 gm PO DAILY 09/02/20 [History] traMADol HCl [Ultram] 100 mg PO TID 09/02/20 [History] Insulin Glargine [Lantus] 20 unit SQ BID #0 09/07/20 [Rx] metroNIDAZOLE [Flagyl] 500 mg PO Q8HR #90 tab 09/07/20 [Rx] Follow up Appointment(s)/Referral(s): [facility], [NON-STAFF] - 09/08/20 Terry Vasquez MD [Primary Care Provider] - 09/09/20 9:30 am [facility],Infusion [NON-STAFF] - Jai Valdez MD [STAFF PHYSICIAN] - 1 Week (please call and make an appointment ) Ambulatory/Diagnostic Orders: Basic Metabolic Panel [LAB.AMB] Location: None Selected C Reactive Protein [LAB.AMB] Location: None Selected Complete Blood Count w/diff [LAB.AMB] Location: None Selected Erythrocyte Sedimentation Rate [LAB.AMB] Location: None Selected Patient Instructions/Handouts: Cellulitis (DC), Peripherally Inserted Central Catheters and Midline Catheters (DC) Activity/Diet/Wound Care/Special Instructions: follow up with dR VALDEZ in wound care , call [phone] to make an appointment Continue to monitor blood sugars and keep a diary for primary care follow-up Continue with consistent carb heart healthy diet Follow-up outpatient with infectious disease at wound care center Follow-up primary care provider upon discharge Discharge Disposition: HOME WITH HOME HEALTH SERVICES
== END 2020-09-07 14:27 | disposition home health service (06) | DRG 638 ==
LOC: EC 16:30 → 6NMEDSUR 18:22 → OBSVTOIN 09-07 09:45
PROVIDERS: ADMIT Internal Medicine; ATTEND Internal Medicine
PROC: 02HV33Z Insertion of Infusion Device into Superior Vena Cava, Percutaneous Approach (ICD-10-PCS; principal; 2020-09-07 13:50)
DX: E11.69 Type 2 diabetes mellitus with other specified complication (principal); M86.9 Osteomyelitis, unspecified; L97.526 Non-pressure chronic ulcer of other part of left foot with bone involvement without evidence of necrosis; L03.032 Cellulitis of left toe; E11.621 Type 2 diabetes mellitus with foot ulcer; G89.29 Other chronic pain; Z79.4 Long term (current) use of insulin; Z88.1 Allergy status to other antibiotic agents; Z88.8 Allergy status to other drugs, medicaments and biological substances; Z86.14 Personal history of Methicillin resistant Staphylococcus aureus infection; Z82.49 Family history of ischemic heart disease and other diseases of the circulatory system; Z82.5 Family history of asthma and other chronic lower respiratory diseases; E11.40 Type 2 diabetes mellitus with diabetic neuropathy, unspecified; J45.909 Unspecified asthma, uncomplicated; E11.65 Type 2 diabetes mellitus with hyperglycemia; B95.61 Methicillin susceptible Staphylococcus aureus infection as the cause of diseases classified elsewhere; E11.628 Type 2 diabetes mellitus with other skin complications; L97.529 Non-pressure chronic ulcer of other part of left foot with unspecified severity; Z79.2 Long term (current) use of antibiotics; Z20.828 Contact with and (suspected) exposure to other viral communicable diseases
CPT/HCPCS: 36415; 36573; 78315; 80048; 80053; 80202; 82565; 83605; 85025; 85652; 86140; 87070; 87075; 87077; 87186; 87205; 87635

== ENCOUNTER 2021-04-22 19:49 | Emergency (ER) | payer MEDICARE ==
[2021-04-22] MEDS ORDERED: ACETAMINOPHEN TAB 325 MG TAB PO STA (21:02)
[2021-04-22 21:27] LABS: Basophils # (A) 0.1 k/uL (0-0.2); Basophils % (A) 1 %; Eosinophils # (A) 0.4 k/uL (0-0.7); Eosinophils % (A) 3 %; HGB 11.3 gm/dL (13.0-17.5); Lymphocytes # (A) 2.2 k/uL (1.0-4.8); Lymphocytes % (A) 17 %; MCH 26.6 pg (25.0-35.0); MCHC 31.3 g/dL (31.0-37.0); MCV 84.8 fL (80.0-100.0); Monocytes # (A) 0.7 k/uL (0-1.0); Monocytes % (A) 6 %; Neutrophils # (A) 9.3 k/uL (1.3-7.7); Neutrophils % (A) 72 %; Platelet Count 337 k/uL (150-450); RBC 4.24 m/uL (4.30-5.90); RDW 13.1 % (11.5-15.5); WBC 12.9 k/uL (3.8-10.6)
[2021-04-22 21:28] LABS: Appearance,Urine Clear (Clear); Bilirubin,Urine Negative (Negative); Blood,Urine Negative (Negative); Color,Urine Light Yellow; Glucose,Urine (UA) Negative (Negative); Ketones,Urine Negative (Negative); Leukocyte Esterase,Urine Negative (Negative); Nitrite,Urine Negative (Negative); PH, Urine 5.5 (5.0-8.0); Protein,Urine Negative (Negative); Urobilinogen,Urine <2.0 mg/dL (<2.0)
[2021-04-22 21:37] LABS: ALT 27 U/L (4-49); AST 22 U/L (17-59); African American GFR (CKD) >90 (>60 ml/min/1.73 sqM); Albumin 3.9 g/dL (3.5-5.0); Alkaline Phosphatase 68 U/L (38-126); Anion Gap 10 mmol/L; Blood Urea Nitrogen 18 mg/dL (9-20); Calcium 9.2 mg/dL (8.4-10.2); Carbon Dioxide 24 mmol/L (22-30); Chloride 97 mmol/L (98-107); Glucose 218 mg/dL (74-99); Non-African American GFR(CKD) 86 (>60 ml/min/1.73 sqM); Potassium 4.9 mmol/L (3.5-5.1); Sodium 131 mmol/L (137-145); Total Bilirubin 0.3 mg/dL (0.2-1.3); Total Protein 6.9 g/dL (6.3-8.2)
--- NOTE | 2021-04-22 21:45 | US ---
EXAMINATION TYPE: US venous doppler duplex LE LT DATE OF EXAM: 04/22/2021 9:39 PM COMPARISON: US 2017 CLINICAL HISTORY: pain/swelling. Left calf pain SIDE PERFORMED: Left TECHNIQUE: The lower extremity deep venous system is examined utilizing real time linear array sonog mario with graded compression, doppler sonography and color-flow sonography. VESSELS IMAGED: Common Femoral Vein Deep Femoral Vein Greater Saphenous Vein * Femoral Vein Popliteal Vein Small Saphenous Vein * Proximal Calf Veins (* superficial vessels) Left Leg: Appears negative for DVT IMPRESSION: No evidence for DVT at this time.
--- NOTE | 2021-04-22 21:57 | ED ---
Extremity Problem HPI - General Chief complaint: Extremity Problem,Nontraumatic Stated complaint: Left leg wound Time Seen by Provider: 04/22/21 21:00 Source: patient, RN notes reviewed Mode of arrival: ambulatory Limitations: no limitations - History of Present Illness Initial comments: 60-year-old male complaining of left calf pain. He notes that he did have a toe amputation in November and which she is currently utilizing a wound VAC and follows up with wound care regularly. He notes that he is making good progress with his wound and is hopeful that he'll be fully healed. The next several weeks to month. Patient notes that recently he started having some left calf pain and tenderness. He notes that is also mildly red and hot to the touch. Patient denied any other issues or complaints at this time. He was otherwise well- appearing. He was in good spurs. He denied chest pain first breath headache nausea vomiting diarrhea constipation fever fatigue chills. - Related Data Home Medications Medication Instructions Recorded Confirmed Cetirizine HCl 10 mg PO DAILY 09/01/16 09/02/20 HYDROcodone/APAP 10-325MG [[place] 1 tab PO QID 09/02/20 09/02/20 10-325] INSULIN ASPART (NovoLOG) [NovoLOG 14 unit SQ AC-TID 09/02/20 09/02/20 (formulary)] Magnesium Hydroxide [Milk of 2,400 mg PO Q48H 09/02/20 09/02/20 Magnesia] lisinopriL 20 mg PO HS 09/02/20 09/02/20 metFORMIN HCL [Glucophage] 1,000 mg PO BID 09/02/20 09/02/20 polyethylene glycoL 3350 [Miralax] 17 gm PO DAILY 09/02/20 09/02/20 traMADol HCl [Ultram] 100 mg PO TID 09/02/20 09/02/20 Previous Rx's Medication Instructions Recorded Insulin Glargine [Lantus Vial] 20 unit SQ BID #0 09/07/20 metroNIDAZOLE [Flagyl] 500 mg PO Q8HR #90 tab 09/07/20 Cephalexin [Keflex] 500 mg PO Q6HR #40 cap 04/22/21 Allergies Allergy/AdvReac Type Severity Reaction Status Date / Time gabapentin Allergy Swelling Verified 04/22/21 20:09 hydromorphone [From Dilaudid] Allergy Unknown Verified 04/22/21 20:09 ciprofloxacin [From Cipro] AdvReac Confusion, Verified 04/22/21 20:09 Dizziness sulfamethoxazole AdvReac Nausea & Verified 04/22/21 20:09 [From Bactrim] Vomiting trimethoprim [From Bactrim] AdvReac Nausea & Verified 04/22/21 20:09 Vomiting Review of Systems ROS Statement: Those systems with pertinent positive or pertinent negative responses have been documented in the HPI. ROS Other: All systems not noted in ROS Statement are negative. Past Medical History Past Medical History: Asthma, Diabetes Mellitus Additional Past Medical History / Comment(s): WAS GOING TO [facility] EVERY SUNDAY-LT GREAT TOE INFECTION COMPLETED VISITS, CONSTIPATION.HEMORRHOIDS History of Any Multi-Drug Resistant Organisms: MRSA Date of last positivie culture/infection: 03/24/19 MDRO Source:: blood and foot Past Surgical History: Appendectomy, Heart Catheterization, Hernia Repair, Orthopedic Surgery Additional Past Surgical History / Comment(s): RT ROATATOR CUFF SX, RT INGUINAL HERNIA,UMB HERNIA REPAIR Past Anesthesia/Blood Transfusion Reactions: No Reported Reaction Past Psychological History: No Psychological Hx Reported Smoking Status: Never smoker Past Alcohol Use History: None Reported Past Drug Use History: None Reported - Past Family History Father Family Medical History: Hypertension Mother Family Medical History: Asthma, COPD General Exam Limitations: no limitations General appearance: alert, in no apparent distress, obese Head exam: Present: atraumatic, normocephalic, normal inspection Eye exam: Present: normal appearance, PERRL, EOMI. Absent: scleral icterus, conjunctival injection, periorbital swelling ENT exam: Present: normal exam, mucous membranes moist Neck exam: Present: normal inspection Respiratory exam: Present: normal lung sounds bilaterally. Absent: respiratory distress, wheezes, rales, rhonchi, stridor Cardiovascular Exam: Present: regular rate, normal rhythm, normal heart sounds. Absent: systolic murmur, diastolic murmur, rubs, gallop, clicks Extremities exam: Present: normal inspection, full ROM, normal capillary refill, other (Left calf mildly erythematous, tender to touch and palpation.). Absent: tenderness, pedal edema, joint swelling, calf tenderness Neurological exam: Present: alert, oriented X3 Psychiatric exam: Present: normal affect, normal mood Skin exam: Present: warm, dry, intact, normal color. Absent: rash Course Vital Signs 04/22/21 20:09 Temperature 100.1 F H Pulse Rate 84 Respiratory 16 Rate Blood Pressure 139/73 O2 Sat by Pulse 94 L Oximetry Medical Decision Making - Medical Decision Making 60-year-old male with wound VAC complaining of left calf pain. Labs, ultrasound left lower extremity, 650 mg of Tylenol ordered for mild fever of 100.1. Ultrasound negative for any DVT. Labs: White blood cells 12.9, rest of CBC unremarkable, CMP unremarkable, urinalysis unremarkable. Patient is able discharge home with oral antibiotics sent to pharmacy for cellulitis. Case discussed with Dr. Roberson, patient discharge home. - Lab Data Result diagrams: 04/22/21 21:12 04/22/21 21:12 Lab Results 04/22/21 04/22/21 04/22/21 Range/Units 21:12 21:12 21:12 WBC 12.9 H (3.8-10.6) k/uL RBC 4.24 L (4.30-5.90) m/uL Hgb 11.3 L (13.0-17.5) gm/dL Hct 36.0 L (39.0-53.0) % MCV 84.8 (80.0-100.0) fL MCH 26.6 (25.0-35.0) pg MCHC 31.3 (31.0-37.0) g/dL RDW 13.1 (11.5-15.5) % Plt Count 337 (150-450) k/uL MPV 7.0 Neutrophils % 72 % Lymphocytes % 17 % Monocytes % 6 % Eosinophils % 3 % Basophils % 1 % Neutrophils # 9.3 H (1.3-7.7) k/uL Lymphocytes # 2.2 (1.0-4.8) k/uL Monocytes # 0.7 (0-1.0) k/uL Eosinophils # 0.4 (0-0.7) k/uL Basophils # 0.1 (0-0.2) k/uL Sodium 131 L (137-145) mmol/L Potassium 4.9 (3.5-5.1) mmol/L Chloride 97 L (98-107) mmol/L Carbon Dioxide 24 (22-30) mmol/L Anion Gap 10 mmol/L BUN 18 (9-20) mg/dL Creatinine 0.97 (0.66-1.25) mg/dL Est GFR (CKD-EPI)AfAm >90 (>60 ml/min/1.73 sqM) Est GFR (CKD-EPI)NonAf 86 (>60 ml/min/1.73 sqM) Glucose 218 H (74-99) mg/dL Calcium 9.2 (8.4-10.2) mg/dL Total Bilirubin 0.3 (0.2-1.3) mg/dL AST 22 (17-59) U/L ALT 27 (4-49) U/L Alkaline Phosphatase 68 (38-126) U/L Total Protein 6.9 (6.3-8.2) g/dL Albumin 3.9 (3.5-5.0) g/dL Urine Color Light Yellow Urine Appearance Clear (Clear) Urine pH 5.5 (5.0-8.0) Ur Specific [place] 1.010 (1.001-1.035) Urine Protein Negative (Negative) Urine Glucose (UA) Negative (Negative) Urine Ketones Negative (Negative) Urine Blood Negative (Negative) Urine Nitrite Negative (Negative) Urine Bilirubin Negative (Negative) Urine Urobilinogen <2.0 (<2.0) mg/dL Ur Leukocyte Esterase Negative (Negative) - Radiology Data Radiology results: report reviewed, image reviewed Left leg ultrasound: No evidence for DVT at this time. Disposition Clinical Impression: Cellulitis, Pain of left calf Disposition: HOME SELF-CARE Condition: Stable Instructions (If sedation given, give patient instructions): Cellulitis (ED) Additional Instructions: Please return to the Emergency Department if symptoms worsen or any other concerns. Follow-up with primary care 1-2 days. Take antibiotics as prescribed. Follow-up with wound care as needed. Prescriptions: Cephalexin [Keflex] 500 mg PO Q6HR #40 cap Is patient prescribed a controlled substance at d/c from ED?: No Referrals: Terry Vasquez MD [Primary Care Provider] - 1-2 days Time of Disposition: 22:19
[2021-04-22 22:34] VITALS: BP 130/79; PULSE 81; RESP 18; TEMP 99
== END 2021-04-22 22:35 | disposition home or self-care (01) ==
LOC: EC 19:49
DX: L03.90 Cellulitis, unspecified (principal); M79.662 Pain in left lower leg; E11.9 Type 2 diabetes mellitus without complications; J45.909 Unspecified asthma, uncomplicated; Z79.4 Long term (current) use of insulin
CPT/HCPCS: 36415; 80053; 81003; 85025; 99284

== ENCOUNTER 2022-07-24 13:15 | Inpatient (IN) | payer MEDICARE ==
[2022-07-24] MEDS ORDERED: ONDANSETRON 4 MG/2 ML VIAL IVP STA (15:21)
[2022-07-24] MEDS ORDERED: SODIUM CHLORIDE 0.9% 1,000 ML IV STA (15:21)
--- NOTE | 2022-07-24 16:15 | XR ---
EXAMINATION TYPE: XR foot complete RT DATE OF EXAM: 07/24/2022 4:07 PM INDICATION: Patient age:Male; 62 years old; Reason for study: pain, redness, swelling; PHH. COMPARISON: Foot radiograph 03/21/2019. TECHNIQUE: The right foot was examined in the AP, oblique, and lateral projections. FINDINGS: No acute fracture or dislocation. Joint space narrowing with hypertrophic changes involving the first MTP joint. There is some subtle subchondral cystic foci without definitive osseous erosion. Prominen t soft tissue swelling at the first MTP joint. IMPRESSION: 1. No evidence of acute fracture. 2. Joint space narrowing with hypertrophic changes involving the first MTP joint with prominent soft tissue swelling. No definitive osseous erosion. Correlate for underlying infection. Consider further evaluation with MRI right foot if there is concern for osteomyelitis.
[2022-07-24 16:38] LABS: Basophils # (A) 0.1 k/uL (0-0.2); Basophils % (A) 1 %; Eosinophils # (A) 1.3 k/uL (0-0.7); Eosinophils % (A) 10 %; HGB 12.7 gm/dL (13.0-17.5); Lymphocytes # (A) 1.7 k/uL (1.0-4.8); Lymphocytes % (A) 12 %; MCHC 32.7 g/dL (31.0-37.0); MCV 82.5 fL (80.0-100.0); Mean Platelet Volume 7.9; Monocytes # (A) 0.8 k/uL (0-1.0); Monocytes % (A) 6 %; Neutrophils # (A) 9.6 k/uL (1.3-7.7); Neutrophils % (A) 70 %; Platelet Count 254 k/uL (150-450); RBC 4.72 m/uL (4.30-5.90); WBC 13.7 k/uL (3.8-10.6)
[2022-07-24 16:54] LABS: ALT 32 U/L (4-49); AST 26 U/L (17-59); African American GFR (CKD) >90 (>60 ml/min/1.73 sqM); Albumin 4.1 g/dL (3.5-5.0); Alkaline Phosphatase 71 U/L (38-126); Amylase <30 U/L (30-110); Anion Gap 9 mmol/L; Blood Urea Nitrogen 9 mg/dL (9-20); Calcium 8.8 mg/dL (8.4-10.2); Carbon Dioxide 23 mmol/L (22-30); Chloride 105 mmol/L (98-107); Glucose 227 mg/dL (74-99); Lipase 63 U/L (23-300); Non-African American GFR(CKD) >90 (>60 ml/min/1.73 sqM); Potassium 4.5 mmol/L (3.5-5.1); Sodium 137 mmol/L (137-145); Total Bilirubin 0.3 mg/dL (0.2-1.3); Total Protein 7.1 g/dL (6.3-8.2)
[2022-07-24 16:56] LABS: Appearance,Urine Clear (Clear); Bilirubin,Urine Negative (Negative); Blood,Urine Negative (Negative); Color,Urine Light Yellow; Glucose,Urine (UA) 2+ (Negative); Ketones,Urine Negative (Negative); Leukocyte Esterase,Urine Trace (Negative); Mucus,Urine Rare /hpf; Nitrite,Urine Negative (Negative); Protein,Urine Trace (Negative); RBC,Urine 2 /hpf (0-5); Specific Gravity,Urine 1.008 (1.001-1.035); Squamous Epithelial Cell,Urine <1 /hpf (0-4); Urobilinogen,Urine <2.0 mg/dL (<2.0); WBC,Urine 2 /hpf (0-5)
--- NOTE | 2022-07-24 18:25 | CT ---
EXAMINATION TYPE: CT abdomen pelvis w con CT DLP: 3277 mGycm, Automated exposure control for dose reduction was used. DATE OF EXAM: 07/24/2022 6:12 PM COMPARISON: None CLINICAL INDICATION:Male, 62 years old with history of lower abdominal pain, diarrhea, nausea; low ab d pain, N/V TECHNIQUE: Axial CT of the abdomen and pelvis. Sagittal and coronal reformats were created on a Exosect workstation. Contrast used:100ML mL of Isovue 300 with IV Contrast, Oral contrast used: without Oral Contrast FINDINGS: LOWER CHEST: Gynecomastia changes in the right breast. Atherosclerosis of the coronary arteries. ABDOMEN LIVER: Diffusely hypoattenuating parenchyma. GALLBLADDER AND BILE DUCTS: Layering increased density within the lumen consistent with gallstone are present. PANCREAS: Fatty atrophy changes of the pancreas. SPLEEN: Unremarkable. ADRENAL GLANDS: Unremarkable. KIDNEYS AND URETERS: No evidence of hydronephrosis or renal calculus. Left inferior renal cysts. Righ t complex renal cyst with thin septations that are calcified measuring up to 5.0 cm. PELVIS BLADDER: Unremarkable REPRODUCTIVE: Unremarkable. ABDOMEN & PELVIS STOMACH AND BOWEL: No evidence of bowel obstruction. PERITONEUM/RETROPERITONEUM: No evidence of pneumoperitoneum or free fluid. . VASCULATURE: Mild atherosclerotic calcifications are present throughout the abdominal aorta and its b ranches. No evidence of aortic aneurysm. MUSCULOSKELETAL: No acute osseous abnormalities. Mild disc degeneration changes are present throughou t the thoracolumbar spine. Osteophyte formation of the sacroiliac joints bilaterally. LYMPH NODES: Prominent right inguinal lymph node measuring up to 10 mm in short axis. SOFT TISSUE/ABDOMINAL WALL: Soft tissue near the umbilicus measuring 2.7 x 1.7 cm. IMPRESSION: 1. No definitive acute abdominal process to explain the patient's lower abdominal pain. 2. Hepatic steatosis. 3. Cholelithiasis. 4. Right renal cyst with thin calcified septations measuring up to 5.0 cm. 5. Soft tissue is identified near the umbilicus which is of doubtful clinical significance. Consider ultrasound imaging as clinically warranted.
[2022-07-24] MEDS ORDERED: VANCOMYCIN IV PER PHARMACY 1 EACH MISC MISCELLANE PRN (18:59)
[2022-07-24] MEDS ORDERED: VANCOMYCIN 2,000 MG in SODIUM CHLORIDE 0.9% 500 ML 500 ML IVPB STA (19:06)
--- NOTE | 2022-07-24 19:27 | ED ---
General Adult HPI - General Chief complaint: Nausea/Vomiting/Diarrhea Stated complaint: diarrhea, foot wound Time Seen by Provider: 07/24/22 15:05 Source: patient Mode of arrival: ambulatory Limitations: no limitations - History of Present Illness Initial comments: Patient is a 62-year-old male presenting for evaluation of wound to the right foot as well as diarrhea for the last week. Patient has an existing diabetic foot ulcer to the sole of the right foot. Patient states that he recently was not using his topical cream as he should be. He's noted increased pain, redness, swelling. He tried to get in with Dr. Quintero at the wound center but was unable to. No recent antibiotics. No recent injury or trauma. Patient is also complaining of diarrhea for the last week. He admits to cramping abdominal pain across the lower abdomen. He admits to nausea with no vomiting. No hematochezia, melena, dysuria, hematuria, urgency, frequency, flank pain. No chest pain, difficulty breathing, palpitations, weakness. - Related Data Home Medications Medication Instructions Recorded Confirmed Cetirizine HCl 10 mg PO DAILY 09/01/16 07/24/22 HYDROcodone/APAP 10-325MG [[place] 1 tab PO QID 09/02/20 07/24/22 10-325] Magnesium Hydroxide [Milk of 2,400 mg PO DAILY PRN 09/02/20 07/24/22 Magnesia] lisinopriL 20 mg PO HS 09/02/20 07/24/22 metFORMIN HCL [Glucophage] 1,000 mg PO BID 09/02/20 07/24/22 polyethylene glycoL 3350 [Miralax] 17 gm PO DAILY 09/02/20 07/24/22 traMADol HCl [Ultram] 100 mg PO TID 09/02/20 07/24/22 Albuterol Sulfate [Ventolin HFA] 1 - 2 puff INHALATION RT-Q6H PRN 07/24/22 0 07/24/22 Clotrimazole/Betameth Cream 1 applic TOPICAL BID PRN 07/24/22 07/24/22 [Lotrisone] Insulin Aspart [NovoLOG Flexpen] 16 units SQ AC-TID 07/24/22 07/24/22 Insulin Glargine,Hum.rec.anlog 35 units SQ BID 07/24/22 07/24/22 [Lantus Solostar Pen] Nystatin 100,000 Unit/gm Powd 1 applic TOPICAL BID PRN 07/24/22 07/24/22 [Mycostatin Powder] Allergies Allergy/AdvReac Type Severity Reaction Status Date / Time gabapentin Allergy Swelling Verified 07/24/22 16:15 hydromorphone [From Dilaudid] Allergy Unknown Verified 07/24/22 16:15 ciprofloxacin [From Cipro] AdvReac Confusion, Verified 07/24/22 16:15 Dizziness sulfamethoxazole AdvReac Nausea & Verified 07/24/22 16:15 [From Bactrim] Vomiting trimethoprim [From Bactrim] AdvReac Nausea & Verified 07/24/22 16:15 Vomiting Review of Systems ROS Statement: Those systems with pertinent positive or pertinent negative responses have been documented in the HPI. ROS Other: All systems not noted in ROS Statement are negative. 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 Date of last positivie culture/infection: 03/24/19 MDRO Source:: blood and foot Past Surgical History: Appendectomy, Heart Catheterization, Hernia Repair, Orthopedic Surgery Additional Past Surgical History / Comment(s): RT ROATATOR CUFF SX, RT INGUINAL HERNIA,UMB HERNIA REPAIR Past Anesthesia/Blood Transfusion Reactions: No Reported Reaction Past Psychological History: No Psychological Hx Reported Smoking Status: Never smoker Past Alcohol Use History: None Reported Past Drug Use History: None Reported - Past Family History Father Family Medical History: Hypertension Mother Family Medical History: Asthma, COPD General Exam Limitations: no limitations General appearance: alert, in no apparent distress Head exam: Present: atraumatic, normocephalic, normal inspection Eye exam: Present: normal appearance Neck exam: Present: normal inspection, full ROM Respiratory exam: Present: normal lung sounds bilaterally. Absent: respiratory distress, wheezes, rales, rhonchi, stridor Cardiovascular Exam: Present: regular rate, normal rhythm, normal heart sounds. Absent: systolic murmur, diastolic murmur, rubs, gallop, clicks GI/Abdominal exam: Present: soft. Absent: distended, tenderness, guarding, rebound, rigid Right Foot/Toe exam: Present: full ROM, tenderness, swelling, erythema Neurovascular tendon exam: Present: no vascular compromise Neurological exam: Present: alert, oriented X3, CN II-XII intact Psychiatric exam: Present: normal affect, normal mood Skin exam: Present: warm, dry, intact, normal color. Absent: rash Course Vital Signs 07/24/22 07/24/22 07/24/22 13:18 15:51 17:25 Temperature 98.8 F Pulse Rate 82 81 80 Respiratory 22 18 18 Rate Blood Pressure 155/84 161/79 174/84 O2 Sat by Pulse 99 94 L 94 L Oximetry 07/24/22 20:10 Temperature Pulse Rate 84 Respiratory 16 Rate Blood Pressure 166/82 O2 Sat by Pulse 94 L Oximetry Medical Decision Making - Medical Decision Making Was pt. sent in by a medical professional or institution ([facility], CNS, urgent care, hospital, or [facility]...) When possible be specific @ -No Did you speak to anyone other than the patient for history (EMS, parent, family, police, friend...)? What history was obtained from this source @ - Did you review nursing and triage notes (agree or disagree)? Why? @ -I reviewed and agree with nursing and triage notes Were old charts reviewed (outside hosp., previous admission, EMS record, old EKG, old radiological studies, urgent care reports/EKG's, [facility] records)? Report findings @ -Previous visits reviewed Differential Diagnosis (chest pain, altered mental status, abdominal pain women, abdominal pain men, vaginal bleeding, weakness, fever, dyspnea, syncope, headache, dizziness, GI bleed, back pain, seizure, CVA, palpatations, mental health)? @ -Differential for diarrhea includes gastroenteritis, diverticulitis, colitis, not an all-inclusive list Differential for foot pain includes infected callous, osteomyelitis, abscess, this is not an all-inclusive list EKG interpreted by me (3pts min.). @ -As above X-rays interpreted by me (1pt min.). @ -No evidence of acute fracture. Joint space narrowing with hyperchromic trophic changes involving the first MTP joint with prominent soft tissue swelling. No definitive osseous erosion. Correlate for underlying infection. CT interpreted by me (1pt min.). @ -No, radiologist report is reviewed. No definitive acute abdominal process to explain the patient's lower abdominal pain. Hepatic steatosis. Cholelithiasis. Right renal cyst with thin calcified septations measuring up to 5.0 cm. U/S interpreted by me (1pt. min.). @ -None done What testing was considered but not performed or refused? (CT, X-rays, U/S, labs)? Why? @ -None What meds were considered but not given or refused? Why? @ -None Did you discuss the management of the patient with other professionals (professionals i.e. , PA, CNS, lab, RT, psych nurse, nursing home social worker, lead programmer analyst, teacher, chief learning officer, bottle caser)? Give summary @ -Cussed with admitting physician Dr. Nguyen Was smoking cessation discussed for >3mins.? @ -No Was critical care preformed (if so, how long)? @ -No Were there social determinants of health that impacted care today? How? (Homelessness, low income, unemployed, alcoholism, drug addiction, tra nsportation, low edu. Level, literacy, decrease access to med. care, residential, rehab)? @ -No Was there de-escalation of care discussed even if they declined (Discuss DNR or withdrawal of care, Hospice)? DNR status @ -No What co-morbidities impacted this encounter? (DM, HTN, Smoking, COPD, CAD, Cancer, CVA, ARF, Chemo, Hep., AIDS, mental health diagnosis, sleep apnea, morbid obesity)? @ -Diabetes Was patient admitted / discharged? Hospital course, mention meds given and route, prescriptions, significant lab abnormalities, going to OR and other pertinent info. @ -Patient is a 62-year-old male presenting with chief complaint of wound to the right foot and diarrhea. Wound has been worsening over the last few days, he notes redness and swelling. Diarrhea has been present for the last week and is accompanied by lower abdominal cramping. On physical examination there is tenderness on palpation of the foot, erythema and swelling is noted. Abdomen is soft, nontender, nondistended. CBC 13.7. Hemoglobin 12.7, consistent with baseline. Glucose is 227, patient is diabetic. CT of the abdomen and pelvis shows no acute process to explain his pain. X-ray shows no evidence of osteomyelitis. Patient will be admitted for diabetic foot infection. He was started on vancomycin and blood cultures are ordered. I discussed this case with Dr. Nguyen who accepted admission. Patient is agreeable with this plan. I discussed this case with my attending Dr. Rivera Undiagnosed new problem with uncertain prognosis? @ -No Drug Therapy requiring intensive monitoring for toxicity (Heparin, Nitro, Insulin, Cardizem)? @ -No Were any procedures done? @ -No Diagnosis/symptom? @ -Diabetic foot infection Acute, or Chronic, or Acute on Chronic? @ -Acute on chronic Uncomplicated (without systemic symptoms) or Complicated (systemic symptoms)? @ -Complicated Side effects of treatment? @ -No Exacerbation, Progression, or Severe Exacerbation? @ -No Poses a threat to life or bodily function? How? (Chest pain, [place], [place], pneumonia, PE, COPD, DKA, ARF, appy, cholecystitis, CVA, Diverticulitis, Homicidal, Suicidal, threat to staff... and all critical care pts) @ -yes - Lab Data Result diagrams: 07/24/22 15:50 07/24/22 15:50 Lab Results 07/24/22 07/24/22 07/24/22 Range/Units 15:50 15:50 15:50 WBC 13.7 H (3.8-10.6) k/uL RBC 4.72 (4.30-5.90) m/uL Hgb 12.7 L (13.0-17.5) gm/dL Hct 39.0 (39.0-53.0) % MCV 82.5 (80.0-100.0) fL MCH 27.0 (25.0-35.0) pg MCHC 32.7 (31.0-37.0) g/dL RDW 14.0 (11.5-15.5) % Plt Count 254 (150-450) k/uL MPV 7.9 Neutrophils % 70 % Lymphocytes % 12 % Monocytes % 6 % Eosinophils % 10 % Basophils % 1 % Neutrophils # 9.6 H (1.3-7.7) k/uL Lymphocytes # 1.7 (1.0-4.8) k/uL Monocytes # 0.8 (0-1.0) k/uL Eosinophils # 1.3 H (0-0.7) k/uL Basophils # 0.1 (0-0.2) k/uL Sodium 137 (137-145) mmol/L Potassium 4.5 (3.5-5.1) mmol/L Chloride 105 (98-107) mmol/L Carbon Dioxide 23 (22-30) mmol/L Anion Gap 9 mmol/L BUN 9 (9-20) mg/dL Creatinine 0.66 (0.66-1.25) mg/dL Est GFR (CKD-EPI)AfAm >90 (>60 ml/min/1.73 sqM) Est GFR (CKD-EPI)NonAf >90 (>60 ml/min/1.73 sqM) Glucose 227 H (74-99) mg/dL Calcium 8.8 (8.4-10.2) mg/dL Total Bilirubin 0.3 (0.2-1.3) mg/dL AST 26 (17-59) U/L ALT 32 (4-49) U/L Alkaline Phosphatase 71 (38-126) U/L Total Protein 7.1 (6.3-8.2) g/dL Albumin 4.1 (3.5-5.0) g/dL Amylase <30 L (30-110) U/L Lipase 63 (23-300) U/L Urine Color Light Yellow Urine Appearance Clear (Clear) Urine pH 6.0 (5.0-8.0) Ur Specific [place] 1.008 (1.001-1.035) Urine Protein Trace H (Negative) Urine Glucose (UA) 2+ H (Negative) Urine Ketones Negative (Negative) Urine Blood Negative (Negative) Urine Nitrite Negative (Negative) Urine Bilirubin Negative (Negative) Urine Urobilinogen <2.0 (<2.0) mg/dL Ur Leukocyte Esterase Trace H (Negative) Urine RBC 2 (0-5) /hpf Urine WBC 2 (0-5) /hpf Ur Squamous Epith Cells <1 (0-4) /hpf Urine Mucus Rare H (None) /hpf Disposition Clinical Impression: Diabetic foot infection Disposition: ADMITTED IP TO THIS HOSP Condition: Fair Time of Disposition: 19:33 Decision to Admit Reason: Admit from EC Decision Date: 07/24/22 Decision Time: 19:33
[2022-07-24] MEDS ORDERED: IBUPROFEN 400 MG TAB PO PRN (19:29)
[2022-07-24] MEDS ORDERED: ONDANSETRON 4 MG/2 ML VIAL IVP PRN (19:29)
[2022-07-24] MEDS ORDERED: MORPHINE SULFATE 4 MG/ML SYRINGE IV PRN (19:29)
[2022-07-24] MEDS ORDERED: NALOXONE 0.4 MG/ML 1 ML VIAL IV PRN (19:29)
[2022-07-24] MEDS ORDERED: ACETAMINOPHEN TAB 325 MG TAB PO PRN (19:29)
[2022-07-24] MEDS ORDERED: HYDROcodone/APAP 5-325MG 1 EACH TAB PO PRN (19:29)
[2022-07-24 20:51] LABS: Glucose,Whole Blood 207 mg/dL (70-110)
[2022-07-24] MEDS ORDERED: CLOTRIMAZOLE/BETAMETH 1-0.05% CREAM 45 GM TUBE TOPICAL PRN (21:17)
[2022-07-24] MEDS ORDERED: NYSTATIN 100,000 UNIT/GM POWD 15 GM TOPICAL PRN (21:17)
[2022-07-24] MEDS ORDERED: DEXTROSE 50% SYRINGE 50 ML IVP PRN ×2 (21:19)
[2022-07-24] MEDS ORDERED: CALCIUM CARBONATE 500 MG CHEWABLE PO PRN (21:19)
[2022-07-24] MEDS ORDERED: MELATONIN 3 MG TABLET PO PRN (21:19)
[2022-07-24] MEDS: INSULIN ASPART (NovoLOG) 100 UNIT/ML VIAL SQ SCH (22:17)
[2022-07-24 22:18] LABS: Glucose,Whole Blood 265 mg/dL (70-110)
[2022-07-24] MEDS: lisinopriL 20 MG TAB PO SCH (22:18)
[2022-07-24] MEDS: HYDROcodone/APAP 10-325MG 1 EACH TAB PO SCH (22:18)
[2022-07-24] MEDS: INSULIN DETEMIR (LEVEMIR) 100 UNIT/ML SYR SQ SCH (22:19)
[2022-07-25] MEDS: traMADol 50 MG TAB PO SCH ×4 (01:07→21:33)
[2022-07-25] MEDS: SODIUM CHLORIDE 0.9% 1,000 ML IV SCH ×4 (01:32→16:55)
[2022-07-25] MEDS: VANCOMYCIN 2,000 MG in SODIUM CHLORIDE 0.9% 500 ML 500 ML IVPB SCH ×3 (04:46→21:33)
[2022-07-25] MEDS: INSULIN ASPART (NovoLOG) 100 UNIT/ML VIAL SQ SCH ×7 (06:49→21:34)
[2022-07-25] MEDS: metFORMIN 500 MG TAB PO SCH ×2 (07:52→16:52)
[2022-07-25] MEDS: polyethylene glycoL 3350 17 GM POWD.PACK PO SCH (09:18)
[2022-07-25] MEDS: LORATADINE 10 MG TAB PO SCH (09:18)
[2022-07-25] MEDS: INSULIN DETEMIR (LEVEMIR) 100 UNIT/ML SYR SQ SCH ×2 (09:19→21:34)
[2022-07-25] MEDS: HYDROcodone/APAP 10-325MG 1 EACH TAB PO SCH ×4 (09:19→21:34)
[2022-07-25 10:25] LABS: African American GFR (CKD) 111.7 (60.0-200.0); Non-African American GFR(CKD) 96.4 (60.0-200.0)
[2022-07-25] MEDS ORDERED: LIDOCAINE 1% INJ 10MG/ML (30 ML VIAL-PF) SQ ONE (14:21)
--- NOTE | 2022-07-25 14:26 | P.GSCN ---
History of Present Illness History of present illness: Patient is a 62-year-old diabetic male patient is known to me from the past from the wound clinic patient has a callus on the plantar aspect of the right foot some redness and pain and tenderness noted ask her foot shows no fractures. Patient also has history of diarrhea no history of vomiting his white cell count is 13.2 Medical history patient has history of diabetes and has some a Patient was seen in his room neck is supple Chest is clear good entry both lungs first and second sound present Abdomen soft nontender Femorals are 1+ bilateral right foot patient has a callus some tenderness and redness noted Plan is debridement and deep culture Past Medical History Past Medical History: Asthma, Diabetes Mellitus Additional Past Medical History / Comment(s): WAS GOING TO [facility] EVERY SUNDAY-LT GREAT TOE INFECTION COMPLETED VISITS, CONSTIPATION.HEMORRHOIDS, 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 Year Discovered:: 03/24/19 MDRO Source:: blood and foot Past Surgical History: Appendectomy, Heart Catheterization, Hernia Repair, Orthopedic Surgery Additional Past Surgical History / Comment(s): RT ROATATOR CUFF SX, RT INGUINAL HERNIA,UMB HERNIA REPAIR Past Anesthesia/Blood Transfusion Reactions: No Reported Reaction Past Psychological History: No Psychological Hx Reported Smoking Status: Never smoker Past Alcohol Use History: None Reported Past Drug Use History: None Reported - Past Family History Father Family Medical History: Hypertension Mother Family Medical History: Asthma, COPD Medications and Allergies Home Medications Medication Instructions Recorded Confirmed Type Cetirizine HCl 10 mg PO DAILY 09/01/16 07/24/22 History HYDROcodone/APAP 10-325MG [[place] 1 tab PO QID 09/02/20 07/24/22 History 10-325] Magnesium Hydroxide [Milk of 2,400 mg PO DAILY PRN 09/02/20 07/24/22 History Magnesia] lisinopriL 20 mg PO HS 09/02/20 07/24/22 History metFORMIN HCL [Glucophage] 1,000 mg PO BID 09/02/20 07/24/22 History polyethylene glycoL 3350 [Miralax] 17 gm PO DAILY 09/02/20 07/24/22 History traMADol HCl [Ultram] 100 mg PO TID 09/02/20 07/24/22 History Albuterol Sulfate [Ventolin HFA] 1 - 2 puff INHALATION RT-Q6H PRN 07/24/22 07/24/22 History Clotrimazole/Betameth Cream 1 applic TOPICAL BID PRN 07/24/22 07/24/22 History [Lotrisone] Insulin Aspart [NovoLOG Flexpen] 16 units SQ AC-TID 07/24/22 07/24/22 History Insulin Glargine,Hum.rec.anlog 35 units SQ BID 07/24/22 07/24/22 History [Lantus Solostar Pen] Nystatin 100,000 Unit/gm Powd 1 applic TOPICAL BID PRN 07/24/22 07/24/22 History [Mycostatin Powder] Allergies Allergy/AdvReac Type Severity Reaction Status Date / Time gabapentin Allergy Swelling Verified 07/24/22 16:15 hydromorphone [From Dilaudid] Allergy Unknown Verified 07/24/22 16:15 ciprofloxacin [From Cipro] AdvReac Confusion, Verified 07/24/22 16:15 Dizziness sulfamethoxazole AdvReac Nausea & Verified 07/24/22 16:15 [From Bactrim] Vomiting trimethoprim [From Bactrim] AdvReac Nausea & Verified 07/24/22 16:15 Vomiting Surgical - Exam Vital Signs Temp Pulse Resp BP Pulse Ox 98.8 F 82 22 155/84 99 07/24/22 13:18 07/24/22 13:18 07/24/22 13:18 07/24/22 13:18 07/24/22 13:18 Results - Labs 07/24/22 15:50 07/25/22 05:06 Abnormal Lab Results - Last 24 Hours (Table) 07/24/22 07/24/22 07/24/22 Range/Units 15:50 15:50 15:50 WBC 13.7 H (3.8-10.6) k/uL Hgb 12.7 L (13.0-17.5) gm/dL Neutrophils # 9.6 H (1.3-7.7) k/uL Eosinophils # 1.3 H (0-0.7) k/uL Glucose 227 H (74-99) mg/dL POC Glucose (mg/dL) (70-110) mg/dL Amylase <30 L (30-110) U/L Urine Protein Trace H (Negative) Urine Glucose (UA) 2+ H (Negative) Ur Leukocyte Esterase Trace H (Negative) Urine Mucus Rare H (None) /hpf 07/24/22 07/24/22 Range/Units 20:49 22:17 WBC (3.8-10.6) k/uL Hgb (13.0-17.5) gm/dL Neutrophils # (1.3-7.7) k/uL Eosinophils # (0-0.7) k/uL Glucose (74-99) mg/dL POC Glucose (mg/dL) 207 H 265 H (70-110) mg/dL Amylase (30-110) U/L Urine Protein (Negative) Urine Glucose (UA) (Negative) Ur Leukocyte Esterase (Negative) Urine Mucus (None) /hpf Diabetes panel 07/24/22 07/25/22 Range/Units 15:50 05:06 Sodium 137 (137-145) mmol/L Potassium 4.5 (3.5-5.1) mmol/L Chloride 105 (98-107) mmol/L Carbon Dioxide 23 (22-30) mmol/L BUN 9 (9-20) mg/dL Creatinine 0.66 0.8 (0.66-1.25) mg/dL Glucose 227 H (74-99) mg/dL Calcium 8.8 (8.4-10.2) mg/dL AST 26 (17-59) U/L ALT 32 (4-49) U/L Alkaline Phosphatase 71 (38-126) U/L Total Protein 7.1 (6.3-8.2) g/dL Albumin 4.1 (3.5-5.0) g/dL Calcium panel 07/24/22 Range/Units 15:50 Calcium 8.8 (8.4-10.2) mg/dL Albumin 4.1 (3.5-5.0) g/dL Pituitary panel 07/24/22 07/25/22 Range/Units 15:50 05:06 Sodium 137 (137-145) mmol/L Potassium 4.5 (3.5-5.1) mmol/L Chloride 105 (98-107) mmol/L Carbon Dioxide 23 (22-30) mmol/L BUN 9 (9-20) mg/dL Creatinine 0.66 0.8 (0.66-1.25) mg/dL Glucose 227 H (74-99) mg/dL Calcium 8.8 (8.4-10.2) mg/dL Adrenal panel 07/24/22 07/25/22 Range/Units 15:50 05:06 Sodium 137 (137-145) mmol/L Potassium 4.5 (3.5-5.1) mmol/L Chloride 105 (98-107) mmol/L Carbon Dioxide 23 (22-30) mmol/L BUN 9 (9-20) mg/dL Creatinine 0.66 0.8 (0.66-1.25) mg/dL Glucose 227 H (74-99) mg/dL Calcium 8.8 (8.4-10.2) mg/dL Total Bilirubin 0.3 (0.2-1.3) mg/dL AST 26 (17-59) U/L ALT 32 (4-49) U/L Alkaline Phosphatase 71 (38-126) U/L Total Protein 7.1 (6.3-8.2) g/dL Albumin 4.1 (3.5-5.0) g/dL
--- NOTE | 2022-07-25 15:30 | P.PCN ---
Description of Procedure: Diagnoses is infected callus right foot plantar aspect Postop measurement is 2 x 1 x 0.5 cm Procedure right foot was prepped and draped applied sterile manner 1% lidocaine for an infected using the scalpel we made elliptical incision along the callus [place] to schedule skin and fat that callus was excised which was sent for deep culture wound was irrigated with saline. Hemostasis was controlled and a medihoney gel applied to the wound pressure dressing applied patient are to the procedure well plan is change the dressing daily with medihoney gel
[2022-07-25 20:59] LABS: Glucose,Whole Blood 143 mg/dL (70-110)
--- NOTE | 2022-07-25 21:25 | P.CONS ---
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, patient is presenting to the ER complaining of lower abdominal pain and diarrhea that has b een going on for about 2 weeks now patient did not recall taking any antibiotics before his GI symptoms started patient be compatible mostly colicky sharp lower abdominal pain intensity can be 7-8 out of 10 and no radiation did have some nausea but no vomiting he did have multiple loose stools but no bloody mucus in stool patient denies any fever, and on presentation hospital the patient was afebrile and no fever has been subsequently patient did have white count of 13.7 with a left shift creatinine has been normal liver enzymes are normal, lids episode normal urine has been negative patient did have CT of abdominal pelvis that was negative for any acute intra-abdominal pathology. Patient is also complaining of callus on the plantar aspect of the right foot and apparently the patient seemed to have increasing pain swelling and redness of the right foot and also has some drainage patient pain to the foot is mostly throbbing 5-6 out of 10 and no radiation drainage has been mild, patient did have x-ray of the right foot did not show any bony abdomen is suggestive of osteomyelitis patient was started on vancomycin because of history of MRSA infection infectious disease was consulted for further management of antibiotic therapy Review of Systems Positive point has been mentioned in the HPI rest of the systems are negative Past Medical History Past Medical History: Asthma, Diabetes Mellitus Additional Past Medical History / Comment(s): WAS GOING TO [facility] [place] EVERY SUNDAY-LT GREAT TOE INFECTION COMPLETED VISITS, CONSTIPATION.HEMORRHOIDS, 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 Year Discovered:: 03/24/19 MDRO Source:: blood and foot Past Surgical History: Appendectomy, Heart Catheterization, Hernia Repair, Orthopedic Surgery Additional Past Surgical History / Comment(s): RT ROATATOR CUFF SX, RT INGUINAL HERNIA,UMB HERNIA REPAIR Past Anesthesia/Blood Transfusion Reactions: No Reported Reaction Past Psychological History: No Psychological Hx Reported Smoking Status: Never smoker Past Alcohol Use History: None Reported Past Drug Use History: None Reported - Past Family History Father Family Medical History: Hypertension Mother Family Medical History: Asthma, COPD Medications and Allergies Home Medications Medication Instructions Recorded Confirmed Type Cetirizine HCl 10 mg PO DAILY 09/01/16 07/24/22 History HYDROcodone/APAP 10-325MG [[place] 1 tab PO QID 09/02/20 07/24/22 History 10-325] Magnesium Hydroxide [Milk of 2,400 mg PO DAILY PRN 09/02/20 07/24/22 History Magnesia] lisinopriL 20 mg PO HS 09/02/20 07/24/22 History metFORMIN HCL [Glucophage] 1,000 mg PO BID 09/02/20 07/24/22 History polyethylene glycoL 3350 [Miralax] 17 gm PO DAILY 09/02/20 07/24/22 History traMADol HCl [Ultram] 100 mg PO TID 09/02/20 07/24/22 History Albuterol Sulfate [Ventolin HFA] 1 - 2 puff INHALATION RT-Q6H PRN 07/24/22 07/24/22 History Clotrimazole/Betameth Cream 1 applic TOPICAL BID PRN 07/24/22 07/24/22 History [Lotrisone] Insulin Aspart [NovoLOG Flexpen] 16 units SQ AC-TID 07/24/22 07/24/22 History Insulin Glargine,Hum.rec.anlog 35 units SQ BID 07/24/22 07/24/22 History [Lantus Solostar Pen] Nystatin 100,000 Unit/gm Powd 1 applic TOPICAL BID PRN 07/24/22 07/24/22 History [Mycostatin Powder] Acetaminophen Tab [Tylenol] 650 mg PO Q6HR PRN tab 07/28/22 Rx Amoxic-Pot Clav 875-125Mg 1 tab PO Q12HR 14 Days #28 tab 07/28/22 Rx [Augmentin 875-125] Allergies Allergy/AdvReac Type Severity Reaction Status Date / Time gabapentin Allergy Swelling Verified 07/24/22 16:15 hydromorphone [From Dilaudid] Allergy Unknown Verified 07/24/22 16:15 ciprofloxacin [From Cipro] AdvReac Confusion, Verified 07/24/22 16:15 Dizziness sulfamethoxazole AdvReac Nausea & Verified 07/24/22 16:15 [From Bactrim] Vomiting trimethoprim [From Bactrim] AdvReac Nausea & Verified 07/24/22 16:15 Vomiting Physical Exam Vitals: Vital Signs Temp Pulse Pulse Resp BP BP Pulse Ox 07/25/22 08:00 98.0 F 79 17 147/92 96 07/25/22 01:57 98.4 F 75 17 147/87 96 07/24/22 21:30 98.4 F 84 17 137/87 96 07/24/22 20:10 84 16 166/82 94 L 07/24/22 17:25 80 18 174/84 94 L 07/24/22 15:51 81 18 161/79 94 L 07/24/22 13:18 98.8 F 82 22 155/84 99 Intake and Output 07/24/22 07/25/22 07/25/22 22:59 06:59 14:59 Other: # Voids 4 1 Weight 142.882 kg GENERAL DESCRIPTION: Middle-aged male lying in bed, no distress. No tachypnea or accessory muscle of respiration use. HEENT: Shows Pallor , no scleral icterus. Oral mucous membrane is dry. No pharyngeal erythema or thrush NECK: Trachea central, no thyromegaly. LUNGS: Unlabored breathing. Clear to auscultation anteriorly. No wheeze or crackle. HEART: S1, S2, regular rate and rhythm. No loud murmur ABDOMEN: Soft, no tenderness , guarding or rigidity, no organomegaly EXTREMITIES: Right foot plantar wound at the base of first also had did have a callus with minimal swelling redness no drainage SKIN: No rash, no masses palpable. NEUROLOGICAL: The patient is awake, alert, oriented x3, mood and affect normal. Results CBC & Chem 7: 07/28/22 10:35 07/28/22 10:35 Labs: Abnormal Lab Results - Last 24 Hours (Table) 07/24/22 07/24/22 07/24/22 Range/Units 15:50 15:50 15:50 WBC 13.7 H (3.8-10.6) k/uL Hgb 12.7 L (13.0-17.5) gm/dL Neutrophils # 9.6 H (1.3-7.7) k/uL Eosinophils # 1.3 H (0-0.7) k/uL Glucose 227 H (74-99) mg/dL POC Glucose (mg/dL) (70-110) mg/dL Amylase <30 L (30-110) U/L Urine Protein Trace H (Negative) Urine Glucose (UA) 2+ H (Negative) Ur Leukocyte Esterase Trace H (Negative) Urine Mucus Rare H (None) /hpf 07/24/22 07/24/22 Range/Units 20:49 22:17 WBC (3.8-10.6) k/uL Hgb (13.0-17.5) gm/dL Neutrophils # (1.3-7.7) k/uL Eosinophils # (0-0.7) k/uL Glucose (74-99) mg/dL POC Glucose (mg/dL) 207 H 265 H (70-110) mg/dL Amylase (30-110) U/L Urine Protein (Negative) Urine Glucose (UA) (Negative) Ur Leukocyte Esterase (Negative) Urine Mucus (None) /hpf Assessment and Plan (1) Diabetic foot infection Current Visit: Yes Status: Acute Code(s): E11.628 - TYPE 2 DIABETES MELLITUS WITH OTHER SKIN COMPLICATIONS; L08.9 - LOCAL INFECTION OF THE SKIN AND SUBCUTANEOUS TISSUE, UNSP SNOMED Code(s): 669287551 Plan: 1patient with the main symptoms of abdominal pain and diarrhea for 2 weeks in this patient did have elevated white count however no fever, CT of abdominal pelvis did not show any abnormality such as colitis or an abscess we will try to obtain stool for C. diff and stool culture treatment should be symptomatic at this point. 2patient with right diabetic foot infection concerning for infected callus on the plantar aspect of the right foot patient will benefit from surgical debridement and deep culture for which vascular surgery has been consulted 3patient to continue vancomycin while awaiting further workup to be completed and monitor his kidney function closely We will follow on clinical condition and cultures to further adjust medication i f needed Thank you for this consultation will follow this patient with you Time with Patient: Greater than 30
[2022-07-25] MEDS: lisinopriL 20 MG TAB PO SCH (21:34)
--- NOTE | 2022-07-25 23:03 | P.HPIM ---
History of Present Illness H&P Date: 07/25/22 Chief Complaint: Abdominal cramps and right foot infection Patient is a 62-year-old male with a long history of diabetes type 2 insulin- dependent, asthma, history of left great toe amputation presents to ER with complaints of abdominal cramps and diarrhea for the past 1 week. Cramps are mainly in the lower abdomen. Denies any dysuria or hematuria. No nausea or vomiting. Patient also noticed increasing swelling and discharge from the right diabetic foot ulcer on the plantar aspect of the great toe and callus. Patient was on follow-up with wound care center. Patient noticed increasing swelling and pain and redness. No complaints of fever or chills. No chest pain or shortness of breath. No leg swelling palpitations. X-ray of the foot showed no evidence of acute fracture. Joint space narrowing with hypertrophic changes involving the first MTP joint with prominent soft tissue swelling. No definitive osseous erosion. Followed for underlying infection. Consider further evaluation with MRI right foot if there is concern for osteomyelitis. CT of the abdomen pelvis showed no definitive acute abdominal process to explain the patient's lower abdominal pain. Hepatic steatosis. Cholelithiasis. Right renal cyst with thin calcified reparations measuring up to 5 cm. Soft tissue is identified near the umbilicus which is not of doubtful significance. Consider ultrasound imaging as clinically warranted. Laboratory data showed WBC 13.7 hemoglobin 12.7 and platelets 244 sodium 137 potassium 4.5 chloride 105 bicarb is 23 BUN 9 and creatinine 0.66 and blood sugar is 227 liver enzymes are not elevated Urinalysis showed 2+ glucose trace protein and trace leukocyte esterase. Review of Systems Constitutional: Patient denies any fever or chills . no Generalized weakness. Abdomen: Patient does complain of cramping abdominal pain and diarrhea. No nausea or vomiting. Cardiovascular: Patient denies any chest pain or short of breath no palpitations. Respiratory: patient denied any cough . no sputum production. No shortness of breath Neurologic: Patient denied any numbness or tingling headache. Musculoskeletal: Patient denies any complaints of joint swelling or deformity. Right foot infection. Skin: Negative Psychiatric: Negative Endocrine: No heat or cold intolerance. No recent weight gain. Genitourinary: No dysuria or hematuria. All other 14 point ROS negative except the above Past Medical History Past Medical History: Asthma, Diabetes Mellitus Additional Past Medical History / Comment(s): WAS GOING TO [facility] EVERY SUNDAY-LT GREAT TOE INFECTION COMPLETED VISITS, CONSTIPATION.HEMORRHOIDS, 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 Date of last positivie culture/infection: 03/24/19 MDRO Source:: blood and foot Past Surgical History: Appendectomy, Heart Catheterization, Hernia Repair, Orthopedic Surgery Additional Past Surgical History / Comment(s): RT ROATATOR CUFF SX, RT INGUINAL HERNIA,UMB HERNIA REPAIR Past Anesthesia/Blood Transfusion Reactions: No Reported Reaction Past Psychological History: No Psychological Hx Reported Smoking Status: Never smoker Past Alcohol Use History: None Reported Past Drug Use History: None Reported - Past Family History Father Family Medical History: Hypertension Mother Family Medical History: Asthma, COPD Medications and Allergies Home Medications Medication Instructions Recorded Confirmed Type Cetirizine HCl 10 mg PO DAILY 09/01/16 07/24/22 History HYDROcodone/APAP 10-325MG [[place] 1 tab PO QID 09/02/20 07/24/22 History 10-325] Magnesium Hydroxide [Milk of 2,400 mg PO DAILY PRN 09/02/20 07/24/22 History Magnesia] lisinopriL 20 mg PO HS 09/02/20 07/24/22 History metFORMIN HCL [Glucophage] 1,000 mg PO BID 09/02/20 07/24/22 History polyethylene glycoL 3350 [Miralax] 17 gm PO DAILY 09/02/20 07/24/22 History traMADol HCl [Ultram] 100 mg PO TID 09/02/20 07/24/22 History Albuterol Sulfate [Ventolin HFA] 1 - 2 puff INHALATION RT-Q6H PRN 07/24/22 07/24/22 History Clotrimazole/Betameth Cream 1 applic TOPICAL BID PRN 07/24/22 07/24/22 History [Lotrisone] Insulin Aspart [NovoLOG Flexpen] 16 units SQ AC-TID 07/24/22 07/24/22 History Insulin Glargine,Hum.rec.anlog 35 units SQ BID 07/24/22 07/24/22 History [Lantus Solostar Pen] Nystatin 100,000 Unit/gm Powd 1 applic TOPICAL BID PRN 07/24/22 07/24/22 History [Mycostatin Powder] Allergies Allergy/AdvReac Type Severity Reaction Status Date / Time gabapentin Allergy Swelling Verified 07/24/22 16:15 hydromorphone [From Dilaudid] Allergy Unknown Verified 07/24/22 16:15 ciprofloxacin [From Cipro] AdvReac Confusion, Verified 07/24/22 16:15 Dizziness sulfamethoxazole AdvReac Nausea & Verified 07/24/22 16:15 [From Bactrim] Vomiting trimethoprim [From Bactrim] AdvReac Nausea & Verified 07/24/22 16:15 Vomiting Physical Exam Vitals: Vital Signs Temp Pulse Pulse Resp BP BP Pulse Ox 07/25/22 13:04 97.7 F 76 18 155/89 96 07/25/22 08:00 98.0 F 79 17 147/92 96 07/25/22 01:57 98.4 F 75 17 147/87 96 07/24/22 21:30 98.4 F 84 17 137/87 96 07/24/22 20:10 84 16 166/82 94 L 07/24/22 17:25 80 18 174/84 94 L 07/24/22 15:51 81 18 161/79 94 L Intake and Output 07/25/22 07/25/22 07/25/22 06:59 14:59 22:59 Other: # Voids 4 1 PHYSICAL EXAMINATION: Patient is lying in the bed comfortably, no acute distress, awake alert and oriented.. HEENT: Normocephalic. Neck is supple. Pupils reactive. Nostrils clear. Oral cavity is moist. Obese. Neck reveals no JVD, carotid bruits, or thyromegaly. CHEST EXAMINATION: Trachea is central. Symmetrical expansion. Lung ortiz clear to auscultation and percussion. CARDIAC: Normal S1, S2 with no gallops. No murmurs ABDOMEN: Soft. Bowel sounds present. Nontender. No organomegaly. No abdominal bruits. Extremities: reveal no edema. Right foot wound and callus on the plantar surface of the great toe with no purulent discharge. Swelling and tenderness present. No clubbing or cyanosis Neurologically awake, alert, oriented x3 with well-coordinated movements. No focal deficits noted Skin: No rash or skin lesions. Psychiatric: Coperative. Nonsuicidal, Musculoskeletal: No joint swelling or deformity. Normal range of motion. Results CBC & Chem 7: 07/26/22 10:24 07/26/22 10:24 Labs: Abnormal Lab Results - Last 24 Hours (Table) 07/24/22 07/24/22 07/24/22 Range/Units 15:50 15:50 15:50 WBC 13.7 H (3.8-10.6) k/uL Hgb 12.7 L (13.0-17.5) gm/dL Neutrophils # 9.6 H (1.3-7.7) k/uL Eosinophils # 1.3 H (0-0.7) k/uL Glucose 227 H (74-99) mg/dL POC Glucose (mg/dL) (70-110) mg/dL Amylase <30 L (30-110) U/L Urine Protein Trace H (Negative) Urine Glucose (UA) 2+ H (Negative) Ur Leukocyte Esterase Trace H (Negative) Urine Mucus Rare H (None) /hpf 07/24/22 07/24/22 Range/Units 20:49 22:17 WBC (3.8-10.6) k/uL Hgb (13.0-17.5) gm/dL Neutrophils # (1.3-7.7) k/uL Eosinophils # (0-0.7) k/uL Glucose (74-99) mg/dL POC Glucose (mg/dL) 207 H 265 H (70-110) mg/dL Amylase (30-110) U/L Urine Protein (Negative) Urine Glucose (UA) (Negative) Ur Leukocyte Esterase (Negative) Urine Mucus (None) /hpf Thrombosis Risk Factor Assmnt - DVT/VTE Prophylaxis DVT/VTE Prophylaxis: Pharmacologic Prophylaxis ordered - Choose All That Apply Any of the Below Risk Factors Present?: Yes Each Factor Represents 1 point: Obesity (BMI >25) Each Risk Factor Represents 2 Points: Age 61-74 years Other congenital or acquired thrombophilia - If yes, enter type in comment: No Thrombosis Risk Factor Assessment Total Risk Factor Score: 3 Thrombosis Risk Factor Assessment Level: Moderate Risk Assessment and Plan Assessment: Right diabetic foot wound infection. Concern for infected callus on the plantar aspect. Vascular surgery is planning for I&D today. Diarrhea and lower abdominal cramps. CT of the abdomen pelvis showed no evidence of acute process. Diabetes type 2 insulin-dependent with hyperglycemia Asthma History of left great toe amputation Morbid obesity BMI 43.9 Chronic pain and is on pain clinic follow-up DVT prophylaxis with heparin subcu Plan: Patient will be continued on antibiotics , IV vancomycin. C. difficile toxin will be sent to the patient continues to have diarrhea. Currently abdominal pain is improved now. Continue with pain management with [place] 10. Vascular surgery and ID is on board Vascular surgery is planning for I&D and follow-up deep wound cultures. Continue with insulin sliding scale and insulin regimen for better blood sugar control. Follow-up CBC and BMP. GI and DVT prophylaxis. Time with Patient: Greater than 30
[2022-07-25] MEDS: HEPARIN SODIUM,PORCINE/PF 5,000 UNIT/0.5 ML SYRINGE SQ SCH (23:49)
[2022-07-26] MEDS: VANCOMYCIN 2,000 MG in SODIUM CHLORIDE 0.9% 500 ML 500 ML IVPB SCH ×3 (05:14→21:07)
[2022-07-26] MEDS: SODIUM CHLORIDE 0.9% 1,000 ML IV SCH ×2 (06:06→12:47)
[2022-07-26 06:28] LABS: Glucose,Whole Blood 182 mg/dL (70-110)
[2022-07-26] MEDS: INSULIN DETEMIR (LEVEMIR) 100 UNIT/ML SYR SQ SCH ×2 (08:13→21:10)
[2022-07-26] MEDS: INSULIN ASPART (NovoLOG) 100 UNIT/ML VIAL SQ SCH ×7 (08:14→21:08)
[2022-07-26] MEDS: polyethylene glycoL 3350 17 GM POWD.PACK PO SCH (08:15)
[2022-07-26] MEDS: HYDROcodone/APAP 10-325MG 1 EACH TAB PO SCH ×4 (08:16→21:04)
[2022-07-26] MEDS: traMADol 50 MG TAB PO SCH ×3 (08:16→21:05)
[2022-07-26] MEDS: metFORMIN 500 MG TAB PO SCH ×2 (08:17→17:21)
[2022-07-26] MEDS: LORATADINE 10 MG TAB PO SCH (08:17)
[2022-07-26] MEDS: HEPARIN SODIUM,PORCINE/PF 5,000 UNIT/0.5 ML SYRINGE SQ SCH ×3 (08:19→23:47)
[2022-07-26 10:49] LABS: Basophils # (A) 0.1 k/uL (0-0.2); Basophils % (A) 1 %; Eosinophils # (A) 0.7 k/uL (0-0.7); Eosinophils % (A) 8 %; HGB 11.3 gm/dL (13.0-17.5); Lymphocytes # (A) 1.4 k/uL (1.0-4.8); Lymphocytes % (A) 16 %; MCH 26.6 pg (25.0-35.0); MCHC 31.5 g/dL (31.0-37.0); MCV 84.2 fL (80.0-100.0); Mean Platelet Volume 7.5; Monocytes # (A) 0.5 k/uL (0-1.0); Monocytes % (A) 6 %; Neutrophils # (A) 5.7 k/uL (1.3-7.7); Neutrophils % (A) 66 %; Platelet Count 218 k/uL (150-450); RBC 4.27 m/uL (4.30-5.90); RDW 13.7 % (11.5-15.5); WBC 8.6 k/uL (3.8-10.6)
[2022-07-26] MEDS: LACTULOSE 20 GM/30 ML CUP PO PRN (10:57)
[2022-07-26] MEDS ORDERED: VANCOMYCIN TROUGH DUE 1 EACH MISC MISCELLANE ONE (11:00)
[2022-07-26 11:37] LABS: Glucose,Whole Blood 183 mg/dL (70-110)
[2022-07-26 12:19] LABS: African American GFR (CKD) >90 (>60 ml/min/1.73 sqM); Anion Gap 8 mmol/L; Blood Urea Nitrogen 14 mg/dL (9-20); Calcium 8.9 mg/dL (8.4-10.2); Carbon Dioxide 25 mmol/L (22-30); Chloride 102 mmol/L (98-107); Glucose 234 mg/dL (74-99); Non-African American GFR(CKD) >90 (>60 ml/min/1.73 sqM); Potassium 4.5 mmol/L (3.5-5.1); Sodium 135 mmol/L (137-145)
--- NOTE | 2022-07-26 13:55 | P.PN ---
Subjective Progress Note Date: 07/26/22 Patient is a 62-year-old male with a long history of diabetes type 2 insulin- dependent, asthma, history of left great toe amputation presents to ER with complaints of abdominal cramps and diarrhea for the past 1 week. Cramps are mainly in the lower abdomen. Denies any dysuria or hematuria. No nausea or vomiting. Patient also noticed increasing swelling and discharge from the right diabetic foot ulcer on the plantar aspect of the great toe and callus. Patient was on follow-up with wound care center. Patient noticed increasing swelling and pain and redness. No complaints of fever or chills. No chest pain or shortness of breath. No leg swelling palpitations. X-ray of the foot showed no evidence of acute fracture. Joint space narrowing with hypertrophic changes involving the first MTP joint with prominent soft tissue swelling. No definitive osseous erosion. Followed for underlying infect ion. Consider further evaluation with MRI right foot if there is concern for osteomyelitis. CT of the abdomen pelvis showed no definitive acute abdominal process to explain the patient's lower abdominal pain. Hepatic steatosis. Cholelithiasis. Right renal cyst with thin calcified reparations measuring up to 5 cm. Soft tissue is identified near the umbilicus which is not of doubtful significance. Consider ultrasound imaging as clinically warranted. Laboratory data showed WBC 13.7 hemoglobin 12.7 and platelets 244 sodium 137 potassium 4.5 chloride 105 bicarb is 23 BUN 9 and creatinine 0.66 and blood sugar is 227 liver enzymes are not elevated Urinalysis showed 2+ glucose trace protein and trace leukocyte esterase. 07/26/2022 Patient is seen and evaluated in follow-up this morning being followed by infectious disease along with vascular surgery. Patient is status post excisional debridement of the right plantar aspect of the foot vascular surgery yesterday. Deep tissue cultures were also obtained and currently pending. Dr. Quintero to follow-up today for post surgical dressing change and evaluation. Patient is maintained on medihoney and local wound care and also continued on IV vancomycin with infectious disease following awaiting for finalized cultures. Patient reports he has had MRSA requiring PICC line and IV antibiotics outpatient. Patient hoping for oral antibiotics on discharge. Recommend continue monitoring blood sugars closely and continue current regimen. Encouraged to increase activity as tolerated and elevating lower extremities while at rest. Patient denies chest pain or shortness of breath and reports tolerating diet with no reports of nausea or vomiting noted. Patient is afebrile. Today's labs reveal a WBC of 8.6, hemoglobin is 11.3, platelets 218, sodium is 135 with a potassium of 4.5 and current creatinine is 0.83. Blood sugars are fairly controlled on current regimen and will continue. Blood cultures thus far remain negative and will await finalized cultures. Review of systems: Constitutional: No reports of fatigue, fever, or chills Cardiovascular: No reports of chest pain or palpitations Respiratory: No reports of shortness of breath or cough GI: No reports of nausea, vomiting, or diarrhea : No reports of dysuria or retention Neurovascular: No reports of weakness or numbness, reports some right foot discomfort although managed on current regimen All medications have been reviewed Active Medications Acetaminophen (Acetaminophen Tab 325 Mg Tab) 650 mg PO Q6HR PRN PRN Reason: Mild Pain or Fever > 100.5 Hydrocodone Bitart/Acetaminophen (Hydrocodone/Apap 5-325mg 1 Each Tab) 1 each PO Q4HR PRN PRN Reason: Moderate Pain (Scale 4 to 6) Hydrocodone Bitart/Acetaminophen (Hydrocodone/Apap 10-325mg 1 Each Tab) 1 each PO QID [facility] Last Admin: 07/26/22 08:16 Dose: 1 each Betamethasone/Clotrimazole (Clotrimazole/Betameth 1-0.05% Cream 45 Gm Tube) 1 applic TOPICAL BID PRN; Protocol PRN Reason: Rash Calcium Carbonate/Glycine (Calcium Carbonate 500 Mg Chewable) 1,000 mg PO Q4HR PRN PRN Reason: Dyspepsia Dextrose/Water (Dextrose 50% Syringe 50 Ml) 25 ml IVP PER PROTOCOL PRN; Protoc ol PRN Reason: Hypoglycemia Dextrose/Water (Dextrose 50% Syringe 50 Ml) 50 ml IVP PER PROTOCOL PRN; Protocol PRN Reason: Hypoglycemia Heparin Sodium (Porcine) (Heparin Sodium,Porcine/Pf 5,000 Unit/0.5 Ml Syringe) 5,000 unit SQ Q8HR [facility] Last Admin: 07/26/22 08:19 Dose: Not Given Vancomycin HCl 2,000 mg/ (Sodium Chloride) 500 mls @ 167 mls/hr IVPB Q8H [facility] Last Admin: 07/26/22 05:14 Dose: 167 mls/hr Sodium Chloride (Saline 0.9%) 1,000 mls @ 75 mls/hr IV .[id number] [facility] Last Admin: 07/26/22 06:06 Dose: Not Given Ibuprofen (Ibuprofen 400 Mg Tab) 400 mg PO Q6HR PRN PRN Reason: Mild Pain or Fever > 100.5 Insulin Aspart (Insulin Aspart (Novolog) 100 Unit/Ml Vial) 10 unit SQ AC-TID [facility] Last Admin: 07/26/22 08:14 Dose: 10 unit Insulin Aspart (Insulin Aspart (Novolog) 100 Unit/Ml Vial) 0 unit SQ ACHS [facility]; Protocol Last Admin: 07/26/22 08:14 Dose: Not Given Insulin Detemir (Insulin Detemir (Levemir) 100 Unit/Ml Syr) 28 unit SQ BID [facility] Last Admin: 07/26/22 08:13 Dose: 28 unit Lactulose (Lactulose 20 Gm/30 Ml Cup) 20 gm PO DAILY PRN PRN Reason: Constipation Lisinopril (Lisinopril 20 Mg Tab) 20 mg PO HS [facility] Last Admin: 07/25/22 21:34 Dose: 20 mg Loratadine (Loratadine 10 Mg Tab) 10 mg PO DAILY [facility] Last Admin: 07/26/22 08:17 Dose: 10 mg Melatonin (Melatonin 3 Mg Tablet) 3 mg PO HS PRN PRN Reason: Insomnia Last Admin: 07/24/22 22:18 Dose: 3 mg Metformin HCl (Metformin 500 Mg Tab) 1,000 mg PO BID-W/MEALS [facility] Last Admin: 07/26/22 08:17 Dose: 1,000 mg Miscellaneous Information (Vancomycin Trough Due 1 Each Misc) 0 each MISCELLANE DIRECTED ONE Stop: 07/26/22 11:01 Morphine Sulfate (Morphine Sulfate 4 Mg/Ml Syringe) 4 mg IV Q4HR PRN PRN Reason: Severe Pain (Scale 7 to 10) Naloxone HCl (Naloxone 0.4 Mg/Ml 1 Ml Vial) 0.2 mg IV Q2M PRN PRN Reason: Opioid Reversal Nystatin (Nystatin 100,000 Unit/Gm Powd 15 Gm) 1 applic TOPICAL BID PRN; Protocol PRN Reason: Rash Ondansetron HCl (Ondansetron 4 Mg/2 Ml Vial) 4 mg IVP Q8HR PRN PRN Reason: Nausea And Vomiting Polyethylene Glycol (Polyethylene Glycol 3350 17 Gm Powd.Pack) 17 gm PO DAILY [facility] Last Admin: 07/26/22 08:15 Dose: 17 gm Tramadol HCl (Tramadol 50 Mg Tab) 100 mg PO TID [facility] Last Admin: 07/26/22 08:16 Dose: 100 mg Physical exam: Gen: This is a pleasant 62-year-old male who is awake, alert and oriented 3, well-developed, well-nourished, morbidly obese HEENT: Head is atraumatic, normocephalic. Pupils equal, round. Sclerae is anicteric. NECK: Supple. No JVD. No lymphadenopathy. No thyromegaly. LUNGS: Clear to auscultation. No wheezes or rhonchi. No intercostal retractions. HEART: Regular rate and rhythm. No murmur. ABDOMEN: Soft. Obese. Bowel sounds are present. No masses. No tenderness. EXTREMITIES: No pedal edema. No calf tenderness. Right foot status post debridement with surgical dressings dry and intact NEUROLOGICAL: Patient is awake, alert and oriented x3. Cranial nerves 2 through 12 are grossly intact. Assessment: Right diabetic foot wound infection. Concern for infected callus on the plantar aspect. Status post excisional I&D with deep tissue cultures obtained on 07/25/2022 Diarrhea and lower abdominal cramps. CT of the abdomen pelvis showed no evidence of acute process. Resolved Diabetes type 2 insulin-dependent, uncontrolled with hyperglycemia Asthma, not in exacerbation History of left great toe amputation Morbid obesity BMI 43.9 Chronic pain and is on pain clinic follow-up DVT prophylaxis with heparin subcu GI prophylaxis DVT prophylaxis Plan: Patient will be continued on antibiotics , IV vancomycin. C. difficile toxin pending at this time as patient did have diarrhea although now constipated and is being given lactulose as needed. Patient reports to feeling bloated elbow is passing gas. Currently abdominal pain is improved now. Continue with pain management with [place] 10. Vascular surgery and ID following status post incision and drainage with deep tissue cultures obtained currently pending. ID following with vancomycin recommending awaiting finalized cultures to determine discharge antibiotics. Patient does have past medical history of MRSA which required IV antibiotics and patient is hopeful for oral and returning home. Vascular surgery Dr. Quintero to follow-up today and change out dressings and evaluate. Continue with insulin sliding scale and insulin regimen for better blood sugar control. GI and DVT prophylaxis. Due to multiple complex medical issues, prognosis is guarded The impression and plan of care has been dictated by Ling Mabry, Nurse Practitioner as directed. Dr. Hector MD I have performed a history and examination and MDM of this patient, discussed the same with the dictator, and agree with the dictator's assessment and plan as written ,documented as a scribe. Based on total visit time, I have performed more than 50% of the visit. Objective - Vital Signs Vital signs: Vital Signs Temp 98.5 F 07/26/22 06:55 Pulse 66 07/26/22 06:55 Resp 16 07/26/22 06:55 BP 120/68 07/26/22 06:55 Pulse Ox 96 07/26/22 06:55 FiO2 Intake & Output 07/25/22 07/26/22 07/26/22 18:59 06:59 18:59 Intake Total 360 1580 Balance 360 1580 Intake: Intake, IV Titration 860 Amount Sodium Chloride 0.9% 1, 360 000 ml @ 75 mls/hr IV . [id number] [facility] Rx#:[id number] Vancomycin 2,000 mg In 500 Sodium Chloride 0.9% 500 ml 500 ml @ 167 mls/hr IVPB Q8H [facility] Rx#: [id number] Oral 360 720 Other: # Voids 1 2 - Labs CBC & Chem 7: 07/26/22 10:24 07/26/22 10:24 Labs: Abnormal Lab Results - Last 24 Hours (Table) 07/25/22 07/26/22 Range/Units 20:58 06:27 POC Glucose (mg/dL) 143 H 182 H (70-110) mg/dL Microbiology - Last 24 Hours (Table) 07/25/22 15:12 Tissue Culture - Preliminary Foot - Right 07/25/22 15:12 Anaerobic Culture - Preliminary Foot - Right 07/24/22 20:06 Blood Culture - Preliminary Blood No Growth after 24 hours
--- NOTE | 2022-07-26 16:45 | P.PN ---
Subjective Progress Note Date: 07/26/22 Principal diagnosis: Right diabetic foot infection Patient is a 62 year old male with a past medical history significant for diabetes mellitus, previous history of herpetic infection presented to hospital with abdominal pain and diarrhea, the patient CT of abdominal pelvis Negative, patient also have a right foot infected callus status post debridement by vascular surgery 07/25/2022. On today's evaluation that is 07/26/2022, patient denies having any fever or any chills, patient denies having any chest pain shortness breath or cough no abdominal pain and improve did not have any bowel movement, denies any worsening pain to the right foot Objective - Vital Signs Vital signs: Vital Signs Temp 98.5 F 07/26/22 06:55 Pulse 66 07/26/22 06:55 Resp 16 07/26/22 06:55 BP 120/68 07/26/22 06:55 Pulse Ox 96 07/26/22 06:55 FiO2 Intake & Output 07/25/22 07/26/22 07/26/22 18:59 06:59 18:59 Intake Total 360 1580 Balance 360 1580 Intake: Intake, IV Titration 860 Amount Sodium Chloride 0.9% 1, 360 000 ml @ 75 mls/hr IV . [id number] [facility] Rx#:[id number] Vancomycin 2,000 mg In 500 Sodium Chloride 0.9% 500 ml 500 ml @ 167 mls/hr IVPB Q8H [facility] Rx#: [id number] Oral 360 720 Other: # Voids 1 2 - Exam GENERAL DESCRIPTION: Middle-aged male lying in bed in no distress RESPIRATORY SYSTEM: Unlabored breathing , decreased breath sounds at bases HEART: S1 S2 regular rate and rhythm , ABDOMEN: Soft , no tenderness EXTREMITIES: Right foot is currently dressed - Labs CBC & Chem 7: 07/26/22 10:24 07/26/22 10:24 Labs: Abnormal Lab Results - Last 24 Hours (Table) 07/25/22 07/26/22 07/26/22 Range/Units 20:58 06:27 10:24 RBC 4.27 L (4.30-5.90) m/uL Hgb 11.3 L (13.0-17.5) gm/dL Hct 36.0 L (39.0-53.0) % POC Glucose (mg/dL) 143 H 182 H (70-110) mg/dL Microbiology - Last 24 Hours (Table) 07/25/22 15:12 Tissue Culture - Preliminary Foot - Right 07/25/22 15:12 Anaerobic Culture - Preliminary Foot - Right 07/24/22 20:06 Blood Culture - Preliminary Blood No Growth after 24 hours Assessment and Plan (1) Diabetic foot infection Current Visit: Yes Status: Acute Code(s): E11.628 - TYPE 2 DIABETES MELLITUS WITH OTHER SKIN COMPLICATIONS; L08.9 - LOCAL INFECTION OF THE SKIN AND GONZÁLES BCUTANEOUS TISSUE, UNSP SNOMED Code(s): 464030721 Plan: 1patient with the main symptoms of abdominal pain and diarrhea for 2 weeks in this patient did have elevated white count however no fever, CT of abdominal pelvis did not show any abnormality such as colitis or an abscess we will try to obtain stool for C. diff and stool culture treatment should be symptomatic at this point. 2patient with right diabetic foot infection concerning for infected callus on the plantar aspect of the right foot patient, patient is status post surgical debridement and deep culture which are currently pending 3patient to continue vancomycin while waiting for cultures to finalize and monitor his kidney function closely Time with Patient: Less than 30
[2022-07-26 16:47] LABS: Glucose,Whole Blood 153 mg/dL (70-110)
--- NOTE | 2022-07-26 18:45 | P.PN ---
Progress Note - Text Patient came with infected callus plantar suspect the foot debridement culture report is pending we'll be changing the dressing today with the medihoney gel continue with local wound care using medihoney gel
[2022-07-26] MEDS: lisinopriL 20 MG TAB PO SCH (21:06)
[2022-07-26 21:09] LABS: Glucose,Whole Blood 125 mg/dL (70-110)
[2022-07-27] MEDS: VANCOMYCIN 2,000 MG in SODIUM CHLORIDE 0.9% 500 ML 500 ML IVPB SCH ×3 (03:43→22:05)
[2022-07-27 06:29] LABS: Glucose,Whole Blood 224 mg/dL (70-110)
[2022-07-27] MEDS: INSULIN ASPART (NovoLOG) 100 UNIT/ML VIAL SQ SCH ×7 (07:01→22:04)
[2022-07-27] MEDS: PANTOPRAZOLE 40 MG TABLET PO SCH (07:52)
[2022-07-27] MEDS: HEPARIN SODIUM,PORCINE/PF 5,000 UNIT/0.5 ML SYRINGE SQ SCH ×2 (07:53→16:09)
[2022-07-27] MEDS: LORATADINE 10 MG TAB PO SCH (08:01)
[2022-07-27] MEDS: metFORMIN 500 MG TAB PO SCH ×2 (08:01→17:03)
[2022-07-27] MEDS: polyethylene glycoL 3350 17 GM POWD.PACK PO SCH (08:01)
[2022-07-27] MEDS: traMADol 50 MG TAB PO SCH ×3 (08:02→22:03)
[2022-07-27] MEDS: HYDROcodone/APAP 10-325MG 1 EACH TAB PO SCH ×4 (08:03→22:03)
[2022-07-27] MEDS: INSULIN DETEMIR (LEVEMIR) 100 UNIT/ML SYR SQ SCH ×2 (08:06→22:04)
[2022-07-27] MEDS: SODIUM CHLORIDE 0.9% 1,000 ML IV SCH (10:33)
[2022-07-27 11:34] LABS: Glucose,Whole Blood 95 mg/dL (70-110)
--- NOTE | 2022-07-27 13:54 | P.PN ---
Subjective Progress Note Date: 07/27/22 Patient is a 62-year-old male with a long history of diabetes type 2 insulin- dependent, asthma, history of left great toe amputation presents to ER with complaints of abdominal cramps and diarrhea for the past 1 week. Cramps are mainly in the lower abdomen. Denies any dysuria or hematuria. No nausea or vomiting. Patient also noticed increasing swelling and discharge from the right diabetic foot ulcer on the plantar aspect of the great toe and callus. Patient was on follow-up with wound care center. Patient noticed increasing swelling and pain and redness. No complaints of fever or chills. No chest pain or shortness of breath. No leg swelling palpitations. X-ray of the foot showed no evidence of acute fracture. Joint space narrowing with hypertrophic changes involving the first MTP joint with prominent soft tissue swelling. No definitive osseous erosion. Followed for underlying infect ion. Consider further evaluation with MRI right foot if there is concern for osteomyelitis. CT of the abdomen pelvis showed no definitive acute abdominal process to explain the patient's lower abdominal pain. Hepatic steatosis. Cholelithiasis. Right renal cyst with thin calcified reparations measuring up to 5 cm. Soft tissue is identified near the umbilicus which is not of doubtful significance. Consider ultrasound imaging as clinically warranted. Laboratory data showed WBC 13.7 hemoglobin 12.7 and platelets 244 sodium 137 potassium 4.5 chloride 105 bicarb is 23 BUN 9 and creatinine 0.66 and blood sugar is 227 liver enzymes are not elevated Urinalysis showed 2+ glucose trace protein and trace leukocyte esterase. 07/26/2022 Patient is seen and evaluated in follow-up this morning being followed by infectious disease along with vascular surgery. Patient is status post excisional debridement of the right plantar aspect of the foot vascular surgery yesterday. Deep tissue cultures were also obtained and currently pending. Dr. Quintero to follow-up today for post surgical dressing change and evaluation. Patient is maintained on medihoney and local wound care and also continued on IV vancomycin with infectious disease following awaiting for finalized cultures. Patient reports he has had MRSA requiring PICC line and IV antibiotics outpatient. Patient hoping for oral antibiotics on discharge. Recommend continue monitoring blood sugars closely and continue current regimen. Encouraged to increase activity as tolerated and elevating lower extremities while at rest. Patient denies chest pain or shortness of breath and reports tolerating diet with no reports of nausea or vomiting noted. Patient is afebrile. Today's labs reveal a WBC of 8.6, hemoglobin is 11.3, platelets 218, sodium is 135 with a potassium of 4.5 and current creatinine is 0.83. Blood sugars are fairly controlled on current regimen and will continue. Blood cultures thus far remain negative and will await finalized cultures. 07/27/2022 Patient is seen and evaluated in follow-up this morning currently sitting up at the site of the bed. Reports his pain is controlled on current regimen and does report he follows with pain management in the outpatient setting. Patient is continued on IV vancomycin with infectious disease along with vascular surgery following status post debridement awaiting on finalized cultures. Pending cultures at this time. Patient to continue with local wound care and dressings were changed by vascular surgery yesterday. Patient does have some minimal swelling of the right foot and encourage the patient to elevate while at rest. Encouraged increased activity as tolerated. Patient currently denies chest pain or shortness of breath. No reports of nausea or vomiting and tolerating diet. Recommend close monitoring of Accu-Cheks before meals and at bedtime and will continue current diabetic regimen. Will discuss further with infectious disease about discharge planning once cultures are available. Review of systems: Constitutional: No reports of fatigue, fever, or chills Cardiovascular: No reports of chest pain or palpitations Respiratory: No reports of shortness of breath or cough GI: No reports of nausea, vomiting, or diarrhea : No reports of dysuria or retention Neurovascular: No reports of weakness or numbness, reports some right foot d iscomfort although managed on current regimen All medications have been reviewed Active Medications Acetaminophen (Acetaminophen Tab 325 Mg Tab) 650 mg PO Q6HR PRN PRN Reason: Mild Pain or Fever > 100.5 Hydrocodone Bitart/Acetaminophen (Hydrocodone/Apap 5-325mg 1 Each Tab) 1 each PO Q4HR PRN PRN Reason: Moderate Pain (Scale 4 to 6) Last Admin: 07/27/22 04:27 Dose: 1 each Hydrocodone Bitart/Acetaminophen (Hydrocodone/Apap 10-325mg 1 Each Tab) 1 each PO QID [place] Last Admin: 07/27/22 11:57 Dose: 1 each Betamethasone/Clotrimazole (Clotrimazole/Betameth 1-0.05% Cream 45 Gm Tube) 1 applic TOPICAL BID PRN; Protocol PRN Reason: Rash Last Admin: 07/26/22 18:37 Dose: 1 applic Calcium Carbonate/Glycine (Calcium Carbonate 500 Mg Chewable) 1,000 mg PO Q4HR PRN PRN Reason: Dyspepsia Dextrose/Water (Dextrose 50% Syringe 50 Ml) 25 ml IVP PER PROTOCOL PRN; Protocol PRN Reason: Hypoglycemia Dextrose/Water (Dextrose 50% Syringe 50 Ml) 50 ml IVP PER PROTOCOL PRN; Protocol PRN Reason: Hypoglycemia Heparin Sodium (Porcine) (Heparin Sodium,Porcine/Pf 5,000 Unit/0.5 Ml Syringe) 5,000 unit SQ Q8HR [facility] Last Admin: 07/27/22 07:53 Dose: Not Given Vancomycin HCl 2,000 mg/ (Sodium Chloride) 500 mls @ 167 mls/hr IVPB Q8H [facility] Last Admin: 07/27/22 11:56 Dose: 167 mls/hr Ibuprofen (Ibuprofen 400 Mg Tab) 400 mg PO Q6HR PRN PRN Reason: Mild Pain or Fever > 100.5 Insulin Aspart (Insulin Aspart (Novolog) 100 Unit/Ml Vial) 10 unit SQ AC-TID [facility] Last Admin: 07/27/22 11:57 Dose: 10 unit Insulin Aspart (Insulin Aspart (Novolog) 100 Unit/Ml Vial) 0 unit SQ ACHS [facility]; Protocol Last Admin: 07/27/22 11:40 Dose: Not Given Insulin Detemir (Insulin Detemir (Levemir) 100 Unit/Ml Syr) 28 unit SQ BID [facility] Last Admin: 07/27/22 08:06 Dose: 28 unit Lactulose (Lactulose 20 Gm/30 Ml Cup) 20 gm PO DAILY PRN PRN Reason: Constipation Last Admin: 07/26/22 10:57 Dose: 20 gm Lisinopril (Lisinopril 20 Mg Tab) 20 mg PO HS [facility] Last Admin: 07/26/22 21:06 Dose: 20 mg Loratadine (Loratadine 10 Mg Tab) 10 mg PO DAILY [facility] Last Admin: 07/27/22 08:01 Dose: 10 mg Melatonin (Melatonin 3 Mg Tablet) 3 mg PO HS PRN PRN Reason: Insomnia Last Admin: 07/24/22 22:18 Dose: 3 mg Metformin HCl (Metformin 500 Mg Tab) 1,000 mg PO BID-W/MEALS [facility] Last Admin: 07/27/22 08:01 Dose: 1,000 mg Miscellaneous Information (Vancomycin Trough Due 1 Each Misc) 0 each MISCELLANE DIRECTED ONE Stop: 07/28/22 11:01 Morphine Sulfate (Morphine Sulfate 4 Mg/Ml Syringe) 4 mg IV Q4HR PRN PRN Reason: Severe Pain (Scale 7 to 10) Naloxone HCl (Naloxone 0.4 Mg/Ml 1 Ml Vial) 0.2 mg IV Q2M PRN PRN Reason: Opioid Reversal Nystatin (Nystatin 100,000 Unit/Gm Powd 15 Gm) 1 applic TOPICAL BID PRN; Protocol PRN Reason: Rash Last Admin: 07/26/22 18:37 Dose: 1 applic Ondansetron HCl (Ondansetron 4 Mg/2 Ml Vial) 4 mg IVP Q8HR PRN PRN Reason: Nausea And Vomiting Pantoprazole Sodium (Pantoprazole 40 Mg Tablet) 40 mg PO AC-BRKFST [facility] Last Admin: 07/27/22 07:52 Dose: Not Given Polyethylene Glycol (Polyethylene Glycol 3350 17 Gm Powd.Pack) 17 gm PO DAILY [facility] Last Admin: 07/27/22 08:01 Dose: 17 gm Tramadol HCl (Tramadol 50 Mg Tab) 100 mg PO TID [facility] Last Admin: 07/27/22 08:02 Dose: 100 mg Physical exam: Gen: This is a pleasant 62-year-old male who is awake, alert and oriented 3, well-developed, well-nourished, morbidly obese HEENT: Head is atraumatic, normocephalic. Pupils equal, round. Sclerae is anicteric. NECK: Supple. No JVD. No lymphadenopathy. No thyromegaly. LUNGS: Clear to auscultation. No wheezes or rhonchi. No intercostal retractions. HEART: Regular rate and rhythm. No murmur. ABDOMEN: Soft. Obese. Bowel sounds are present. No masses. No tenderness. EXTREMITIES: No pedal edema. No calf tenderness. Right foot status post debridement with surgical dressings dry and intact, dressings changed last night by vascular NEUROLOGICAL: Patient is awake, alert and oriented x3. Cranial nerves 2 through 12 are grossly intact. Assessment: Right diabetic foot wound infection. Concern for infected callus on the plantar aspect. Status post excisional I&D with deep tissue cultures obtained on 07/25/2022 Diarrhea and lower abdominal cramps. CT of the abdomen pelvis showed no evidence of acute process. Resolved Diabetes type 2 insulin-dependent, uncontrolled with hyperglycemia Asthma, not in exacerbation History of left great toe amputation Morbid obesity BMI 43.9 Chronic pain and is on pain clinic follow-up DVT prophylaxis with heparin subcu GI prophylaxis DVT prophylaxis Plan: Patient will be continued on antibiotics , IV vancomycin. Recommend continue current pain management regimen as patient chronically follows with the pain management clinic outpatient Vascular surgery and ID following status post incision and drainage with deep tissue cultures obtained currently pending. ID following with vancomycin recommending awaiting finalized cultures to determine discharge antibiotics. Patient does have past medical history of MRSA which required IV antibiotics and patient is hopeful for oral and returning home. Vascular surgery Dr. Quintero evaluated the patient yesterday evening changing the dressing and recommended to continue with local wound care medihoney gel Continue with insulin sliding scale and insulin regimen for better blood sugar control. GI and DVT prophylaxis. Due to multiple complex medical issues, prognosis is guarded The impression and plan of care has been dictated by Ling Mabry, Nurse Practitioner as directed. Dr. Yandel MD I have performed a history and examination and MDM of this patient, discussed the same with the dictator, and agree with the dictator's assessment and plan as written ,documented as a scribe. Based on total visit time, I have performed more than 50% of the visit. Objective - Vital Signs Vital signs: Vital Signs Temp 98.1 F 07/27/22 07:20 Pulse 71 07/27/22 07:20 Resp 17 07/27/22 07:20 BP 180/94 07/27/22 07:20 Pulse Ox 96 07/27/22 07:20 FiO2 Intake & Output 07/26/22 07/27/22 07/27/22 18:59 06:59 18:59 Other: Voiding Method Toilet # Voids 4 # Bowel Movements 1 - Labs CBC & Chem 7: 07/26/22 10:24 07/26/22 10:24 Labs: Abnormal Lab Results - Last 24 Hours (Table) 07/26/22 07/26/22 07/27/22 Range/Units 16:45 21:07 06:27 POC Glucose (mg/dL) 153 H 125 H 224 H (70-110) mg/dL Microbiology - Last 24 Hours (Table) 07/24/22 20:06 Blood Culture - Preliminary Blood No Growth after 48 hours 07/25/22 15:12 Gram Stain - Preliminary Foot - Right Tissue Culture - Preliminary 07/25/22 15:12 Anaerobic Culture - Preliminary Foot - Right
--- NOTE | 2022-07-27 13:57 | P.PN ---
Subjective Progress Note Date: 07/27/22 Principal diagnosis: Right diabetic foot infection Patient is a 62 year old male with a past medical history significant for diabetes mellitus, previous history of herpetic infection presented to hospital with abdominal pain and diarrhea, the patient CT of abdominal pelvis Negative, patient also have a right foot infected callus status post debridement by vascular surgery 07/25/2022. On today's evaluation that is 07/27/2022, patient remains to be afebrile, patient denies having any chest pain shortness breath or cough, the patient abdominal pain has resolved and the patient did have 1 loose stool yesterday, the patient denies pain to the right foot Objective - Vital Signs Vital signs: Vital Signs Temp 98.1 F 07/27/22 07:20 Pulse 71 07/27/22 07:20 Resp 17 07/27/22 07:20 BP 180/94 07/27/22 07:20 Pulse Ox 96 07/27/22 07:20 FiO2 Intake & Output 07/26/22 07/27/22 07/27/22 18:59 06:59 18:59 Other: Voiding Method Toilet # Voids 4 # Bowel Movements 1 - Exam GENERAL DESCRIPTION: Middle-aged male lying in bed in no distress RESPIRATORY SYSTEM: Unlabored breathing , decreased breath sounds at bases HEART: S1 S2 regular rate and rhythm , ABDOMEN: Soft , no tenderness EXTREMITIES: Right foot is currently dressed - Labs CBC & Chem 7: 07/26/22 10:24 07/26/22 10:24 Labs: Abnormal Lab Results - Last 24 Hours (Table) 07/26/22 07/26/22 07/26/22 Range/Units 10:24 11:35 16:45 Sodium 135 L (137-145) mmol/L Glucose 234 H (74-99) mg/dL POC Glucose (mg/dL) 183 H 153 H (70-110) mg/dL 07/26/22 07/27/22 Range/Units 21:07 06:27 Sodium (137-145) mmol/L Glucose (74-99) mg/dL POC Glucose (mg/dL) 125 H 224 H (70-110) mg/dL Microbiology - Last 24 Hours (Table) 07/24/22 20:06 Blood Culture - Preliminary Blood No Growth after 48 hours 07/25/22 15:12 Gram Stain - Preliminary Foot - Right Tissue Culture - Preliminary 07/25/22 15:12 Anaerobic Culture - Preliminary Foot - Right Assessment and Plan (1) Diabetic foot infection Current Visit: Yes Status: Acute Code(s): E11.628 - TYPE 2 DIABETES MELLITUS WITH OTHER SKIN COMPLICATIONS; L08.9 - LOCAL INFECTION OF THE SKIN AND SUBCUTANEOUS TISSUE, UNSP SNOMED Code(s): 896098370 Plan: 1patient with the main symptoms of abdominal pain and diarrhea for 2 weeks in this patient did have elevated white count however no fever, CT of abdominal pelvis did not show any abnormality such as colitis or an abscess we will try to obtain stool for C. diff and stool culture treatment should be symptomatic at this point. 2patient with right diabetic foot infection concerning for infected callus on the plantar aspect of the right foot patient, patient is status post surgical debridement and deep culture which are currently pending 3patient to continue vancomycin with a discharge antibiotics on the basis of final culture hopefully by mouth Time with Patient: Less than 30
[2022-07-27 16:28] LABS: Glucose,Whole Blood 165 mg/dL (70-110)
[2022-07-27 20:17] LABS: Glucose,Whole Blood 177 mg/dL (70-110)
[2022-07-27] MEDS: lisinopriL 20 MG TAB PO SCH (22:03)
[2022-07-28] MEDS: HEPARIN SODIUM,PORCINE/PF 5,000 UNIT/0.5 ML SYRINGE SQ SCH ×3 (00:16→15:39)
[2022-07-28] MEDS: VANCOMYCIN 2,000 MG in SODIUM CHLORIDE 0.9% 500 ML 500 ML IVPB SCH (04:28)
[2022-07-28 06:08] LABS: Glucose,Whole Blood 157 mg/dL (70-110)
[2022-07-28] MEDS: HYDROcodone/APAP 10-325MG 1 EACH TAB PO SCH ×2 (08:32→12:57)
[2022-07-28] MEDS: traMADol 50 MG TAB PO SCH ×2 (08:33→15:38)
[2022-07-28] MEDS: metFORMIN 500 MG TAB PO SCH (08:34)
[2022-07-28] MEDS: LORATADINE 10 MG TAB PO SCH (08:34)
[2022-07-28] MEDS: PANTOPRAZOLE 40 MG TABLET PO SCH (08:35)
[2022-07-28] MEDS: INSULIN DETEMIR (LEVEMIR) 100 UNIT/ML SYR SQ SCH (08:36)
[2022-07-28] MEDS: INSULIN ASPART (NovoLOG) 100 UNIT/ML VIAL SQ SCH ×4 (08:38→13:06)
[2022-07-28] MEDS: polyethylene glycoL 3350 17 GM POWD.PACK PO SCH (09:36)
[2022-07-28] MEDS ORDERED: VANCOMYCIN TROUGH DUE 1 EACH MISC MISCELLANE ONE (11:00)
[2022-07-28 11:18] LABS: Basophils # (A) 0.1 k/uL (0-0.2); Basophils % (A) 1 %; Eosinophils # (A) 0.7 k/uL (0-0.7); Eosinophils % (A) 8 %; HCT 36.2 % (39.0-53.0); HGB 11.8 gm/dL (13.0-17.5); Lymphocytes # (A) 1.4 k/uL (1.0-4.8); Lymphocytes % (A) 16 %; MCH 26.8 pg (25.0-35.0); MCHC 32.6 g/dL (31.0-37.0); Mean Platelet Volume 7.7; Monocytes # (A) 0.6 k/uL (0-1.0); Monocytes % (A) 7 %; Neutrophils # (A) 6.1 k/uL (1.3-7.7); Neutrophils % (A) 67 %; Platelet Count 185 k/uL (150-450); RBC 4.41 m/uL (4.30-5.90); RDW 13.8 % (11.5-15.5)
[2022-07-28 11:30] LABS: Glucose,Whole Blood 192 mg/dL (70-110)
[2022-07-28 11:34] LABS: African American GFR (CKD) >90 (>60 ml/min/1.73 sqM); Anion Gap 8 mmol/L; Blood Urea Nitrogen 15 mg/dL (9-20); Calcium 8.8 mg/dL (8.4-10.2); Carbon Dioxide 24 mmol/L (22-30); Chloride 101 mmol/L (98-107); Glucose 203 mg/dL (74-99); Non-African American GFR(CKD) >90 (>60 ml/min/1.73 sqM); Potassium 4.9 mmol/L (3.5-5.1); Sodium 133 mmol/L (137-145)
[2022-07-28 13:58] VITALS: RESP 17; TEMP 98.2
[2022-07-28] MEDS: LACTULOSE 20 GM/30 ML CUP PO PRN (15:46)
[2022-07-28] MEDS ORDERED: VANCOMYCIN 2,000 MG in SODIUM CHLORIDE 0.9% 500 ML 500 ML IVPB SCH (16:00)
--- NOTE | 2022-07-28 16:36 | P.PN ---
Subjective Progress Note Date: 07/28/22 Principal diagnosis: Right diabetic foot infection Patient is a 62 year old male with a past medical history significant for diabetes mellitus, previous history of herpetic infection presented to hospital with abdominal pain and diarrhea, the patient CT of abdominal pelvis Negative, patient also have a right foot infected callus status post debridement by vascular surgery 07/25/2022. On today's evaluation that is 07/28/2022, patient continues to be afebrile, patient denies any chest pain shortness breath or cough, the patient abdominal pain has resolved and no further diarrhea, the patient denies pain to the right foot , the patient is feeling better wants to go home Objective - Vital Signs Vital signs: Vital Signs Temp 97.9 F 07/28/22 08:00 Pulse 73 07/28/22 09:14 Resp 16 07/28/22 09:14 BP 148/84 07/28/22 08:00 Pulse Ox 97 07/28/22 08:00 FiO2 Intake & Output 07/27/22 07/28/22 07/28/22 18:59 06:59 18:59 Intake Total 20 Balance 20 Intake: IV 20 Invasive Line 3 20 Other: Voiding Method Toilet # Voids 4 4 - Exam GENERAL DESCRIPTION: Middle-aged male lying in bed in no distress RESPIRATORY SYSTEM: Unlabored breathing , decreased breath sounds at bases HEART: S1 S2 regular rate and rhythm , ABDOMEN: Soft , no tenderness EXTREMITIES: Right foot plantar wound post-debridement of infected callus surrounding redness is improved no foul-smelling drainage wound is superficial - Labs CBC & Chem 7: 07/28/22 10:35 07/28/22 10:35 Labs: Abnormal Lab Results - Last 24 Hours (Table) 07/27/22 07/27/22 07/28/22 Range/Units 16:27 20:15 06:07 POC Glucose (mg/dL) 165 H 177 H 157 H (70-110) mg/dL Microbiology - Last 24 Hours (Table) 07/24/22 20:06 Blood Culture - Preliminary Blood No Growth after 72 hours Assessment and Plan (1) Diabetic foot infection Current Visit: Yes Status: Acute Code(s): E11.628 - TYPE 2 DIABETES MELLITUS WITH OTHER SKIN COMPLICATIONS; L08.9 - LOCAL INFECTION OF THE SKIN AND SUBCUTANEOUS TISSUE, UNSP SNOMED Code(s): 104631668 Plan: 1patient with the main symptoms of abdominal pain and diarrhea for 2 weeks in this patient did have elevated white count however no fever, CT of abdominal pelvis did not show any abnormality such as colitis or an abscess we will try to obtain stool for C. diff and stool culture treatment should be symptomatic at this point. 2patient with right diabetic foot infection concerning for infected callus on the plantar aspect of the right foot patient, patient is status post surgical debridement and deep culture came back negative for any resistant pathogen such as MRSA and anaerobic cultures are still pending 3patient will finish therapy with oral Augmentin local wound care to continue per vascular surgery prescription was sent to the pharmacy Time with Patient: Less than 30
[2022-07-28 16:44] LABS: Glucose,Whole Blood 155 mg/dL (70-110)
[2022-07-28 17:26] VITALS: BP 103/45; PULSE 76
--- NOTE | 2022-07-29 03:10 | DS ---
DISCHARGE SUMMARY FINAL DIAGNOSES: 1. Right diabetic foot wound infection. 2. Diarrhea. 3. Diabetes mellitus, type 2. 4. History of asthma. 5. Multiple medical issues. DISCHARGE DISPOSITION: The patient will be discharged in stable condition with guarded prognosis. HISTORY OF PRESENT ILLNESS: This is a 62-year-old gentleman with a past medical history of right diabetic wound infection. The patient is on IV antibiotics. The patient improved significantly. Seen by Dr. Quintero and Dr. Galdamez. Please refer to their notes for further details. Dr. Galdamez recommended oral Augmentin to complete the treatment. The patient is keen on going home. PHYSICAL EXAMINATION: VITAL SIGNS: Stable. CARDIOVASCULAR: S1, S2. ABDOMEN: Soft. NERVOUS: Nonfocal. EXTREMITIES: Right foot wound present. LABORATORY DATA: Labs are reviewed. DISCHARGE ADVICE AND MEDICATIONS: Recommend to continue the home medications and continue with Augmentin for 14 days. Please refer to the medication reconciliation sheet for list of medications and follow up with Dr. Terry Vasquez, Dr. Galdamez, Wound Care, and Dr. Quintero. MMODL / IJN: [id number] /
== END 2022-07-28 17:46 | disposition home or self-care (01) | DRG 638 ==
LOC: EC 13:15 → 4SSUR 19:33
PROVIDERS: ADMIT Internal Medicine; ATTEND Internal Medicine
PROC: 0HBMXZZ Excision of Right Foot Skin, External Approach (ICD-10-PCS; principal; 2022-07-24)
DX: E11.621 Type 2 diabetes mellitus with foot ulcer (principal); K80.10 Calculus of gallbladder with chronic cholecystitis without obstruction; Z68.41 Body mass index [BMI] 40.0-44.9, adult; E11.628 Type 2 diabetes mellitus with other skin complications; E66.01 Morbid (severe) obesity due to excess calories; G89.29 Other chronic pain; R19.7 Diarrhea, unspecified; J45.909 Unspecified asthma, uncomplicated; K76.0 Fatty (change of) liver, not elsewhere classified; N28.1 Cyst of kidney, acquired; L97.519 Non-pressure chronic ulcer of other part of right foot with unspecified severity; Z88.5 Allergy status to narcotic agent; Z88.2 Allergy status to sulfonamides; Z88.1 Allergy status to other antibiotic agents; Z79.4 Long term (current) use of insulin; Z79.84 Long term (current) use of oral hypoglycemic drugs; Z86.14 Personal history of Methicillin resistant Staphylococcus aureus infection; Z89.412 Acquired absence of left great toe; Z87.19 Personal history of other diseases of the digestive system
CPT/HCPCS: 36415; 74177; 80048; 80053; 80202; 81001; 82150; 82565; 83690; 85025; 87040; 87070; 87075; 87205; 96361; 96365; 96375; 99285

== ENCOUNTER 2022-11-23 09:18 | Emergency (ER) | payer MEDICARE ==
[2022-11-23] MEDS ORDERED: oxyCODONE-APAP 5-325MG 1 EACH TAB PO STA (10:03)
--- NOTE | 2022-11-23 11:00 | XR ---
EXAMINATION TYPE: XR foot complete 3 views LT DATE OF EXAM: 11/23/2022 Comparison: 09/03/2020 Clinical History: 62-year-old male pain Findings: There is been previous amputation of the great toe. Focal bony deformity at the second metatarsal hea d with loss of the articular surface as sclerotic margins suggesting chronic posttraumatic or post in fectious sequela. Possible very subtle cortical irregularity along the dorsal medial margin of the first metatarsal hea d on the oblique view. Otherwise, no osteolysis is clearly seen. Os peroneum noted. No acute fracture seen. Impression: 1. Previous great toe amputation. Either chronic posttraumatic or postinfectious sequela suspected at the second metatarsal head. 2. On the oblique view, unable to exclude subtle osteolysis along the dorsomedial margin of the first metatarsal head. If there is a soft tissue ulcer in this region, early osteomyelitis is not excluded . Either radiographic and clinical follow-up versus MRI depending on clinical suspicion.
[2022-11-23] MEDS ORDERED: MORPHINE SULFATE 4 MG/ML SYRINGE IVP STA (11:33)
[2022-11-23 12:03] LABS: Basophils # (A) 0.1 k/uL (0-0.2); Basophils % (A) 1 %; Eosinophils # (A) 0.2 k/uL (0-0.7); Eosinophils % (A) 2 %; HCT 38.1 % (39.0-53.0); HGB 12.3 gm/dL (13.0-17.5); Lymphocytes # (A) 2.1 k/uL (1.0-4.8); Lymphocytes % (A) 17 %; MCH 26.3 pg (25.0-35.0); MCHC 32.4 g/dL (31.0-37.0); MCV 81.1 fL (80.0-100.0); Mean Platelet Volume 7.5; Monocytes # (A) 0.6 k/uL (0-1.0); Monocytes % (A) 5 %; Neutrophils # (A) 9.2 k/uL (1.3-7.7); Neutrophils % (A) 74 %; Platelet Count 364 k/uL (150-450); RDW 13.8 % (11.5-15.5); WBC 12.4 k/uL (3.8-10.6)
[2022-11-23 12:20] LABS: African American GFR (CKD) >90 (>60 ml/min/1.73 sqM); Anion Gap 13 mmol/L; Blood Urea Nitrogen 17 mg/dL (9-20); C Reactive Protein 2.1 mg/dL (<1.0); Calcium 9.7 mg/dL (8.4-10.2); Carbon Dioxide 24 mmol/L (22-30); Chloride 98 mmol/L (98-107); Glucose 121 mg/dL (74-99); Non-African American GFR(CKD) >90 (>60 ml/min/1.73 sqM); Potassium 4.5 mmol/L (3.5-5.1); Sodium 135 mmol/L (137-145)
--- NOTE | 2022-11-23 12:46 | ED ---
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 Quintero 2 years ago. Patient developed worsening pain over the last couple days. Patient is currently being followed by wound center for his right foot infection. Patient denies any skin changes. Patient states that is just painful. Patient states he has peripheral vascular disease which he is known he denies any change in temp of his foot denies any discoloration. Patient states that he does take chronic pain meds and seemed to help initially. Patient offers no other associated symptoms - Related Data Home Medications Medication Instructions Recorded Confirmed Cetirizine HCl 10 mg PO DAILY 09/01/16 11/23/22 HYDROcodone/APAP 10-325MG [[place] 1 tab PO QID PRN 09/02/20 11/23/22 10-325] Magnesium Hydroxide [Milk of 2,400 mg PO Q2D PRN 09/02/20 11/23/22 Magnesia] lisinopriL 20 mg PO W/SUPPER 09/02/20 11/23/22 metFORMIN HCL [Glucophage] 1,000 mg PO BID 09/02/20 11/23/22 polyethylene glycoL 3350 [Miralax] 17 gm PO DAILY 09/02/20 11/23/22 traMADol HCl [Ultram] 100 mg PO TID PRN 09/02/20 11/23/22 Albuterol Sulfate [Ventolin HFA] 1 - 2 puff INHALATION RT-Q6H PRN 07/24/22 11/23/22 Clotrimazole/Betameth Cream 1 applic TOPICAL BID PRN 07/24/22 11/23/22 [Lotrisone] Insulin Aspart [NovoLOG Flexpen] 16 units SQ AC-TID 07/24/22 11/23/22 Insulin Glargine,Hum.rec.anlog 35 units SQ BID 07/24/22 11/23/22 [Lantus Solostar Pen] Nystatin 100,000 Unit/gm Powd 1 applic TOPICAL BID PRN 07/24/22 11/23/22 [Mycostatin Powder] Previous Rx's Medication Instructions Recorded clindamycin HCL 300 mg PO QID #40 cap 11/23/22 Allergies Allergy/AdvReac Type Severity Reaction Status Date / Time gabapentin Allergy Swelling Verified 11/23/22 12:29 hydromorphone [From Dilaudid] Allergy Unknown Verified 11/23/22 12:29 ciprofloxacin [From Cipro] AdvReac Confusion, Verified 11/23/22 12:29 Dizziness sulfamethoxazole AdvReac Nausea & Verified 11/23/22 12:29 [From Bactrim] Vomiting trimethoprim [From Bactrim] AdvReac Nausea & Verified 11/23/22 12:29 Vomiting Review of Systems ROS Statement: Those systems with pertinent positive or pertinent negative responses have been documented in the HPI. ROS Other: All systems not noted in ROS Statement are negative. 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 Date of last positivie culture/infection: 03/24/19 MDRO Source:: blood and foot Past Surgical History: Appendectomy, Heart Catheterization, Hernia Repair, Orthopedic Surgery Additional Past Surgical History / Comment(s): RT ROATATOR CUFF SX, RT INGUINAL HERNIA,UMB HERNIA REPAIR Past Anesthesia/Blood Transfusion Reactions: No Reported Reaction Past Psychological History: No Psychological Hx Reported Smoking Status: Never smoker Past Alcohol Use History: None Reported Past Drug Use History: None Reported - Past Family History Father Family Medical History: Hypertension Mother Family Medical History: Asthma, COPD General Exam Limitations: no limitations General appearance: alert, in no apparent distress Head exam: Present: atraumatic, normocephalic, normal inspection Eye exam: Present: normal appearance, PERRL, EOMI. Absent: scleral icterus, conjunctival injection, periorbital swelling ENT exam: Present: normal exam, normal oropharynx, mucous membranes moist Neck exam: Present: normal inspection, full ROM. Absent: tenderness, meningismus, lymphadenopathy Respiratory exam: Present: normal lung sounds bilaterally. Absent: respiratory distress, wheezes, rales, rhonchi, stridor Cardiovascular Exam: Present: regular rate, normal rhythm, normal heart sounds. Absent: systolic murmur, diastolic murmur, rubs, gallop, clicks Extremities exam: Present: other (Left foot prior amputation first digit, there are are Refill less than 2 seconds of remaining digits, there is no discolora tion made no change in time no erythema) Neurological exam: Present: alert Skin exam: Present: warm, dry, intact, normal color. Absent: rash Course Vital Signs 11/23/22 11/23/22 09:23 12:01 Temperature 98.6 F Pulse Rate 88 94 Respiratory 20 18 Rate Blood Pressure 172/83 175/81 O2 Sat by Pulse 97 Oximetry Medical Decision Making - Medical Decision Making Was pt. sent in by a medical professional or institution (DAYANA Rose, WHARF HAND, urgent care, hospital, or assisted...) When possible be specific @ -No Did you speak to anyone other than the patient for history (EMS, parent, family, police, friend...)? What history was obtained from this source @ -No Did you review nursing and triage notes (agree or disagree)? Why? @ -I reviewed and agree with nursing and triage notes Were old charts reviewed (outside hosp., previous admission, EMS record, old EKG, old radiological studies, urgent care reports/EKG's, assisted records)? Report findings @ -Reviewed prior laboratory studies Differential Diagnosis (chest pain, altered mental status, abdominal pain women, abdominal pain men, vaginal bleeding, weakness, fever, dyspnea, syncope, headache, dizziness, GI bleed, back pain, seizure, CVA, palpatations, mental health, musculoskeletal)? @ -Foot infection, osteomyelitis, neuropathy, EKG interpreted by me (3pts min.). @ -None X-rays interpreted by me (1pt min.). @ -[X-ray shows post dramatic changes, no definite osseous denies possible ostial lysis though felt less likely CT interpreted by me (1pt min.). @ -None done U/S interpreted by me (1pt. min.). @ -None done What testing was considered but not performed or refused? (CT, X-rays, U/S, labs)? Why? @ -None What meds were considered but not given or refused? Why? @ -None Did you discuss the management of the patient with other professionals (professionals i.e. Dr., PA, WHARF HAND, lab, RT, psych nurse, social worker masters, straw hat brim raiser operator, te acher, chief technical officer, medical case manager)? Give summary @ -No Was smoking cessation discussed for >3mins.? @ -No Was critical care preformed (if so, how long)? @ -No Were there social determinants of health that impacted care today? How? (Homelessness, low income, unemployed, alcoholism, drug addiction, transportation, low edu. Level, literacy, decrease access to med. care, intermediate, rehab)? @ -No Was there de-escalation of care discussed even if they declined (Discuss DNR or withdrawal of care, Hospice)? DNR status @ -No What co-morbidities impacted this encounter? (DM, HTN, Smoking, COPD, CAD, Cancer, CVA, ARF, Chemo, Hep., AIDS, mental health diagnosis, sleep apnea, morbid obesity)? @ -Diabetes Was patient admitted / discharged? Hospital course, mention meds given and route, prescriptions, significant lab abnormalities, going to OR and other pertinent info. @ -Discharge patient has no definite cellulitis there is possible early changes though that he has no erythematous skin changes. Patient be placed on antibiotics prophylactically and follow-up with his wound center as he is currently seen. He'll have recheck with PCP return for any worsening changes symptoms. Undiagnosed new problem with uncertain prognosis? @ -No Drug Therapy requiring intensive monitoring for toxicity (Heparin, Nitro, Insulin, Cardizem)? @ -No Were any procedures done? @ -No Diagnosis/symptom? @ -Left foot pain Acute, or Chronic, or Acute on Chronic? @ -Acute Uncomplicated (without systemic symptoms) or Complicated (systemic symptoms)? @ -Uncomplicated Side effects of treatment? @ -No Exacerbation, Progression, or Severe Exacerbation? @ -No Poses a threat to life or bodily function? How? (Chest pain, [place], [place], pneumonia, PE, COPD, DKA, ARF, appy, cholecystitis, CVA, Diverticulitis, Homicidal, Suicidal, threat to staff... and all critical care pts) @ -No - Lab Data Result diagrams: 11/23/22 11:24 11/23/22 11:24 Lab Results 11/23/22 11/23/22 Range/Units 11:24 11:24 WBC 12.4 H (3.8-10.6) k/uL RBC 4.70 (4.30-5.90) m/uL Hgb 12.3 L (13.0-17.5) gm/dL Hct 38.1 L (39.0-53.0) % MCV 81.1 (80.0-100.0) fL MCH 26.3 (25.0-35.0) pg MCHC 32.4 (31.0-37.0) g/dL RDW 13.8 (11.5-15.5) % Plt Count 364 (150-450) k/uL MPV 7.5 Neutrophils % 74 % Lymphocytes % 17 % Monocytes % 5 % Eosinophils % 2 % Basophils % 1 % Neutrophils # 9.2 H (1.3-7.7) k/uL Lymphocytes # 2.1 (1.0-4.8) k/uL Monocytes # 0.6 (0-1.0) k/uL Eosinophils # 0.2 (0-0.7) k/uL Basophils # 0.1 (0-0.2) k/uL Sodium 135 L (137-145) mmol/L Potassium 4.5 (3.5-5.1) mmol/L Chloride 98 (98-107) mmol/L Carbon Dioxide 24 (22-30) mmol/L Anion Gap 13 mmol/L BUN 17 (9-20) mg/dL Creatinine 0.70 (0.66-1.25) mg/dL Est GFR (CKD-EPI)AfAm >90 (>60 ml/min/1.73 sqM) Est GFR (CKD-EPI)NonAf >90 (>60 ml/min/1.73 sqM) Glucose 121 H (74-99) mg/dL Calcium 9.7 (8.4-10.2) mg/dL C-Reactive Protein 2.1 H (<1.0) mg/dL Disposition Clinical Impression: Foot pain Disposition: HOME SELF-CARE Condition: Stable Instructions (If sedation given, give patient instructions): Swollen Joint (ED) Additional Instructions: Please return to the Emergency Department if symptoms worsen or any other concerns. Prescriptions: clindamycin HCL 300 mg PO QID #40 cap Is patient prescribed a controlled substance at d/c from ED?: No Referrals: None,Stated [Primary Care Provider] - 1-2 days Lawson Quintero MD [STAFF PHYSICIAN] - 1-2 days Time of Disposition: 12:50
[2022-11-23 13:23] VITALS: BP 155/81; PULSE 80; RESP 16; TEMP 98.3
== END 2022-11-23 13:22 | disposition home or self-care (01) ==
LOC: EC 09:18
DX: M79.672 Pain in left foot (principal); E11.9 Type 2 diabetes mellitus without complications; J45.909 Unspecified asthma, uncomplicated; Z79.4 Long term (current) use of insulin; Z79.84 Long term (current) use of oral hypoglycemic drugs; Z79.899 Other long term (current) drug therapy; Z88.1 Allergy status to other antibiotic agents; Z88.2 Allergy status to sulfonamides; Z88.5 Allergy status to narcotic agent; Z88.8 Allergy status to other drugs, medicaments and biological substances
CPT/HCPCS: 36415; 80048; 85025; 86140; 73630; 99284; 96374; J2270

== ENCOUNTER 2022-12-23 17:53 | Emergency (ER) | payer MEDICARE, OTHER ==
[2022-12-23 18:03] VITALS: TEMP 97.8
--- NOTE | 2022-12-23 18:53 | ED ---
General Adult HPI - General Chief complaint: Nausea/Vomiting/Diarrhea Stated complaint: Nausea,Light Headed Time Seen by Provider: 12/23/22 18:40 Source: patient, family Mode of arrival: wheelchair Limitations: no limitations - History of Present Illness Initial comments: 62-year-old male with past medical history significant for type 1 diabetes presents to the ED with a chief complaint of gallstones. Patient was seen at an outside facility and CT with contrast on 12/22/22 showed " layering increased densities within the lumen consistent with gallstones are present". At this time it was opted that patient undergo nonsurgical treatment. He was prescribed carafate 1 gm BID, zofran 4mg q6, and bentyl 10 mg q8. Despite this, reports increasing abdominal pain and nausea. No Chest pain shortness of breath. No other complaints. - Related Data Home Medications Medication Instructions Recorded Confirmed Cetirizine HCl 10 mg PO DAILY 09/01/16 12/23/22 HYDROcodone/APAP 10-325MG [[place] 1 tab PO QID PRN 09/02/20 12/23/22 10-325] Magnesium Hydroxide [Milk of 2,400 mg PO Q2D PRN 09/02/20 12/23/22 Magnesia] lisinopriL 20 mg PO W/SUPPER 09/02/20 12/23/22 metFORMIN HCL [Glucophage] 1,000 mg PO BID 09/02/20 12/23/22 polyethylene glycoL 3350 [Miralax] 17 gm PO DAILY 09/02/20 12/23/22 traMADol HCl [Ultram] 100 mg PO TID PRN 09/02/20 12/23/22 Albuterol Sulfate [Ventolin HFA] 1 - 2 puff INHALATION RT-Q6H PRN 07/24/22 12/23/22 Clotrimazole/Betameth Cream 1 applic TOPICAL BID PRN 07/24/22 12/23/22 [Lotrisone] Insulin Aspart [NovoLOG Flexpen] 16 units SQ AC-TID 07/24/22 12/23/22 Insulin Glargine,Hum.rec.anlog 35 units SQ BID 07/24/22 12/23/22 [Lantus Solostar Pen] Nystatin 100,000 Unit/gm Powd 1 applic TOPICAL BID PRN 07/24/22 12/23/22 [Mycostatin Powder] Dicyclomine [Bentyl] 10 mg PO Q8H PRN 12/23/22 12/23/22 Linaclotide [Linzess] 145 mcg PO DAILY 12/23/22 12/23/22 Ondansetron [Zofran] 4 mg PO Q6H PRN 12/23/22 12/23/22 Sucralfate [Carafate] 1 gm PO BID 12/23/22 12/23/22 Allergies Allergy/AdvReac Type Severity Reaction Status Date / Time gabapentin Allergy Swelling Verified 12/23/22 20:26 hydromorphone [From Dilaudid] Allergy Unknown Verified 12/23/22 20:26 ciprofloxacin [From Cipro] AdvReac Confusion, Verified 12/23/22 20:26 Dizziness sulfamethoxazole AdvReac Nausea & Verified 12/23/22 20:26 [From Bactrim] Vomiting trimethoprim [From Bactrim] AdvReac Nausea & Verified 12/23/22 20:26 Vomiting Review of Systems ROS Statement: Those systems with pertinent positive or pertinent negative responses have been documented in the HPI. ROS Other: All systems not noted in ROS Statement are negative. 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 Date of last positivie culture/infection: 03/24/19 MDRO Source:: blood and foot Past Surgical History: Appendectomy, Heart Catheterization, Hernia Repair, Orthopedic Surgery Additional Past Surgical History / Comment(s): RT ROATATOR CUFF SX, RT INGUINAL HERNIA,UMB HERNIA REPAIR Past Anesthesia/Blood Transfusion Reactions: No Reported Reaction Past Psychological History: No Psychological Hx Reported Smoking Status: Never smoker Past Alcohol Use History: None Reported Past Drug Use History: None Reported - Past Family History Father Family Medical History: Hypertension Mother Family Medical History: Asthma, COPD General Exam Limitations: no limitations General appearance: alert, in no apparent distress Respiratory exam: Present: normal lung sounds bilaterally Cardiovascular Exam: Present: regular rate, normal rhythm GI/Abdominal exam: Present: soft, tenderness (Tenderness to palpation diffusely worse in the right upper quadrant. Positive Orta sign. No rebound guarding or rigidity.) Neurological exam: Present: alert, oriented X3 Psychiatric exam: Present: normal affect, normal mood Skin exam: Present: warm, dry Course Vital Signs 12/23/22 12/23/22 17:55 21:17 Temperature 97.8 F Pulse Rate 79 78 Respiratory 22 17 Rate Blood Pressure 168/83 145/89 O2 Sat by Pulse 97 97 Oximetry Medical Decision Making - Medical Decision Making Was pt. sent in by a medical professional or institution (, PA, MERCHANDISE COORDINATOR, urgent care, hospital, or senior living...) When possible be specific @ -No Did you speak to anyone other than the patient for history (EMS, parent, family, police, friend...)? What history was obtained from this source @ -No Did you review nursing and triage notes (agree or disagree)? Why? @ -I reviewed and agree with nursing and triage notes Were old charts reviewed (outside hosp., previous admission, EMS record, old EKG, old radiological studies, urgent care reports/EKG's, senior living records)? Report findings @ -No old charts were reviewed Differential Diagnosis (chest pain, altered mental status, abdominal pain women, abdominal pain men, vaginal bleeding, weakness, fever, dyspnea, syncope, headache, dizziness, GI bleed, back pain, seizure, CVA, palpatations, mental health, musculoskeletal)? @ -Differential Abdominal Pain Men: Appendicitis, cholecystitis, diverticulosis, ischemic bowel, pancreatitis, hepatitis, UTI, gastroenteritis, AAA, incarcerated hernia, bowel obstruction, constipation, inflammatory bowel, hepatitis, peptic ulcer disease, splenic infarction, perforated viscus, testicular torsion, this is not meant to be an all-inclusive list EKG interpreted by me (3pts min.). @ -None X-rays interpreted by me (1pt min.). @ -None done CT interpreted by me (1pt min.). @ -None done U/S interpreted by me (1pt. min.). @ -Ultrasound showed cholelithiasis without wall thickening. What testing was considered but not performed or refused? (CT, X-rays, U/S, labs)? Why? @ -None What meds were considered but not given or refused? Why? @ -None Did you discuss the management of the patient with other professionals (professionals i.e. , DAYANA, MERCHANDISE COORDINATOR, lab, RT, psych nurse, social services designee, junior software engineer, teacher, special technical operations officer, sample case porter)? Give summary @ -No Was smoking cessation discussed for >3mins.? @ -No Was critical care preformed (if so, how long)? @ -No Were there social determinants of health that impacted care today? How? (Homelessness, low income, unemployed, alcoholism, drug addiction, transportation, low edu. Level, literacy, decrease access to med. care, snf, rehab)? @ -No Was there de-escalation of care discussed even if they declined (Discuss DNR or withdrawal of care, Hospice)? DNR status @ -No What co-morbidities impacted this encounter? (DM, HTN, Smoking, COPD, CAD, Cancer, CVA, ARF, Chemo, Hep., AIDS, mental health diagnosis, sleep apnea, morbid obesity)? @ -Diabetes Was patient admitted / discharged? Hospital course, mention meds given and route, prescriptions, significant lab abnormalities, going to OR and other pertinent info. @ -Discharged. Ultrasound study as above. Laboratory studies showed no significant elevation in liver enzymes. Laboratory studies otherwise unremarkable. Patient had improvement of pain with 15 mg Toradol IV and improvement of nausea with Zofran 4 mg IV. Patient discharged home in stable condition with referral to surgery for outpatient follow-up. Provided ibuprofen starter pack in the ED. Advised to continue taking medications he was previously prescribed for his symptoms. Discussed plan with patient patient agreeable with plan. Discussed return precautions with patient verbalizes agreement. Undiagnosed new problem with uncertain prognosis? @ -No Drug Therapy requiring intensive monitoring for toxicity (Heparin, Nitro, Insulin, Cardizem)? @ -No Were any procedures done? @ -No Diagnosis/symptom? @ -Cholelithiasis Acute, or Chronic, or Acute on Chronic? @ -Acute Uncomplicated (without systemic symptoms) or Complicated (systemic symptoms)? @ -Uncomplicated Side effects of treatment? @ -No Exacerbation, Progression, or Severe Exacerbation? @ -No Poses a threat to life or bodily function? How? (Chest pain, [place], [place], pneumonia, PE, COPD, DKA, ARF, appy, cholecystitis, CVA, Diverticulitis, Homicidal, Suicidal, threat to staff... and all critical care pts) @ -No - Lab Data Result diagrams: 12/23/22 19:16 12/23/22 19:16 Lab Results 12/23/22 12/23/22 12/23/22 Range/Units 19:16 19:16 19:16 WBC 10.8 H (3.8-10.6) k/uL RBC 4.54 (4.30-5.90) m/uL Hgb 12.1 L (13.0-17.5) gm/dL Hct 37.4 L (39.0-53.0) % MCV 82.4 (80.0-100.0) fL MCH 26.6 (25.0-35.0) pg MCHC 32.3 (31.0-37.0) g/dL RDW 14.1 (11.5-15.5) % Plt Count 347 (150-450) k/uL MPV 7.4 Neutrophils % 77 % Lymphocytes % 13 % Monocytes % 6 % Eosinophils % 1 % Basophils % 1 % Neutrophils # 8.3 H (1.3-7.7) k/uL Lymphocytes # 1.4 (1.0-4.8) k/uL Monocytes # 0.7 (0-1.0) k/uL Eosinophils # 0.2 (0-0.7) k/uL Basophils # 0.1 (0-0.2) k/uL Sodium 136 L (137-145) mmol/L Potassium 4.5 (3.5-5.1) mmol/L Chloride 101 (98-107) mmol/L Carbon Dioxide 27 (22-30) mmol/L Anion Gap 8 mmol/L BUN 16 (9-20) mg/dL Creatinine 0.89 (0.66-1.25) mg/dL Est GFR (CKD-EPI)AfAm >90 (>60 ml/min/1.73 sqM) Est GFR (CKD-EPI)NonAf >90 (>60 ml/min/1.73 sqM) Glucose 91 (74-99) mg/dL POC Glucose (mg/dL) (70-110) mg/dL POC Glu [employer] Representative ID Calcium 9.1 (8.4-10.2) mg/dL Total Bilirubin 0.2 (0.2-1.3) mg/dL AST 27 (17-59) U/L ALT 29 (4-49) U/L Alkaline Phosphatase 59 (38-126) U/L Total Protein 7.1 (6.3-8.2) g/dL Albumin 3.9 (3.5-5.0) g/dL Amylase 32 (30-110) U/L Lipase 64 (23-300) U/L Urine Color Light Yellow Urine Appearance Clear (Clear) Urine pH 6.0 (5.0-8.0) Ur Specific [place] 1.009 (1.001-1.035) Urine Protein Negative (Negative) Urine Glucose (UA) 4+ H (Negative) Urine Ketones Negative (Negative) Urine Blood Negative (Negative) Urine Nitrite Negative (Negative) Urine Bilirubin Negative (Negative) Urine Urobilinogen <2.0 (<2.0) mg/dL Ur Leukocyte Esterase Negative (Negative) 12/23/22 Range/Units 20:02 WBC (3.8-10.6) k/uL RBC (4.30-5.90) m/uL Hgb (13.0-17.5) gm/dL Hct (39.0-53.0) % MCV (80.0-100.0) fL MCH (25.0-35.0) pg MCHC (31.0-37.0) g/dL RDW (11.5-15.5) % Plt Count (150-450) k/uL MPV Neutrophils % % Lymphocytes % % Monocytes % % Eosinophils % % Basophils % % Neutrophils # (1.3-7.7) k/uL Lymphocytes # (1.0-4.8) k/uL Monocytes # (0-1.0) k/uL Eosinophils # (0-0.7) k/uL Basophils # (0-0.2) k/uL Sodium (137-145) mmol/L Potassium (3.5-5.1) mmol/L Chloride (98-107) mmol/L Carbon Dioxide (22-30) mmol/L Anion Gap mmol/L BUN (9-20) mg/dL Creatinine (0.66-1.25) mg/dL Est GFR (CKD-EPI)AfAm (>60 ml/min/1.73 sqM) Est GFR (CKD-EPI)NonAf (>60 ml/min/1.73 sqM) Glucose (74-99) mg/dL POC Glucose (mg/dL) 73 (70-110) mg/dL POC Glu [employer] Representative ID Achatz, Judy Calcium (8.4-10.2) mg/dL Total Bilirubin (0.2-1.3) mg/dL AST (17-59) U/L ALT (4-49) U/L Alkaline Phosphatase (38-126) U/L Total Protein (6.3-8.2) g/dL Albumin (3.5-5.0) g/dL Amylase (30-110) U/L Lipase (23-300) U/L Urine Color Urine Appearance (Clear) Urine pH (5.0-8.0) Ur Specific [place] (1.001-1.035) Urine Protein (Negative) Urine Glucose (UA) (Negative) Urine Ketones (Negative) Urine Blood (Negative) Urine Nitrite (Negative) Urine Bilirubin (Negative) Urine Urobilinogen (<2.0) mg/dL Ur Leukocyte Esterase (Negative) Disposition Clinical Impression: Cholelithiasis Disposition: HOME SELF-CARE Condition: Good Instructions (If sedation given, give patient instructions): Gallstones (ED) Additional Instructions: Please return to the Emergency Department if symptoms worsen or any other concerns. Is patient prescribed a controlled substance at d/c from ED?: No Referrals: Terry Vasquez MD [Primary Care Provider] - 1-2 days Liu Guerrero DO [Doctor of Osteopathic Medicine] - 1-2 days Time of Disposition: 20:54
[2022-12-23] MEDS ORDERED: ONDANSETRON 4 MG/2 ML VIAL IVP STA (19:00)
[2022-12-23 19:44] LABS: ALT 29 U/L (4-49); AST 27 U/L (17-59); African American GFR (CKD) >90 (>60 ml/min/1.73 sqM); Albumin 3.9 g/dL (3.5-5.0); Alkaline Phosphatase 59 U/L (38-126); Amylase 32 U/L (30-110); Anion Gap 8 mmol/L; Basophils # (A) 0.1 k/uL (0-0.2); Basophils % (A) 1 %; Blood Urea Nitrogen 16 mg/dL (9-20); Calcium 9.1 mg/dL (8.4-10.2); Carbon Dioxide 27 mmol/L (22-30); Chloride 101 mmol/L (98-107); Eosinophils # (A) 0.2 k/uL (0-0.7); Eosinophils % (A) 1 %; Glucose 91 mg/dL (74-99); HCT 37.4 % (39.0-53.0); HGB 12.1 gm/dL (13.0-17.5); Lipase 64 U/L (23-300); Lymphocytes # (A) 1.4 k/uL (1.0-4.8); Lymphocytes % (A) 13 %; MCH 26.6 pg (25.0-35.0); MCHC 32.3 g/dL (31.0-37.0); MCV 82.4 fL (80.0-100.0); Mean Platelet Volume 7.4; Monocytes # (A) 0.7 k/uL (0-1.0); Monocytes % (A) 6 %; Neutrophils # (A) 8.3 k/uL (1.3-7.7); Neutrophils % (A) 77 %; Non-African American GFR(CKD) >90 (>60 ml/min/1.73 sqM); Platelet Count 347 k/uL (150-450); Potassium 4.5 mmol/L (3.5-5.1); RBC 4.54 m/uL (4.30-5.90); RDW 14.1 % (11.5-15.5); Sodium 136 mmol/L (137-145); Total Bilirubin 0.2 mg/dL (0.2-1.3); Total Protein 7.1 g/dL (6.3-8.2); WBC 10.8 k/uL (3.8-10.6)
[2022-12-23 20:03] LABS: Glucose,Whole Blood 73 mg/dL (70-110)
[2022-12-23] MEDS ORDERED: KETOROLAC 15 MG/ML 1 ML VIAL IVP STA (20:04)
[2022-12-23] MEDS ORDERED: DEXTROSE 5%-0.9% NACL 1,000 ML IV SCH (20:15)
--- NOTE | 2022-12-23 20:29 | US ---
EXAMINATION TYPE: US gallbladder DATE OF EXAM: 12/23/2022 COMPARISON: CT 07-24-22 CLINICAL INDICATION: Male, 62 years old with history of cholelithiasis; Cholelithiasis per order. Hx of appendectomy. TECHNIQUE: Multiple sonographic images of the right upper quadrant are obtained. FINDINGS: EXAM MEASUREMENTS: Liver Length: 22.4 cm Gallbladder Wall: 0.27 cm CBD: Obscured Right Kidney: 12.9 x 6.9 x 6.2 cm WAREHOUSE DIRECTOR NOTES: Extremely limited and difficult study due to patient body habitus and overlying bowel gas. Patient 314 lbs. Pancreas: Not well seen Liver: Very limited. Increased echogenicity and attenuation. Appears enlarged and heterogeneous*. Gallbladder: Hyperechoic area seen within: 0.9 x 0.8 x 0.7 cm. Evidence for sonographic Orta's sign: Patient felt pain throughout the entire exam. CBD: Obscured Right Kidney: Very limited. Possible hypoechoic area seen measures 4.7 x 4.4 x 4.3 cm. Follow-up cyst. Kidney measures enlarged. IMPRESSION: 1. Hepatomegaly. 2. Cholelithiasis without wall thickening. Patient had positive Orta sign, correlate for cholecysti tis.
[2022-12-23 20:42] LABS: Appearance,Urine Clear (Clear); Bilirubin,Urine Negative (Negative); Blood,Urine Negative (Negative); Color,Urine Light Yellow; Glucose,Urine (UA) 4+ (Negative); Ketones,Urine Negative (Negative); Leukocyte Esterase,Urine Negative (Negative); Nitrite,Urine Negative (Negative); Protein,Urine Negative (Negative); Specific Gravity,Urine 1.009 (1.001-1.035); Urobilinogen,Urine <2.0 mg/dL (<2.0)
[2022-12-23] MEDS ORDERED: IBUPROFEN 600 MG STARTER PACK 4 TAB BTL PO STA (20:55)
[2022-12-23 21:17] VITALS: BP 145/89; PULSE 78; RESP 17
== END 2022-12-23 21:26 | disposition home or self-care (01) ==
LOC: EC 17:53
DX: K80.20 Calculus of gallbladder without cholecystitis without obstruction (principal); J45.909 Unspecified asthma, uncomplicated; E10.9 Type 1 diabetes mellitus without complications; Z79.4 Long term (current) use of insulin; Z79.84 Long term (current) use of oral hypoglycemic drugs; Z88.1 Allergy status to other antibiotic agents; Z88.2 Allergy status to sulfonamides; Z88.5 Allergy status to narcotic agent
CPT/HCPCS: 36415; 80053; 82150; 83690; 85025; 81003; 76705; 99284; 96374; 96361; 96375; J2405; J1885

== ENCOUNTER 2023-01-30 17:18 | Observation (INO) | payer MEDICARE, OTHER ==
--- NOTE | 2023-01-30 20:14 | ED ---
General Adult HPI - General Chief complaint: Skin/Abscess/Foreign Body Stated complaint: infection in L foot Time Seen by Provider: 01/30/23 19:00 Source: patient Mode of arrival: ambulatory Limitations: no limitations - History of Present Illness Initial comments: 62-year-old male presenting with chief complaint of infection to the second and third toe on the left foot. History of diabetes and neuropathy as well as first toe amputation. Patient states that a few days ago he stubbed his toe started and had some increased redness and swelling, today he noted that the redness and swelling spread over to the next toe as well as slightly in the foot. No fevers or chills. No nausea or vomiting. Patient states he has been taking doxycycline with no improvement. - Related Data Home Medications Medication Instructions Recorded Confirmed Cetirizine HCl 10 mg PO DAILY 09/01/16 01/30/23 HYDROcodone/APAP 10-325MG [[place] 1 tab PO QID 09/02/20 01/30/23 10-325] Magnesium Hydroxide [Milk of 2,400 mg PO Q2D 09/02/20 01/30/23 Magnesia] lisinopriL 20 mg PO W/SUPPER 09/02/20 01/30/23 metFORMIN HCL [Glucophage] 1,000 mg PO BID 09/02/20 01/30/23 polyethylene glycoL 3350 [Miralax] 17 gm PO DAILY 09/02/20 01/30/23 traMADol HCl [Ultram] 100 mg PO TID 09/02/20 01/30/23 Albuterol Sulfate [Ventolin HFA] 1 - 2 puff INHALATION RT-Q6H PRN 07/24/22 01/30/23 Clotrimazole/Betameth Cream 1 applic TOPICAL DAILY 07/24/22 01/30/23 [Lotrisone] Insulin Aspart [NovoLOG Flexpen] 16 units SQ AC-TID 07/24/22 01/30/23 Insulin Glargine,Hum.rec.anlog 35 units SQ BID 07/24/22 01/30/23 [Lantus Solostar Pen] Nystatin 100,000 Unit/gm Powd 1 applic TOPICAL DAILY 07/24/22 01/30/23 [Mycostatin Powder] Allergies Allergy/AdvReac Type Severity Reaction Status Date / Time gabapentin Allergy Swelling Verified 01/30/23 21:38 hydromorphone [From Dilaudid] Allergy Unknown Verified 01/30/23 21:38 ciprofloxacin [From Cipro] AdvReac Confusion, Verified 01/30/23 21:38 Dizziness sulfamethoxazole AdvReac Nausea & Verified 01/30/23 21:38 [From Bactrim] Vomiting trimethoprim [From Bactrim] AdvReac Nausea & Verified 01/30/23 21:38 Vomiting Review of Systems ROS Statement: Those systems with pertinent positive or pertinent negative responses have been documented in the HPI. ROS Other: All systems not noted in ROS Statement are negative. 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 Date of last positivie culture/infection: 03/24/19 MDRO Source:: blood and foot Past Surgical History: Appendectomy, Heart Catheterization, Hernia Repair, Orthopedic Surgery Additional Past Surgical History / Comment(s): RT ROATATOR CUFF SX, RT INGUINAL HERNIA,UMB HERNIA REPAIR Past Anesthesia/Blood Transfusion Reactions: No Reported Reaction Past Psychological History: No Psychological Hx Reported Smoking Status: Never smoker Past Alcohol Use History: None Reported Past Drug Use History: None Reported - Past Family History Father Family Medical History: Hypertension Mother Family Medical History: Asthma, COPD General Exam Limitations: no limitations General appearance: alert, in no apparent distress Head exam: Present: atraumatic, normocephalic, normal inspection Eye exam: Present: normal appearance, EOMI. Absent: scleral icterus, periorbital swelling Neck exam: Present: normal inspection, full ROM Respiratory exam: Present: normal lung sounds bilaterally. Absent: respiratory distress, wheezes, rales, rhonchi, stridor Cardiovascular Exam: Present: regular rate, normal rhythm, normal heart sounds. Absent: systolic murmur, diastolic murmur, rubs, gallop, clicks Neurological exam: Present: alert, oriented X3, CN II-XII intact Psychiatric exam: Present: normal affect, normal mood Skin exam: Present: warm, erythema (L 2nd and 3rd toe). Absent: intact, normal color Course Vital Signs 01/30/23 01/30/23 17:49 18:52 Temperature 98.9 F 98.5 F Pulse Rate 102 H 87 Respiratory 20 18 Rate Blood Pressure 96/61 125/72 O2 Sat by Pulse 95 94 L Oximetry Medical Decision Making - Medical Decision Making Was pt. sent in by a medical professional or institution (DAYANA Rose, BATCH UNIT TREATER, urgent care, hospital, or long term...) When possible be specific @ -No Did you speak to anyone other than the patient for history (EMS, parent, family, police, friend...)? What history was obtained from this source @ -No Did you review nursing and triage notes (agree or disagree)? Why? @ -I reviewed and agree with nursing and triage notes Were old charts reviewed (outside hosp., previous admission, EMS record, old EKG, old radiological studies, urgent care reports/EKG's, long term records)? Report findings @ -No old charts were reviewed Differential Diagnosis (chest pain, altered mental status, abdominal pain women, abdominal pain men, vaginal bleeding, weakness, fever, dyspnea, syncope, headache, dizziness, GI bleed, back pain, seizure, CVA, palpatations, mental health, musculoskeletal)? @ -Differential includes cellulitis, abscess, osteomyelitis, this is not an all inclusive list EKG interpreted by me (3pts min.). @ -As above X-rays interpreted by me (1pt min.). @ -X-rays shows postsurgical changes without evidence for erosion at this time. Stable deformity to the second metatarsal head CT interpreted by me (1pt min.). @ -None done U/S interpreted by me (1pt. min.). @ -None done What testing was considered but not performed or refused? (CT, X-rays, U/S, labs)? Why? @ -None What meds were considered but not given or refused? Why? @ -None Did you discuss the management of the patient with other professionals (professionals i.e. DAYANA Rose, BATCH UNIT TREATER, lab, RT, psych nurse, director of social work, sales agent food vending service, teacher, accounting officer, bottle caser)? Give summary @ -Spoke with Dr. Nguyen who accepted admission Was smoking cessation discussed for >3mins.? @ -No Was critical care preformed (if so, how long)? @ -No Were there social determinants of health that impacted care today? How? (Homelessness, low income, unemployed, alcoholism, drug addiction, transportation, low edu. Level, literacy, decrease access to med. care, senior care, rehab)? @ -No Was there de-escalation of care discussed even if they declined (Discuss DNR or withdrawal of care, Hospice)? DNR status @ -No What co-morbidities impacted this encounter? (DM, HTN, Smoking, COPD, CAD, Cancer, CVA, ARF, Chemo, Hep., AIDS, mental health diagnosis, sleep apnea, morbid obesity)? @ -None Was patient admitted / discharged? Hospital course, mention meds given and route, prescriptions, significant lab abnormalities, going to OR and other pertinent info. @ -62-year-old male history of diabetes presenting with chief complaint of cellulitis to the left foot failed outpatient treatment with doxycycline. CBC 11.2. X-ray shows no evidence of osteomyelitis. Patient is started on IV vancomycin. He'll be admitted, Dr. Nguyen accepting admission. He is agreeable with this plan. I discussed this case with my attending Dr. Rivera Undiagnosed new problem with uncertain prognosis? @ -No Drug Therapy requiring intensive monitoring for toxicity (Heparin, Nitro, Insulin, Cardizem)? @ -No Were any procedures done? @ -No Diagnosis/symptom? @ -Cellulitis Acute, or Chronic, or Acute on Chronic? @ -acute Uncomplicated (without systemic symptoms) or Complicated (systemic symptoms)? @ -Complicated Side effects of treatment? @ -No Exacerbation, Progression, or Severe Exacerbation? @ -No Poses a threat to life or bodily function? How? (Chest pain, USA, MS, pneumonia, PE, COPD, DKA, ARF, appy, cholecystitis, CVA, Diverticulitis, Homicidal, Suicidal, threat to staff... and all critical care pts) @ -yes - Lab Data Result diagrams: 01/30/23 20:50 01/30/23 20:50 Lab Results 01/30/23 01/30/23 Range/Units 20:50 20:50 WBC 11.2 H (3.8-10.6) k/uL RBC 4.40 (4.30-5.90) m/uL Hgb 12.3 L (13.0-17.5) gm/dL Hct 37.2 L (39.0-53.0) % MCV 84.5 (80.0-100.0) fL MCH 27.8 (25.0-35.0) pg MCHC 32.9 (31.0-37.0) g/dL RDW 13.6 (11.5-15.5) % Plt Count 345 (150-450) k/uL MPV 7.4 Neutrophils % 76 % Lymphocytes % 15 % Monocytes % 7 % Eosinophils % 1 % Basophils % 1 % Neutrophils # 8.5 H (1.3-7.7) k/uL Lymphocytes # 1.6 (1.0-4.8) k/uL Monocytes # 0.7 (0-1.0) k/uL Eosinophils # 0.1 (0-0.7) k/uL Basophils # 0.1 (0-0.2) k/uL Sodium 132 L (137-145) mmol/L Potassium 5.1 (3.5-5.1) mmol/L Chloride 96 L (98-107) mmol/L Carbon Dioxide 26 (22-30) mmol/L Anion Gap 10 mmol/L BUN 18 (9-20) mg/dL Creatinine 0.94 (0.66-1.25) mg/dL Est GFR (CKD-EPI)AfAm >90 (>60 ml/min/1.73 sqM) Est GFR (CKD-EPI)NonAf 88 (>60 ml/min/1.73 sqM) Glucose 149 H (74-99) mg/dL Calcium 9.6 (8.4-10.2) mg/dL Total Bilirubin 0.5 (0.2-1.3) mg/dL AST 25 (17-59) U/L ALT 25 (4-49) U/L Alkaline Phosphatase 63 (38-126) U/L Total Protein 7.8 (6.3-8.2) g/dL Albumin 4.1 (3.5-5.0) g/dL Disposition Clinical Impression: Cellulitis Disposition: ADMITTED IP TO THIS HOSP Condition: Fair Time of Disposition: 21:33
--- NOTE | 2023-01-30 20:33 | XR ---
EXAMINATION TYPE: XR foot complete LT DATE OF EXAM: 01/30/2023 7:57 PM INDICATION: Patient age:Male; 62 years old; Reason for study: infection, r/o osteomyelitis; COMPARISON: 11/23/2022 TECHNIQUE: The left foot was examined in the AP, oblique, and lateral projections. FINDINGS: Post surgical changes with amputation at the metatarsal phalangeal joint of the first digit . There is deformity to the second digit metatarsal head. No evidence for osseous erosion. Soft tissu e edema noted at the surgical bed. No evidence of any acute osseous pathology. No evidence of soft tissue swelling. Joints are preserve d. IMPRESSION: 1. Postsurgical changes without evidence for erosion at this time. Consider outpatient nuclear medic ine bone scan versus MRI if there remains concern. Findings are not significantly changed from prior. 2. Stable deformity to the second metatarsal head.
[2023-01-30 21:08] LABS: Basophils # (A) 0.1 k/uL (0-0.2); Basophils % (A) 1 %; Eosinophils # (A) 0.1 k/uL (0-0.7); Eosinophils % (A) 1 %; HCT 37.2 % (39.0-53.0); HGB 12.3 gm/dL (13.0-17.5); Lymphocytes # (A) 1.6 k/uL (1.0-4.8); Lymphocytes % (A) 15 %; MCH 27.8 pg (25.0-35.0); MCHC 32.9 g/dL (31.0-37.0); MCV 84.5 fL (80.0-100.0); Mean Platelet Volume 7.4; Monocytes # (A) 0.7 k/uL (0-1.0); Monocytes % (A) 7 %; Neutrophils # (A) 8.5 k/uL (1.3-7.7); Neutrophils % (A) 76 %; Platelet Count 345 k/uL (150-450); RDW 13.6 % (11.5-15.5); WBC 11.2 k/uL (3.8-10.6)
[2023-01-30 21:20] LABS: ALT 25 U/L (4-49); AST 25 U/L (17-59); African American GFR (CKD) >90 (>60 ml/min/1.73 sqM); Albumin 4.1 g/dL (3.5-5.0); Alkaline Phosphatase 63 U/L (38-126); Anion Gap 10 mmol/L; Blood Urea Nitrogen 18 mg/dL (9-20); Calcium 9.6 mg/dL (8.4-10.2); Carbon Dioxide 26 mmol/L (22-30); Chloride 96 mmol/L (98-107); Glucose 149 mg/dL (74-99); Non-African American GFR(CKD) 88 (>60 ml/min/1.73 sqM); Potassium 5.1 mmol/L (3.5-5.1); Sodium 132 mmol/L (137-145); Total Bilirubin 0.5 mg/dL (0.2-1.3); Total Protein 7.8 g/dL (6.3-8.2)
[2023-01-30] MEDS ORDERED: IBUPROFEN 400 MG TAB PO PRN (21:31)
[2023-01-30] MEDS ORDERED: NALOXONE 0.4 MG/ML 1 ML VIAL IV PRN (21:31)
[2023-01-30] MEDS ORDERED: ACETAMINOPHEN TAB 325 MG TAB PO PRN (21:31)
[2023-01-30] MEDS ORDERED: VANCOMYCIN IV PER PHARMACY 1 EACH MISC MISCELLANE PRN (21:32)
[2023-01-30] MEDS ORDERED: VANCOMYCIN 2,000 MG in SODIUM CHLORIDE 0.9% 500 ML 500 ML IVPB ONE (22:30)
[2023-01-31] MEDS: HYDROcodone/APAP 10-325MG 1 EACH TAB PO SCH ×5 (04:45→22:07)
[2023-01-31] MEDS: traMADol 50 MG TAB PO SCH ×4 (05:55→22:08)
[2023-01-31] MEDS: MAGNESIUM HYDROXIDE 2,400 MG/30 ML CUP PO SCH (05:55)
[2023-01-31] MEDS ORDERED: metFORMIN 500 MG TAB PO SCH (09:00)
[2023-01-31] MEDS: INSULIN ASPART (NovoLOG) 100 UNIT/ML VIAL SQ SCH ×6 (09:01→22:06)
[2023-01-31] MEDS: LORATADINE 10 MG TAB PO SCH (09:02)
[2023-01-31] MEDS: polyethylene glycoL 3350 17 GM POWD.PACK PO SCH (09:02)
[2023-01-31 09:04] LABS: Glucose,Whole Blood 268 mg/dL (70-110)
[2023-01-31] MEDS: INSULIN DETEMIR (LEVEMIR) 100 UNIT/ML SYR SQ SCH ×2 (09:16→22:06)
--- NOTE | 2023-01-31 11:17 | P.HPIM ---
History of Present Illness H&P Date: 01/31/23 History of Presenting Illness: Patient is a very pleasant 62-year-old male with a past medical history of insulin-dependent diabetes mellitus, hypertension, hyperlipidemia, neuropathy, history of amputation of left great toe. Patient presented to the emergency department for evaluation of diabetic wound with infection after failing outpatient treatment with 9 day course of doxycycline. Patient reports 10 days ago he stubbed his third toe on his left foot and was immediately seen in the office and placed on antibiotics with doxycycline by his PCP, Dr. Vasquez. Patient reports initially he thought he was having improvement but states yesterday on day 9 he noted increasing redness and it appeared that infection had spread to his second and fourth toes so he called his PCP and came to the ER for further evaluation as directed. Patient reports his blood glucose levels have been running average around 200 and not significantly elevated. He denies having any fevers, chills, diaphoresis, chest pain, palpitations, shortness of breath, or any other complaints at this time. Patient denies having any noted drainage of wound. He does report that he follows outpatient for a slowly healing ulcer of right foot. Patient reports he came to the ER basically because he noticed the swelling and redness had not only spread to his second and fourth toes but beginning to spread over the dorsal surface of his foot. He reports taking doxycycline as prescribed 9 days and came to the ER on day 10. Patient underwent full evaluation in the emergency department. Labs completed and reviewed. CBC showing leukocytosis with WBC count of 11.2 and normocytic anemia with hemoglobin stable at 12.3. BMP revealing mild hyponatremia with sodium of 132 hypochloremia with chloride of 96. Blood glucose was 149. X-ray left foot completed showing postsurgical changes without evidence for erosion at this time with stable deformity to the second metatarsal head. Patient was started on IV antibiotics with vancomycin and initially admitted to general medical unit with consultation to vascular surgeon, Dr. Quintero an infectious disease physician, Dr. Galdamez. Review of systems: Pertinent positives and negatives as discussed in HPI, a complete review of systems was performed and all other systems are negative. Physical exam: Vital signs reviewed and stable. General: Nontoxic, no distress and appears stated age. Derm: Skin warm and dry, normal coloration for ethnicity. Diabetic wound of right foot, plantar region with hyper-granulation of new growth tissue protrudi ng from ulcer site. Patient with wounds and sloughing of skin on left foot second, third, and fourth toes surrounded by erythema. No noted drainage at this time. Head: Atraumatic, normocephalic and symmetric. Eyes: EOMs intact, no lid lag, and anicteric sclera Mouth: no lip lesions, mucus membranes moist Cardiovascular: regular rate and rhythm with normal S1S2, no murmur, positive posterior tibial pulses bilaterally, and cap refill < 2 seconds. Lungs: Respirations even, regular, and unlabored on room air. Lungs CTA bilaterally, no rhonchi, no rales, no wheezing, and no accessory muscle usage. Abdominal: soft, nontender to palpation, no guarding, no appreciable organomegaly Ext: ROM intact. No gross muscle atrophy, no edema, no contractures Neuro: Speech clear, face symmetrical and CN II-XII grossly intact with no noted focal neuro deficits Psych: Alert and oriented to person, place, time, and situation. Appropriate and pleasant affect. Assessment and Plan of Care: Infected diabetic wound left second, third, and fourth toes. Failed outpatient treatment with doxycycline. Diabetic ulcer right foot, plantar region Peripheral neuropathy History of amputation left great toe Insulin-dependent diabetes mellitus with hyperglycemia -IV antibiotics with vancomycin 2 mg every 12 hours. -Wound cultures -Consult vascular surgery, Dr. Quintero -Consult infectious disease secondary to infected diabetic wound failing outpatient -Symptomatic care and pain management. -Order placed for inflammatory markers ESR and CRP to obtain baseline findings. -Hold metformin and place patient on glycemic protocol with NovoLog sliding scale in addition to long-acting daily Levemir 35 units and NovoLog 16 units 3 times daily with each meal to obtain tight glycemic control throughout hospitali zation and treatment of nonhealing wounds after failing outpatient treatment. Hypertension Hyperlipidemia -Monitor vital signs and continue daily medication regimen with lisinopril 20 mg daily. -Heart healthy carb consistent diet. Data review: -Labs completed and reviewed. CBC showing leukocytosis with WBC count of 11.2 and normocytic anemia with hemoglobin stable at 12.3. BMP revealing mild hyponatremia with sodium of 132 hypochloremia with chloride of 96. Blood glucose was 149. -Vital signs reviewed and stable. Blood pressure 132/80, heart rate 80, respiratory rate 16, temp 98.96, and SpO2 of 96% on room air. Imaging review: -X-ray left foot completed showing postsurgical changes without evidence for erosion at this time with stable deformity to the second metatarsal head. The patient is admitted with an anticipated greater than 2 midnight stay for evaluation of infected diabetic wound, failed outpatient treatment CODE STATUS: Full code DVT prophylaxis: Heparin Discussed with: Patient, patient's , ED physician and RN Anticipated discharge date: Clinical course to determine Anticipated discharge place: Home Patient was seen independently by Nurse Practitioner. This document was prepared using [employer] dictation software. Please allow for errors in retail support specialist while rare they do occur. I reviewed the documentation as provided by the GENNA above, who is the original author of this note. I agree with the documented assessment and plan, with the following changes: none Past Medical History Past Medical History: Asthma, Diabetes Mellitus Additional Past Medical History / Comment(s): WAS GOING TO 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 He denies any medical marijuana, marijuana or street drug or alcohol use. He lives at home with his . There are no pets in the home. 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 No service. Smoking Status: Never smoker Past Alcohol Use History: None Reported Additional Past Alcohol Use History / Comment(s): Patient is a lifelong nonsmoker. He denies any medical marijuana, marijuana or street drug or alcohol use. He lives at home with his . There are no pets in the home. 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 Past Drug Use History: None Reported - Past Family History Father Family Medical History: Hypertension Mother Family Medical History: Asthma, COPD Medications and Allergies Home Medications Medication Instructions Recorded Confirmed Type Cetirizine HCl 10 mg PO DAILY 09/01/16 01/30/23 History HYDROcodone/APAP 10-325MG [[place] 1 tab PO QID 09/02/20 01/30/23 History 10-325] Magnesium Hydroxide [Milk of 2,400 mg PO Q2D 09/02/20 01/30/23 History Magnesia] lisinopriL 20 mg PO W/SUPPER 09/02/20 01/30/23 History metFORMIN HCL [Glucophage] 1,000 mg PO BID 09/02/20 01/30/23 History polyethylene glycoL 3350 [Miralax] 17 gm PO DAILY 09/02/20 01/30/23 History traMADol HCl [Ultram] 100 mg PO TID 09/02/20 01/30/23 History Albuterol Sulfate [Ventolin HFA] 1 - 2 puff INHALATION RT-Q6H PRN 07/24/22 01/30/23 History Clotrimazole/Betameth Cream 1 applic TOPICAL DAILY 07/24/22 01/30/23 History [Lotrisone] Insulin Aspart [NovoLOG Flexpen] 16 units SQ AC-TID 07/24/22 01/30/23 History Insulin Glargine,Hum.rec.anlog 35 units SQ BID 07/24/22 01/30/23 History [Lantus Solostar Pen] Nystatin 100,000 Unit/gm Powd 1 applic TOPICAL DAILY 07/24/22 01/30/23 History [Mycostatin Powder] Amoxic-Pot Clav 875-125Mg 1 tab PO Q12HR 10 Days #20 tab 02/03/23 Rx [Augmentin 875-125] Allergies Allergy/AdvReac Type Severity Reaction Status Date / Time gabapentin Allergy Swelling Verified 01/30/23 21:38 hydromorphone [From Dilaudid] Allergy Unknown Verified 01/30/23 21:38 ciprofloxacin [From Cipro] AdvReac Confusion, Verified 01/30/23 21:38 Dizziness sulfamethoxazole AdvReac Nausea & Verified 01/30/23 21:38 [From Bactrim] Vomiting trimethoprim [From Bactrim] AdvReac Nausea & Verified 01/30/23 21:38 Vomiting Physical Exam Vitals: Vital Signs Temp Pulse Pulse Resp BP BP Pulse Ox 01/31/23 08:00 98.9 F 80 16 132/80 96 01/31/23 06:27 68 22 128/66 97 01/31/23 02:07 78 20 123/87 97 01/30/23 23:00 74 18 126/74 98 01/30/23 18:52 98.5 F 87 18 125/72 94 L 01/30/23 17:49 98.9 F 102 H 20 96/61 95 Intake and Output 01/30/23 01/31/23 01/31/23 22:59 06:59 14:59 Intake Total 118 Balance 118 Intake: Oral 118 Other: Weight 142.428 kg 142.428 kg Results CBC & Chem 7: 02/02/23 08:02 02/03/23 06:14 Labs: Abnormal Lab Results - Last 24 Hours (Table) 01/30/23 01/30/23 01/31/23 Range/Units 20:50 20:50 09:02 WBC 11.2 H (3.8-10.6) k/uL Hgb 12.3 L (13.0-17.5) gm/dL Hct 37.2 L (39.0-53.0) % Neutrophils # 8.5 H (1.3-7.7) k/uL Sodium 132 L (137-145) mmol/L Chloride 96 L (98-107) mmol/L Glucose 149 H (74-99) mg/dL POC Glucose (mg/dL) 268 H (70-110) mg/dL Thrombosis Risk Factor Assmnt - Choose All That Apply Any of the Below Risk Factors Present?: Yes Each Factor Represents 1 point: Obesity (BMI >25) Other Risk Factors: Yes Each Risk Factor Represents 2 Points: Age 61-74 years Thrombosis Risk Factor Assessment Total Risk Factor Score: 3 Thrombosis Risk Factor Assessment Level: Moderate Risk
[2023-01-31] MEDS ORDERED: DEXTROSE 50% SYRINGE 50 ML IVP PRN ×2 (11:20)
[2023-01-31] MEDS: VANCOMYCIN 2,000 MG in SODIUM CHLORIDE 0.9% 500 ML 500 ML IVPB SCH ×2 (11:27→22:07)
[2023-01-31 12:10] LABS: Glucose,Whole Blood 147 mg/dL (70-110)
[2023-01-31 17:05] LABS: Glucose,Whole Blood 208 mg/dL (70-110)
[2023-01-31] MEDS: lisinopriL 20 MG TAB PO SCH (18:03)
[2023-01-31 20:35] LABS: Glucose,Whole Blood 195 mg/dL (70-110)
--- NOTE | 2023-01-31 22:23 | P.CONS ---
History of Present Illness - Reason for Consult Consult date: 01/31/23 - History of Present Illness Patient is a 62-year-old male with a past medical history significant diabetes mellitus hypertension hyperlipidemia and did have a history of neuropathy amputation of the left great toe patient present to the hospital with increasing swelling redness to his left third and fourth toe apparently the patient did stub his left third toe about 10 days ago did have some superficial ulceration from a ruptured blister subsequently evaluated by his primary care physician and the patient has been treated with oral doxycycline however the patient noticed to have increasing swelling redness and discomfort to the toe describing it more of a pressure-like and dull aching 6-7 out of 10 no radiation with associated swelling and redness patient presented to hospital on arrival to the ER patient was afebrile and no fever has been recorded subsequently patient white 21.2 with a left shift sed rate of 56 creatinine 0.94 liver enzymes normal CRP is 4.1 patient did have a x-ray of the foot did not show any acute abnormality or bony destruction patient was started on vancomycin infectious he was consulted for further management of antibiotic therapy Past Medical History Past Medical History: Asthma, Diabetes Mellitus Additional Past Medical History / Comment(s): WAS GOING TO [facility] EVERY SUNDAY-LT GREAT TOE INFECTION COMPLETED VISITS, CONSTIPATION.HEMORRHOIDS, 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 He denies any medical marijuana, marijuana or street drug or alcohol use. He lives at home with his . There are no pets in the home. 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 Smoking Status: Never smoker Past Alcohol Use History: None Reported Additional Past Alcohol Use History / Comment(s): Patient is a lifelong nonsmoker. He denies any medical marijuana, marijuana or street drug or alcohol use. He lives at home with his . There are no pets in the home. 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 Past Drug Use History: None Reported - Past Family History Father Family Medical History: Hypertension Mother Family Medical History: Asthma, COPD Medications and Allergies Home Medications Medication Instructions Recorded Confirmed Type Cetirizine HCl 10 mg PO DAILY 09/01/16 01/30/23 History HYDROcodone/APAP 10-325MG [[place] 1 tab PO QID 09/02/20 01/30/23 History 10-325] Magnesium Hydroxide [Milk of 2,400 mg PO Q2D 09/02/20 01/30/23 History Magnesia] lisinopriL 20 mg PO W/SUPPER 09/02/20 01/30/23 History metFORMIN HCL [Glucophage] 1,000 mg PO BID 09/02/20 01/30/23 History polyethylene glycoL 3350 [Miralax] 17 gm PO DAILY 09/02/20 01/30/23 History traMADol HCl [Ultram] 100 mg PO TID 09/02/20 01/30/23 History Albuterol Sulfate [Ventolin HFA] 1 - 2 puff INHALATION RT-Q6H PRN 07/24/22 01/30/23 History Clotrimazole/Betameth Cream 1 applic TOPICAL DAILY 07/24/22 01/30/23 History [Lotrisone] Insulin Aspart [NovoLOG Flexpen] 16 units SQ AC-TID 07/24/22 01/30/23 History Insulin Glargine,Hum.rec.anlog 35 units SQ BID 07/24/22 01/30/23 History [Lantus Solostar Pen] Nystatin 100,000 Unit/gm Powd 1 applic TOPICAL DAILY 07/24/22 01/30/23 History [Mycostatin Powder] Allergies Allergy/AdvReac Type Severity Reaction Status Date / Time gabapentin Allergy Swelling Verified 01/30/23 21:38 hydromorphone [From Dilaudid] Allergy Unknown Verified 01/30/23 21:38 ciprofloxacin [From Cipro] AdvReac Confusion, Verified 01/30/23 21:38 Dizziness sulfamethoxazole AdvReac Nausea & Verified 01/30/23 21:38 [From Bactrim] Vomiting trimethoprim [From Bactrim] AdvReac Nausea & Verified 01/30/23 21:38 Vomiting Physical Exam Vitals: Vital Signs Temp Pulse Pulse Resp BP BP Pulse Ox 01/31/23 08:00 98.9 F 80 16 132/80 96 08/02/23 06:27 68 22 128/66 97 01/31/23 02:07 78 20 123/87 97 01/30/23 23:00 74 18 126/74 98 01/30/23 18:52 98.5 F 87 18 125/72 94 L 01/30/23 17:49 98.9 F 102 H 20 96/61 95 Intake and Output 01/30/23 01/31/23 01/31/23 22:59 06:59 14:59 Intake Total 118 Balance 118 Intake: Oral 118 Other: Weight 142.428 kg 142.428 kg Results CBC & Chem 7: 02/01/23 07:00 02/01/23 07:00 Labs: Abnormal Lab Results - Last 24 Hours (Table) 01/30/23 01/30/23 01/31/23 Range/Units 20:50 20:50 09:02 WBC 11.2 H (3.8-10.6) k/uL Hgb 12.3 L (13.0-17.5) gm/dL Hct 37.2 L (39.0-53.0) % Neutrophils # 8.5 H (1.3-7.7) k/uL Sodium 132 L (137-145) mmol/L Chloride 96 L (98-107) mmol/L Glucose 149 H (74-99) mg/dL POC Glucose (mg/dL) 268 H (70-110) mg/dL Assessment and Plan Plan: 1patient with left foot toes superficial ulceration and cellulitis started with the trauma and has failed to respond to outpatient oral doxycycline therapy patient did have history of previous diabetic foot infection requiring amputation and will need to cover for the resistant gram-positive such as MRSA 2-local wound culture to guide further antibiotic therapy 3-local care with a dry Aquacel silver dressing 4-patient also have a wound on the right foot plantar aspect the base looks clean and no evidence of any slough tissue or cellulitis 5-vancomycin pharmacy to dose with a target trough of 15 while watching kidney function and Vanco trough closely. We will follow on clinical condition and cultures to further adjust medication if needed Thank you for this consultation we will follow the patient along with you Dictation was produced using [employer] dictation software. please excuse any grammatical, word or spelling errors. Time with Patient: Greater than 30
[2023-02-01 07:37] LABS: ALT 20 U/L (4-49); AST 21 U/L (17-59); African American GFR (CKD) >90 (>60 ml/min/1.73 sqM); Albumin 3.5 g/dL (3.5-5.0); Albumin/Globulin Ratio 1.1; Alkaline Phosphatase 56 U/L (38-126); Anion Gap 8 mmol/L; Blood Urea Nitrogen 12 mg/dL (9-20); Calcium 8.8 mg/dL (8.4-10.2); Carbon Dioxide 26 mmol/L (22-30); Chloride 101 mmol/L (98-107); Globulin 3.1 g/dL; Glucose 144 mg/dL (74-99); Magnesium 1.7 mg/dL (1.6-2.3); Non-African American GFR(CKD) >90 (>60 ml/min/1.73 sqM); Potassium 4.8 mmol/L (3.5-5.1); Sodium 135 mmol/L (137-145); Total Bilirubin 0.3 mg/dL (0.2-1.3); Total Protein 6.6 g/dL (6.3-8.2)
[2023-02-01 07:47] LABS: Glucose,Whole Blood 149 mg/dL (70-110)
[2023-02-01] MEDS: INSULIN ASPART (NovoLOG) 100 UNIT/ML VIAL SQ SCH ×7 (07:51→22:06)
[2023-02-01] MEDS: HYDROcodone/APAP 10-325MG 1 EACH TAB PO SCH ×4 (08:02→22:05)
[2023-02-01] MEDS: polyethylene glycoL 3350 17 GM POWD.PACK PO SCH (08:02)
[2023-02-01] MEDS: traMADol 50 MG TAB PO SCH ×3 (08:02→22:06)
[2023-02-01] MEDS: LORATADINE 10 MG TAB PO SCH (08:02)
[2023-02-01] MEDS: INSULIN DETEMIR (LEVEMIR) 100 UNIT/ML SYR SQ SCH ×2 (08:03→22:06)
[2023-02-01] MEDS: VANCOMYCIN 2,000 MG in SODIUM CHLORIDE 0.9% 500 ML 500 ML IVPB SCH ×2 (10:29→17:14)
[2023-02-01 12:10] LABS: HCT 34.8 % (39.6-50.0); HGB 10.7 d/dL (13.0-17.0); MCH 26.4 pg (27.0-32.0); MCHC 30.7 d/dL (32.0-37.0); MCV 85.9 FL (80.0-97.0); Mean Platelet Volume 9.8 FL (9.5-12.2); NRBC Per 100 WBC 0 X 10*3/uL (0.00-0.01); Platelet Count 376 X 10*3/uL (140-440); RBC 4.05 X 10*6/uL (4.40-5.60); RDW 13.4 % (11.5-14.5); WBC 8.49 X 10*3/uL (4.50-10.00)
[2023-02-01 12:22] VITALS: BMI 43.7
[2023-02-01 12:42] LABS: Glucose,Whole Blood 149 mg/dL (70-110)
--- NOTE | 2023-02-01 15:26 | P.PN ---
Subjective Progress Note Date: 02/01/23 Hospital Course: 62-year-old male with a past medical history of insulin-dependent diabetes mellitus, hypertension, hyperlipidemia, neuropathy, history of amputation of left great toe. Patient presented to the emergency department for evaluation of diabetic wound with infection after failing outpatient treatment with 9 day course of doxycycline. Labs completed and reviewed. CBC showing leukocytosis with WBC count of 11.2 and normocytic anemia with hemoglobin stable at 12.3. BMP revealing mild hyponatremia with sodium of 132 hypochloremia with chloride of 96. Blood glucose was 149. X-ray left foot completed showing postsurgical changes without evidence for erosion at this time with stable deformity to the second metatarsal head. Patient was started on IV antibiotics with vancomycin. ID and vascular sx consulted. Subjective: Patient seen and examined at bedside. No acute events overnight. Pertinent positives and negatives as discussed above, a complete review of systems was performed and all other systems are negative. Vitals Signs Reviewed. General: Nontoxic, no distress and appears stated age. Derm: Skin warm and dry, normal coloration for ethnicity. Diabetic wound of right foot, plantar region with hyper-granulation of new growth tissue protrud ing from ulcer site. Patient with wounds and sloughing of skin on left foot second, third, and fourth toes surrounded by erythema. No noted drainage at this time. Head: Atraumatic, normocephalic and symmetric. Eyes: EOMs intact, no lid lag, and anicteric sclera Mouth: no lip lesions, mucus membranes moist Cardiovascular: regular rate and rhythm with normal S1S2, no murmur, positive posterior tibial pulses bilaterally, and cap refill < 2 seconds. Lungs: Respirations even, regular, and unlabored on room air. Lungs CTA bilaterally, no rhonchi, no rales, no wheezing, and no accessory muscle usage. Abdominal: soft, nontender to palpation, no guarding, no appreciable organomegaly Ext: ROM intact. No gross muscle atrophy, no edema, no contractures Neuro: Speech clear, face symmetrical and CN II-XII grossly intact with no noted focal neuro deficits Psych: Alert and oriented to person, place, time, and situation. Appropriate and pleasant affect. Data Reviewed Today: Pertinent Labs: Hemoglobin 10.7, WBC 8.49, sodium 135, creatinine 0.71, blood sugars range between 140-208 Imaging: No new imaging Assessment and Plan: Infected diabetic wound left second, third, and fourth toes. Failed outpatient treatment with doxycycline. Diabetic ulcer right foot, plantar region Peripheral neuropathy History of amputation left great toe Insulin-dependent diabetes mellitus with hyperglycemia -IV vancomycin, monitor renal function -Wound cultures -Consult vascular surgery -ID following -Symptomatic care and pain management. -Hold metformin and place patient on glycemic protocol with NovoLog sliding scale in addition to long-acting daily Levemir 35 units and NovoLog 16 units 3 times daily with each meal to obtain tight glycemic control throughout hospitalization and treatment of nonhealing wounds after failing outpatient treatment. Hypertension Hyperlipidemia -Monitor vital signs and continue daily medication regimen with lisinopril 20 mg daily. -Heart healthy carb consistent diet. DVT ppx: Subcu heparin Code status: Full code Anticipated discharge place: Pending clinical course Anticipated discharge time: pending clinical course Objective - Vital Signs Vital signs: Vital Signs Temp 98.5 F 02/01/23 07:00 Pulse 72 02/01/23 07:00 Resp 17 02/01/23 07:00 BP 101/71 02/01/23 07:00 Pulse Ox 97 02/01/23 07:00 FiO2 Intake & Output 01/31/23 02/01/23 02/01/23 18:59 06:59 18:59 Intake Total 118 781 Balance 118 781 Weight 142.428 kg 142.428 kg Intake: Oral 118 781 Other: # Voids 1 1 2 - Labs CBC & Chem 7: 02/01/23 07:00 02/01/23 07:00 Labs: Abnormal Lab Results - Last 24 Hours (Table) 01/31/23 01/31/23 01/31/23 Range/Units 11:40 17:04 20:33 RBC (4.40-5.60) X 10*6/uL Hgb (13.0-17.0) d/dL Hct (39.6-50.0) % MCH (27.0-32.0) pg MCHC (32.0-37.0) d/dL Sodium (137-145) mmol/L Glucose (74-99) mg/dL POC Glucose (mg/dL) 208 H 195 H (70-110) mg/dL Hemoglobin A1c 9.3 H (<=6.0) % 02/01/23 02/01/23 02/01/23 Range/Units 07:00 07:00 07:46 RBC 4.05 L (4.40-5.60) X 10*6/uL Hgb 10.7 L (13.0-17.0) d/dL Hct 34.8 L (39.6-50.0) % MCH 26.4 L (27.0-32.0) pg MCHC 30.7 L (32.0-37.0) d/dL Sodium 135 L (137-145) mmol/L Glucose 144 H (74-99) mg/dL POC Glucose (mg/dL) 149 H (70-110) mg/dL Hemoglobin A1c (<=6.0) % 02/01/23 Range/Units 12:41 RBC (4.40-5.60) X 10*6/uL Hgb (13.0-17.0) d/dL Hct (39.6-50.0) % MCH (27.0-32.0) pg MCHC (32.0-37.0) d/dL Sodium (137-145) mmol/L Glucose (74-99) mg/dL POC Glucose (mg/dL) 149 H (70-110) mg/dL Hemoglobin A1c (<=6.0) % Microbiology - Last 24 Hours (Table) 01/31/23 11:58 Gram Stain - Preliminary Toe - Left First
[2023-02-01] MEDS: HEPARIN SODIUM,PORCINE 5,000 UNIT/ML 1 ML VIAL SQ SCH (16:46)
--- NOTE | 2023-02-01 16:55 | P.GSCN ---
History of Present Illness History of present illness: 62-year-old gentleman well known to me from the past patient has been coming on regular rate to the wound clinic patient has a right foot callus which is with some hyper granulation of the tissue we been using Hydrofera Blue and ulcer is getting smaller no discharge or redness noted. Patient came to the emergency room with the left foot third toe there was a blister formation which ruptured this patient had a left big toe and third toe patient in the past stump site is healing no discharge redness noted Medical history history of diabetes hypertension controlled with medication Chest is clear auscultation first and second sound present Abdomen soft nontender Vascular femorals are 2+ bilateral left third toe has a blister which ruptured with the superficial wound mild redness noted We placed a heavy medihoney gel to the third toe and also on the right plantar aspect dressing should be changed daily patient is under care of infectious disease we will follow with you Past Medical History Past Medical History: Asthma, Diabetes Mellitus Additional Past Medical History / Comment(s): WAS GOING TO [facility] EVERY SUNDAY-LT GREAT TOE INFECTION COMPLETED VISITS, CONSTIPATION.HEMORRHOIDS, 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 He denies any medical marijuana, marijuana or street drug or alcohol use. He lives at home with his . There are no pets in the home. 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 Smoking Status: Never smoker Past Alcohol Use History: None Reported Additional Past Alcohol Use History / Comment(s): Patient is a lifelong nonsmoker. He denies any medical marijuana, marijuana or street drug or alcohol use. He lives at home with his . There are no pets in the home. 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 Past Drug Use History: None Reported - Past Family History Father Family Medical History: Hypertension Mother Family Medical History: Asthma, COPD Medications and Allergies Home Medications Medication Instructions Recorded Confirmed Type Cetirizine HCl 10 mg PO DAILY 09/01/16 01/30/23 History HYDROcodone/APAP 10-325MG [[place] 1 tab PO QID 09/02/20 01/30/23 History 10-325] Magnesium Hydroxide [Milk of 2,400 mg PO Q2D 09/02/20 01/30/23 History Magnesia] lisinopriL 20 mg PO W/SUPPER 09/02/20 01/30/23 History metFORMIN HCL [Glucophage] 1,000 mg PO BID 09/02/20 01/30/23 History polyethylene glycoL 3350 [Miralax] 17 gm PO DAILY 09/02/20 01/30/23 History traMADol HCl [Ultram] 100 mg PO TID 09/02/20 01/30/23 History Albuterol Sulfate [Ventolin HFA] 1 - 2 puff INHALATION RT-Q6H PRN 07/24/22 01/30/23 History Clotrimazole/Betameth Cream 1 applic TOPICAL DAILY 07/24/22 01/30/23 History [Lotrisone] Insulin Aspart [NovoLOG Flexpen] 16 units SQ AC-TID 07/24/22 01/30/23 History Insulin Glargine,Hum.rec.anlog 35 units SQ BID 07/24/22 01/30/23 History [Lantus Solostar Pen] Nystatin 100,000 Unit/gm Powd 1 applic TOPICAL DAILY 07/24/22 01/30/23 History [Mycostatin Powder] Allergies Allergy/AdvReac Type Severity Reaction Status Date / Time gabapentin Allergy Swelling Verified 01/30/23 21:38 hydromorphone [From Dilaudid] Allergy Unknown Verified 01/30/23 21:38 ciprofloxacin [From Cipro] AdvReac Confusion, Verified 01/30/23 21:38 Dizziness sulfamethoxazole AdvReac Nausea & Verified 01/30/23 21:38 [From Bactrim] Vomiting trimethoprim [From Bactrim] AdvReac Nausea & Verified 01/30/23 21:38 Vomiting Surgical - Exam Vital Signs Temp Pulse Resp BP Pulse Ox 98.9 F 102 H 20 96/61 95 01/30/23 17:49 01/30/23 17:49 01/30/23 17:49 01/30/23 17:49 01/30/23 17:49 Results - Labs 02/01/23 07:00 02/01/23 07:00 Abnormal Lab Results - Last 24 Hours (Table) 01/31/23 01/31/23 02/01/23 Range/Units 17:04 20:33 07:00 RBC (4.40-5.60) X 10*6/uL Hgb (13.0-17.0) d/dL Hct (39.6-50.0) % MCH (27.0-32.0) pg MCHC (32.0-37.0) d/dL Sodium 135 L (137-145) mmol/L Glucose 144 H (74-99) mg/dL POC Glucose (mg/dL) 208 H 195 H (70-110) mg/dL 02/01/23 02/01/23 02/01/23 Range/Units 07:00 07:46 12:41 RBC 4.05 L (4.40-5.60) X 10*6/uL Hgb 10.7 L (13.0-17.0) d/dL Hct 34.8 L (39.6-50.0) % MCH 26.4 L (27.0-32.0) pg MCHC 30.7 L (32.0-37.0) d/dL Sodium (137-145) mmol/L Glucose (74-99) mg/dL POC Glucose (mg/dL) 149 H 149 H (70-110) mg/dL Microbiology - Last 24 Hours (Table) 01/31/23 11:58 Gram Stain - Preliminary Toe - Left First Diabetes panel 02/01/23 Range/Units 07:00 Sodium 135 L (137-145) mmol/L Potassium 4.8 (3.5-5.1) mmol/L Chloride 101 (98-107) mmol/L Carbon Dioxide 26 (22-30) mmol/L BUN 12 (9-20) mg/dL Creatinine 0.71 (0.66-1.25) mg/dL Glucose 144 H (74-99) mg/dL Calcium 8.8 (8.4-10.2) mg/dL AST 21 (17-59) U/L ALT 20 (4-49) U/L Alkaline Phosphatase 56 (38-126) U/L Total Protein 6.6 (6.3-8.2) g/dL Albumin 3.5 (3.5-5.0) g/dL Calcium panel 02/01/23 Range/Units 07:00 Calcium 8.8 (8.4-10.2) mg/dL Albumin 3.5 (3.5-5.0) g/dL Pituitary panel 02/01/23 Range/Units 07:00 Sodium 135 L (137-145) mmol/L Potassium 4.8 (3.5-5.1) mmol/L Chloride 101 (98-107) mmol/L Carbon Dioxide 26 (22-30) mmol/L BUN 12 (9-20) mg/dL Creatinine 0.71 (0.66-1.25) mg/dL Glucose 144 H (74-99) mg/dL Calcium 8.8 (8.4-10.2) mg/dL Adrenal panel 02/01/23 Range/Units 07:00 Sodium 135 L (137-145) mmol/L Potassium 4.8 (3.5-5.1) mmol/L Chloride 101 (98-107) mmol/L Carbon Dioxide 26 (22-30) mmol/L BUN 12 (9-20) mg/dL Creatinine 0.71 (0.66-1.25) mg/dL Glucose 144 H (74-99) mg/dL Calcium 8.8 (8.4-10.2) mg/dL Total Bilirubin 0.3 (0.2-1.3) mg/dL AST 21 (17-59) U/L ALT 20 (4-49) U/L Alkaline Phosphatase 56 (38-126) U/L Total Protein 6.6 (6.3-8.2) g/dL Albumin 3.5 (3.5-5.0) g/dL
[2023-02-01] MEDS: lisinopriL 20 MG TAB PO SCH (17:14)
[2023-02-01 17:37] LABS: Glucose,Whole Blood 163 mg/dL (70-110)
[2023-02-01 20:32] LABS: Glucose,Whole Blood 248 mg/dL (70-110)
--- NOTE | 2023-02-01 22:24 | P.PN ---
Subjective Progress Note Date: 02/01/23 Principal diagnosis: L foot toe ulcer and cellulitis Patient is a 62-year male with multiple comorbidities presenting to the hospital with left foot to with superficial ulceration from a trauma increasing swelling redness failing outpatient oral doxycycline therapy. On today's evaluation that is 02/01/2023 the patient is afebrile patient is breathing comfortably on room air patient denies having any chest pain or shortness of breath or cough no nausea vomiting no abdominal pain and denies any worsening pain to the right foot toe area. The patient white count is normal is down to 8.49 creatinine is normal at 0.71 liver enzymes are normal cultures are currently pending Objective - Vital Signs Vital signs: Vital Signs Temp 98.5 F 02/01/23 07:00 Pulse 72 02/01/23 07:00 Resp 17 02/01/23 07:00 BP 101/71 02/01/23 07:00 Pulse Ox 97 02/01/23 07:00 FiO2 Intake & Output 01/31/23 02/01/23 02/01/23 18:59 06:59 18:59 Intake Total 118 339 Balance 118 339 Weight 142.428 kg 142.428 kg Intake: Oral 118 339 Other: # Voids 1 1 - Exam GENERAL DESCRIPTION: Elderly male lying in bed in no distress RESPIRATORY SYSTEM: Unlabored breathing , decreased breath sounds at bases HEART: S1 S2 regular rate and rhythm ,no loud murmurs ABDOMEN: Soft , no tenderness EXTREMITIES: Left foot toes swelling redness has decreased no drainage, right foot plantar ulcer is currently dressed - Labs CBC & Chem 7: 02/01/23 07:00 02/01/23 07:00 Labs: Abnormal Lab Results - Last 24 Hours (Table) 01/31/23 01/31/23 01/31/23 Range/Units 11:40 17:04 20:33 RBC (4.40-5.60) X 10*6/uL Hgb (13.0-17.0) d/dL Hct (39.6-50.0) % MCH (27.0-32.0) pg MCHC (32.0-37.0) d/dL Sodium (137-145) mmol/L Glucose (74-99) mg/dL POC Glucose (mg/dL) 208 H 195 H (70-110) mg/dL Hemoglobin A1c 9.3 H (<=6.0) % 02/01/23 02/01/23 02/01/23 Range/Units 07:00 07:00 07:46 RBC 4.05 L (4.40-5.60) X 10*6/uL Hgb 10.7 L (13.0-17.0) d/dL Hct 34.8 L (39.6-50.0) % MCH 26.4 L (27.0-32.0) pg MCHC 30.7 L (32.0-37.0) d/dL Sodium 135 L (137-145) mmol/L Glucose 144 H (74-99) mg/dL POC Glucose (mg/dL) 149 H (70-110) mg/dL Hemoglobin A1c (<=6.0) % 02/01/23 Range/Units 12:41 RBC (4.40-5.60) X 10*6/uL Hgb (13.0-17.0) d/dL Hct (39.6-50.0) % MCH (27.0-32.0) pg MCHC (32.0-37.0) d/dL Sodium (137-145) mmol/L Glucose (74-99) mg/dL POC Glucose (mg/dL) 149 H (70-110) mg/dL Hemoglobin A1c (<=6.0) % Microbiology - Last 24 Hours (Table) 01/31/23 11:58 Gram Stain - Preliminary Toe - Left First Assessment and Plan (1) Cellulitis of left foot Current Visit: No Status: Acute Code(s): L03.116 - CELLULITIS OF LEFT LOWER LIMB SNOMED Code(s): 880056110 (2) Diabetic foot ulcer Current Visit: No Status: Acute Code(s): E11.621 - TYPE 2 DIABETES MELLITUS WITH FOOT ULCER; L97.509 - NON-PRESSURE CHRONIC ULCER OTH PRT UNSP FOOT W UNSP SEVERITY SNOMED Code(s): 181513161 Plan: 1patient with left foot toes superficial ulceration and cellulitis started with the trauma and has failed to respond to outpatient oral doxycycline therapy patient did have history of previous diabetic foot infection requiring amputation and will need to cover for the resistant gram-positive such as MRSA 2-local wound culture has been obtained and pending 3-local care with a dry Aquacel silver dressing 4-patient also have a wound on the right foot plantar aspect the base looks clean and no evidence of any slough tissue or cellulitis 5-Pt to continue with vancomycin pharmacy to dose with a target trough of 15 while watching kidney function and Vanco trough closely. Dictation was produced using [employer] dictation software. please excuse any grammatical, word or spelling errors. Time with Patient: Less than 30
[2023-02-02] MEDS: HEPARIN SODIUM,PORCINE 5,000 UNIT/ML 1 ML VIAL SQ SCH ×4 (00:23→23:12)
[2023-02-02] MEDS: VANCOMYCIN 2,000 MG in SODIUM CHLORIDE 0.9% 500 ML 500 ML IVPB SCH ×2 (01:47→08:36)
[2023-02-02] MEDS: MAGNESIUM HYDROXIDE 2,400 MG/30 ML CUP PO SCH (05:01)
[2023-02-02] MEDS ORDERED: VANCOMYCIN TROUGH DUE 1 EACH MISC MISCELLANE ONE (08:00)
[2023-02-02 08:01] LABS: Glucose,Whole Blood 168 mg/dL (70-110)
[2023-02-02 08:25] LABS: African American GFR (CKD) >90 (>60 ml/min/1.73 sqM); Anion Gap 7 mmol/L; Blood Urea Nitrogen 11 mg/dL (9-20); Calcium 9.1 mg/dL (8.4-10.2); Carbon Dioxide 26 mmol/L (22-30); Chloride 102 mmol/L (98-107); Glucose 164 mg/dL (74-99); Non-African American GFR(CKD) >90 (>60 ml/min/1.73 sqM); Potassium 5.3 mmol/L (3.5-5.1); Sodium 135 mmol/L (137-145)
[2023-02-02] MEDS: HYDROcodone/APAP 10-325MG 1 EACH TAB PO SCH ×4 (08:37→22:16)
[2023-02-02] MEDS: LORATADINE 10 MG TAB PO SCH (08:38)
[2023-02-02] MEDS: INSULIN DETEMIR (LEVEMIR) 100 UNIT/ML SYR SQ SCH ×2 (08:38→20:54)
[2023-02-02] MEDS: traMADol 50 MG TAB PO SCH ×3 (08:38→22:15)
[2023-02-02] MEDS: polyethylene glycoL 3350 17 GM POWD.PACK PO SCH (08:39)
[2023-02-02] MEDS: INSULIN ASPART (NovoLOG) 100 UNIT/ML VIAL SQ SCH ×7 (08:39→20:55)
[2023-02-02 11:29] LABS: Basophils # (A) 0.08 X 10*3/uL (0.00-0.10); Basophils % (A) 0.9 %; Eosinophils # (A) 0.36 X 10*3/uL (0.04-0.35); HCT 36.3 % (39.6-50.0); HGB 11.2 d/dL (13.0-17.0); Lymphocytes # (A) 1.81 X 10*3/uL (0.90-5.00); Lymphocytes % (A) 20.1 %; MCH 26.2 pg (27.0-32.0); MCHC 30.9 d/dL (32.0-37.0); MCV 84.8 FL (80.0-97.0); Mean Platelet Volume 9.7 FL (9.5-12.2); Monocytes # (A) 0.75 X 10*3/uL (0.20-1.00); Monocytes % (A) 8.3 %; NRBC Per 100 WBC 0 X 10*3/uL (0.00-0.01); Neutrophils # (A) 5.95 X 10*3/uL (1.80-7.70); Neutrophils % (A) 65.9 %; Platelet Count 387 X 10*3/uL (140-440); RBC 4.28 X 10*6/uL (4.40-5.60); RDW 13.4 % (11.5-14.5); WBC 9.02 X 10*3/uL (4.50-10.00)
[2023-02-02 12:23] LABS: Glucose,Whole Blood 231 mg/dL (70-110)
[2023-02-02 14:07] LABS: Glucose,Whole Blood 297 mg/dL (70-110)
[2023-02-02] MEDS ORDERED: SODIUM ZIRCONIUM CYCLOSILICATE 10 GM PACKET PO ONE (14:15)
--- NOTE | 2023-02-02 14:30 | P.PN ---
Subjective Progress Note Date: 02/02/23 Hospital Course: 62-year-old male with a past medical history of insulin-dependent diabetes mellitus, hypertension, hyperlipidemia, neuropathy, history of amputation of left great toe. Patient presented to the emergency department for evaluation of diabetic wound with infection after failing outpatient treatment with 9 day course of doxycycline. Labs completed and reviewed. CBC showing leukocytosis with WBC count of 11.2 and normocytic anemia with hemoglobin stable at 12.3. BMP revealing mild hyponatremia with sodium of 132 hypochloremia with chloride of 96. Blood glucose was 149. X-ray left foot completed showing postsurgical changes without evidence for erosion at this time with stable deformity to the second metatarsal head. Patient was started on IV antibiotics with vancomycin. ID and vascular sx consulted. Subjective: Patient seen and examined at bedside. No acute events overnight. Pertinent positives and negatives as discussed above, a complete review of systems was performed and all other systems are negative. Vitals Signs Reviewed. General: Nontoxic, no distress and appears stated age. Derm: Skin warm and dry, normal coloration for ethnicity. Diabetic wound of right foot, plantar region with hyper-granulation of new growth tissue protrudi ng from ulcer site. Patient with wounds and sloughing of skin on left foot second, third, and fourth toes surrounded by erythema. No noted drainage at this time. Head: Atraumatic, normocephalic and symmetric. Eyes: EOMs intact, no lid lag, and anicteric sclera Mouth: no lip lesions, mucus membranes moist Cardiovascular: regular rate and rhythm with normal S1S2, no murmur, positive posterior tibial pulses bilaterally, and cap refill < 2 seconds. Lungs: Respirations even, regular, and unlabored on room air. Lungs CTA bilaterally, no rhonchi, no rales, no wheezing, and no accessory muscle usage. Abdominal: soft, nontender to palpation, no guarding, no appreciable organomegaly Ext: ROM intact. No gross muscle atrophy, no edema, no contractures Neuro: Speech clear, face symmetrical and CN II-XII grossly intact with no noted focal neuro deficits Psych: Alert and oriented to person, place, time, and situation. Appropriate and pleasant affect. Data Reviewed Today: Pertinent Labs: Hemoglobin 11.2, potassium 5.3, creatinine 0.72, blood sugars range between 164-248 Imaging: No new imaging Assessment and Plan: Infected diabetic wound left second, third, and fourth toes. Failed outpatient treatment with doxycycline. Diabetic ulcer right foot, plantar region Peripheral neuropathy History of amputation left great toe Insulin-dependent diabetes mellitus with hyperglycemia Hypokalemia -IV vancomycin, monitor renal function -Wound cultures -Vascular surgery following -ID following -Symptomatic care and pain management. -Hold metformin and place patient on glycemic protocol with NovoLog sliding scale in addition to long-acting daily Levemir 35 units and NovoLog 16 units 3 times daily with each meal to obtain tight glycemic control throughout hospitalization and treatment of nonhealing wounds after failing outpatient treatment. -lokelma once -repeat BMP tomorrow Hypertension Hyperlipidemia -Monitor vital signs and continue daily medication regimen with lisinopril 20 mg daily. -Heart healthy carb consistent diet. DVT ppx: Subcu heparin Code status: Full code Anticipated discharge place: Pending clinical course Anticipated discharge time: pending clinical course Objective - Vital Signs Vital signs: Vital Signs Temp 97.6 F 02/02/23 14:26 Pulse 77 02/02/23 14:26 Resp 20 02/02/23 14:26 BP 158/74 02/02/23 14:26 Pulse Ox 95 02/02/23 14:26 FiO2 Intake & Output 02/01/23 02/02/23 02/02/23 18:59 06:59 18:59 Intake Total 1697 604 Balance 1697 604 Weight 142.428 kg Intake: Oral 1697 604 Other: Voiding Method Toilet # Voids 2 2 - Labs CBC & Chem 7: 02/02/23 08:02 02/02/23 08:02 Labs: Abnormal Lab Results - Last 24 Hours (Table) 02/01/23 02/01/23 02/02/23 Range/Units 17:36 20:31 07:59 RBC (4.40-5.60) X 10*6/uL Hgb (13.0-17.0) d/dL Hct (39.6-50.0) % MCH (27.0-32.0) pg MCHC (32.0-37.0) d/dL Eosinophils # (0.04-0.35) X 10*3/uL Sodium (137-145) mmol/L Potassium (3.5-5.1) mmol/L Glucose (74-99) mg/dL POC Glucose (mg/dL) 163 H 248 H 168 H (70-110) mg/dL 02/02/23 02/02/23 02/02/23 Range/Units 08:02 08:02 12:18 RBC 4.28 L (4.40-5.60) X 10*6/uL Hgb 11.2 L (13.0-17.0) d/dL Hct 36.3 L (39.6-50.0) % MCH 26.2 L (27.0-32.0) pg MCHC 30.9 L (32.0-37.0) d/dL Eosinophils # 0.36 H (0.04-0.35) X 10*3/uL Sodium 135 L (137-145) mmol/L Potassium 5.3 H (3.5-5.1) mmol/L Glucose 164 H (74-99) mg/dL POC Glucose (mg/dL) 231 H (70-110) mg/dL 02/02/23 Range/Units 14:05 RBC (4.40-5.60) X 10*6/uL Hgb (13.0-17.0) d/dL Hct (39.6-50.0) % MCH (27.0-32.0) pg MCHC (32.0-37.0) d/dL Eosinophils # (0.04-0.35) X 10*3/uL Sodium (137-145) mmol/L Potassium (3.5-5.1) mmol/L Glucose (74-99) mg/dL POC Glucose (mg/dL) 297 H (70-110) mg/dL Microbiology - Last 24 Hours (Table) 01/31/23 11:58 Gram Stain - Preliminary Toe - Left First
--- NOTE | 2023-02-02 17:44 | PN ---
PROGRESS NOTE The patient has history of on the plantar aspect of the right foot, and the third toe has superficial wound. Today, we have changed the dressing. We have used Medihoney gel. The patient is under care of Infectious Disease for IV antibiotic. Continue with local wound care using Medihoney gel. If the patient is discharged for the weekend, we will follow up in the wound clinic. MMODL / IJN: [id number] /
[2023-02-02 17:52] LABS: Glucose,Whole Blood 231 mg/dL (70-110)
[2023-02-02] MEDS: lisinopriL 20 MG TAB PO SCH (18:10)
[2023-02-02 20:49] LABS: Glucose,Whole Blood 259 mg/dL (70-110)
[2023-02-03] MEDS ORDERED: VANCOMYCIN 2,000 MG in SODIUM CHLORIDE 0.9% 500 ML 500 ML IVPB SCH ×2
[2023-02-03 06:25] LABS: Glucose,Whole Blood 179 mg/dL (70-110)
[2023-02-03] MEDS: INSULIN ASPART (NovoLOG) 100 UNIT/ML VIAL SQ SCH ×4 (06:28→13:02)
[2023-02-03 06:39] LABS: African American GFR (CKD) >90 (>60 ml/min/1.73 sqM); Anion Gap 5 mmol/L; Blood Urea Nitrogen 13 mg/dL (9-20); Calcium 8.9 mg/dL (8.4-10.2); Carbon Dioxide 29 mmol/L (22-30); Chloride 101 mmol/L (98-107); Glucose 180 mg/dL (74-99); Non-African American GFR(CKD) >90 (>60 ml/min/1.73 sqM); Sodium 135 mmol/L (137-145)
[2023-02-03] MEDS: traMADol 50 MG TAB PO SCH (08:36)
[2023-02-03] MEDS: polyethylene glycoL 3350 17 GM POWD.PACK PO SCH (08:36)
[2023-02-03] MEDS: INSULIN DETEMIR (LEVEMIR) 100 UNIT/ML SYR SQ SCH (08:36)
[2023-02-03] MEDS: LORATADINE 10 MG TAB PO SCH (08:37)
[2023-02-03] MEDS: HYDROcodone/APAP 10-325MG 1 EACH TAB PO SCH ×2 (08:37→12:44)
[2023-02-03] MEDS: HEPARIN SODIUM,PORCINE 5,000 UNIT/ML 1 ML VIAL SQ SCH (08:38)
[2023-02-03 09:04] VITALS: BP 142/88; PULSE 67; RESP 18; TEMP 97.6
[2023-02-03 11:46] LABS: Glucose,Whole Blood 242 mg/dL (70-110)
[2023-02-03] MEDS ORDERED: AMPICILLIN-SULBACTAM 3 GM in SODIUM CHLORIDE 0.9% 100 ML IVPB SCH (12:00)
--- NOTE | 2023-02-03 12:56 | P.DS ---
Providers Date of admission: 01/30/23 21:24 Expected date of discharge: 02/03/23 Attending physician: Cr Ricketts MD Consults: 01/31/23 11:17 Consult Physician Routine Consulting Provider: Lawson Quintero Consult Reason/Comments: diabetic ulcer, follows with you outpatient Do you want consulting provider notified?: Yes 01/31/23 11:18 Consult Physician Routine Consulting Provider: Jai Galdamez Consult Reason/Comments: diabetic wounds, failed OP Tx with Doxy Do you want consulting provider notified?: Yes Primary care physician: Terry Vasquez Hospital Course: Discharge Diagnosis: Infected diabetic wound left second, third, and fourth toes with cellulitis and failed outpatient treatment Diabetic ulcer right foot, plantar region Peripheral neuropathy History of amputation left great toe Insulin-dependent diabetes mellitus with hyperglycemia Hyperkalemia Hospital Course: 62-year-old male with a past medical history of 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 Patient presented to the emergency department for evaluation of diabetic wound with infection after failing outpatient treatment with 9 day course of doxycycline. Labs completed and reviewed. CBC showing leukocytosis with WBC count of 11.2 and normocytic anemia with hemoglobin stable at 12.3. BMP revealing mild hyponatremia with sodium of 132 hypochloremia with chloride of 96. Blood glucose was 149. X-ray left foot completed showing postsurgical changes without evidence for erosion at this time with stable deformity to the second metatarsal head. Patient was started on IV antibiotics with vancomycin. ID and vascular sx consulted. Wound cultures growing MSSA> patient was discharged on oral Augmentin. Patient seen and examined at bedside. Vital signs reviewed and stable. General: Nontoxic, no distress and appears stated age. Derm: Skin warm and dry, normal coloration for ethnicity. Diabetic wound of right foot, plantar region with hyper-granulation of new growth tissue protruding from ulcer site. Patient with wounds and sloughing of skin on left foot second, third, and fourth toes surrounded by erythema. No noted drainage at this time. Head: Atraumatic, normocephalic and symmetric. Eyes: EOMs intact, no lid lag, and anicteric sclera Mouth: no lip lesions, mucus membranes moist Cardiovascular: regular rate and rhythm with normal S1S2, no murmur, positive posterior tibial pulses bilaterally, and cap refill < 2 seconds. Lungs: Respirations even, regular, and unlabored on room air. Lungs CTA bilaterally, no rhonchi, no rales, no wheezing, and no accessory muscle usage. Abdominal: soft, nontender to palpation, no guarding, no appreciable organomegaly Ext: ROM intact. No gross muscle atrophy, no edema, no contractures Neuro: Speech clear, face symmetrical and CN II-XII grossly intact with no noted focal neuro deficits Psych: Alert and oriented to person, place, time, and situation. Appropriate and pleasant affect. A total of 36 minutes of time were spent preparing this complex discharge summary. Patient was discharged on 02/03/23 at 12:52. Patient Condition at Discharge: Stable Plan - Discharge Summary Discharge Rx Participant: Yes New Discharge Prescriptions: New Amoxic-Pot Clav 875-125Mg [Augmentin 875-125] 1 tab PO Q12HR 10 Days #20 tab Continue Cetirizine HCl 10 mg PO DAILY traMADol HCl [Ultram] 100 mg PO TID polyethylene glycoL 3350 [Miralax] 17 gm PO DAILY HYDROcodone/APAP 10-325MG [Brohman 10-325] 1 tab PO QID lisinopriL 20 mg PO W/SUPPER metFORMIN HCL [Glucophage] 1,000 mg PO BID Magnesium Hydroxide [Milk of Magnesia] 2,400 mg PO Q2D Insulin Glargine,Hum.rec.anlog [Lantus Solostar Pen] 35 units SQ BID Albuterol Sulfate [Ventolin HFA] 1 - 2 puff INHALATION RT-Q6H PRN PRN Reason: Shortness Of Breath Clotrimazole/Betameth Cream [Lotrisone] 1 applic TOPICAL DAILY Nystatin 100,000 Unit/gm Powd [Mycostatin Powder] 1 applic TOPICAL DAILY Insulin Aspart [NovoLOG Flexpen] 16 units SQ AC-TID Discharge Medication List Cetirizine HCl 10 mg PO DAILY 09/01/16 [History] HYDROcodone/APAP 10-325MG [Brohman 10-325] 1 tab PO QID 09/02/20 [History] Magnesium Hydroxide [Milk of Magnesia] 2,400 mg PO Q2D 09/02/20 [History] lisinopriL 20 mg PO W/SUPPER 09/02/20 [History] metFORMIN HCL [Glucophage] 1,000 mg PO BID 09/02/20 [History] polyethylene glycoL 3350 [Miralax] 17 gm PO DAILY 09/02/20 [History] traMADol HCl [Ultram] 100 mg PO TID 09/02/20 [History] Albuterol Sulfate [Ventolin HFA] 1 - 2 puff INHALATION RT-Q6H PRN 07/24/22 [History] Clotrimazole/Betameth Cream [Lotrisone] 1 applic TOPICAL DAILY 07/24/22 [History] Insulin Aspart [NovoLOG Flexpen] 16 units SQ AC-TID 07/24/22 [History] Insulin Glargine,Hum.rec.anlog [Lantus Solostar Pen] 35 units SQ BID 07/24/22 [History] Nystatin 100,000 Unit/gm Powd [Mycostatin Powder] 1 applic TOPICAL DAILY 07/24/22 [History] Amoxic-Pot Clav 875-125Mg [Augmentin 875-125] 1 tab PO Q12HR 10 Days #20 tab 02/03/23 [Rx] Follow up Appointment(s)/Referral(s): [facility], [NON-STAFF] - 1 Week Terry Vasquez MD [Primary Care Provider] - 1-2 days Patient Instructions/Handouts: Cellulitis (GEN) Activity/Diet/Wound Care/Special Instructions: Please see your PCP and vascular surgeon. Discharge Disposition: HOME SELF-CARE
[2023-02-04] MEDS ORDERED: VANCOMYCIN TROUGH DUE 1 EACH MISC MISCELLANE ONE (07:00)
--- NOTE | 2023-02-10 22:23 | P.PN ---
Subjective Progress Note Date: 02/02/23 Principal diagnosis: L foot toe ulcer and cellulitis Patient is a 62-year-old male with a past medical history significant diabetes mellitus hypertension hyperlipidemia and did have a history of neuropathy amputation of the left great toe patient present to the hospital with increasing swelling redness to his left third and fourth toe, patient has been diagnosed with a cellulitis of the left foot toes. On today's evaluation that is 02/02/2023 the patient is afebrile the patient is breathing comfortably on room air denies any chest pain shortness of the cough no abdominal pain swelling redness to the left foot was slightly decreased at this no drainage. Patient white count is normal at 9.02, creatinine 0.72 Vanco trough is 26.6 local cultures currently growing Staph aureus sensitivities pending Objective - Vital Signs Vital signs: Vital Signs Temp 97.7 F 02/02/23 07:00 Pulse 71 02/02/23 07:00 Resp 22 02/02/23 08:39 BP 172/82 02/02/23 07:00 Pulse Ox 93 L 02/02/23 07:00 FiO2 Intake & Output 02/01/23 02/02/23 02/02/23 18:59 06:59 18:59 Intake Total 1697 484 Balance 1697 484 Weight 142.428 kg Intake: Oral 1697 484 Other: Voiding Method Toilet # Voids 2 2 - Exam GENERAL DESCRIPTION: Elderly male lying in bed in no distress RESPIRATORY SYSTEM: Unlabored breathing , decreased breath sounds at bases HEART: S1 S2 regular rate and rhythm ,no loud murmurs ABDOMEN: Soft , no tenderness EXTREMITIES: Left foot toes swelling redness has decreased no drainage, right foot plantar ulcer is currently dressed - Labs CBC & Chem 7: 02/02/23 08:02 02/03/23 06:14 Labs: Abnormal Lab Results - Last 24 Hours (Table) 02/01/23 02/01/23 02/01/23 Range/Units 07:00 12:41 17:36 RBC 4.05 L (4.40-5.60) X 10*6/uL Hgb 10.7 L (13.0-17.0) d/dL Hct 34.8 L (39.6-50.0) % MCH 26.4 L (27.0-32.0) pg MCHC 30.7 L (32.0-37.0) d/dL Eosinophils # (0.04-0.35) X 10*3/uL Sodium (137-145) mmol/L Potassium (3.5-5.1) mmol/L Glucose (74-99) mg/dL POC Glucose (mg/dL) 149 H 163 H (70-110) mg/dL 02/01/23 02/02/23 02/02/23 Range/Units 20:31 07:59 08:02 RBC (4.40-5.60) X 10*6/uL Hgb (13.0-17.0) d/dL Hct (39.6-50.0) % MCH (27.0-32.0) pg MCHC (32.0-37.0) d/dL Eosinophils # (0.04-0.35) X 10*3/uL Sodium 135 L (137-145) mmol/L Potassium 5.3 H (3.5-5.1) mmol/L Glucose 164 H (74-99) mg/dL POC Glucose (mg/dL) 248 H 168 H (70-110) mg/dL 02/02/23 Range/Units 08:02 RBC 4.28 L (4.40-5.60) X 10*6/uL Hgb 11.2 L (13.0-17.0) d/dL Hct 36.3 L (39.6-50.0) % MCH 26.2 L (27.0-32.0) pg MCHC 30.9 L (32.0-37.0) d/dL Eosinophils # 0.36 H (0.04-0.35) X 10*3/uL Sodium (137-145) mmol/L Potassium (3.5-5.1) mmol/L Glucose (74-99) mg/dL POC Glucose (mg/dL) (70-110) mg/dL Microbiology - Last 24 Hours (Table) 01/31/23 11:58 Gram Stain - Preliminary Toe - Left First Assessment and Plan (1) Cellulitis of left foot Status: Acute Code(s): L03.116 - CELLULITIS OF LEFT LOWER LIMB SNOMED Code(s): 390231638 (2) Diabetic foot ulcer Status: Acute Code(s): E11.621 - TYPE 2 DIABETES MELLITUS WITH FOOT ULCER; L97.509 - NON-PRESSURE CHRONIC ULCER OTH PRT UNSP FOOT W UNSP SEVERITY SNOMED Code(s): 303165343 Plan: 1patient with left foot toes superficial ulceration and cellulitis started with the trauma and has failed to respond to outpatient oral doxycycline therapy patient did have history of previous diabetic foot infection requiring amputation and will need to cover for the resistant gram-positive such as MRSA 2-local wound culture has been obtained and growning stap aureus 3-local care with a dry Aquacel silver dressing 4-patient also have a wound on the right foot plantar aspect the base looks clean and no evidence of any slough tissue or cellulitis 5-Patient to continue with vancomycin however dosing to be adjusted to keep the trough on 15 while waiting for the culture to finalize and monitor clinical course closely Dictation was produced using [employer] dictation software. please excuse any grammatical, word or spelling errors.
--- NOTE | 2023-02-10 22:25 | P.PN ---
Subjective Progress Note Date: 02/03/23 Principal diagnosis: L foot toe ulcer and cellulitis Patient is a 62-year-old male with a past medical history significant diabetes mellitus hypertension hyperlipidemia and did have a history of neuropathy amputation of the left great toe patient present to the hospital with increasing swelling redness to his left third and fourth toe, patient has been diagnosed with a cellulitis of the left foot toes. On today's evaluation that is 02/03/2023 the patient denies any fever or any chills the patient is breathing comfortably on room air no chest pain no shortness of breath cough no abdominal pain no diarrhea swelling redness and pain to the left foot has decreased intensity. Patient did have a normal white count as of yesterday no CBC was done today creatinine normal at 0.73 local cultures finalized with MSSA Objective - Vital Signs Vital signs: Vital Signs Temp 97.6 F 02/03/23 07:00 Pulse 67 02/03/23 07:00 Resp 18 02/03/23 08:36 BP 142/88 02/03/23 07:00 Pulse Ox 96 02/03/23 07:00 FiO2 Intake & Output 02/02/23 02/03/23 02/03/23 18:59 06:59 18:59 Intake Total 1084 Balance 1084 Intake: Oral 1084 Other: Voiding Method Toilet Toilet Toilet # Voids 2 - Exam GENERAL DESCRIPTION: Elderly male lying in bed in no distress RESPIRATORY SYSTEM: Unlabored breathing , decreased breath sounds at bases HEART: S1 S2 regular rate and rhythm ,no loud murmurs ABDOMEN: Soft , no tenderness EXTREMITIES: Left foot toes swelling redness has decreased no drainage, right foot plantar ulcer is currently dressed - Labs CBC & Chem 7: 02/02/23 08:02 02/03/23 06:14 Labs: Abnormal Lab Results - Last 24 Hours (Table) 02/02/23 02/02/23 02/02/23 Range/Units 12:18 14:05 17:51 Sodium (137-145) mmol/L Glucose (74-99) mg/dL POC Glucose (mg/dL) 231 H 297 H 231 H (70-110) mg/dL 02/02/23 02/03/23 02/03/23 Range/Units 20:48 06:14 06:24 Sodium 135 L (137-145) mmol/L Glucose 180 H (74-99) mg/dL POC Glucose (mg/dL) 259 H 179 H (70-110) mg/dL 02/03/23 Range/Units 11:45 Sodium (137-145) mmol/L Glucose (74-99) mg/dL POC Glucose (mg/dL) 242 H (70-110) mg/dL Microbiology - Last 24 Hours (Table) 01/31/23 11:58 Gram Stain - Final Toe - Left First Wound Culture - Final Staphylococcus aureus 01/31/23 11:58 Anaerobic Culture - Preliminary Toe - Left First Assessment and Plan (1) Cellulitis of left foot Status: Acute Code(s): L03.116 - CELLULITIS OF LEFT LOWER LIMB SNOMED Code(s): 518171145 (2) Diabetic foot ulcer Status: Acute Code(s): E11.621 - TYPE 2 DIABETES MELLITUS WITH FOOT ULCER; L97.509 - NON-PRESSURE CHRONIC ULCER OTH PRT UNSP FOOT W UNSP SEVERITY SNOMED Code(s): 622819963 Plan: 1patient with left foot toes superficial ulceration and cellulitis started with the trauma and has failed to respond to outpatient oral doxycycline therapy patient did have history of previous diabetic foot infection requiring amputation and will need to cover for the resistant gram-positive such as MRSA 2-local wound culture has been obtained and growing MSSA 3-local care with a dry Aquacel silver dressing 4-patient also have a wound on the right foot plantar aspect the base looks clean and no evidence of any slough tissue or cellulitis 5we will discontinue vancomycin give him a dose of Unasyn 3 g x 1 after the patient be discharged home on a 10-day course of oral Augmentin 875 twice daily discussed with the admitting team and a close outpatient follow-up Dictation was produced using [employer] software. please excuse any grammatical, word or spelling errors.
== END 2023-02-03 14:27 | disposition home or self-care (01) ==
LOC: EC 17:18 → 6NMEDSUR 21:24 → OBSVTOIN 21:24 → INTOOBSV 21:24 → 6NMEDSUR 01-31 04:55 → UNDODISIN 02-03 14:27
PROVIDERS: ADMIT Family Medicine; ATTEND Family Medicine
DX: E11.628 Type 2 diabetes mellitus with other skin complications (principal); L03.032 Cellulitis of left toe; E11.621 Type 2 diabetes mellitus with foot ulcer; L97.419 Non-pressure chronic ulcer of right heel and midfoot with unspecified severity; E11.65 Type 2 diabetes mellitus with hyperglycemia; J45.909 Unspecified asthma, uncomplicated; E78.5 Hyperlipidemia, unspecified; I10 Essential (primary) hypertension; D64.9 Anemia, unspecified; D72.829 Elevated white blood cell count, unspecified; E87.8 Other disorders of electrolyte and fluid balance, not elsewhere classified; E87.1 Hypo-osmolality and hyponatremia; E87.6 Hypokalemia; E11.42 Type 2 diabetes mellitus with diabetic polyneuropathy; Z89.412 Acquired absence of left great toe; Z79.899 Other long term (current) drug therapy; Z79.84 Long term (current) use of oral hypoglycemic drugs; Z79.4 Long term (current) use of insulin; Z88.5 Allergy status to narcotic agent; Z88.2 Allergy status to sulfonamides; Z88.1 Allergy status to other antibiotic agents
CPT/HCPCS: 96366 ×5; 96372 ×4; 96365; 99284; 36415; 80053 ×2; 80048 ×2; 85652; 83735; 85025 ×2; 85027; 80202; 86140; 87070; 87205; 87075; 87077; 87186; 83036; 73630; G0378 ×5; J3370 ×5; J0295

== ENCOUNTER → 2023-02-20 | Outpatient (CLI) | payer MEDICARE, OTHER | END | disposition home or self-care (01) | LOC: LABWHC1 12:21 | PROVIDERS: ATTEND Surgery Plastic and Reconstructive Surgery | DX: I11.9 Hypertensive heart disease without heart failure (principal) | CPT/HCPCS: 36415; 93005 ==

== ENCOUNTER 2023-04-11 20:28 | Observation (INO) | payer MEDICARE ==
--- NOTE | 2023-04-11 21:07 | P.PN ---
Progress Note - Text Progress Note Date: 04/11/23 Notified ER provider for admission for cholecystitis when patient arrives to ER.
[2023-04-11 23:28] LABS: Basophils # (A) 0.1 k/uL (0-0.2); Basophils % (A) 0 %; Eosinophils # (A) 0.2 k/uL (0-0.7); Eosinophils % (A) 2 %; HCT 36.4 % (39.0-53.0); HGB 11.7 gm/dL (13.0-17.5); Lymphocytes # (A) 2.4 k/uL (1.0-4.8); Lymphocytes % (A) 20 %; MCH 26.5 pg (25.0-35.0); MCHC 32.1 g/dL (31.0-37.0); MCV 82.6 fL (80.0-100.0); Mean Platelet Volume 7.6; Monocytes # (A) 0.6 k/uL (0-1.0); Monocytes % (A) 5 %; Neutrophils # (A) 8.5 k/uL (1.3-7.7); Neutrophils % (A) 72 %; Platelet Count 354 k/uL (150-450); RBC 4.41 m/uL (4.30-5.90); RDW 13.8 % (11.5-15.5); WBC 11.9 k/uL (3.8-10.6)
[2023-04-11 23:39] LABS: INR 0.9 (<1.2); Partial Thromboplastin Time 24.5 sec (22.0-30.0); Prothrombin Time 10.1 sec (9.0-12.0)
--- NOTE | 2023-04-12 00:25 | ED ---
Abdominal Pain HPI - General Chief Complaint: Abdominal Pain Stated Complaint: Gallbladder-sent by Time Seen by Provider: 04/12/23 00:20 Source: patient, RN notes reviewed Mode of arrival: wheelchair Limitations: no limitations - History of Present Illness Initial Comments: Patient is a 62 year male who presents to the emergency department for abdominal pain. Patient scheduled for cholecystectomy with Dr. Pena tomorrow he was told to come in today for admission. He presents with significant pain in the right upper abdomen. He is nauseous no vomiting. No fever or chills. - Related Data Home Medications Medication Instructions Recorded Confirmed Cetirizine HCl 10 mg PO DAILY 09/01/16 01/30/23 HYDROcodone/APAP 10-325MG [[place] 1 tab PO QID 09/02/20 01/30/23 10-325] Magnesium Hydroxide [Milk of 2,400 mg PO Q2D 09/02/20 01/30/23 Magnesia] lisinopriL 20 mg PO W/SUPPER 09/02/20 01/30/23 metFORMIN HCL [Glucophage] 1,000 mg PO BID 09/02/20 01/30/23 polyethylene glycoL 3350 [Miralax] 17 gm PO DAILY 09/02/20 01/30/23 traMADol HCl [Ultram] 100 mg PO TID 09/02/20 01/30/23 Albuterol Sulfate [Ventolin HFA] 1 - 2 puff INHALATION RT-Q6H PRN 07/24/22 01/30/23 Clotrimazole/Betameth Cream 1 applic TOPICAL DAILY 07/24/22 01/30/23 [Lotrisone] Insulin Aspart [NovoLOG Flexpen] 16 units SQ AC-TID 07/24/22 01/30/23 Insulin Glargine,Hum.rec.anlog 35 units SQ BID 07/24/22 01/30/23 [Lantus Solostar Pen] Nystatin 100,000 Unit/gm Powd 1 applic TOPICAL DAILY 07/24/22 01/30/23 [Mycostatin Powder] Previous Rx's Medication Instructions Recorded Amoxic-Pot Clav 875-125Mg 1 tab PO Q12HR 10 Days #20 tab 02/03/23 [Augmentin 875-125] Allergies Allergy/AdvReac Type Severity Reaction Status Date / Time gabapentin Allergy Swelling Verified 04/11/23 21:06 hydromorphone [From Dilaudid] Allergy Unknown Verified 04/11/23 21:06 ciprofloxacin [From Cipro] AdvReac Confusion, Verified 04/11/23 21:06 Dizziness sulfamethoxazole AdvReac Nausea & Verified 04/11/23 21:06 [From Bactrim] Vomiting trimethoprim [From Bactrim] AdvReac Nausea & Verified 04/11/23 21:06 Vomiting Review of Systems ROS Statement: Those systems with pertinent positive or pertinent negative responses have been documented in the HPI. ROS Other: All systems not noted in ROS Statement are negative. Past Medical History Past Medical History: Asthma, Diabetes Mellitus Additional Past Medical History / Comment(s): WAS GOING TO [facility] EVERY SUNDAY-LT GREAT TOE INFECTION COMPLETED VISITS, CONSTIPATION.HEMORRHOIDS, 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 Date of last positivie culture/infection: 03/24/19 MDRO Source:: blood and foot Past Surgical History: Appendectomy, Heart Catheterization, Hernia Repair, Orthopedic Surgery Additional Past Surgical History / Comment(s): RT ROATATOR CUFF SX, RT INGUINAL HERNIA,UMB HERNIA REPAIR Past Anesthesia/Blood Transfusion Reactions: No Reported Reaction Past Psychological History: No Psychological Hx Reported Smoking Status: Never smoker Past Alcohol Use History: None Reported Past Drug Use History: None Reported - Past Family History Father Family Medical History: Hypertension Mother Family Medical History: Asthma, COPD General Exam - General Exam Comments Initial Comments: Visual Physical Exam Vital signs reviewed General: Well-appearing, nontoxic, no acute distress. Head: Normocephalic, atraumatic Eyes: PERRLA, EOMI ENT: Airway patent Chest: Nonlabored breathing Skin: No visual rash, normal skin tone Neuro: Alert and oriented 3 Musculoskeletal: No gross abnormalities Limitations: no limitations General appearance: alert Eye exam: Present: normal appearance, PERRL, EOMI. Absent: scleral icterus, conjunctival injection, periorbital swelling Respiratory exam: Present: normal lung sounds bilaterally. Absent: respiratory distress, wheezes, rales, rhonchi, stridor Cardiovascular Exam: Present: regular rate, normal rhythm, normal heart sounds. Absent: systolic murmur, diastolic murmur, rubs, gallop, clicks GI/Abdominal exam: Present: soft, tenderness (RUQ), normal bowel sounds. Absent: distended, guarding, rebound, rigid Neurological exam: Present: alert Psychiatric exam: Present: normal affect, normal mood Skin exam: Present: warm, dry, intact, normal color. Absent: rash Course Vital Signs 04/11/23 21:06 Temperature 98 F Pulse Rate 82 Respiratory 18 Rate Blood Pressure 135/80 O2 Sat by Pulse 98 Oximetry Medical Decision Making - Medical Decision Making I performed the QuickNote portion of this chart - Carine Araiza PA-C Was pt. sent in by a medical professional or institution (DAYANA Rose, MEDICAL BILLING SPECIALIST, urgent care, hospital, or chcf...) When possible be specific @ -Dr. Pena Did you speak to anyone other than the patient for history (EMS, parent, family, police, friend...)? What history was obtained from this source @ -No Did you review nursing and triage notes (agree or disagree)? Why? @ -I reviewed and agree with nursing and triage notes Were old charts reviewed (outside hosp., previous admission, EMS record, old EKG, old radiological studies, urgent care reports/EKG's, chcf records)? Report findings @ -No old charts were reviewed Differential Diagnosis (chest pain, altered mental status, abdominal pain women, abdominal pain men, vaginal bleeding, weakness, fever, dyspnea, syncope, headache, dizziness, GI bleed, back pain, seizure, CVA, palpatations, mental health)? @ -Differential Abdominal Pain Men: Appendicitis, cholecystitis, diverticulosis, ischemic bowel, pancreatitis, hepatitis, UTI, gastroenteritis, AAA, incarcerated hernia, bowel obstruction, c onstipation, inflammatory bowel, hepatitis, peptic ulcer disease, splenic infarction, perforated viscus, testicular torsion, this is not meant to be an all-inclusive list EKG interpreted by me (3pts min.). @ -As above X-rays interpreted by me (1pt min.). @ -None done CT interpreted by me (1pt min.). @ -None done U/S interpreted by me (1pt. min.). @ -Cholelithiasis What testing was considered but not performed or refused? (CT, X-rays, U/S, labs)? Why? @ -None What meds were considered but not given or refused? Why? @ -None] Did you discuss the management of the patient with other professionals (professionals i.e. , PA, MEDICAL BILLING SPECIALIST, lab, RT, psych nurse, social work msw, edge cutter, teacher, adult parole officer, shelter case manager)? Give summary @ -[No] Was smoking cessation discussed for >3mins.? @ -[No] Was critical care preformed (if so, how long)? @ -[No] Were there social determinants of health that impacted care today? How? (Homelessness, low income, unemployed, alcoholism, drug addiction, transportation, low edu. Level, literacy, decrease access to med. care, residential, rehab)? @ -[No] Was there de-escalation of care discussed even if they declined (Discuss DNR or withdrawal of care, Hospice)? DNR status @ -[No] What co-morbidities impacted this encounter? (DM, HTN, Smoking, COPD, CAD, Cancer, CVA, ARF, Chemo, Hep., AIDS, mental health diagnosis, sleep apnea, morbi d obesity)? @ -[None] Was patient admitted / discharged? Hospital course, mention meds given and route, prescriptions, significant lab abnormalities, going to OR and other pertinent info. @Admitted Undiagnosed new problem with uncertain prognosis? @ -[No] Drug Therapy requiring intensive monitoring for toxicity (Heparin, Nitro, Insulin, Cardizem)? @ -[No] Were any procedures done? @ -[No] Diagnosis/symptom? @ -Cholelithiasis Acute, or Chronic, or Acute on Chronic? @ -acute Uncomplicated (without systemic symptoms) or Complicated (systemic symptoms)? @ -uncomplicated Side effects of treatment? @ -[No] Exacerbation, Progression, or Severe Exacerbation? @ -[No] Poses a threat to life or bodily function? How? (Chest pain, [place], MA, pneumonia, PE, COPD, DKA, ARF, appy, cholecystitis, CVA, Diverticulitis, Homicidal, Suicidal, threat to staff... and all critical care pts) @ -[No] Dr. Driscoll is my attending - Lab Data Result diagrams: 04/11/23 22:57 Lab Results 04/11/23 04/11/23 Range/Units 22:57 22:57 WBC 11.9 H (3.8-10.6) k/uL RBC 4.41 (4.30-5.90) m/uL Hgb 11.7 L (13.0-17.5) gm/dL Hct 36.4 L (39.0-53.0) % MCV 82.6 (80.0-100.0) fL MCH 26.5 (25.0-35.0) pg MCHC 32.1 (31.0-37.0) g/dL RDW 13.8 (11.5-15.5) % Plt Count 354 (150-450) k/uL MPV 7.6 Neutrophils % 72 % Lymphocytes % 20 % Monocytes % 5 % Eosinophils % 2 % Basophils % 0 % Neutrophils # 8.5 H (1.3-7.7) k/uL Lymphocytes # 2.4 (1.0-4.8) k/uL Monocytes # 0.6 (0-1.0) k/uL Eosinophils # 0.2 (0-0.7) k/uL Basophils # 0.1 (0-0.2) k/uL PT 10.1 (9.0-12.0) sec INR 0.9 (<1.2) APTT 24.5 (22.0-30.0) sec Disposition Clinical Impression: Cholelithiasis Disposition: ADMITTED IP TO THIS [facility] Condition: Good Referrals: Terry Vasquez MD [Primary Care Provider] - 1-2 days
--- NOTE | 2023-04-12 01:45 | US ---
EXAM: US Abdomen Limited, Gallbladder CLINICAL HISTORY: ITS.REASON US Reason: ruq pain TECHNIQUE: Real-time ultrasound of the right upper quadrant with image documentation. COMPARISON: 12/23/2022 FINDINGS: Gallbladder: There are small layering gallstones with mild distention of the gallbladder. No gallbladder wall thickening. Common bile duct: Unremarkable as visualized. No stones. No dilation. Pancreas: Unremarkable as visualized. Right kidney: Right kidney measures 13.3 cm. IMPRESSION: Cholelithiasis with mild distention of the gallbladder. No gallbladder wall thickening.
[2023-04-12] MEDS ORDERED: MORPHINE SULFATE 4 MG/ML SYRINGE IVP STA (02:29)
[2023-04-12] MEDS ORDERED: NALOXONE 0.4 MG/ML 1 ML VIAL IV PRN (02:31)
[2023-04-12] MEDS ORDERED: PIPERACILLIN-TAZOBACTAM 3.375 GM in SODIUM CHLORIDE 0.9% 100 ML IVPB STA (02:31)
[2023-04-12] MEDS ORDERED: ONDANSETRON 4 MG/2 ML VIAL IVP PRN (03:07)
[2023-04-12 03:11] LABS: Partial Thromboplastin Time 23.3 sec (22.0-30.0); Prothrombin Time 10.3 sec (9.0-12.0)
[2023-04-12 03:12] LABS: ALT 21 U/L (4-49); AST 23 U/L (17-59); African American GFR (CKD) >90 (>60 ml/min/1.73 sqM); Alkaline Phosphatase 69 U/L (38-126); Amylase 33 U/L (30-110); Anion Gap 12 mmol/L; Blood Urea Nitrogen 15 mg/dL (9-20); Calcium 9.1 mg/dL (8.4-10.2); Carbon Dioxide 24 mmol/L (22-30); Chloride 97 mmol/L (98-107); Glucose 150 mg/dL (74-99); Lipase 37 U/L (23-300); Non-African American GFR(CKD) >90 (>60 ml/min/1.73 sqM); Potassium 4.7 mmol/L (3.5-5.1); Sodium 133 mmol/L (137-145); Total Bilirubin 0.4 mg/dL (0.2-1.3); Total Protein 7.3 g/dL (6.3-8.2)
[2023-04-12] MEDS: ONDANSETRON 4 MG/2 ML VIAL IVP STA ×2 (03:13→16:22)
[2023-04-12] MEDS: SODIUM CHLORIDE 0.9% 1,000 ML IV SCH ×4 (03:47→23:52)
[2023-04-12] MEDS ORDERED: ACETAMINOPHEN IV (For NPO) 1,000 MG in EMPTY BAG 1 BAG IVPB ONE (04:30)
[2023-04-12] MEDS ORDERED: INDOCYANINE GREEN 25 MG VIAL IV ONE (04:30)
[2023-04-12] MEDS: HEPARIN SODIUM,PORCINE 5,000 UNIT/ML 1 ML VIAL SQ SCH ×3 (07:30→21:07)
[2023-04-12] MEDS: TAMSULOSIN 0.4 MG CAP.ER.24H PO SCH ×2 (07:30→16:20)
[2023-04-12] MEDS: KETOROLAC 15 MG/ML 1 ML VIAL IVP SCH ×4 (07:49→23:43)
[2023-04-12] MEDS: PIPERACILLIN-TAZOBACTAM 3.375 GM in SODIUM CHLORIDE 0.9% 100 ML IVPB SCH ×2 (11:03→19:39)
[2023-04-12] MEDS ORDERED: DEXTROSE 50% SYRINGE 50 ML IVP PRN ×2 (11:28)
--- NOTE | 2023-04-12 11:30 | P.CONS ---
History of Present Illness - Reason for Consult Consult date: 04/12/23 Medical management Requesting physician: Tricia Pena - Chief Complaint Abdominal pain - History of Present Illness Pleasant 62-year-old patient follows with Dr. Terry Vasquez. Chronic stable medical conditions include asthma, diabetes, hypertension, infection of the ball of the right foot, being followed by Dr. Quintero at the wound care center. Does follow every 1 week. On Mondays. It had healed up in November , relapsed again. Now better. No drainage. Wound dressing is done every week. Has a wound boot on the right foot. Patient been having dull ache in the right abdomen constantly some exacerbation radiating especially fatty foods. Patient be worked up by Dr. Krishna for cholecystitis. Patient is due to come in for surgery this morning. Doesn't mix up in paperwork. Having abdominal pain. Admitted for the same. Patient is made nothing by mouth initially. Patient's at the bedside. 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 No smoking or alcohol. . Physical examination: VITAL SIGNS: 98, 78, 16, 107/58, 97% room air GENERAL: BMI 42.3, laying but awake not in distress. EYES: Pupils equal. Conjunctiva normal. HEENT: External appearance of nose and ears normal, oral cavity grossly normal. NECK: JVD not raised; masses not palpable. HEART: First and second heart sounds are normal; no edema. LUNGS: Respiratory rate normal; clear to auscultation. ABDOMEN: Soft, some right upper quadrant tenderness, no guarding rigidity, liver spleen not palpable, no masses palpable. PSYCH: Alert and oriented x3; mood and affect normal. MUSCULOSKELETAL:No Clubbing/cyanosis;muscles-grossly intact. Right foot in a boot. Wound on ball of the right foot. NEUROLOGICAL: Cranial nerves grossly intact; no facial asymmetry, power and sensation grossly intact. LYMPHATICS: No lymph nodes palpable in the axilla and neck INVESTIGATIONS, reviewed in the clinical context: Ultrasound gallbladder: [April 11]: Gallstones with mild distention of the gallbladder 04/11/2023: White count 11.9 hemoglobin 11.7 platelets 354 potassium 4.7 creatinine 0.8 EKG tracing personally reviewed by me-[02/20/2023]: Normal sinus rhythm Assessment and plan: -Acute and chronic cholecystitis IV Ancef, IV Zosyn. Patient due to go down for surgery with Dr. Krishna. -Gallstones, symptomatic Pending surgery -Diabetes mellitus type 2, chronically insulin Lantus 28 units subcu twice a day. Hold metformin. Follow Accu-Cheks with sliding scale -Essential hypertension Lisinopril -Chronic wound on the right foot at the ball of the big toe. Follows every M onday with Dr. Quintero of the wound care center. Stable. Has a boot on the right foot. -Morbid obesity BMI 42.3 Weight loss measures Care was discussed with the patient and discussed with at the bedside. Thank you Dr. 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 He denies any medical marijuana, marijuana or street drug or alcohol use. He lives at home with his . There are no pets in the home. 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 Smoking Status: Never smoker Past Alcohol Use History: None Reported Additional Past Alcohol Use History / Comment(s): Patient is a lifelong nonsmoker. He denies any medical marijuana, marijuana or street drug or alcohol use. He lives at home with his . There are no pets in the home. 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 Past Drug Use History: None Reported - Past Family History Father Family Medical History: Hypertension Mother Family Medical History: Asthma, COPD Medications and Allergies Home Medications Medication Instructions Recorded Confirmed Type Cetirizine HCl 10 mg PO DAILY 09/01/16 04/12/23 History HYDROcodone/APAP 10-325MG [[place] 1 tab PO QID 09/02/20 04/12/23 History 10-325] lisinopriL 20 mg PO W/SUPPER 09/02/20 04/12/23 History metFORMIN HCL [Glucophage] 1,000 mg PO BID 09/02/20 04/12/23 History traMADol HCl [Ultram] 100 mg PO TID 09/02/20 04/12/23 History Albuterol Sulfate [Ventolin HFA] 1 - 2 puff INHALATION RT-Q6H PRN 07/24/22 1 History Insulin Aspart [NovoLOG Flexpen] 16 units SQ AC-TID 07/24/22 04/12/23 History Insulin Glargine,Hum.rec.anlog 35 units SQ BID 07/24/22 04/12/23 History [Lantus Solostar Pen] Allergies Allergy/AdvReac Type Severity Reaction Status Date / Time gabapentin Allergy Swelling Verified 04/12/23 07:35 hydromorphone [From Dilaudid] Allergy Unknown Verified 04/12/23 07:35 ciprofloxacin [From Cipro] AdvReac Confusion, Verified 04/12/23 07:35 Dizziness sulfamethoxazole AdvReac Nausea & Verified 04/12/23 07:35 [From Bactrim] Vomiting trimethoprim [From Bactrim] AdvReac Nausea & Verified 04/12/23 07:35 Vomiting Physical Exam Vitals: Vital Signs Temp Pulse Resp BP Pulse Ox 04/12/23 04:00 78 16 107/58 97 04/12/23 02:10 82 16 151/89 97 04/11/23 21:06 98 F 82 18 135/80 98 Intake and Output 04/11/23 04/12/23 04/12/23 22:59 06:59 14:59 Other: Voiding Method Toilet Weight 137.438 kg 137.438 kg Results CBC & Chem 7: 04/11/23 22:57 04/12/23 02:13 Labs: Abnormal Lab Results - Last 24 Hours (Table) 04/11/23 04/12/23 Range/Units 22:57 02:13 WBC 11.9 H (3.8-10.6) k/uL Hgb 11.7 L (13.0-17.5) gm/dL Hct 36.4 L (39.0-53.0) % Neutrophils # 8.5 H (1.3-7.7) k/uL Sodium 133 L (137-145) mmol/L Chloride 97 L (98-107) mmol/L Glucose 150 H (74-99) mg/dL
--- NOTE | 2023-04-12 11:44 | P.GSHP ---
History of Present Illness H&P Date: 04/12/23 CHIEF COMPLAINT: Right upper quadrant abdominal pain, cholecystitis HISTORY OF PRESENT ILLNESS: The patient is a 62 year old male who comes in with right upper quadrant abdominal pain for over 2-3 days. Patient's pre-existing history of symptomatic gallstones. His pain became more moderate. His pre- existing history of diabetes, insulin-dependent including hypertensive heart disease. He presented to the emergency room with features of cholecystitis. PAST MEDICAL HISTORY: See list and reviewed PAST SURGICAL HISTORY: See list and reviewed MEDICATIONS: See list and reviewed ALLERGIES: See list and reviewed SOCIAL HISTORY: See list and reviewed FAMILY HISTORY: See list and reviewed REVIEW OF ORGAN SYSTEMS: CONSTITUTIONAL: No fevers or chills. Morbid obesity, BMI 42.3 EYES: Denies any trouble with vision. No glasses. HEENT: No difficulties with hearing. No nosebleeds. No difficulty swallowing. RESPIRATORY: Denies pneumonia. Has asthma. CARDIOVASCULAR: Denies any chest pain, palpitations, or recent heart attacks. GASTROINTESTINAL: Denies fatty food intolerance. Denies change in bowel habits and gas bloat. GENITOURINARY: Denies any blood in urine or increased urinary frequency. NEUROLOGICAL: Has chronic pain. No seizure disorders or headaches. MUSCULOSKELETAL: Has back pain, stiffness or joint arthritis. SKIN: No current skin cancer. No rash. PSYCHIATRIC: Denies current depression or suicidal thoughts. ENDOCRINE: Denies current thyroid disorders. Diabetes type 2, insulin- dependent with neuropathy. HEME/LYMPHATIC: Denies any lumps and bumps around the neck. No recent deep venous thrombosis. ALLERGY/IMMUNOLOGY: No immunoglobulin therapy. No immune deficiencies. History of MRSA infection. BREAST: Denies current breast lumps, pain or nipple discharge. PHYSICAL EXAM: VITALS: Reviewed CONSTITUTIONAL: Well developed and in no acute distress. EYES: Conjuctivae without sclera icterus. Extraocular movements grossly intact. HEAD, EARS, NOSE, THROAT: Moist buccal mucosa. Head is atraumatic, normocephalic. Hears conversational speech. No nasal drainage. NECK: Supple. No JV distention. No thyroidomegaly. RESPIRATORY: Non-labored respirations and equal bilateral excursions. No gross wheezes. CARDIOVASCULAR: Palpable 2+ radial pulses. ABDOMEN: Obese, tender right upper quadrant. LYMPH: No neck lymphadenopathy. MUSCULOSKELETAL: Has Unna boot of left foot. SKIN: Warm and well perfused with good skin turgor. NEUROLOGIC: Cranial nerves II through XII grossly intact. No focal or lateralizing signs. PSYCH: Appropriate affect. Alert and oriented to person, place and time. Displays appropriate insight. CLINCAL LABS: Reviewed. WBC elevated over 11,000, leukocytosis. IMAGING: Independently reviewed. Ultrasound of the gallbladder demonstrates multiple gallstones. This is my independent interpretation. RADIOLOGY: Report reviewed. Ultrasound report demonstrates gallstones. EKG: Reviewed January 2023 demonstrates normal sinus rhythm ASSESSMENT: 1. Right upper quadrant abdominal pain with cholecystitis 2. Cholecystitis due to gallstones 3. Leukocytosis 4. Diabetes type 2, insulin-dependent 5. Chronic pain syndrome 6. Hypertensive heart disease 7. Diabetic neuropathy PLAN: 1. IV fluid hydration. 2. Zosyn antibiotics 3. DVT prophylaxis heparin 4. Urgent cholecystectomy described due to presentation of cholecystitis in presence of insulin-dependent diabetic 5. Patient is elevated risk complications due to insulin-dependent diabetes with diabetic neuropathy and hypertensive heart disease 6. 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 He denies any medical marijuana, marijuana or street drug or alcohol use. He lives at home with his . There are no pets in the home. 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 Smoking Status: Never smoker Past Alcohol Use History: None Reported Additional Past Alcohol Use History / Comment(s): Patient is a lifelong nonsmoker. He denies any medical marijuana, marijuana or street drug or alcohol use. He lives at home with his . There are no pets in the home. 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 Past Drug Use History: None Reported - Past Family History Father Family Medical History: Hypertension Mother Family Medical History: Asthma, COPD Medications and Allergies Home Medications Medication Instructions Recorded Confirmed Type Cetirizine HCl 10 mg PO DAILY 09/01/16 04/12/23 History HYDROcodone/APAP 10-325MG [[place] 1 tab PO QID 09/02/20 04/12/23 History 10-325] lisinopriL 20 mg PO W/SUPPER 09/02/20 04/12/23 History metFORMIN HCL [Glucophage] 1,000 mg PO BID 09/02/20 04/12/23 History traMADol HCl [Ultram] 100 mg PO TID 09/02/20 04/12/23 History Albuterol Sulfate [Ventolin HFA] 1 - 2 puff INHALATION RT-Q6H PRN 07/24/22 04/12/23 History Insulin Aspart [NovoLOG Flexpen] 16 units SQ AC-TID 07/24/22 04/12/23 History Insulin Glargine,Hum.rec.anlog 35 units SQ BID 07/24/22 04/12/23 History [Lantus Solostar Pen] Allergies Allergy/AdvReac Type Severity Reaction Status Date / Time gabapentin Allergy Swelling Verified 04/12/23 07:35 hydromorphone [From Dilaudid] Allergy Unknown Verified 04/12/23 07:35 ciprofloxacin [From Cipro] AdvReac Confusion, Verified 04/12/23 07:35 Dizziness sulfamethoxazole AdvReac Nausea & Verified 04/12/23 07:35 [From Bactrim] Vomiting trimethoprim [From Bactrim] AdvReac Nausea & Verified 04/12/23 07:35 Vomiting Surgical - Exam Vital Signs Temp Pulse Resp BP Pulse Ox 98 F 82 18 135/80 98 04/11/23 21:06 04/11/23 21:06 04/11/23 21:06 04/11/23 21:06 04/11/23 21:06 Results - Labs 04/11/23 22:57 04/12/23 02:13 Abnormal Lab Results - Last 24 Hours (Table) 04/11/23 04/12/23 Range/Units 22:57 02:13 WBC 11.9 H (3.8-10.6) k/uL Hgb 11.7 L (13.0-17.5) gm/dL Hct 36.4 L (39.0-53.0) % Neutrophils # 8.5 H (1.3-7.7) k/uL Sodium 133 L (137-145) mmol/L Chloride 97 L (98-107) mmol/L Glucose 150 H (74-99) mg/dL Diabetes panel 04/12/23 Range/Units 02:13 Sodium 133 L (137-145) mmol/L Potassium 4.7 (3.5-5.1) mmol/L Chloride 97 L (98-107) mmol/L Carbon Dioxide 24 (22-30) mmol/L BUN 15 (9-20) mg/dL Creatinine 0.80 (0.66-1.25) mg/dL Glucose 150 H (74-99) mg/dL Calcium 9.1 (8.4-10.2) mg/dL AST 23 (17-59) U/L ALT 21 (4-49) U/L Alkaline Phosphatase 69 (38-126) U/L Total Protein 7.3 (6.3-8.2) g/dL Albumin 4.0 (3.5-5.0) g/dL Calcium panel 04/12/23 Range/Units 02:13 Calcium 9.1 (8.4-10.2) mg/dL Albumin 4.0 (3.5-5.0) g/dL Pituitary panel 04/12/23 Range/Units 02:13 Sodium 133 L (137-145) mmol/L Potassium 4.7 (3.5-5.1) mmol/L Chloride 97 L (98-107) mmol/L Carbon Dioxide 24 (22-30) mmol/L BUN 15 (9-20) mg/dL Creatinine 0.80 (0.66-1.25) mg/dL Glucose 150 H (74-99) mg/dL Calcium 9.1 (8.4-10.2) mg/dL Adrenal panel 04/12/23 Range/Units 02:13 Sodium 133 L (137-145) mmol/L Potassium 4.7 (3.5-5.1) mmol/L Chloride 97 L (98-107) mmol/L Carbon Dioxide 24 (22-30) mmol/L BUN 15 (9-20) mg/dL Creatinine 0.80 (0.66-1.25) mg/dL Glucose 150 H (74-99) mg/dL Calcium 9.1 (8.4-10.2) mg/dL Total Bilirubin 0.4 (0.2-1.3) mg/dL AST 23 (17-59) U/L ALT 21 (4-49) U/L Alkaline Phosphatase 69 (38-126) U/L Total Protein 7.3 (6.3-8.2) g/dL Albumin 4.0 (3.5-5.0) g/dL
[2023-04-12] MEDS ORDERED: ALBUTEROL HFA INHALER INHALATION PRN (12:03)
[2023-04-12 12:14] LABS: Glucose,Whole Blood 127 mg/dL (70-110)
[2023-04-12] MEDS: INSULIN ASPART (NovoLOG) 100 UNIT/ML VIAL SQ SCH ×3 (12:14→21:04)
[2023-04-12] MEDS: MORPHINE SULFATE 4 MG/ML SYRINGE IVP PRN ×2 (14:27→23:42)
[2023-04-12 16:09] LABS: Glucose,Whole Blood 120 mg/dL (70-110)
[2023-04-12] MEDS ORDERED: HEPARIN SODIUM,PORCINE/PF 5,000 UNIT/0.5 ML SYRINGE SQ ONE (16:17)
[2023-04-12] MEDS ORDERED: LACTATED RINGERS 1,000 ML IV ONE ×3 (16:19→19:34)
[2023-04-12] MEDS ORDERED: DEXAMETHASONE SOD PHOSPHATE 4 MG/ML 1 ML VIAL IVP ONE (16:22)
[2023-04-12] MEDS ORDERED: HEPARIN SODIUM,PORCINE 5,000 UNIT/ML 1 ML VIAL SQ ONE (16:29)
[2023-04-12] MEDS ORDERED: LIDOCAINE 1% INJ 10MG/ML (20 ML MDV) ONE (16:35)
[2023-04-12] MEDS ORDERED: SUCCINYLCHOLINE CHLORIDE 200 MG/10 ML VIAL IV ONE (16:35)
[2023-04-12] MEDS ORDERED: ALBUTEROL HFA INHALER INHALATION ONE (16:35)
[2023-04-12] MEDS ORDERED: PROPOFOL 10 MG/ML 20 ML VIAL IV ONE (16:35)
[2023-04-12] MEDS ORDERED: NEOSTIGMINE 1 MG/ML 10 ML VIAL ONE (16:35)
[2023-04-12] MEDS ORDERED: GLYCOPYRROLATE 0.2 MG/ML 2 ML VIAL ONE (16:35)
[2023-04-12] MEDS ORDERED: ROCURONIUM 10 MG/ML (5 ML VIAL) IV ONE (16:35)
[2023-04-12] MEDS ORDERED: fentaNYL (PF) 50 MCG/ML 2 ML AMP ONE (16:35)
[2023-04-12] MEDS ORDERED: LIDOCAINE 2%-EPI 1:100,000 20 ML VIAL SQ ONE (17:06)
[2023-04-12] MEDS ORDERED: lisinopriL 20 MG TAB PO SCH (17:30)
[2023-04-12 18:36] LABS: Glucose,Whole Blood 221 mg/dL (70-110)
[2023-04-12] MEDS ORDERED: INSULIN ASPART (NovoLOG) 100 UNIT/ML VIAL SQ ONE (18:45)
[2023-04-12] MEDS ORDERED: fentaNYL (PF) 50 MCG/ML 2 ML AMP IVP ONE ×2 (19:09→19:28)
[2023-04-12] MEDS ORDERED: ALBUTEROL NEBULIZED 2.5 MG/3 ML INHALATION PRN (19:17)
--- NOTE | 2023-04-12 19:18 | P.OP ---
Date of Procedure: 04/12/23 Description of Procedure: SURGEON: RJ FALL MD PREOPERATIVE DIAGNOSES: 1. Acute cholecystitis due to gallstones 2. Diabetes type 2, insulin-dependent 3. Hypertensive heart disease 4. Diabetic neuropathy 5. Peripheral vascular occlusive disease 6. Morbid obesity due to excess calories, BMI 42.3 7. Fatty liver disease 8. Hepatomegaly 9. Liver cirrhosis 10. Leukocytosis POSTOPERATIVE DIAGNOSES: 1. Acute cholecystitis due to gallstones 2. Diabetes type 2, insulin-dependent 3. Hypertensive heart disease 4. Diabetic neuropathy 5. Peripheral vascular occlusive disease 6. Morbid obesity due to excess calories, BMI 42.3 7. Fatty liver disease 8. Hepatomegaly 9. Liver cirrhosis 10. Leukocytosis OPERATION: Robotic-assisted da Twin Xi laparoscopic cholecystectomy, multiport with FIREFLY ESTIMATED BLOOD LOSS: 10 mL. SPECIMENS REMOVED: Gallbladder. COMPLICATIONS: None. OPERATIVE FINDINGS: 1. Acute cholecystitis with hydrops and distended gallbladder 2. Common bile duct within normal limits, without dilation 3. Severe hepatomegaly due to fatty liver disease, early liver cirrhosis, micronodular INDICATIONS: The patient is a 62 year-old male who presents with epigastric right upper quadrant pain, symptomatic gallstones, WBC over 11,000, and clinical features of acute cholecystitis. Antibiotic management including pain management was prescribed to manage cholecystitis. Surgical intervention with cholecystectomy was described. Robotic assisted laparoscopic approach was described. Benefits and risks of the procedure including but not limited to bleeding, infection, injury to the biliary tree was reviewed. Informed consent was obtained. DESCRIPTION OF PROCEDURE: Patient was brought to the operating room, placed in supine position. After general induction, the abdomen had been prepped and draped in standard sterile fashion. The robotic da Twin XI system was primed. After a timeout protocol was performed, the patient had been prepped and draped in standard sterile fashion. The patient was injected with indocyanine green. A 5 mm 0 degrees laparoscopic trocar entry was performed along the left upper quadrant. The abdomen insufflated to 15 mmHg pressure which was tolerated well. Diagnostic laparoscopy demonstrated no injury to bowel viscera or mesentery. The liver surface was unremarkable. A moderately distended gallbladder was identified adding complexity to the case. Next, two 8 mm robotic ports were placed along the right upper abdomen. The camera 8-mm port was maintained along the epigastrium. Another 8 mm port was placed along the left upper abdominal wall after exchanging the 5 mm port. Please note that the ports were placed at least 10 to 15 cm away from the target anatomy of the gallbladder. The robot was docked along the left lateral abdomen. The patient was repositioned in reverse Trendelenburg position with the right side up. Using a grasper for arm 3, a grasper for arm 4, including hook cautery for arm 1, the robotic system was docked and primed as described. Instruments were interchanged by the head start assistant teacher including hook cautery, Bovie cautery and clip appliers. I had sat at the console. Severe hepatomegaly due to fatty liver disease and early micronodular liver cirrhosis identified. The gallbladder was reflected towards the dome of the liver. The gallbladder was moderately distended adding complexity to the case. Initial dissection was performed on the gallbladder infundibulum using indocyanine green to illuminate the cystic duct and common bile duct. Due to moderate distention of the infundibulum, dome down technique was performed removing the gallbladder from the hepatic fossa starting from the fundus towards the infundibulum. Using a sponge, the liver was reflected towards the diaphragm and starting at the gallbladder fundus, hook cautery was used to find the avascular plane between the liver and the gallbladder. As the gallbladder was dissected from the hepatic fossa, hemostasis was checked using vessel sealer along the posterior gallbladder. Next, indocyanine green was used to confirm the common bile duct as well as cystic duct. Dissection was performed at the junction of the cystic duct and infundibulum. The infundibulum was retracted laterally to expose the cystic duct away from the common bile duct. The cystic duct was dissected free from its surrounding tissue. FIREFLY was used to identify the cystic structures. A critical view of safety was obtained. Large PLASTIC clips were used throughout the entire case. Using a clip offal separator, a clip was placed at the junction of the infundibulum and cystic duct. The cystic duct was divided using vessel sealer. Next, the cystic artery was divided using vessel sealer. Electro-Bovie cautery and vessel sealer was used to remove the gallbladder without decompression. Hemostasis was checked and found to be adequate. The robot was undocked. I re-scrubbed into the case. A 10 mm Endo Catch bag was used to remove the gallbladder in total via the left upper quadrant incision after widening the incision. The specimen was removed from the abdominal cavity. Moy Parkinson and 0 Vicryl was used to close the fascial defect of the left upper quadrant. All pneumoperitoneum instruments were evacuated from the abdominal cavity. The incisions were cleansed using dilute hydrogen peroxide. The incisions were reapproximated using 4-0 Monocryl in an interrupted subcuticular fashion. Please note along the trocar sites, local anesthetic was placed as a field block prior to insertion of all instruments. Liquid glue was applied to the skin. At the end of the procedure needle, sponge, and instrument count had been verified correct by the fire sprinkler service technician. The patient was transferred to postanesthesia care unit in stable condition. Intraoperative films were shared with the patient's family who were pleased with the level of care.
[2023-04-12 19:47] LABS: Glucose,Whole Blood 246 mg/dL (70-110)
[2023-04-12] MEDS: HYDROcodone/APAP 10-325MG 1 EACH TAB PO SCH (21:02)
[2023-04-12] MEDS: traMADol 50 MG TAB PO SCH (21:03)
[2023-04-12] MEDS: INSULIN DETEMIR (LEVEMIR) 100 UNIT/ML SYR SQ SCH (21:04)
[2023-04-12] MEDS: metFORMIN 500 MG TAB PO SCH (21:15)
[2023-04-13] MEDS: PIPERACILLIN-TAZOBACTAM 3.375 GM in SODIUM CHLORIDE 0.9% 100 ML IVPB SCH ×2 (03:08→11:53)
[2023-04-13] MEDS: MORPHINE SULFATE 4 MG/ML SYRINGE IVP PRN (03:49)
[2023-04-13 06:37] LABS: Glucose,Whole Blood 303 mg/dL (70-110)
[2023-04-13] MEDS: INSULIN ASPART (NovoLOG) 100 UNIT/ML VIAL SQ SCH ×3 (06:47→11:58)
[2023-04-13] MEDS: metFORMIN 500 MG TAB PO SCH (06:48)
[2023-04-13] MEDS: KETOROLAC 15 MG/ML 1 ML VIAL IVP SCH ×2 (06:48→11:53)
[2023-04-13 07:59] LABS: Glucose,Whole Blood 288 mg/dL (70-110)
[2023-04-13] MEDS: traMADol 50 MG TAB PO SCH ×2 (08:04→16:43)
[2023-04-13] MEDS: HYDROcodone/APAP 10-325MG 1 EACH TAB PO SCH ×2 (08:04→13:05)
[2023-04-13] MEDS: INSULIN DETEMIR (LEVEMIR) 100 UNIT/ML SYR SQ SCH (08:05)
[2023-04-13] MEDS: HEPARIN SODIUM,PORCINE 5,000 UNIT/ML 1 ML VIAL SQ SCH (08:05)
[2023-04-13] MEDS: SODIUM CHLORIDE 0.9% 1,000 ML IV SCH (08:06)
--- NOTE | 2023-04-13 08:06 | P.PN ---
Subjective Progress Note Date: 04/13/23 CHIEF COMPLAINT: Right upper quadrant abdominal pain, cholecystitis HISTORY OF PRESENT ILLNESS: The patient is a 62 year old male status post cholecystectomy for acute cholecystitis. He reports feeling well. No moderate abdominal pain. He tolerated low-fat diet. REVIEW OF ORGAN SYSTEMS: No fevers or chills. No chest pain. Shortness of breath. PHYSICAL EXAM: VITALS: Reviewed CONSTITUTIONAL: Well developed and in no acute distress. EYES: Conjuctivae without sclera icterus. Extraocular movements grossly intact. HEAD, EARS, NOSE, THROAT: Moist buccal mucosa. Head is atraumatic, normocepha lic. Hears conversational speech. No nasal drainage. RESPIRATORY: Non-labored respirations and equal bilateral excursions. No gross wheezes. CARDIOVASCULAR: Palpable 2+ radial pulses. ABDOMEN: Obese, tender right upper quadrant. MUSCULOSKELETAL: Has Unna boot of left foot. SKIN: Warm and well perfused with good skin turgor. NEUROLOGIC: Cranial nerves II through XII grossly intact. No focal or lateralizing signs. PSYCH: Appropriate affect. Alert and oriented to person, place and time. Displays appropriate insight. CLINCAL LABS: Reviewed. WBC elevated over 11,000, leukocytosis, 12,000. LFTs normal. Sodium low underwent 30. Potassium over 5.0 ASSESSMENT: 1. Right upper quadrant abdominal pain with acute cholecystitis 2. Cholecystitis due to gallstones 3. Leukocytosis 4. Diabetes type 2, insulin-dependent 5. Chronic pain syndrome 6. Hypertensive heart disease 7. Diabetic neuropathy 8. Cirrhosis 9. Hyponatremia 10. Hyperkalemia PLAN: 1. Intraoperative findings of fatty liver disease with cirrhosis described. Adjustment to low carbohydrate reviewed 2. Clinically doing well. Pain controlled. 3. Discontinue lisinopril for hyponatremia and hyperkalemia Objective - Vital Signs Vital signs: Vital Signs Temp 97.7 F 04/13/23 01:20 Pulse 105 H 04/13/23 01:20 Resp 16 04/13/23 01:20 BP 144/75 04/13/23 01:20 Pulse Ox 92 L 04/13/23 01:20 FiO2 Intake & Output 04/12/23 04/13/23 04/13/23 18:59 06:59 18:59 Intake Total 1880 Output Total 10 200 Balance 1870 -200 Weight 137.438 kg Intake: IV 1050 Intake, IV Titration 780 Amount Sodium Chloride 0.9% 1, 780 000 ml @ 130 mls/hr IV . Q7H42M [facility] Rx#:[id number] Oral 50 Output: Urine 200 Estimated Blood Loss 10 Other: Voiding Method Toilet # Voids 3 1 - Labs CBC & Chem 7: 04/13/23 07:05 04/13/23 16:14 Labs: Abnormal Lab Results - Last 24 Hours (Table) 04/12/23 04/12/23 04/12/23 Range/Units 12:13 16:08 18:34 POC Glucose (mg/dL) 127 H 120 H 221 H (70-110) mg/dL 04/12/23 04/13/23 04/13/23 Range/Units 19:46 06:36 07:57 POC Glucose (mg/dL) 246 H 303 H 288 H (70-110) mg/dL Microbiology - Last 24 Hours (Table) 04/11/23 22:57 Blood Culture - Preliminary Blood 04/11/23 22:57 Blood Culture - Preliminary Blood
[2023-04-13 08:16] LABS: Basophils % (A) 0 %; Eosinophils % (A) 0 %; HGB 10.1 gm/dL (13.0-17.5); Hypochromasia Moderate; Lymphocytes # (A) 0.9 k/uL (1.0-4.8); Lymphocytes % (A) 7 %; MCH 26.3 pg (25.0-35.0); MCHC 30.5 g/dL (31.0-37.0); MCV 86.2 fL (80.0-100.0); Mean Platelet Volume 7.8; Monocytes # (A) 0.5 k/uL (0-1.0); Monocytes % (A) 4 %; Neutrophils # (A) 11.2 k/uL (1.3-7.7); Neutrophils % (A) 88 %; Platelet Count 273 k/uL (150-450); RBC 3.82 m/uL (4.30-5.90); RDW 13.7 % (11.5-15.5); WBC 12.8 k/uL (3.8-10.6)
[2023-04-13 08:38] LABS: ALT 38 U/L (4-49); AST 49 U/L (17-59); African American GFR (CKD) >90 (>60 ml/min/1.73 sqM); Albumin 3.3 g/dL (3.5-5.0); Alkaline Phosphatase 65 U/L (38-126); Anion Gap 11 mmol/L; Blood Urea Nitrogen 16 mg/dL (9-20); Calcium 8.2 mg/dL (8.4-10.2); Carbon Dioxide 18 mmol/L (22-30); Chloride 98 mmol/L (98-107); Glucose 282 mg/dL (74-99); Non-African American GFR(CKD) >90 (>60 ml/min/1.73 sqM); Potassium 5.7 mmol/L (3.5-5.1); Sodium 127 mmol/L (137-145); Total Bilirubin 0.3 mg/dL (0.2-1.3); Total Protein 6.2 g/dL (6.3-8.2)
[2023-04-13] MEDS ORDERED: LORATADINE 10 MG TAB PO SCH (09:00)
[2023-04-13] MEDS ORDERED: DEXTROSE 50% SYRINGE 50 ML IVP PRN ×4 (10:05→10:06)
[2023-04-13 11:57] LABS: Glucose,Whole Blood 198 mg/dL (70-110)
[2023-04-13] MEDS ORDERED: INSULIN ASPART (NovoLOG) 100 UNIT/ML VIAL SQ SCH (12:30)
[2023-04-13 12:50] VITALS: BP 151/79; PULSE 86; RESP 20; TEMP 97.7
[2023-04-13] MEDS ORDERED: SODIUM POLYSTYRENE SULFONATE 15 GM/60 ML BOTTLE PO STA (13:42)
--- NOTE | 2023-04-13 15:01 | P.DS ---
Providers Date of admission: 04/12/23 02:32 Expected date of discharge: 04/13/23 Attending physician: Tricia Pena Consults: 04/12/23 02:31 Consult Physician Routine Consulting Provider: Wero Nguyen Consult Reason/Comments: medical management Do you want consulting provider notified?: Yes 04/12/23 03:56 Consult Physician Routine Consulting Provider: [facility] Consult Reason/Comments: [facility] Do you want consulting provider notified?: Yes Primary care physician: Terry Vasquez Hospital Course: POSTOPERATIVE DIAGNOSES: 1. Acute cholecystitis due to gallstones 2. Diabetes type 2, insulin-dependent 3. Hypertensive heart disease 4. Diabetic neuropathy 5. Peripheral vascular occlusive disease 6. Morbid obesity due to excess calories, BMI 42.3 7. Fatty liver disease 8. Hepatomegaly 9. Liver cirrhosis 10. Leukocytosis INDICATIONS: The patient is a 62 year-old male who presented with acute cholecystitis. He underwent cholecystectomy with new features of liver cirrhosis and severe hepatomegaly with fatty liver disease. Postoperatively, patient was clinically stable. Laboratory results demonstrated low sodium and h igh potassium. Adjustment of his medications include discontinue lisinopril. Low-fat diet advised. Telehealth follow-up in one week. Outpatient follow-up with primary care provider. Procedures: OPERATION: Robotic-assisted da Twin Xi laparoscopic cholecystectomy, multiport with FIREFLY ESTIMATED BLOOD LOSS: 10 mL. SPECIMENS REMOVED: Gallbladder. COMPLICATIONS: None. OPERATIVE FINDINGS: 1. Acute cholecystitis with hydrops and distended gallbladder 2. Common bile duct within normal limits, without dilation 3. Severe hepatomegaly due to fatty liver disease, early liver cirrhosis, micronodular Patient Condition at Discharge: Good Plan - Discharge Summary Discharge Rx Participant: Yes New Discharge Prescriptions: New Simethicone [Gas-X] 125 mg PO AC-TID PRN #20 capsule PRN Reason: Pain Ibuprofen [Motrin] 600 mg PO Q8HR PRN #30 tab PRN Reason: Pain Continue Cetirizine HCl 10 mg PO DAILY traMADol HCl [Ultram] 100 mg PO TID HYDROcodone/APAP 10-325MG [[place] 10-325] 1 tab PO QID metFORMIN HCL [Glucophage] 1,000 mg PO BID Insulin Glargine,Hum.rec.anlog [Lantus Solostar Pen] 35 units SQ BID Albuterol Sulfate [Ventolin HFA] 1 - 2 puff INHALATION RT-Q6H PRN PRN Reason: Shortness Of Breath Insulin Aspart [NovoLOG Flexpen] 16 units SQ AC-TID Discontinued lisinopriL 20 mg PO W/SUPPER Discharge Medication List Cetirizine HCl 10 mg PO DAILY 09/01/16 [History] HYDROcodone/APAP 10-325MG [[place] 10-325] 1 tab PO QID 09/02/20 [History] metFORMIN HCL [Glucophage] 1,000 mg PO BID 09/02/20 [History] traMADol HCl [Ultram] 100 mg PO TID 09/02/20 [History] Albuterol Sulfate [Ventolin HFA] 1 - 2 puff INHALATION RT-Q6H PRN 07/24/22 [History] Insulin Aspart [NovoLOG Flexpen] 16 units SQ AC-TID 07/24/22 [History] Insulin Glargine,Hum.rec.anlog [Lantus Solostar Pen] 35 units SQ BID 07/24/22 [History] Ibuprofen [Motrin] 600 mg PO Q8HR PRN #30 tab 04/13/23 [Rx] Simethicone [Gas-X] 125 mg PO AC-TID PRN #20 capsule 04/13/23 [Rx] Follow up Appointment(s)/Referral(s): Terry Vasquez MD [Primary Care Provider] - 1-2 days Tricia Pena MD [Family Provider] - 04/17/23 8:45 am (TELEHEALTH) Patient Instructions/Handouts: Cirrhosis (DC), Low Fat Diet (DC), Laparoscopic Cholecystectomy (DC) Activity/Diet/Wound Care/Special Instructions: TELEHEALTH - DR WILL CALL YOU BETWEEN 8 am to 8 pm Recommend low-fat diet for the next 2 days. No lifting over 4 pounds in 4 weeks until May 13October shower. No bath tub soaks for two weeks until Apr 26 Diet as tolerated. Use Tylenol, simethicone and ibuprofen or Aleve scheduled for the next 24-48 hours for best pain relief. Use ice along incisions for today to prevent swelling. Discharge Disposition: HOME SELF-CARE
--- NOTE | 2023-04-13 16:53 | P.PN ---
Progress Note - Text Progress Note Date: 04/13/23 - Chief Complaint Abdominal pain Hospital course Pleasant 62-year-old patient follows with Dr. Terry Vasquez. Chronic stable medical conditions include asthma, diabetes, hypertension, infection of the ball of the right foot, being followed by Dr. Quintero at the wound care center. Does follow every 1 week. On Mondays. It had healed up in November , relapsed again. Now better. No drainage. Wound dressing is done every week. Has a wound boot on the right foot. Patient been having dull ache in the right abdomen constantly some exacerbation radiating especially fatty foods. Patient be worked up by Dr. Krishna for cholecystitis. Patient is due to come in for surgery this morning. Doesn't mix up in paperwork. Having abdominal pain. Admitted for the same. Patient is made nothing by mouth initially. Patient's at the bedside. April 13: Underwent cholecystectomy yesterday. Diet advanced by surgery to regular today. Pain well controlled. No nausea vomiting. Potassium came back at 5.7. Kayexalate ordered. Repeat potassium came down to 4.7. Care was discussed with the patient and at the bedside. Questions answered. Active Medications Hydrocodone Bitart/Acetaminophen (Hydrocodone/Apap 10-325mg 1 Each Tab) 1 each PO QID [facility] Last Admin: 04/13/23 13:05 Dose: 1 each Albuterol Sulfate (Albuterol Nebulized 2.5 Mg/3 Ml) 2.5 mg INHALATION RT-QID PRN PRN Reason: Shortness Of Breath Or Wheezing Last Admin: 04/12/23 19:57 Dose: 2.5 mg Dextrose/Water (Dextrose 50% Syringe 50 Ml) 25 ml IVP PER PROTOCOL PRN; Protocol PRN Reason: Hypoglycemia Dextrose/Water (Dextrose 50% Syringe 50 Ml) 50 ml IVP PER PROTOCOL PRN; Protocol PRN Reason: Hypoglycemia Heparin Sodium (Porcine) (Heparin Sodium,Porcine 5,000 Unit/Ml 1 Ml Vial) 5,000 unit SQ Q12HR [facility] Last Admin: 04/13/23 08:05 Dose: Not Given Sodium Chloride (Saline 0.9%) 1,000 mls @ 130 mls/hr IV .Q7H42M [facility] Last Admin: 04/13/23 08:06 Dose: Not Given Piperacillin Sod/Tazobactam (Sod 3.375 gm/ Sodium Chloride) 100 mls @ 25 mls/hr IVPB Q8H [facility]; Protocol Last Admin: 04/13/23 11:53 Dose: 25 mls/hr Insulin Aspart (Insulin Aspart (Novolog) 100 Unit/Ml Vial) 16 unit SQ AC-TID [facility] Last Admin: 04/13/23 11:58 Dose: 16 unit Insulin Aspart (Insulin Aspart (Novolog) 100 Unit/Ml Vial) 0 unit SQ ACHS [facility]; Protocol Last Admin: 04/13/23 11:59 Dose: 4 unit Insulin Detemir (Insulin Detemir (Levemir) 100 Unit/Ml Syr) 28 unit SQ BID [facility] Last Admin: 04/13/23 08:05 Dose: 28 unit Ketorolac Tromethamine (Ketorolac 15 Mg/Ml 1 Ml Vial) 15 mg IVP Q6HR [facility] Stop: 04/14/23 00:01 Last Admin: 04/13/23 11:53 Dose: 15 mg Lisinopril (Lisinopril 20 Mg Tab) 20 mg PO W/SUPPER [facility] Last Admin: 04/12/23 19:27 Dose: Not Given Loratadine (Loratadine 10 Mg Tab) 10 mg PO DAILY [facility] Last Admin: 04/13/23 08:04 Dose: 10 mg Metformin HCl (Metformin 500 Mg Tab) 1,000 mg PO AC-BID [facility] Last Admin: 04/13/23 06:48 Dose: 1,000 mg Morphine Sulfate (Morphine Sulfate 4 Mg/Ml Syringe) 4 mg IVP Q4HR PRN PRN Reason: Pain Last Admin: 04/13/23 03:49 Dose: 4 mg Naloxone HCl (Naloxone 0.4 Mg/Ml 1 Ml Vial) 0.2 mg IV Q2M PRN PRN Reason: Opioid Reversal Ondansetron HCl (Ondansetron 4 Mg/2 Ml Vial) 4 mg IVP Q8H PRN PRN Reason: Nausea Last Admin: 04/12/23 21:21 Dose: 4 mg Tamsulosin HCl (Tamsulosin 0.4 Mg Cap.Er.24h) 0.4 mg PO PC-BRKFST [facility] Last Admin: 04/12/23 16:20 Dose: 0.4 mg Tramadol HCl (Tramadol 50 Mg Tab) 100 mg PO TID [facility] Last Admin: 04/13/23 16:43 Dose: 100 mg 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 No smoking or alcohol. . Physical examination: VITAL SIGNS: 97.7, 86, 20, 151/79, 95% room air GENERAL: In a recliner, comfortable EYES: Pupils equal. Conjunctiva normal. HEENT: External appearance of nose and ears normal, oral cavity grossly normal. NECK: JVD not raised; masses not palpable. HEART: First and second heart sounds are normal; no edema. LUNGS: Respiratory rate normal; clear to auscultation. ABDOMEN: Soft, mild tenderness, no guarding rigidity, liver spleen not palpable, no masses palpable. PSYCH: Alert and oriented x3; mood and affect normal. MUSCULOSKELETAL:No Clubbing/cyanosis;muscles-grossly intact. Right foot in a boot. Wound on ball of the right foot. INVESTIGATIONS, reviewed in the clinical context: April 13: White count 12.8 hemoglobin 10.1 potassium 5. 1 repeat 4.6 creatinine 0.86 sodium 127 Ultrasound gallbladder: [April 11]: Gallstones with mild distention of the gallbladder 04/11/2023: White count 11.9 hemoglobin 11.7 platelets 354 potassium 4.7 creatinine 0.8 EKG tracing personally reviewed by me-[02/20/2023]: Normal sinus rhythm Assessment and plan: -Acute onchronic cholecystitis IV Ancef, IV Zosyn. Cholecystectomy April 12 -Gallstones, symptomatic Cholecystectomy April 12 -Diabetes mellitus type 2, chronically insulin Lantus 28 units subcu twice a day. Hold metformin. Follow Accu-Cheks with sliding scale -Essential hypertension Lisinopril -Hyponatremia, Increase oral intake -Chronic wound on the right foot at the ball of the big toe. Follows every Sunday with Dr. Quintero of the wound care center. Stable. Has a boot on the right foot. -Morbid obesity BMI 42.3 Weight loss measures Potassium came down with Kayexalate. Other medications to continue. Thank you Dr. 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 He denies any medical marijuana, marijuana or street drug or alcohol use. He lives at home with his . There are no pets in the home. 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 No service. Smoking Status: Never smoker Past Alcohol Use History: None Reported Additional Past Alcohol Use History / Comment(s): Patient is a lifelong nonsmoker. He denies any medical marijuana, marijuana or street drug or alcohol use. He lives at home with his . There are no pets in the home. 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 No service. Past Drug Use History: None Reported - Past Family History Father Family Medical History: Hypertension Mother Family Medical History: Asthma, COPD
== END 2023-04-13 17:34 | disposition home or self-care (01) ==
LOC: EC 20:28 → INTOOBSV 04-12 02:32 → 1SOBS 04-12 02:32
PROVIDERS: ADMIT Surgery Plastic and Reconstructive Surgery; ATTEND Surgery Plastic and Reconstructive Surgery
DX: K80.12 Calculus of gallbladder with acute and chronic cholecystitis without obstruction (principal); E87.1 Hypo-osmolality and hyponatremia; E87.5 Hyperkalemia; I11.9 Hypertensive heart disease without heart failure; G89.4 Chronic pain syndrome; K74.60 Unspecified cirrhosis of liver; K76.0 Fatty (change of) liver, not elsewhere classified; E11.40 Type 2 diabetes mellitus with diabetic neuropathy, unspecified; E66.01 Morbid (severe) obesity due to excess calories; Z68.41 Body mass index [BMI] 40.0-44.9, adult; K64.9 Unspecified hemorrhoids; S91.301A Unspecified open wound, right foot, initial encounter; L08.9 Local infection of the skin and subcutaneous tissue, unspecified; Z79.84 Long term (current) use of oral hypoglycemic drugs; Z79.4 Long term (current) use of insulin; Z79.891 Long term (current) use of opiate analgesic; Z79.899 Other long term (current) drug therapy; Z88.1 Allergy status to other antibiotic agents; Z88.2 Allergy status to sulfonamides; Z88.5 Allergy status to narcotic agent; Z88.8 Allergy status to other drugs, medicaments and biological substances; Z86.14 Personal history of Methicillin resistant Staphylococcus aureus infection; Z90.49 Acquired absence of other specified parts of digestive tract; Z98.890 Other specified postprocedural states; Z82.49 Family history of ischemic heart disease and other diseases of the circulatory system; Z82.5 Family history of asthma and other chronic lower respiratory diseases
CPT/HCPCS: 47562; S2900; 36415; 76705; 80053; 82150; 83690; 84132; 85025; 85610; 85730; 86850; 86900; 86901; 87040; 88304; 94640; 96374; 96375; 96376; 99285

== ENCOUNTER → 2023-10-19 | Outpatient (CLI) | payer MEDICARE ==
--- NOTE | 2023-10-20 10:14 | US ---
EXAMINATION TYPE: US liver DATE OF EXAM: 10/19/2023 COMPARISON: None CLINICAL INDICATION: Male, 63 years old with history of K74.60 CIRRHOSIS OF LIVER; GB removed in [place]. TECHNIQUE: Multiple sonographic images of the right upper quadrant are obtained. FINDINGS: EXAM MEASUREMENTS: Liver Length: 20.2 cm Right Kidney: 13.5 x 6.7 x 7.5 cm ACADEMIC SUPPORT DIRECTOR NOTES:Suboptimal due to patient body habitu Pancreas: Head and tail obscured by overlying bowel gas Liver: Echogenic and coarse. Enlarged in size. Limited visualization Gallbladder: Surgically absent Evidence for sonographic Orta's sign: neg CBD: Obscured by overlying bowel gas Right Kidney: Mid hypoechoic lesion, limited visualization - 4.0 x 3.5 x 3.4 cm IMPRESSION: 1. Marked hepatomegaly with coarse attenuating echotexture consistent with fatty infiltration. 2. Cholecystectomy. 3. 4 cm hypoechoic lesion of the right kidney cannot be characterized as a simple cyst. Likely corres ponds to the complex right renal cyst seen on CT abdomen pelvis dated 07/24/2022. Repeat CT of the abd omen and pelvis is recommended to confirm stability. 4. Markedly limited evaluation of pancreas due to overlying bowel gas.
== END | disposition home or self-care (01) ==
LOC: RADUSWWP 11:01
PROVIDERS: ATTEND Surgery Plastic and Reconstructive Surgery
DX: K74.60 Unspecified cirrhosis of liver (principal); R16.0 Hepatomegaly, not elsewhere classified; N28.9 Disorder of kidney and ureter, unspecified; Z90.49 Acquired absence of other specified parts of digestive tract
CPT/HCPCS: 76705

== ENCOUNTER 2023-12-23 18:21 | Emergency (ER) | payer MEDICARE ==
[2023-12-23 18:33] VITALS: TEMP 98.1
--- NOTE | 2023-12-23 18:35 | ED ---
Abdominal Pain HPI - General Chief Complaint: Abdominal Pain Stated Complaint: Abd pain Time Seen by Provider: 12/23/23 18:35 Source: patient, RN notes reviewed Mode of arrival: ambulatory Limitations: no limitations - History of Present Illness Initial Comments: Is a 63-year-old male presents emergency department chief complaint of mid abdominal pain for the last 3 days. Denies radiation of pain. He states that his last bowel movement was yesterday, no signs of hematemesis or dark or tarry stools. He denies nausea, vomiting, fevers, chills, chest pain, dyspnea. Denies dysuria, hematuria increase in frequency or urgency. Patient has had a cholecystectomy, appendectomy, and umbilical hernia repair. Patient follows with Dr. Pena. Had an ultrasound completed with Dr. Krishna in October 23 due to similar symptoms. It is noted that patient has cirrhosis on previous US. - Related Data Home Medications Medication Instructions Recorded Confirmed Cetirizine HCl 10 mg PO DAILY 09/01/16 04/12/23 HYDROcodone/APAP 10-325MG [[place] 1 tab PO QID 09/02/20 04/12/23 10-325] metFORMIN HCL [Glucophage] 1,000 mg PO BID 09/02/20 04/12/23 traMADol HCl [Ultram] 100 mg PO TID 09/02/20 04/12/23 Albuterol Sulfate [Ventolin HFA] 1 - 2 puff INHALATION RT-Q6H PRN 07/24/22 04/12/23 Insulin Aspart [NovoLOG Flexpen] 16 units SQ AC-TID 07/24/22 04/12/23 Insulin Glargine,Hum.rec.anlog 35 units SQ BID 07/24/22 04/12/23 [Lantus Solostar Pen] Previous Rx's Medication Instructions Recorded Ibuprofen [Motrin] 600 mg PO Q8HR PRN #30 tab 04/13/23 Simethicone [Gas-X] 125 mg PO AC-TID PRN #20 capsule 04/13/23 Allergies Allergy/AdvReac Type Severity Reaction Status Date / Time gabapentin Allergy Swelling Verified 12/23/23 18:33 hydromorphone [From Dilaudid] Allergy Unknown Verified 12/23/23 18:33 ciprofloxacin [From Cipro] AdvReac Confusion, Verified 12/23/23 18:33 Dizziness sulfamethoxazole AdvReac Nausea & Verified 12/23/23 18:33 [From Bactrim] Vomiting trimethoprim [From Bactrim] AdvReac Nausea & Verified 12/23/23 18:33 Vomiting Review of Systems ROS Statement: Those systems with pertinent positive or pertinent negative responses have been documented in the HPI. ROS Other: All systems not noted in ROS Statement are negative. Past Medical History Past Medical History: Asthma, Diabetes Mellitus, Hypertension Additional Past Medical History / Comment(s): Wound to right foot, History of Any Multi-Drug Resistant Organisms: MRSA Date of last positivie culture/infection: 03/24/19 MDRO Source:: blood and foot Past Surgical History: Appendectomy, Heart Catheterization, Hernia Repair, Orthopedic Surgery Additional Past Surgical History / Comment(s): RT ROATATOR CUFF SX, RT INGUINAL HERNIA,UMB HERNIA REPAIR Past Anesthesia/Blood Transfusion Reactions: No Reported Reaction Past Psychological History: No Psychological Hx Reported Smoking Status: Never smoker Past Alcohol Use History: None Reported Past Drug Use History: None Reported - Past Family History Father Family Medical History: Hypertension Mother Family Medical History: Asthma, COPD General Exam Limitations: no limitations General appearance: alert, in no apparent distress, obese Head exam: Present: atraumatic, normocephalic, normal inspection Eye exam: Present: normal appearance, PERRL, EOMI. Absent: scleral icterus, conjunctival injection, periorbital swelling ENT exam: Present: normal exam, mucous membranes moist Neck exam: Present: normal inspection. Absent: tenderness, meningismus, lymphadenopathy Respiratory exam: Present: normal lung sounds bilaterally. Absent: respiratory distress, wheezes, rales, rhonchi, stridor Cardiovascular Exam: Present: regular rate, normal rhythm, normal heart sounds. Absent: systolic murmur, diastolic murmur, rubs, gallop, clicks GI/Abdominal exam: Present: soft, tenderness (epigastric and right upper), normal bowel sounds. Absent: distended, guarding, rebound, rigid Extremities exam: Present: normal inspection, full ROM, normal capillary refill. Absent: tenderness, pedal edema, joint swelling, calf tenderness Back exam: Present: normal inspection Neurological exam: Present: alert, oriented X3, CN II-XII intact Psychiatric exam: Present: normal affect, normal mood Skin exam: Present: warm, dry, intact, normal color. Absent: rash Course Vital Signs 12/23/23 12/23/23 18:28 23:35 Temperature 98.1 F Pulse Rate 78 68 Respiratory 18 20 Rate Blood Pressure 132/79 136/80 O2 Sat by Pulse 95 98 Oximetry Medical Decision Making - Medical Decision Making Was pt. sent in by a medical professional or institution (, PA, POLY AREA SUPERVISOR, urgent care, hospital, or care home...) When possible be specific @ -No Did you speak to anyone other than the patient for history (EMS, parent, family, police, friend...)? What history was obtained from this source @ -No Did you review nursing and triage notes (agree or disagree)? Why? @ -I reviewed and agree with nursing and triage notes Were old charts reviewed (outside hosp., previous admission, EMS record, old EKG, old radiological studies, urgent care reports/EKG's, care home records)? Report findings @ -reviewed ultrasound completed of the patient's liver on 12/19/2023 with marked hepatomegaly and coarse attenuating echotexture Differential Diagnosis (chest pain, altered mental status, abdominal pain women, abdominal pain men, vaginal bleeding, weakness, fever, dyspnea, syncope, headache, dizziness, GI bleed, back pain, seizure, CVA, palpatations, mental health, musculoskeletal)? @ -Differential Abdominal Pain Men: Appendicitis, cholecystitis, diverticulosis, ischemic bowel, pancreatitis, hepatitis, UTI, gastroenteritis, AAA, incarcerated hernia, bowel obstruction, constipation, inflammatory bowel, hepatitis, peptic ulcer disease, splenic infarction, perforated viscus, testicular torsion, this is not meant to be an all-inclusive list EKG interpreted by me (3pts min.). @ -As above X-rays interpreted by me (1pt min.). @ -None done CT interpreted by me (1pt min.). @ -CT of the abdomen and pelvis with contrast reveals hepatic steatosis and evaluation of the portal vein with splenomegaly, 16 mm right superior kidney l esion.. U/S interpreted by me (1pt. min.). @ -None done What testing was considered but not performed or refused? (CT, X-rays, U/S, labs)? Why? @ -None What meds were considered but not given or refused? Why? @ -None Did you discuss the management of the patient with other professionals (professionals i.e. , PA, POLY AREA SUPERVISOR, lab, RT, psych nurse, rn social services, motor hotel manager, teacher, cra officer, showcase maker)? Give summary @ -No Was smoking cessation discussed for >3mins.? @ -No Was critical care preformed (if so, how long)? @ -No Were there social determinants of health that impacted care today? How? (Homelessness, low income, unemployed, alcoholism, drug addiction, transportation, low edu. Level, literacy, decrease access to med. care, fci, rehab)? @ -No Was there de-escalation of care discussed even if they declined (Discuss DNR or withdrawal of care, Hospice)? DNR status @ -No What co-morbidities impacted this encounter? (DM, HTN, Smoking, COPD, CAD, Cancer, CVA, ARF, Chemo, Hep., AIDS, mental health diagnosis, sleep apnea, morbid obesity)? @ -None Was patient admitted / discharged? Hospital course, mention meds given and route, prescriptions, significant lab abnormalities, going to OR and other pertinent info. @ -63-year-old male with abdominal pain. On examination patient noted to have mid abdominal pain, abdomen is soft and no signs of rigidity. Time patient will be evaluated via laboratory studies addition to urinalysis. Also patient was provided with a dose of Protonix. On reevaluation patient states that pain is still persistent after medication. At this time will be sent for a CT of the abdomen for further evaluation. CBC unremarkable, coagulation profile within normal limits, CMP reveals hyponatremia of 131, elevated glucose of 222. Magn esium 1.2. Urinalysis reveals 3+ glucose. CT nonconcerning for any acute intra-abdominal process. At this time recommend patient follows up outpatient with his primary care provider for further evaluation. All questions answered at bedside and strict return parameters advised the patient as well as understanding. Case discussed with Dr. Peres. Undiagnosed new problem with uncertain prognosis? @ -No Drug Therapy requiring intensive monitoring for toxicity (Heparin, Nitro, Insul in, Cardizem)? @ -No Were any procedures done? @ -No Diagnosis/symptom? @ -epigastric abdominal pain, cirrhosis Acute, or Chronic, or Acute on Chronic? @ -acute Uncomplicated (without systemic symptoms) or Complicated (systemic symptoms)? @ -uncomplicated Side effects of treatment? @ -No Exacerbation, Progression, or Severe Exacerbation? @ -No Poses a threat to life or bodily function? How? (Chest pain, [place], [place], pneumonia, PE, COPD, DKA, ARF, appy, cholecystitis, CVA, Diverticulitis, Homicidal, Suicidal, threat to staff... and all critical care pts) @ -No - Lab Data Result diagrams: 12/23/23 18:56 12/23/23 18:56 Lab Results 12/23/23 12/23/23 12/23/23 Range/Units 18:56 18:56 18:56 WBC 11.4 H (3.8-10.6) k/uL RBC 4.79 (4.30-5.90) m/uL Hgb 12.3 L (13.0-17.5) gm/dL Hct 39.5 (39.0-53.0) % MCV 82.5 (80.0-100.0) fL MCH 25.6 (25.0-35.0) pg MCHC 31.0 (31.0-37.0) g/dL RDW 13.7 (11.5-15.5) % Plt Count 335 (150-450) k/uL MPV 7.7 Neutrophils % 73 % Lymphocytes % 16 % Monocytes % 7 % Eosinophils % 2 % Basophils % 1 % Neutrophils # 8.3 H (1.3-7.7) k/uL Lymphocytes # 1.9 (1.0-4.8) k/uL Monocytes # 0.8 (0-1.0) k/uL Eosinophils # 0.2 (0-0.7) k/uL Basophils # 0.1 (0-0.2) k/uL PT (10.0-12.5) sec INR (<1.2) APTT (22.0-30.0) sec Sodium 131 L (137-145) mmol/L Potassium 5.0 (3.5-5.1) mmol/L Chloride 98 (98-107) mmol/L Carbon Dioxide 19 L (22-30) mmol/L Anion Gap 14 mmol/L BUN 13 (9-20) mg/dL Creatinine 0.75 (0.66-1.25) mg/dL Est GFR (CKD-EPI)AfAm >90 (>60 ml/min/1.73 sqM) Est GFR (CKD-EPI)NonAf >90 (>60 ml/min/1.73 sqM) Glucose 222 H (74-99) mg/dL Calcium 9.5 (8.4-10.2) mg/dL Magnesium 1.2 L (1.6-2.3) mg/dL Total Bilirubin 0.6 (0.2-1.3) mg/dL AST 34 (17-59) U/L ALT 30 (4-49) U/L Alkaline Phosphatase 64 (38-126) U/L Total Protein 7.7 (6.3-8.2) g/dL Albumin 4.5 (3.5-5.0) g/dL Amylase 35 (30-110) U/L Lipase 53 (23-300) U/L Urine Color Colorless Urine Appearance Clear (Clear) Urine pH 5.5 (5.0-8.0) Ur Specific [place] 1.007 (1.001-1.035) Urine Protein Negative (Negative) Urine Glucose (UA) 3+ H (Negative) Urine Ketones Negative (Negative) Urine Blood Negative (Negative) Urine Nitrite Negative (Negative) Urine Bilirubin Negative (Negative) Urine Urobilinogen <2.0 (<2.0) mg/dL Ur Leukocyte Esterase Negative (Negative) 12/23/23 Range/Units 19:10 WBC (3.8-10.6) k/uL RBC (4.30-5.90) m/uL Hgb (13.0-17.5) gm/dL Hct (39.0-53.0) % MCV (80.0-100.0) fL MCH (25.0-35.0) pg MCHC (31.0-37.0) g/dL RDW (11.5-15.5) % Plt Count (150-450) k/uL MPV Neutrophils % % Lymphocytes % % Monocytes % % Eosinophils % % Basophils % % Neutrophils # (1.3-7.7) k/uL Lymphocytes # (1.0-4.8) k/uL Monocytes # (0-1.0) k/uL Eosinophils # (0-0.7) k/uL Basophils # (0-0.2) k/uL PT 10.8 (10.0-12.5) sec INR 1.0 (<1.2) APTT 25.3 (22.0-30.0) sec Sodium (137-145) mmol/L Potassium (3.5-5.1) mmol/L Chloride (98-107) mmol/L Carbon Dioxide (22-30) mmol/L Anion Gap mmol/L BUN (9-20) mg/dL Creatinine (0.66-1.25) mg/dL Est GFR (CKD-EPI)AfAm (>60 ml/min/1.73 sqM) Est GFR (CKD-EPI)NonAf (>60 ml/min/1.73 sqM) Glucose (74-99) mg/dL Calcium (8.4-10.2) mg/dL Magnesium (1.6-2.3) mg/dL Total Bilirubin (0.2-1.3) mg/dL AST (17-59) U/L ALT (4-49) U/L Alkaline Phosphatase (38-126) U/L Total Protein (6.3-8.2) g/dL Albumin (3.5-5.0) g/dL Amylase (30-110) U/L Lipase (23-300) U/L Urine Color Urine Appearance (Clear) Urine pH (5.0-8.0) Ur Specific [place] (1.001-1.035) Urine Protein (Negative) Urine Glucose (UA) (Negative) Urine Ketones (Negative) Urine Blood (Negative) Urine Nitrite (Negative) Urine Bilirubin (Negative) Urine Urobilinogen (<2.0) mg/dL Ur Leukocyte Esterase (Negative) Disposition Clinical Impression: Abdominal pain Disposition: HOME SELF-CARE Condition: Good Instructions (If sedation given, give patient instructions): Abdominal Pain (ED) Additional Instructions: Return emergency department if symptoms worsen or improve. Follow-up with your primary care provider for further evaluation. Is patient prescribed a controlled substance at d/c from ED?: No Referrals: Tricia Pena MD [STAFF PHYSICIAN] - 1-2 days
[2023-12-23] MEDS: PANTOPRAZOLE 40 MG/10 ML VIAL IVP STA (19:11)
[2023-12-23 19:14] LABS: Basophils # (A) 0.1 k/uL (0-0.2); Basophils % (A) 1 %; Eosinophils # (A) 0.2 k/uL (0-0.7); Eosinophils % (A) 2 %; HCT 39.5 % (39.0-53.0); HGB 12.3 gm/dL (13.0-17.5); Lymphocytes # (A) 1.9 k/uL (1.0-4.8); Lymphocytes % (A) 16 %; MCH 25.6 pg (25.0-35.0); MCV 82.5 fL (80.0-100.0); Mean Platelet Volume 7.7; Monocytes # (A) 0.8 k/uL (0-1.0); Monocytes % (A) 7 %; Neutrophils # (A) 8.3 k/uL (1.3-7.7); Neutrophils % (A) 73 %; Platelet Count 335 k/uL (150-450); RBC 4.79 m/uL (4.30-5.90); RDW 13.7 % (11.5-15.5); WBC 11.4 k/uL (3.8-10.6)
[2023-12-23 19:16] LABS: Appearance,Urine Clear (Clear); Bilirubin,Urine Negative (Negative); Blood,Urine Negative (Negative); Color,Urine Colorless; Glucose,Urine (UA) 3+ (Negative); Ketones,Urine Negative (Negative); Leukocyte Esterase,Urine Negative (Negative); Nitrite,Urine Negative (Negative); PH, Urine 5.5 (5.0-8.0); Protein,Urine Negative (Negative); Specific Gravity,Urine 1.007 (1.001-1.035); Urobilinogen,Urine <2.0 mg/dL (<2.0)
[2023-12-23 19:33] LABS: ALT 30 U/L (4-49); AST 34 U/L (17-59); African American GFR (CKD) >90 (>60 ml/min/1.73 sqM); Albumin 4.5 g/dL (3.5-5.0); Alkaline Phosphatase 64 U/L (38-126); Amylase 35 U/L (30-110); Anion Gap 14 mmol/L; Blood Urea Nitrogen 13 mg/dL (9-20); Calcium 9.5 mg/dL (8.4-10.2); Carbon Dioxide 19 mmol/L (22-30); Chloride 98 mmol/L (98-107); Glucose 222 mg/dL (74-99); Lipase 53 U/L (23-300); Magnesium 1.2 mg/dL (1.6-2.3); Non-African American GFR(CKD) >90 (>60 ml/min/1.73 sqM); Sodium 131 mmol/L (137-145); Total Bilirubin 0.6 mg/dL (0.2-1.3); Total Protein 7.7 g/dL (6.3-8.2)
[2023-12-23 19:38] LABS: Partial Thromboplastin Time 25.3 sec (22.0-30.0); Prothrombin Time 10.8 sec (10.0-12.5)
--- NOTE | 2023-12-23 20:28 | CT ---
EXAMINATION TYPE: CT abdomen pelvis w con CT DLP: 2871.7 mGycm, Automated exposure control for dose reduction was used. DATE OF EXAM: 12/23/2023 8:03 PM COMPARISON: CT abdomen pelvis most recent from 07/24/2022. CLINICAL INDICATION:Male, 63 years old with history of mid abdominal pain; Upper Abdominal pain. TECHNIQUE: Axial CT abdomen pelvis w con;Sagittal and coronal reformats were created on a separate w orkstation. Contrast used:100ml mL of Isovue 300 with IV Contrast, (none if empty) Oral contrast used: without Oral Contrast (none if empty) FINDINGS: LOWER CHEST: Severe coronary artery atherosclerosis. ABDOMEN LIVER: Diffusely hypoattenuating parenchyma. There is subtle nodular contour to liver GALLBLADDER AND BILE DUCTS: The gallbladder is surgically absent. PANCREAS: Lipomatous atrophy of the pancreatic parenchyma. SPLEEN: Enlarged measuring up to 15.8 cm. ADRENAL GLANDS: Unremarkable. KIDNEYS AND URETERS: Right renal cyst r with thin calcifications or 49 mm. Left simple appearing jose l cysts. An indeterminate 16 mm right superior pole renal lesion. Indeterminate No evidence of hydron ephrosis or renal calculus. The ureters are unremarkable. PELVIS BLADDER: Unremarkable REPRODUCTIVE: Unremarkable. ABDOMEN & PELVIS STOMACH AND BOWEL: No evidence of bowel obstruction. PERITONEUM/RETROPERITONEUM: No evidence of pneumoperitoneum or free fluid. VASCULATURE: No evidence of aortic aneurysm. The main portal vein is dilated up to 18 mm. MUSCULOSKELETAL: No acute osseous abnormalities LYMPH NODES: No gross evidence for lymphadenopathy. SOFT TISSUE/ABDOMINAL WALL: There are stimulator device with leads remain in the posterior thecal sac . Multilevel degeneration changes of the spine. IMPRESSION: 1. Hepatic steatosis with subtle nodular contour to liver and dilation of the portal vein with splen omegaly correlate for cirrhosis with portal hypertension. 2. Indeterminate 16 mm in the right superior kidney lesion, further evaluation with MRI renal mass p rotocol recommended. 3. Interval cholecystectomy.
[2023-12-23] MEDS: MORPHINE SULFATE 2 MG/ML SYRINGE IVP ONE (21:34)
[2023-12-23] MEDS: SODIUM CHLORIDE 0.9% 1,000 ML IV STA (21:37)
[2023-12-23] MEDS: MAGNESIUM OXIDE 400 MG TAB PO STA (22:07)
[2023-12-23 23:38] VITALS: BP 136/80; PULSE 68; RESP 20
== END 2023-12-23 23:35 | disposition home or self-care (01) ==
LOC: EC 18:21
DX: K74.60 Unspecified cirrhosis of liver (principal); E87.1 Hypo-osmolality and hyponatremia; K76.0 Fatty (change of) liver, not elsewhere classified; N28.9 Disorder of kidney and ureter, unspecified; R16.1 Splenomegaly, not elsewhere classified; R73.09 Other abnormal glucose; E66.9 Obesity, unspecified; Z88.8 Allergy status to other drugs, medicaments and biological substances; Z88.5 Allergy status to narcotic agent; Z88.1 Allergy status to other antibiotic agents; Z88.2 Allergy status to sulfonamides; Z68.41 Body mass index [BMI] 40.0-44.9, adult
CPT/HCPCS: 36415; 80053; 82150; 83690; 83735; 85025; 85610; 85730; 81003; 74177; 99285; 96374; 96375; 96361 ×2; J2270; C9113; Q9967

== ENCOUNTER 2024-02-15 11:23 | Emergency (ER) | payer MEDICARE ==
[~2024-02-15 11:23] MED LIST changes: -ALPRAZolam 0.25 MG TAB PO PRN; -ASPIRIN 325 MG TAB PO STA; +SODIUM CHLORIDE 0.9% 1,000 ML BAG ONE; -SODIUM CHLORIDE 0.9% 1,000 ML in EMPTY BAG 1 BAG IV ONE
[2024-02-15] MEDS ORDERED: METOCLOPRAMIDE 5 MG/ML 2 ML VIAL ONE (12:25)
[2024-02-15] MEDS ORDERED: DICYCLOMINE 10 MG/ML 2 ML AMP ONE (12:25)
[2024-02-15] MEDS ORDERED: FAMOTIDINE 20 MG/2 ML VIAL ONE (12:26)
[2024-02-15] MEDS ORDERED: MORPHINE SULFATE 4 MG/ML SYRINGE ONE ×2 (14:34→18:42)
[2024-02-15] MEDS ORDERED: MORPHINE SULFATE 2 MG/ML SYRINGE ONE (14:34)
[2024-02-15] MEDS ORDERED: traMADol 50 MG STARTER PACK 3 TAB BTL ONE (19:20)
--- NOTE | 2024-03-07 13:57 | CT ---
Patient Liu Kilpatrick ID [id number] Order # EXAMINATION TYPE: CT abdomen pelvis w con DATE OF EXAM: 02/15/2024 COMPARISON: No comparison available on downtime PACS. INDICATION: Pain constipation rectal bleeding DLP: 2552.6 mGycm, Automated exposure control for dose reduction was used. CONTRAST: 100 mL of Isovue 300. Study performed without Oral Contrast TECHNIQUE: Axial images were obtained from above the diaphragm to the pubic rami in the axial plane a t 5 mm thick sections. Reconstructed images are reviewed on the computer in the coronal plane. FINDINGS: Limited CT sections are obtained the lung bases. The lung bases are clear. CT ABDOMEN: There is a soft tissue density in the periumbilical region along the anterior abdominal w all measuring 3.5 x 2.2 cm. This is of uncertain etiology. No anterior abdominal wall hernia is ident ified.r Liver: Mild to moderate fatty infiltration versus liver. No discrete masses are evident. Spleen: Normal Pancreas: Atrophic Adrenal glands: The adrenal glands are normal. Gallbladder: Normal Kidneys: No mass is evident.. No hydronephrosis is present. There is a 4.0 cm cyst on the medial mi d right kidney. This appears to be septated with a calcified wall. Follow-up is recommended. There i s a 2.6 cm cyst on the posterior medial left mid to inferior pole. Delayed images were obtained thro ugh the kidneys, which remain unremarkable. Aorta: Vascular calcification is within the aorta. Inferior vena cava: Normal. CT PELVIS: Loops of bowel within the abdomen and pelvis are normal. This study is contrast limiting evaluati on. Appendix: Not identified. No dilated tubular structure or inflammatory change is evident. Urinary bladder: Normal. Genitourinary structures: The prostate appears unremarkable Osseous structures: No suspicious lytic or sclerotic lesions. Stimulator leads are within the thoraci c region. IMPRESSION: 1. No suspicious abnormalities to account for rectal bleeding. 2. Moderate fatty infiltration liver. 3. Complex cyst on the left kidney contains a calcified septation. Follow-up is recommended. 4. Periumbilical anterior abdominal wall soft tissues as uncertain etiology.
== END 2024-02-15 19:40 | disposition home or self-care (01) ==
LOC: EC 11:23
CPT/HCPCS: 74177; 96372; 96374; 96375; 96376; 99284

== ENCOUNTER → 2024-04-28 | Outpatient (CLI) | payer MEDICARE ==
[2024-04-28 14:47] LABS: African American GFR (CKD) 90 (>60 ml/min/1.73 sqM); Blood Urea Nitrogen 14 mg/dL (9-20); Non-African American GFR(CKD) 78 (>60 ml/min/1.73 sqM)
--- NOTE | 2024-04-28 19:42 | CT ---
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 Contrast used:100 mL of Isovue 370 without and with IV Contrast, (none if empty) Oral contrast used: with Oral Contrast (none if empty) CT DLP: 2898.7 mGycm, Automated exposure control for dose reduction was used. FINDINGS: LOWER CHEST: Coronary artery atherosclerosis. ABDOMEN LIVER: Diffusely hypoattenuating parenchyma. GALLBLADDER AND BILE DUCTS: Unremarkable. PANCREAS: Fatty atrophy changes of the pancreas. SPLEEN: Unremarkable. ADRENAL GLANDS: Unremarkable. KIDNEYS AND URETERS: No evidence of hydronephrosis or renal calculus. The ureters are unremarkable. S imple appearing renal cysts on the left. Mildly complex right renal cyst with thin septation measurin g up to 15 mm. ABDOMEN & PELVIS STOMACH AND BOWEL: No evidence of bowel obstruction. PERITONEUM/RETROPERITONEUM: No evidence of pneumoperitoneum or free fluid. VASCULATURE: No evidence of aortic aneurysm. MUSCULOSKELETAL: No acute osseous abnormalities LYMPH NODES: No gross evidence for lymphadenopathy. SOFT TISSUE/ABDOMINAL WALL: Post surgical changes anterior abdominal wall partially visualized. IMPRESSION: 1. Right Bosniak type II and left Bosniak type I renal cysts. No suspicious solid renal lesions. 2. No evidence for acute process. 3. Hepatic steatosis. [facility], , 04/28/2024 7:39 PM
== END | disposition home or self-care (01) ==
LOC: RADCTMAIN 14:09
PROVIDERS: ATTEND Urology
DX: D41.01 Neoplasm of uncertain behavior of right kidney (principal)
CPT/HCPCS: 36415; 74170; 82565; 84520